=== PATIENT | female | born 1955 | race Two or more races ===

== ENCOUNTER 2019-03-20 17:34 | Inpatient (IN) | payer OTHER ==
[~2019-03-20] VITALS: Ht 157.5 cm; Wt 49.9 kg
[~2019-03-20 17:34] MED LIST: D5W 110ml ONE; D5W 275ml ONE
[2019-03-20 17:45] VITALS: BP 141/71
[2019-03-20] MEDS ORDERED: BACTRIM DS TAB1 EAC1 ORAL (17:53)
[2019-03-20 18:06] LABS: BASOPHILS % (AUTO) 0.5 % (0.0-2.0); EOSINOPHILS % (AUTO) 0.7 % (0.0-3.0); HEMATOCRIT 35.2 % (37.0-47.0); HEMOGLOBIN 11.9 G/DL (12.0-16.0); LYMPHOCYTES % (AUTO) 8.7 % (20.0-45.0); MEAN CORPUSCULAR VOLUME 89 FL (80-99); MONOCYTES % (AUTO) 10.2 % (1.0-10.0); NEUTROPHILS % (AUTO) 79.9 % (45.0-75.0); PLATELET COUNT 342 K/UL (150-450); RED BLOOD COUNT 3.97 M/UL (4.20-5.40); RED CELL DISTRIBUTION WIDTH 10.7 % (11.6-14.8); WHITE BLOOD COUNT 10.6 K/UL (4.8-10.8)
--- NOTE | 2019-03-20 18:08 | Emergency Room Report ---
History of Present Illness General Chief Complaint: Generalized Weakness Source: Patient Present Illness HPI Disclaimer: Please note that this report is being documented using [employer] technology. This can lead to erroneous entry secondary to incorrect interpretation by the dictating instrument. HPI: 63-year-old female with a history of diabetes presents for evaluation of lightheadedness and foot pain. Symptoms have been present for some time though the patient cannot fully quantify. She states the lightheadedness and somewhat vertiginous symptoms started early this morning she is having difficulty ambulating. She has been taking Bactrim for an infection of the left great toe and was hospitalized proximally 1 month ago for diabetic ulcer which she got from a orthotic shoe. She has been compliant with her Bactrim. She denies any abdominal pain, vomiting. She does note worsening redness around the left great toe and worsening pain. She also describes 2 weeks of intermittent bilateral sharp stabbing chest wall pain that resolved after taking NSAIDs. Denies fevers, chills, diarrhea, other skin rash, shortness of breath. She was found to be hypotensive by EMS with pressures in the 80s that were responding to IV fluids. PMH: Diabetes, brain cancer status post surgical resection PSH: Orthopedic surgery on right foot, tumor resection brain Allergies: None Social Hx: Denies alcohol, tobacco or drug use Allergies: Coded Allergies: No Known Allergies (Unverified , 03/20/19) Nursing Documentation-PM Past Medical History: No History, Except For Hx Hypertension: Yes Hx Diabetes: Yes Review of Systems All Other Systems: negative except mentioned in HPI Physical Exam Vital Signs Date Time Temp Pulse Resp B/P (MAP) Pulse Ox O2 Delivery O2 Flow Rate FiO2 03/20/19 17:29 98.4 92 14 87/53 (64) 98 Room Air General: Awake and alert, no acute distress HEENT: NC/AT. EOMI. Neck: Supple, trachea midline Chest Wall: Tenderness to palpation Cardiovascular: RRR. Systolic ejection murmur best heard at the left sternal border Resp: Normal work of breathing. No cough, wheezing or crackles appreciated Abdomen: Abdomen is soft, nondistended. Nontender Skin: The left great toe nail is removed, there is purulent drainage superficially with surrounding erythema that is warm to the touch and tender to palpation. Extends over to the midfoot region. MSK: Normal tone and bulk. Moving all extremities. No obvious deformity. Neuro: Awake and alert. Mentating appropriately. Medical Decision Making ER Course 63-year-old female presents for evaluation of weakness, lightheadedness/vertigo , 2 weeks intermittent chest pain and worsening infection of the left great toe. Laboratory Tests Test 03/20/19 17:25 03/20/19 18:55 White Blood Count 10.6 K/UL (4.8-10.8) Red Blood Count 3.97 M/UL (4.20-5.40) L Hemoglobin 11.9 G/DL (12.0-16.0) L Hematocrit 35.2 % (37.0-47.0) L Mean Corpuscular Volume 89 FL (80-99) Mean Corpuscular Hemoglobin 30.0 PG (27.0-31.0) Mean Corpuscular Hemoglobin Concent 33.9 G/DL (32.0-36.0) Red Cell Distribution Width 10.7 % (11.6-14.8) L Platelet Count 342 K/UL (150-450) Mean Platelet Volume 5.2 FL (6.5-10.1) L Neutrophils (%) (Auto) 79.9 % (45.0-75.0) H Lymphocytes (%) (Auto) 8.7 % (20.0-45.0) L Monocytes (%) (Auto) 10.2 % (1.0-10.0) H Eosinophils (%) (Auto) 0.7 % (0.0-3.0) Basophils (%) (Auto) 0.5 % (0.0-2.0) Sodium Level 128 MMOL/L (136-145) L Potassium Level 4.2 MMOL/L (3.5-5.1) Chloride Level 96 MMOL/L (98-107) L Carbon Dioxide Level 24 MMOL/L (21-32) Anion Gap 8 mmol/L (5-15) Blood Urea Nitrogen 16 mg/dL (7-18) Creatinine 0.7 MG/DL (0.55-1.30) Estimate Glomerular Filtration Rate > 60 mL/min (>60) Glucose Level 371 MG/DL (74-106) H Lactic Acid Level 1.20 mmol/L (0.4-2.0) Calcium Level 8.7 MG/DL (8.5-10.1) Phosphorus Level 2.5 MG/DL (2.5-4.9) Magnesium Level 1.8 MG/DL (1.8-2.4) Total Bilirubin 0.4 MG/DL (0.2-1.0) Aspartate Amino Transferase (AST) 10 U/L (15-37) L Alanine Aminotransferase (ALT) 12 U/L (12-78) Alkaline Phosphatase 103 U/L (46-116) Total Creatine Kinase 26 U/L (26-308) Creatine Kinase MB < 0.5 NG/ML (0.0-3.6) Creatine Kinase MB Relative Index 1.9 Troponin I 0.000 ng/mL (0.000-0.056) Total Protein 7.5 G/DL (6.4-8.2) Albumin 2.6 G/DL (3.4-5.0) L Globulin 4.9 g/dL Albumin/Globulin Ratio 0.5 (1.0-2.7) L Thyroid Stimulating Hormone (TSH) 3.098 uiU/mL (0.358-3.740) Urine Color Pending Urine Appearance Pending Urine pH Pending Urine Specific [place] Pending Urine Protein Pending Urine Glucose (UA) Pending Urine Ketones Pending Urine Blood Pending Urine Nitrite Pending Urine Bilirubin Pending Urine Urobilinogen Pending Urine Leukocyte Esterase Pending EKG Diagnostic Results EKG Time: 17:45 Rate: normal Rhythm: NSR ST Segments: no acute changes Other Impression Borderline sinus tachycardia. Nonischemic. Normal axis, normal intervals. Rhythm Strip Diag. Results Rhythm Strip Time: 17:45 EP Interpretation: yes Rate: 90s Rhythm: NSR Other X-Ray Diagnostic Results Other X-Ray Diagnostic Results : X-Ray ordered: Left foot # of Views/Limited Vs Complete: 3 View Indication: Pain Impression: Other - No subcutaneous gas or evidence of osteomyelitis Electronically Signed by: Electronically signed by Dr. Evans Churchill Last Vital Signs Date Time Temp Pulse Resp B/P (MAP) Pulse Ox O2 Delivery O2 Flow Rate FiO2 03/20/19 17:49 98 18 Room Air 03/20/19 17:45 98.6 141/71 99 Status: unchanged Reevaluation Impression Labs show mild hyponatremia. IV fluids are running. Patient will be admitted for IV antibiotics of left foot cellulitis. She is in stable condition and appropriate for the medical/surgical floor Disposition: ADMITTED INPATIENT Condition: Serious Referrals: H SHORTY VILLEGAS,REFERRING (PCP) Evans Churchill MD Mar 20, 2019 18:08
[2019-03-20 18:13] LABS: ANION GAP 8 mmol/L (5-15); BLOOD UREA NITROGEN 16 mg/dL (7-18); CALCIUM 8.7 MG/DL (8.5-10.1); CARBON DIOXIDE 24 MMOL/L (21-32); CHLORIDE 96 MMOL/L (98-107); CREATININE 0.7 MG/DL (0.55-1.30); POTASSIUM 4.2 MMOL/L (3.5-5.1); SODIUM 128 MMOL/L (136-145)
[2019-03-20] MEDS ORDERED: Vancomycin 1 GM in NS 275 ML IV ONE (18:15)
[2019-03-20 18:27] LABS: ALANINE AMINOTRANSFERASE 12 U/L (12-78); ALBUMIN 2.6 G/DL (3.4-5.0); ALBUMIN/GLOBULIN RATIO 0.5 (1.0-2.7); ALKALINE PHOSPHATASE 103 U/L (46-116); ASPARTATE AMINO TRANSFERASE 10 U/L (15-37); BILIRUBIN,TOTAL 0.4 MG/DL (0.2-1.0); CKMB < 0.5 NG/ML (0.0-3.6); CREATINE KINASE 26 U/L (26-308); PHOSPHORUS 2.5 MG/DL (2.5-4.9)
[2019-03-20] MEDS ORDERED: CEPHALEXIN500 MG ORAL (18:52)
--- NOTE | 2019-03-20 18:55 | Diagnostic Imaging Report ---
EXAM: XR Chest, 1 View CLINICAL HISTORY: WEAK TECHNIQUE: Frontal view of the chest. COMPARISON: No relevant prior studies available. FINDINGS: Lungs: Unremarkable. No consolidation. Pleural space: Unremarkable. No pneumothorax. Heart: Unremarkable. No cardiomegaly. Mediastinum: Aortic calcification. Bones/joints: Degenerative changes. IMPRESSION: No evidence of acute pulmonary disease
--- NOTE | 2019-03-20 18:57 | Diagnostic Imaging Report ---
EXAM: XR Left Foot Complete, 3 or More Views CLINICAL HISTORY: OSTEOTOMY TECHNIQUE: Frontal, lateral and oblique views of the left foot. COMPARISON: No relevant prior studies available. FINDINGS: Bones/joints: Mild degenerative spurring at the left first MTP joint as well as the anterior talus/talonavicular joint. Small posterior and plantar calcaneal spurs. No acute fracture. No dislocation. Soft tissues: Extensive arterial calcification. No radiopaque foreign body. IMPRESSION: No acute osseous abnormality
[2019-03-20 19:57] LABS: APPEARANCE,URINE CLEAR; BILIRUBIN, URINE NEGATIVE (NEGATIVE); COLOR,URINE PALE YELLOW; GLUCOSE, URINE (UA) 4+ (NEGATIVE); KETONES,URINE 3+ (NEGATIVE); LEUKOCYTE ESTERASE ,URINE NEGATIVE (NEGATIVE); NITRITE,URINE NEGATIVE (NEGATIVE); PH,URINE 7 (4.5-8.0); PROTEIN,URINE 1+ (NEGATIVE); UROBILINOGEN,URINE 1 MG/DL (0.0-1.0)
[2019-03-20 21:00] VITALS: BP 114/67
[2019-03-21] VITALS: BP 101/64
[2019-03-21] MEDS: NovoLOG Insulin Flexpen SUBQ SCH ×5 (01:06→20:57)
[2019-03-21] MEDS: Cefepime HCl 1 GM in D5W 55 ML IVPB SCH ×2 (02:42→15:02)
[2019-03-21 04:00] VITALS: BP 104/54
[2019-03-21] MEDS: Vancomycin 500mg/D5W 110ml IVPB SCH ×4 (06:39→17:41)
[2019-03-21 08:00] VITALS: BP 100/76
[2019-03-21 12:00] VITALS: BP 132/50
--- NOTE | 2019-03-21 12:36 | Consultation ---
History of Present Illness General Reason for Hospitalization: Generalized Weakness Present Illness HPI 63-year-old female with a history of diabetes presents for evaluation of lightheadedness and foot pain. Symptoms have been present for some time. She states the lightheadedness and somewhat vertiginous symptoms started early this morning she is having difficulty ambulating. She has been taking Bactrim for an infection of the left great toe and was hospitalized proximally 1 month ago for diabetic ulcer which she got from a orthotic shoe. She has been compliant with her Bactrim. She denies any abdominal pain, vomiting. She does note worsening redness around the left great toe and worsening pain. Surgery called to evaluate given appearance of wound on left great toe. patient seen, chart reviewed, patient examined. family at bedside to help with history PMH: Diabetes, brain cancer status post surgical resection PSH: Orthopedic surgery on right foot, tumor resection brain Allergies: None Social Hx: Denies alcohol, tobacco or drug use Allergies: Coded Allergies: No Known Allergies (Unverified , 03/20/19) Medication History Scheduled Cephalexin* (Keflex*), 500 MG ORAL EVERY 6 HOURS, (Reported) Trimethoprim/Sulfamethoxazole 160/800* (Bactrim Ds Tablet*), 1 TAB ORAL TWICE A DAY, (Reported) Patient History History Provided By: Patient, Family Member, Medical Record, PMD Healthcare decision maker N Resuscitation status Full Code Advanced Directive on File Past Medical/Surgical History Past Medical/Surgical History: (1) Cellulitis Review of Systems Review of Symptoms General ROS: no weight loss or fever Psychological ROS: no depression or mood changes, no memory loss Ophthalmic ROS: no visual changes or eye irritation ENT ROS: no nasal congestion, hearing loss, dizziness Allergy and Immunology ROS: no allergic symptoms or urticaria Hematological and Lymphatic ROS: no swollen glands, unusual bleeding or bruising Endocrine ROS: no polyuria, polydipsia, weight changes, temperature intolerance Respiratory ROS: no cough, shortness of breath, or wheezing Cardiovascular ROS: no chest pain or dyspnea on exertion Gastrointestinal ROS: denies abdominal pain, no bright red blood in stool. Musculoskeletal ROS: no myalgias or arthralgias Neurological ROS: no TIA or stroke symptoms Dermatological ROS: no new or changing skin lesions, rashes or pruritis Physical Exam Physical Exam General appearance: alert, cooperative, no distress, appears stated age Head: Normocephalic, without obvious abnormality, atraumatic Eyes: conjunctivae/corneas clear. PERRL, EOM's intact. Fundi benign Throat: Lips, mucosa, and tongue normal. Teeth and gums normal Neck: supple, symmetrical, trachea midline, no adenopathy, thyroid: not enlarged, symmetric, no tenderness/mass/nodules, no carotid bruit and no JVD Lungs: clear to auscultation bilaterally Heart: regular rate and rhythm, S1, S2 normal, no murmur, click, rub or gallop Abdomen: soft, non-tender. Bowel sounds normal. No masses, no organomegaly Extremities: extremities normal, atraumatic, no cyanosis or edema Pulses: 2+ and symmetric Skin: Skin color, texture, turgor normal. No rashes or lesions Neurologic: Grossly normal Last 24 Hour Vital Signs Date Time Temp Pulse Resp B/P (MAP) Pulse Ox O2 Delivery O2 Flow Rate FiO2 03/21/19 12:00 99.3 83 18 132/50 (77) 94 03/21/19 09:00 Room Air 03/21/19 08:00 98.7 83 16 100/76 (84) 96 03/21/19 04:00 98.3 77 20 104/54 (71) 97 03/21/19 00:00 98.1 77 18 101/64 (76) 96 03/20/19 23:41 Room Air 03/20/19 21:00 98.4 85 24 114/67 (83) 97 03/20/19 20:41 98.6 85 20 121/65 98 Room Air 85 03/20/19 17:49 98 18 Room Air 03/20/19 17:45 98.6 98 19 141/71 99 Room Air 03/20/19 17:29 98.4 92 14 87/53 (64) 98 Room Air Intake and Output 03/20/19 03/21/19 19:00 07:00 Intake Total 0 ml 200 ml Balance 0 ml 200 ml Intake Oral 0 ml 90 ml IV Total 110 ml Laboratory Tests Test 03/20/19 17:25 03/20/19 18:55 White Blood Count 10.6 K/UL (4.8-10.8) Red Blood Count 3.97 M/UL (4.20-5.40) L Hemoglobin 11.9 G/DL (12.0-16.0) L Hematocrit 35.2 % (37.0-47.0) L Mean Corpuscular Volume 89 FL (80-99) Mean Corpuscular Hemoglobin 30.0 PG (27.0-31.0) Mean Corpuscular Hemoglobin Concent 33.9 G/DL (32.0-36.0) Red Cell Distribution Width 10.7 % (11.6-14.8) L Platelet Count 342 K/UL (150-450) Mean Platelet Volume 5.2 FL (6.5-10.1) L Neutrophils (%) (Auto) 79.9 % (45.0-75.0) H Lymphocytes (%) (Auto) 8.7 % (20.0-45.0) L Monocytes (%) (Auto) 10.2 % (1.0-10.0) H Eosinophils (%) (Auto) 0.7 % (0.0-3.0) Basophils (%) (Auto) 0.5 % (0.0-2.0) Sodium Level 128 MMOL/L (136-145) L Potassium Level 4.2 MMOL/L (3.5-5.1) Chloride Level 96 MMOL/L (98-107) L Carbon Dioxide Level 24 MMOL/L (21-32) Anion Gap 8 mmol/L (5-15) Blood Urea Nitrogen 16 mg/dL (7-18) Creatinine 0.7 MG/DL (0.55-1.30) Estimat Glomerular Filtration Rate > 60 mL/min (>60) Glucose Level 371 MG/DL (74-106) H Lactic Acid Level 1.20 mmol/L (0.4-2.0) Calcium Level 8.7 MG/DL (8.5-10.1) Phosphorus Level 2.5 MG/DL (2.5-4.9) Magnesium Level 1.8 MG/DL (1.8-2.4) Total Bilirubin 0.4 MG/DL (0.2-1.0) Aspartate Amino Transf (AST/SGOT) 10 U/L (15-37) L Alanine Aminotransferase (ALT/SGPT) 12 U/L (12-78) Alkaline Phosphatase 103 U/L (46-116) Total Creatine Kinase 26 U/L (26-308) Creatine Kinase MB < 0.5 NG/ML (0.0-3.6) Creatine Kinase MB Relative Index 1.9 Troponin I 0.000 ng/mL (0.000-0.056) Total Protein 7.5 G/DL (6.4-8.2) Albumin 2.6 G/DL (3.4-5.0) L Globulin 4.9 g/dL Albumin/Globulin Ratio 0.5 (1.0-2.7) L Thyroid Stimulating Hormone (TSH) 3.098 uiU/mL (0.358-3.740) Urine Color Pale yellow Urine Appearance Clear Urine pH 7 (4.5-8.0) Urine Specific [place] 1.005 (1.005-1.035) Urine Protein 1+ (NEGATIVE) H Urine Glucose (UA) 4+ (NEGATIVE) H Urine Ketones 3+ (NEGATIVE) H Urine Blood Negative (NEGATIVE) Urine Nitrite Negative (NEGATIVE) Urine Bilirubin Negative (NEGATIVE) Urine Urobilinogen 1 MG/DL (0.0-1.0) H Urine Leukocyte Esterase Negative (NEGATIVE) Urine RBC 0-2 /HPF (0 - 2) Urine WBC 0-2 /HPF (0 - 2) Urine Squamous Epithelial Cells Occasional /LPF Urine Bacteria Occasional /HPF (NONE) Height (Feet): 5 Height (Inches): 2.00 Weight (Pounds): 145 Medications Current Medications Medications (Trade) Dose Ordered Sig/Arnoldo Route PRN Reason Start Time Stop Time Status Last Admin Dose Admin Cefepime HCl 1 gm/ Dextrose 55 ml @ 110 mls/hr Q12HR@0200,1400 IVPB 03/21/19 02:00 03/28/19 01:59 03/21/19 02:42 Dextrose (Dextrose 50%) 25 ml Q30M PRN IV Hypoglycemia 03/20/19 23:15 04/19/19 23:14 Dextrose (Dextrose 50%) 50 ml Q30M PRN IV Hypoglycemia 03/20/19 23:15 04/19/19 23:14 Insulin Aspart (NovoLOG) BEFORE MEALS AND HS SUBQ 03/21/19 00:30 04/20/19 00:29 03/21/19 12:08 Vancomycin HCl (Vanco rx to dose) 1 ea DAILY PRN MISC Per rx protocol 03/21/19 00:45 04/20/19 00:44 Vancomycin HCl 500 mg/Dextrose 110 ml @ 110 mls/hr Q12HR@0600,1800 IVPB 03/21/19 06:00 03/26/19 05:59 03/21/19 06:39 Assessment/Plan Problem List: (1) Cellulitis Assessment & Plan: Left great toe with cellulitis, skin breakdown, ischemia, foul odor, and likely acute on chronic infection. patient does not have any sensation in toes and unaware of open wound recently worse as per family and was at [facility] where she was given abx and improved recommend MRI of left foot as concerns for osteo may need amputation of left great toe IV abx as per ID was wound daily and apply Xeroform and gauze dressing. will follow with recs thank you ICD Codes: L03.90 - Cellulitis, unspecified SNOMED: [id number] Qualifiers: Qualified Codes: L03.032 - Cellulitis of left toe Jules Jeff Mar 21, 2019 12:36
[2019-03-21] MEDS ORDERED: Gadavist 7.5mMol/7.5ml vial IV PRN (12:45)
[2019-03-21] MEDS: metFORMIN 500mg tab ORAL SCH (15:34)
[2019-03-21 15:48] VITALS: BP 144/77
[2019-03-21 20:00] VITALS: BP 124/71
--- NOTE | 2019-03-21 20:00 | Progress Note ---
DATE: 03/21/2019 INTERNAL MEDICINE PROGRESS NOTE SUBJECTIVE: The patient was seen with daughter at bedside. Severity of left foot infection discussed and the possibility of future amputation was reviewed as well. The patient's pain is still present on her foot. She is on antimicrobials. Her blood pressure parameters have stabilized. OBJECTIVE: VITAL SIGNS: Blood pressure 121/65, pulse 85, respiratory rate 20. LUNGS: Clear. CARDIAC: Regular. ABDOMEN: Soft. EXTREMITIES: No edema. Left first toe is swollen, red, warm, draining, and dusky. IMPRESSION: 1. Cellulitis and abscess of left great toe, possible osteomyelitis, microvascular insufficiency with possible early gangrenous changes. 2. Hyponatremia. 3. Hypovolemia. 4. Hypertension. 5. Type 2 diabetes mellitus, uncontrolled. PLAN: 1. Saline hydration. 2. Antimicrobials. 3. Wound care. 4. Osteomyelitis to be excluded or confirmed by MRI study. 5. Surgical evaluation ongoing. 6. DVT prophylaxis. 7. Noninvasive vascular studies of the lower extremity. 8. Insulin coverage by sliding scale. 9. Initiate metformin therapy. 10. Check A1c and lipid panel. Long Tam JOB#: [id number] CC:
--- NOTE | 2019-03-21 20:45 | History and Physical Report ---
DATE OF ADMISSION: 03/20/2019 REASON FOR ADMISSION: Left first toe infection and possible ischemia. HISTORY OF PRESENT ILLNESS: This is a 63-year-old female with a history of type 2 diabetes mellitus, who has not been on any therapy at home. Her left first toe has been infected, red and painful for several weeks. She apparently was seen at an outside hospital when the symptoms began and was given an orthotic shoe and oral antimicrobials. She initially improved, but apparently has had worsening pain and redness over the past week and came to the emergency room. She also complains of periodic stabbing chest pain that respond to nonsteroidal drugs. The patient has not had any fevers or chills. She does not recall what started the foot discomfort in the beginning. In the emergency room, her initial blood pressure was 87/53 and improved with IV fluids. PAST MEDICAL HISTORY: Diabetes mellitus with possible history of prior surgery as well. MEDICATIONS: Reviewed and reconciled. ALLERGIES: None known. FAMILY HISTORY: Noncontributory. SOCIAL HISTORY: Negative for smoking, alcohol, or substance abuse. REVIEW OF SYSTEMS: A 10-point review of systems performed. All systems negative other than noted above. PHYSICAL EXAMINATION: GENERAL: The patient appears older than stated age, in no acute distress. VITAL SIGNS: Initially blood pressure 87/53, presently 121/65; heart rate 85; respiratory rate 20. Afebrile. HEENT: Conjunctivae pink. Oropharynx clear. NECK: Supple. LUNGS: Clear. CARDIAC: Regular. Normal S1 and S2 with no murmur. ABDOMEN: Soft and nontender. EXTREMITIES: With palpable but diminished distal pulses. No edema. Left first toe is swollen, red and dusky in coloration with some drainage over the nail bed site. LABORATORY AND DIAGNOSTIC DATA: White count 10.6, hemoglobin 11.9. Sodium 128, potassium 4.2, chloride 96, bicarb 24, BUN 16, creatinine 0.7. Glucose 371. Lactic acid 1.2. Troponin negative. Albumin 2.6. TSH is normal. IMPRESSION: 1. Cellulitis and probable abscess of left first toe, possible early gangrenous changes. 2. Microvascular ischemia. 3. Type 2 diabetes mellitus, untreated. 4. Moderate protein-calorie malnutrition. 5. Possible osteomyelitis of left first toe. 6. Hyponatremia. PLAN: 1. Panculture. 2. Empiric antibiotic. 3. Saline hydration. 4. Noninvasive vascular studies. 5. Surgical evaluation. 6. Protein supplement. 7. Insulin coverage by sliding scale. 8. Consideration for further diabetic therapy to follow. 9. PRN antihypertensive drugs. Arcadio Can M.D. DR: Ludmila JOB#: [id number] CC:
[2019-03-21] MEDS: Heparin 5000 units/ml inj SUBQ SCH (20:56)
[2019-03-22] VITALS: BP 99/56
[2019-03-22] MEDS: Cefepime HCl 1 GM in D5W 55 ML IVPB SCH ×2 (02:11→14:02)
[2019-03-22 04:00] VITALS: BP 124/73
[2019-03-22 05:37] LABS: BASOPHILS % (AUTO) 0.9 % (0.0-2.0); EOSINOPHILS % (AUTO) 0.5 % (0.0-3.0); HEMATOCRIT 31.8 % (37.0-47.0); HEMOGLOBIN 10.8 G/DL (12.0-16.0); MEAN CORPUSCULAR VOLUME 88 FL (80-99); MONOCYTES % (AUTO) 11.3 % (1.0-10.0); NEUTROPHILS % (AUTO) 68.3 % (45.0-75.0); PLATELET COUNT 352 K/UL (150-450); RED CELL DISTRIBUTION WIDTH 10.5 % (11.6-14.8); WHITE BLOOD COUNT 9.3 K/UL (4.8-10.8)
[2019-03-22 06:01] LABS: CHOLESTEROL 127 MG/DL (< 200); HDL CHOLESTEROL 27 MG/DL (40-60); TRIGLYCERIDES 76 MG/DL (30-150)
[2019-03-22 06:02] LABS: ALANINE AMINOTRANSFERASE 9 U/L (12-78); ALBUMIN 2.1 G/DL (3.4-5.0); ALBUMIN/GLOBULIN RATIO 0.5 (1.0-2.7); ALKALINE PHOSPHATASE 77 U/L (46-116); ANION GAP 8 mmol/L (5-15); ASPARTATE AMINO TRANSFERASE 9 U/L (15-37); BILIRUBIN,TOTAL 0.3 MG/DL (0.2-1.0); BLOOD UREA NITROGEN 4 mg/dL (7-18); CALCIUM 8.3 MG/DL (8.5-10.1); CARBON DIOXIDE 25 MMOL/L (21-32); CHLORIDE 101 MMOL/L (98-107); CREATININE 0.5 MG/DL (0.55-1.30); POTASSIUM 3.7 MMOL/L (3.5-5.1); SODIUM 134 MMOL/L (136-145)
[2019-03-22 06:12] LABS: INR 0.9 (0.9-1.1)
[2019-03-22] MEDS: Vancomycin 500mg/D5W 110ml IVPB SCH ×2 (06:25)
[2019-03-22] MEDS: metFORMIN 500mg tab ORAL SCH ×3 (06:42→17:05)
[2019-03-22] MEDS: NovoLOG Insulin Flexpen SUBQ SCH ×4 (06:45→20:43)
[2019-03-22 08:00] VITALS: BP 93/56
[2019-03-22] MEDS ORDERED: Vancomycin 500mg/D5W 110ml IVPB SCH ×2 (08:30)
[2019-03-22] MEDS: Heparin 5000 units/ml inj SUBQ SCH ×2 (08:51→20:41)
[2019-03-22 12:00] VITALS: BP 135/75
--- NOTE | 2019-03-22 12:52 | Cardiology Report ---
APPROVED REPORT EKG Measurement Heart [id number] Normal sinus rhythm Normal ECG
--- NOTE | 2019-03-22 14:09 | Surgery Progress Note ---
Surgery Progress Note Subjective Additional Comments no acute events pain in toe today esr elevated labs noted pending MRI Objective Last 24 Hour Vital Signs Date Time Temp Pulse Resp B/P (MAP) Pulse Ox O2 Delivery O2 Flow Rate FiO2 03/22/19 12:00 98.8 89 18 135/75 (95) 98 03/22/19 09:00 Room Air 03/22/19 08:00 98.3 90 18 93/56 (68) 97 03/22/19 04:00 99.0 89 18 124/73 (90) 95 03/22/19 00:00 99.1 86 18 99/56 (70) 98 03/21/19 21:00 Room Air 03/21/19 20:00 99.4 94 18 124/71 (88) 98 03/21/19 15:48 99.0 90 16 144/77 (99) 98 I&O Intake and Output 03/21/19 03/22/19 19:00 07:00 Intake Total 845 ml 1110 ml Balance 845 ml 1110 ml Intake Oral 480 ml IV Total 365 ml 1110 ml # Voids 3 Dressing: saturated Wound: other Drains: other Cardiovascular: RSR Respiratory: clear Abdomen: soft, flat, non-tender, present bowel sounds, non-distended Extremities: edema, tenderness, other Laboratory Tests Test 03/22/19 05:00 White Blood Count 9.3 K/UL (4.8-10.8) Red Blood Count 3.60 M/UL (4.20-5.40) L Hemoglobin 10.8 G/DL (12.0-16.0) L Hematocrit 31.8 % (37.0-47.0) L Mean Corpuscular Volume 88 FL (80-99) Mean Corpuscular Hemoglobin 30.1 PG (27.0-31.0) Mean Corpuscular Hemoglobin Concent 34.0 G/DL (32.0-36.0) Red Cell Distribution Width 10.5 % (11.6-14.8) L Platelet Count 352 K/UL (150-450) Mean Platelet Volume 5.4 FL (6.5-10.1) L Neutrophils (%) (Auto) 68.3 % (45.0-75.0) Lymphocytes (%) (Auto) 19.0 % (20.0-45.0) L Monocytes (%) (Auto) 11.3 % (1.0-10.0) H Eosinophils (%) (Auto) 0.5 % (0.0-3.0) Basophils (%) (Auto) 0.9 % (0.0-2.0) Erythrocyte Sedimentation Rate 112 MM/HR (0-30) H Prothrombin Time 9.9 SEC (9.30-11.50) Prothromb Time International Ratio 0.9 (0.9-1.1) Activated Partial Thromboplast Time 35 SEC (23-33) H Sodium Level 134 MMOL/L (136-145) L Potassium Level 3.7 MMOL/L (3.5-5.1) Chloride Level 101 MMOL/L (98-107) Carbon Dioxide Level 25 MMOL/L (21-32) Anion Gap 8 mmol/L (5-15) Blood Urea Nitrogen 4 mg/dL (7-18) L Creatinine 0.5 MG/DL (0.55-1.30) L Estimat Glomerular Filtration Rate > 60 mL/min (>60) Glucose Level 271 MG/DL (74-106) #H Hemoglobin A1c 14.6 % (4.3-6.0) H Calcium Level 8.3 MG/DL (8.5-10.1) L Total Bilirubin 0.3 MG/DL (0.2-1.0) Aspartate Amino Transf (AST/SGOT) 9 U/L (15-37) L Alanine Aminotransferase (ALT/SGPT) 9 U/L (12-78) L Alkaline Phosphatase 77 U/L (46-116) C-Reactive Protein, Quantitative 14.4 mg/dL (0.00-0.90) H Total Protein 6.5 G/DL (6.4-8.2) Albumin 2.1 G/DL (3.4-5.0) L Globulin 4.4 g/dL Albumin/Globulin Ratio 0.5 (1.0-2.7) L Triglycerides Level 76 MG/DL (30-150) Cholesterol Level 127 MG/DL (< 200) LDL Cholesterol 80 mg/dL (<100) HDL Cholesterol 27 MG/DL (40-60) L Cholesterol/HDL Ratio 4.7 (3.3-4.4) H Vancomycin Level Trough 3.0 ug/mL (5.0-12.0) L Plan Problems: (1) Cellulitis Assessment & Plan: Left great toe with cellulitis, skin breakdown, ischemia, foul odor, and likely acute on chronic infection. patient does not have any sensation in toes and unaware of open wound recently worse as per family and was at [facility] where she was given abx and improved recommend MRI of left foot as concerns for osteo - pending may need amputation of left great toe IV abx as per ID was wound daily and apply Xeroform and gauze dressing. will follow with recs thank you Jules Jeff Mar 22, 2019 14:09
[2019-03-22] MEDS ORDERED: Milk of Magnesia 30ml Ud ORAL PRN (14:30)
[2019-03-22 16:00] VITALS: BP 123/73
[2019-03-22] MEDS: Docusate 100mg tablet ORAL SCH (17:05)
[2019-03-22] MEDS: Vancomycin 1gm/D5W 275ml IVPB SCH ×2 (17:05)
[2019-03-22 20:00] VITALS: BP_SYST 104; BP_SYST 151; BP_DIAS 53; BP_DIAS 67
[2019-03-22] MEDS: Levemir Flexpen SUBQ SCH (20:42)
[2019-03-23] VITALS: BP 100/60
[2019-03-23] MEDS: Cefepime HCl 1 GM in D5W 55 ML IVPB SCH ×2 (01:58→14:19)
[2019-03-23 04:00] VITALS: BP 107/63
[2019-03-23] MEDS: Vancomycin 1gm/D5W 275ml IVPB SCH ×4 (05:39→17:23)
[2019-03-23] MEDS: metFORMIN 500mg tab ORAL SCH ×3 (06:06→17:24)
[2019-03-23] MEDS: NovoLOG Insulin Flexpen SUBQ SCH ×4 (06:06→21:11)
[2019-03-23 08:00] VITALS: BP 95/51
[2019-03-23] MEDS: Heparin 5000 units/ml inj SUBQ SCH ×2 (09:00→21:10)
[2019-03-23] MEDS: Docusate 100mg tablet ORAL SCH ×2 (09:00→17:24)
[2019-03-23 12:00] VITALS: BP 139/77
--- NOTE | 2019-03-23 15:27 | Surgery Progress Note ---
Surgery Progress Note Subjective Additional Comments no acute events comfortable stable. family at bedside MRI done pending results Objective Last 24 Hour Vital Signs Date Time Temp Pulse Resp B/P (MAP) Pulse Ox O2 Delivery O2 Flow Rate FiO2 03/23/19 12:00 102.7 109 19 139/77 (97) 93 03/23/19 11:40 102.7 03/23/19 11:00 100.9 03/23/19 09:00 Room Air 03/23/19 08:00 98.5 84 18 95/51 (66) 03/23/19 04:00 100.5 90 20 107/63 (78) 03/23/19 00:00 99.1 81 18 100/60 (73) 03/22/19 21:26 Room Air 03/22/19 20:00 98.1 72 18 104/67 (79) 03/22/19 17:23 99.1 03/22/19 16:00 100.0 99 20 123/73 (90) 100 I&O Intake and Output 03/22/19 03/23/19 19:00 07:00 Intake Total 1618.708 ml 683.708 ml Balance 1618.708 ml 683.708 ml Intake Oral 360 ml IV Total 1258.708 ml 683.708 ml # Voids 2 Dressing: saturated Wound: other Drains: other Cardiovascular: RSR Respiratory: clear Abdomen: soft, non-tender, present bowel sounds Extremities: edema, tenderness, cyanosis, other Plan Problems: (1) Cellulitis Assessment & Plan: Left great toe with cellulitis, skin breakdown, ischemia, foul odor, and likely acute on chronic infection. patient does not have any sensation in toes and unaware of open wound recently worse as per family and was at [facility] where she was given abx and improved recommend MRI of left foot as concerns for osteo - pending may need amputation of left great toe IV abx as per ID was wound daily and apply Xeroform and gauze dressing. will follow with recs thank you Jules Jeff Mar 23, 2019 15:27
[2019-03-23 15:54] VITALS: BP 110/62
[2019-03-23 20:00] VITALS: BP 157/68
[2019-03-23] MEDS: Levemir Flexpen SUBQ SCH (21:12)
[2019-03-24] VITALS: BP 106/65
[2019-03-24] MEDS ORDERED: Levemir Flexpen SUBQ ONE (02:00)
[2019-03-24] MEDS: Cefepime HCl 1 GM in D5W 55 ML IVPB SCH ×2 (02:18→13:42)
[2019-03-24 04:00] VITALS: BP 99/55
[2019-03-24] MEDS: metFORMIN 500mg tab ORAL SCH ×3 (06:19→16:47)
[2019-03-24] MEDS: Vancomycin 1gm/D5W 275ml IVPB SCH ×4 (06:20→17:33)
[2019-03-24] MEDS: NovoLOG Insulin Flexpen SUBQ SCH ×4 (06:36→21:14)
[2019-03-24 07:16] LABS: HEMATOCRIT 30.5 % (37.0-47.0); HEMOGLOBIN 10.6 G/DL (12.0-16.0); MEAN CORPUSCULAR VOLUME 87 FL (80-99); PLATELET COUNT 356 K/UL (150-450); RED BLOOD COUNT 3.49 M/UL (4.20-5.40); RED CELL DISTRIBUTION WIDTH 10.8 % (11.6-14.8); WHITE BLOOD COUNT 19.1 K/UL (4.8-10.8)
[2019-03-24 07:31] LABS: ALANINE AMINOTRANSFERASE 11 U/L (12-78); ALBUMIN 1.9 G/DL (3.4-5.0); ALBUMIN/GLOBULIN RATIO 0.4 (1.0-2.7); ALKALINE PHOSPHATASE 74 U/L (46-116); ANION GAP 9 mmol/L (5-15); ASPARTATE AMINO TRANSFERASE 13 U/L (15-37); BILIRUBIN,TOTAL 0.3 MG/DL (0.2-1.0); BLOOD UREA NITROGEN 6 mg/dL (7-18); CALCIUM 8.3 MG/DL (8.5-10.1); CARBON DIOXIDE 26 MMOL/L (21-32); CHLORIDE 101 MMOL/L (98-107); CREATININE 0.6 MG/DL (0.55-1.30); POTASSIUM 3.1 MMOL/L (3.5-5.1); SODIUM 136 MMOL/L (136-145)
[2019-03-24 08:00] VITALS: BP 107/58
[2019-03-24] MEDS: Docusate 100mg tablet ORAL SCH ×2 (08:24→17:34)
[2019-03-24] MEDS: Heparin 5000 units/ml inj SUBQ SCH ×2 (08:24→21:16)
--- NOTE | 2019-03-24 10:44 | Diagnostic Imaging Report ---
Indication: Great toe pain and swelling Technique: Left foot imaging utilizing multiplanar T1 fast spin-echo, proton and T2 fast spin-echo with fat saturation, and STIR. Comparison: None Findings: Abnormal bone marrow edema demonstrated within the proximal and distal phalanges of the first toe. This signal abnormality is characterized by low T1 and high T2 signal. There is heterogeneity and loss of the cortical bony signal suggestive of cortical destruction which may be obvious by plain x-ray. There is soft tissue swelling present and suggestion of ulceration as well along the medial part of the toe. The head of the first metatarsal is essentially normal in signal with the exception of some mild periarticular edema which may be reactive. The sesamoids are normal in signal. The other osseous structures on this examination which is essentially from the midfoot through the forefoot appear normal. IMPRESSION: Acute osteomyelitis involving the hallux as described above
[2019-03-24 12:00] VITALS: BP 127/64
--- NOTE | 2019-03-24 13:30 | Surgery Progress Note ---
Surgery Progress Note Subjective Additional Comments no acute events comfortable MRI results noted and discussed with patient arterial studies noted Objective Last 24 Hour Vital Signs Date Time Temp Pulse Resp B/P (MAP) Pulse Ox O2 Delivery O2 Flow Rate FiO2 03/24/19 12:09 100.6 03/24/19 12:00 100.6 100 18 127/64 (85) 96 03/24/19 09:00 Room Air 03/24/19 08:00 98.1 84 18 107/58 (74) 97 03/24/19 04:00 99.7 94 18 99/55 (70) 98 03/24/19 00:00 99.2 65 18 106/65 (79) 95 03/23/19 21:00 Room Air 03/23/19 20:00 101.3 102 18 157/68 (97) 97 03/23/19 15:54 99.8 94 18 110/62 (78) 99 I&O Intake and Output 03/23/19 03/24/19 19:00 07:00 Intake Total 560 ml 510 ml Balance 560 ml 510 ml IV Total 510 ml Other 560 ml # Voids 3 Dressing: saturated Wound: other Drains: other Cardiovascular: RSR Respiratory: clear Abdomen: soft, flat, non-tender, present bowel sounds, non-distended Extremities: edema, tenderness, no cyanosis, pulses Laboratory Tests Test 03/23/19 17:15 03/24/19 06:30 Vancomycin Level Trough 10.7 ug/mL (5.0-12.0) White Blood Count 19.1 K/UL (4.8-10.8) H Red Blood Count 3.49 M/UL (4.20-5.40) L Hemoglobin 10.6 G/DL (12.0-16.0) L Hematocrit 30.5 % (37.0-47.0) L Mean Corpuscular Volume 87 FL (80-99) Mean Corpuscular Hemoglobin 30.4 PG (27.0-31.0) Mean Corpuscular Hemoglobin Concent 34.7 G/DL (32.0-36.0) Red Cell Distribution Width 10.8 % (11.6-14.8) L Platelet Count 356 K/UL (150-450) Mean Platelet Volume 5.0 FL (6.5-10.1) L Neutrophils (%) (Auto) % (45.0-75.0) Lymphocytes (%) (Auto) % (20.0-45.0) Monocytes (%) (Auto) % (1.0-10.0) Eosinophils (%) (Auto) % (0.0-3.0) Basophils (%) (Auto) % (0.0-2.0) Differential Total Cells Counted 100 Neutrophils % (Manual) 85 % (45-75) H Lymphocytes % (Manual) 8 % (20-45) L Monocytes % (Manual) 7 % (1-10) Eosinophils % (Manual) 0 % (0-3) Basophils % (Manual) 0 % (0-2) Band Neutrophils 0 % (0-8) Platelet Estimate Adequate Platelet Morphology Normal Erythrocyte Sedimentation Rate 113 MM/HR (0-30) H Sodium Level 136 MMOL/L (136-145) Potassium Level 3.1 MMOL/L (3.5-5.1) L Chloride Level 101 MMOL/L (98-107) Carbon Dioxide Level 26 MMOL/L (21-32) Anion Gap 9 mmol/L (5-15) Blood Urea Nitrogen 6 mg/dL (7-18) L Creatinine 0.6 MG/DL (0.55-1.30) Estimat Glomerular Filtration Rate > 60 mL/min (>60) Glucose Level 141 MG/DL (74-106) H Calcium Level 8.3 MG/DL (8.5-10.1) L Total Bilirubin 0.3 MG/DL (0.2-1.0) Aspartate Amino Transf (AST/SGOT) 13 U/L (15-37) L Alanine Aminotransferase (ALT/SGPT) 11 U/L (12-78) L Alkaline Phosphatase 74 U/L (46-116) C-Reactive Protein, Quantitative 27.6 mg/dL (0.00-0.90) H Total Protein 6.4 G/DL (6.4-8.2) Albumin 1.9 G/DL (3.4-5.0) L Globulin 4.5 g/dL Albumin/Globulin Ratio 0.4 (1.0-2.7) L Plan Problems: (1) Cellulitis Assessment & Plan: Left great toe with cellulitis, skin breakdown, ischemia, foul odor, and likely acute on chronic infection. patient does not have any sensation in toes and unaware of open wound recently worse as per family and was at [facility] where she was given abx and improved MRI with acute osteo arterial studies with okay flow will need amputation of left great toe -podiatry eval for amputation IV abx as per ID was wound daily and apply Xeroform and gauze dressing. will follow with recs thank you Jules Jeff Mar 24, 2019 13:30
[2019-03-24 16:00] VITALS: BP 115/60
--- NOTE | 2019-03-24 16:56 | Progress Note ---
DATE: 03/23/2019 INTERNAL MEDICINE PROGRESS NOTE SUBJECTIVE: MRI is pending. The patient has episodic fevers and pain of the left toe. Surgical followup appreciated. OBJECTIVE: VITAL SIGNS: Blood pressure 95/51 to 139/77, heart rate 84 to 109, respiratory rate 18 to 20, and temperature 102.7. LUNGS: Clear. CARDIAC: Regular. Normal S1 and S2. ABDOMEN: Soft. EXTREMITIES: No edema. Left first toe still with ischemia and foul odor as well as erythema and warmth. IMPRESSION: 1. Possible osteomyelitis. 2. Diabetes mellitus, poorly controlled. PLAN: 1. Antimicrobials. Await MRI. Await vascular studies. Continue wound care. 2. May need amputation. Family made aware. 3. Titrate diabetic regimen. Arcadio Can M.D. DR: ALICIA JOB#: [id number] CC:
[2019-03-24 20:00] VITALS: BP 120/61
[2019-03-24] MEDS: Levemir Flexpen SUBQ SCH (21:12)
[2019-03-24] MEDS: metroNIDAZOLE 500mg tab ORAL SCH (21:17)
[2019-03-25 00:30] VITALS: BP 97/48
[2019-03-25] MEDS: Cefepime HCl 1 GM in D5W 55 ML IVPB SCH ×2 (01:39→14:01)
--- NOTE | 2019-03-25 03:15 | Progress Note ---
DATE: 03/24/2019 INTERNAL MEDICINE PROGRESS NOTE SUBJECTIVE: The patient continues to have fevers and pain of her left first toe. MRI is positive for osteomyelitis. Vascular study revealed adequate proximal flow. OBJECTIVE: VITAL SIGNS: Temperature 101.5 max, blood pressure 120/61, pulse 99, and respiratory rate 18. LUNGS: Clear. CARDIAC: Regular. ABDOMEN: Soft. EXTREMITIES: No edema. The patient has had 2 loose stools today. IMPRESSION: 1. Osteomyelitis. 2. Loose bowel movements, on antimicrobials, rule out Clostridium difficile. 3. Type 2 diabetes mellitus with poor control prior to admission. 4. Leukocytosis. 5. Hypokalemia. 6. Severe protein-calorie malnutrition. PLAN: 1. Continue antimicrobials. 2. Check stool for Clostridium difficile. Add Flagyl. 3. Continue intravenous vancomycin and cefepime. 4. Infectious Disease consultation. 5. Potassium replacement. 6. Recheck magnesium. 7. Titrate insulin regimen. Arcadio Can M.D. DR: ALICIA JOB#: [id number] CC:
[2019-03-25 04:00] VITALS: BP 114/56
[2019-03-25] MEDS: metroNIDAZOLE 500mg tab ORAL SCH ×3 (06:13→21:26)
[2019-03-25] MEDS: metFORMIN 500mg tab ORAL SCH ×3 (06:13→16:40)
[2019-03-25] MEDS: Vancomycin 1gm/D5W 275ml IVPB SCH ×4 (06:14→18:18)
[2019-03-25] MEDS: NovoLOG Insulin Flexpen SUBQ SCH ×4 (06:18→21:28)
[2019-03-25 07:02] LABS: HEMATOCRIT 30.7 % (37.0-47.0); HEMOGLOBIN 10.3 G/DL (12.0-16.0); MEAN CORPUSCULAR VOLUME 89 FL (80-99); PLATELET COUNT 382 K/UL (150-450); RED BLOOD COUNT 3.43 M/UL (4.20-5.40); RED CELL DISTRIBUTION WIDTH 11.1 % (11.6-14.8); WHITE BLOOD COUNT 18.9 K/UL (4.8-10.8)
[2019-03-25 07:40] LABS: ANION GAP 11 mmol/L (5-15); BLOOD UREA NITROGEN 9 mg/dL (7-18); CALCIUM 8.2 MG/DL (8.5-10.1); CARBON DIOXIDE 22 MMOL/L (21-32); CHLORIDE 103 MMOL/L (98-107); CREATININE 0.9 MG/DL (0.55-1.30); POTASSIUM 3.6 MMOL/L (3.5-5.1); SODIUM 136 MMOL/L (136-145)
[2019-03-25 08:00] VITALS: BP 118/60
[2019-03-25] MEDS: Heparin 5000 units/ml inj SUBQ SCH ×2 (08:19→21:27)
[2019-03-25] MEDS: Docusate 100mg tablet ORAL SCH ×2 (09:00→18:00)
[2019-03-25 12:00] VITALS: BP 118/77
--- NOTE | 2019-03-25 15:18 | Surgery Progress Note ---
Surgery Progress Note Subjective Additional Comments no acute events states pain in toe at times leukocytosis slightly improved on abx Objective Last 24 Hour Vital Signs Date Time Temp Pulse Resp B/P (MAP) Pulse Ox O2 Delivery O2 Flow Rate FiO2 03/25/19 12:00 98.9 90 18 118/77 (91) 97 03/25/19 09:00 Room Air 03/25/19 08:00 98.8 94 18 118/60 (79) 98 03/25/19 04:00 99.9 98 18 114/56 (75) 97 03/25/19 00:30 97.3 83 18 97/48 (64) 96 03/24/19 21:47 97.3 03/24/19 21:00 Room Air 03/24/19 20:00 101.5 99 18 120/61 (80) 96 03/24/19 16:00 100.3 93 18 115/60 (78) 96 I&O Intake and Output 03/24/19 03/25/19 19:00 07:00 Intake Total 1632.416 ml 355 ml Balance 1632.416 ml 355 ml Intake Oral 360 ml IV Total 1272.416 ml 355 ml # Voids 5 2 # Bowel Movements 2 2 Dressing: saturated Wound: other Drains: other Cardiovascular: RSR Respiratory: clear Abdomen: soft, present bowel sounds, non-distended Extremities: edema, tenderness, no cyanosis, other Laboratory Tests Test 03/25/19 06:14 White Blood Count 18.9 K/UL (4.8-10.8) H Red Blood Count 3.43 M/UL (4.20-5.40) L Hemoglobin 10.3 G/DL (12.0-16.0) L Hematocrit 30.7 % (37.0-47.0) L Mean Corpuscular Volume 89 FL (80-99) Mean Corpuscular Hemoglobin 30.1 PG (27.0-31.0) Mean Corpuscular Hemoglobin Concent 33.7 G/DL (32.0-36.0) Red Cell Distribution Width 11.1 % (11.6-14.8) L Platelet Count 382 K/UL (150-450) Mean Platelet Volume 4.6 FL (6.5-10.1) L Neutrophils (%) (Auto) % (45.0-75.0) Lymphocytes (%) (Auto) % (20.0-45.0) Monocytes (%) (Auto) % (1.0-10.0) Eosinophils (%) (Auto) % (0.0-3.0) Basophils (%) (Auto) % (0.0-2.0) Differential Total Cells Counted 100 Neutrophils % (Manual) 88 % (45-75) H Lymphocytes % (Manual) 5 % (20-45) L Monocytes % (Manual) 7 % (1-10) Eosinophils % (Manual) 0 % (0-3) Basophils % (Manual) 0 % (0-2) Band Neutrophils 0 % (0-8) Platelet Estimate Adequate Platelet Morphology Normal Prothrombin Time 10.6 SEC (9.30-11.50) Prothromb Time International Ratio 1.0 (0.9-1.1) Activated Partial Thromboplast Time 40 SEC (23-33) H Sodium Level 136 MMOL/L (136-145) Potassium Level 3.6 MMOL/L (3.5-5.1) Chloride Level 103 MMOL/L (98-107) Carbon Dioxide Level 22 MMOL/L (21-32) Anion Gap 11 mmol/L (5-15) Blood Urea Nitrogen 9 mg/dL (7-18) Creatinine 0.9 MG/DL (0.55-1.30) Estimat Glomerular Filtration Rate > 60 mL/min (>60) Glucose Level 225 MG/DL (74-106) H Calcium Level 8.2 MG/DL (8.5-10.1) L Magnesium Level 1.5 MG/DL (1.8-2.4) L Pro-B-Type Natriuretic Peptide 1081 pg/mL (0-125) H Plan Problems: (1) Cellulitis Assessment & Plan: Left great toe with cellulitis, skin breakdown, ischemia, foul odor, and likely acute on chronic infection. patient does not have any sensation in toes and unaware of open wound recently worse as per family and was at [facility] where she was given abx and improved MRI with acute osteo arterial studies with okay flow may need amputation of left great toe -podiatry eval for amputation IV abx as per ID was wound daily and apply Xeroform and gauze dressing. will follow with recs thank you Jules Jeff Mar 25, 2019 15:18
[2019-03-25 16:00] VITALS: BP 122/67
--- NOTE | 2019-03-25 17:30 | Consultation ---
DATE OF CONSULTATION: 03/25/2019 INFECTIOUS DISEASES CONSULTATION CONSULTING PHYSICIAN: Benita Vaughan M.D. REFERRING PHYSICIAN: Arcadio Can M.D. REASON FOR CONSULTATION: Left foot osteomyelitis. HISTORY OF PRESENTING ILLNESS: This is a 63-year-old lady with history of diabetes, who came in because her left first toe became red, painful, and swollen. There is a concern for osteomyelitis and an Infectious Diseases consultation has been obtained for antibiotics. PAST MEDICAL HISTORY: History of diabetes. MEDICATIONS: As an inpatient, the patient is on Zofran, Flagyl, insulin, vancomycin, docusate, metformin, milk of magnesia, Tylenol, subcutaneous heparin, gadobutrol, and cefepime. ALLERGIES: No known drug allergies. SOCIAL HISTORY: No history of smoking, alcohol, or drug use. FAMILY HISTORY: Noncontributory. REVIEW OF SYSTEMS: RESPIRATORY: The patient had fever and chills. No cough. No shortness of breath or chest pain. CARDIAC: No chest pain. No palpitations. No dizziness. No syncope. GASTROINTESTINAL: She had nausea. No abdominal pain. No vomiting. The patient had diarrhea. MUSCULOSKELETAL: The patient complains of left distal pain. PHYSICAL EXAMINATION: VITAL SIGNS: Temperature of 98.8, T-max of 102.7, pulse of 94, respiratory rate of 18, blood pressure 118/60, and O2 saturation of 98%. HEENT: Pupils equally reactive to light and accommodation. Mouth appears clean without thrush. NECK: Supple. No adenopathy. No JVD. CARDIOVASCULAR: Regular rate and rhythm. No murmurs. LUNGS: Clear to auscultation bilaterally. No crackles. No wheezes. ABDOMEN: Soft and nontender. No organomegaly. EXTREMITIES: No cyanosis, no clubbing, no edema. Left big toe swelling and ulcer noted on the plantar aspect with erythema. LABORATORY AND DIAGNOSTIC DATA: White count 18.9, hemoglobin 10.3, hematocrit 30.7, MCV 89, and platelet count of 382,000 with neutrophils of 88%. Sodium 136, potassium 3.6, chloride 103, bicarb 22, BUN 9, creatinine 0.9, glucose 225, and calcium 8.2. Total bilirubin 0.3. AST 13, ALT 11, and alkaline phosphatase 74. Total protein 6.4. Albumin 1.9. UA is showing 0 to 2 white cells. Stool for C. difficile colitis is negative. Wound cultures from the left foot is growing Enterococcus, which is susceptible to ampicillin and vancomycin, Lactobacillus, and Maria Teresa albicans. On 03/20/2019, blood cultures are negative. Foot MRI is showing acute osteomyelitis involving the hallux. Foot x-ray is showing no acute osseous abnormality. Chest x-ray on 03/20/2019 is showing no acute process. ASSESSMENT: This is a 63-year-old lady with history of diabetes, who comes in with the left big toe swelling, redness, and pain and is found to have left big toe osteomyelitis with Maria Teresa albicans and Enterococcus. The patient has been seen by Surgery and a Podiatry evaluation has been recommended. PLAN: 1. Continue IV vancomycin. 2. Continue cefepime and Flagyl for now. 3. We will start the patient on fluconazole. 4. Plan as per Podiatry. I would like to thank, Dr. Can, for this consultation. Benita Vaughan M.D. DR: NATA JOB#: [id number] CC:
[2019-03-25 20:00] VITALS: BP 106/53
[2019-03-25] MEDS: Levemir Flexpen SUBQ SCH (21:29)
[2019-03-26] VITALS (10 sets, daily range): BP systolic 100–141; BP diastolic 59–80
--- NOTE | 2019-03-26 | Progress Note ---
DATE: 03/25/2019 INTERNAL MEDICINE PROGRESS NOTE SUBJECTIVE: The patient continues to have pain on her toe. Infectious Disease consultation was noted. Surgical plan is in place for amputation and drainage. OBJECTIVE: VITAL SIGNS: Blood pressure 122/67, pulse 88, respiratory rate 18, and afebrile. LUNGS: Clear. CARDIAC: Regular. No murmur. ABDOMEN: Soft. EXTREMITIES: No edema. Left first toe with dressing in place. IMPRESSION: 1. Osteomyelitis, left first toe. 2. Diabetes mellitus, poorly controlled due to noncompliance. 3. Microangiopathy. 4. Hypomagnesemia. PLAN: 1. NPO for surgery. 2. Preoperative echocardiogram. 3. Antimicrobials per Infectious Disease pre sales technical consultant. 4. IV magnesium and oral potassium. 5. Pain control. Arcadio Can M.D. DR: MELANY JOB#: [id number] CC:
[2019-03-26] MEDS: Cefepime HCl 1 GM in D5W 55 ML IVPB SCH (02:30)
[2019-03-26] MEDS: metroNIDAZOLE 500mg tab ORAL SCH (06:00)
[2019-03-26] MEDS: metFORMIN 500mg tab ORAL SCH ×3 (06:11→16:30)
[2019-03-26] MEDS: NovoLOG Insulin Flexpen SUBQ SCH ×4 (06:11→21:18)
[2019-03-26] MEDS: Vancomycin 1gm/D5W 275ml IVPB SCH ×2 (06:25)
[2019-03-26] MEDS: Fluconazole 100mg tab ORAL SCH (08:43)
[2019-03-26] MEDS: Heparin 5000 units/ml inj SUBQ SCH ×2 (08:45→21:17)
[2019-03-26] MEDS: Docusate 100mg tablet ORAL SCH ×2 (08:45→17:03)
[2019-03-26 09:04] LABS: HEMATOCRIT 28.7 % (37.0-47.0); HEMOGLOBIN 9.8 G/DL (12.0-16.0); MEAN CORPUSCULAR VOLUME 88 FL (80-99); PLATELET COUNT 421 K/UL (150-450); RED BLOOD COUNT 3.28 M/UL (4.20-5.40); RED CELL DISTRIBUTION WIDTH 12.1 % (11.6-14.8); WHITE BLOOD COUNT 19.6 K/UL (4.8-10.8)
[2019-03-26 09:11] LABS: INR 0.9 (0.9-1.1)
[2019-03-26 09:19] LABS: ANION GAP 8 mmol/L (5-15); BLOOD UREA NITROGEN 7 mg/dL (7-18); CALCIUM 8.3 MG/DL (8.5-10.1); CARBON DIOXIDE 23 MMOL/L (21-32); CHLORIDE 102 MMOL/L (98-107); CREATININE 0.8 MG/DL (0.55-1.30); POTASSIUM 3.5 MMOL/L (3.5-5.1); SODIUM 133 MMOL/L (136-145)
--- NOTE | 2019-03-26 12:25 | Infectious Diseases Prog Note ---
Assessment/Plan Assessment/Plan A; Left big toe osteomyelitis DM PLAN: 1. Continue IV vancomycin.cefepime and Flagyl ,fluconazole. 2. Plan as per Podiatry. Subjective ROS Limited/Unobtainable: Yes Constitutional: Reports: fever, other - [id number]=[id number] Respiratory: Reports: no symptoms Gastrointestinal/Abdominal: Reports: no symptoms Genitourinary: Reports: no symptoms Skin: Reports: ulcer, other - left big toe Musculoskeletal: Reports: no symptoms Allergies: Coded Allergies: No Known Allergies (Unverified , 03/20/19) Objective Vital Signs Last 24 Hour Vital Signs Date Time Temp Pulse Resp B/P (MAP) Pulse Ox O2 Delivery O2 Flow Rate FiO2 03/26/19 12:00 99.0 78 18 107/59 (75) 99 03/26/19 09:13 98.8 03/26/19 08:30 Room Air 03/26/19 08:00 100.2 86 18 115/63 (80) 96 03/26/19 04:00 99.1 87 18 100/62 (75) 98 03/26/19 00:00 98.2 81 18 110/61 (77) 97 03/25/19 21:00 Room Air 03/25/19 20:00 98.8 86 18 106/53 (70) 97 03/25/19 16:00 98.7 88 18 122/67 (85) 97 Height (Feet): 5 Height (Inches): 2.00 Weight (Pounds): 108 General Appearance: no acute distress HEENT: mucous membranes moist Respiratory/Chest: lungs clear Cardiovascular: normal rate Abdomen: soft, non tender Extremities: no edema Skin: ulcers, other - left big toe Neurologic/Psychiatric: alert, oriented x 3, responsive Microbiology Date/Time Source Procedure Growth Status 03/24/19 22:58 Stool Clostridium difficile Toxin Assay - Final Complete Laboratory Tests Test 03/25/19 17:05 03/26/19 08:30 Vancomycin Level Trough 11.9 ug/mL (5.0-12.0) White Blood Count 19.6 K/UL (4.8-10.8) H Red Blood Count 3.28 M/UL (4.20-5.40) L Hemoglobin 9.8 G/DL (12.0-16.0) L Hematocrit 28.7 % (37.0-47.0) L Mean Corpuscular Volume 88 FL (80-99) Mean Corpuscular Hemoglobin 30.0 PG (27.0-31.0) Mean Corpuscular Hemoglobin Concent 34.2 G/DL (32.0-36.0) Red Cell Distribution Width 12.1 % (11.6-14.8) Platelet Count 421 K/UL (150-450) Mean Platelet Volume 4.5 FL (6.5-10.1) L Neutrophils (%) (Auto) % (45.0-75.0) Lymphocytes (%) (Auto) % (20.0-45.0) Monocytes (%) (Auto) % (1.0-10.0) Eosinophils (%) (Auto) % (0.0-3.0) Basophils (%) (Auto) % (0.0-2.0) Differential Total Cells Counted 100 Neutrophils % (Manual) 89 % (45-75) H Lymphocytes % (Manual) 5 % (20-45) L Monocytes % (Manual) 4 % (1-10) Eosinophils % (Manual) 0 % (0-3) Basophils % (Manual) 0 % (0-2) Band Neutrophils 2 % (0-8) Platelet Estimate Adequate Platelet Morphology Normal Red Blood Cell Morphology Normal Prothrombin Time 10.1 SEC (9.30-11.50) Prothromb Time International Ratio 0.9 (0.9-1.1) Activated Partial Thromboplast Time 40 SEC (23-33) H Sodium Level 133 MMOL/L (136-145) L Potassium Level 3.5 MMOL/L (3.5-5.1) Chloride Level 102 MMOL/L (98-107) Carbon Dioxide Level 23 MMOL/L (21-32) Anion Gap 8 mmol/L (5-15) Blood Urea Nitrogen 7 mg/dL (7-18) Creatinine 0.8 MG/DL (0.55-1.30) Estimat Glomerular Filtration Rate > 60 mL/min (>60) Glucose Level 125 MG/DL (74-106) #H Calcium Level 8.3 MG/DL (8.5-10.1) L Current Medications Medications (Trade) Dose Ordered Sig/Arnodlo Route PRN Reason Start Time Stop Time Status Last Admin Dose Admin Acetaminophen (Tylenol) 650 mg Q4H PRN ORAL Mild Pain/Temp > 100.5 8/25/19 13:15 04/21/19 13:14 03/26/19 08:43 Cefepime HCl 1 gm/ Dextrose 55 ml @ 110 mls/hr Q12HR@0200,1400 IVPB 03/21/19 02:00 03/28/19 01:59 03/26/19 02:30 Dextrose (Dextrose 50%) 25 ml Q30M PRN IV Hypoglycemia 03/20/19 23:15 04/19/19 23:14 Dextrose (Dextrose 50%) 50 ml Q30M PRN IV Hypoglycemia 03/20/19 23:15 04/19/19 23:14 Docusate Sodium (Colace) 100 mg BID ORAL 03/22/19 18:00 04/21/19 17:59 03/23/19 17:24 Fluconazole (Diflucan) 200 mg DAILY ORAL 03/26/19 09:00 04/02/19 08:59 03/26/19 08:43 Heparin Sodium (Porcine) (Heparin 5000 units/ml) 5,000 units EVERY 12 HOURS SUBQ 03/21/19 21:00 04/20/19 20:59 03/25/19 21:27 Insulin Aspart (NovoLOG) BEFORE MEALS AND HS SUBQ 03/21/19 00:30 04/20/19 00:29 03/25/19 21:28 Insulin Detemir (Levemir) 12 units BEDTIME SUBQ 03/24/19 21:00 04/23/19 20:59 03/25/19 21:29 Magnesium Hydroxide (Mom) 30 ml DAILYPRN PRN ORAL Constipation 03/22/19 14:30 04/21/19 14:29 Metformin HCl (Glucophage) 500 mg TIAC ORAL 03/22/19 16:30 04/21/19 16:29 03/25/19 16:40 Metronidazole (Flagyl) 500 mg Q8HR ORAL 03/24/19 22:00 03/31/19 21:59 03/25/19 21:26 Ondansetron HCl (Zofran) 4 mg Q6H PRN IVP Nausea & Vomiting 03/25/19 07:47 04/24/19 07:46 Sodium Chloride 1,000 ml @ 100 mls/hr Q10H IV 03/21/19 15:30 9/23/19 15:29 03/26/19 06:25 Vancomycin HCl (Vanco rx to dose) 1 ea DAILY PRN MISC Per rx protocol 03/21/19 00:45 04/20/19 00:44 Vancomycin HCl 1 gm/Dextrose 275 ml @ 183.708 mls/hr Q12HR@0600,1800 IVPB 03/22/19 18:00 03/27/19 17:59 03/26/19 06:25 Manas Moreau MD Mar 26, 2019 12:25
--- NOTE | 2019-03-26 12:33 | Surgery Progress Note ---
Surgery Progress Note Subjective Additional Comments no acute events plan for OR at 3pm today Objective Last 24 Hour Vital Signs Date Time Temp Pulse Resp B/P (MAP) Pulse Ox O2 Delivery O2 Flow Rate FiO2 03/26/19 12:00 99.0 78 18 107/59 (75) 99 03/26/19 09:13 98.8 03/26/19 08:30 Room Air 03/26/19 08:00 100.2 86 18 115/63 (80) 96 03/26/19 04:00 99.1 87 18 100/62 (75) 98 03/26/19 00:00 98.2 81 18 110/61 (77) 97 03/25/19 21:00 Room Air 03/25/19 20:00 98.8 86 18 106/53 (70) 97 03/25/19 16:00 98.7 88 18 122/67 (85) 97 I&O Intake and Output 03/25/19 03/26/19 19:00 07:00 Intake Total 2120.000 ml 1255 ml Balance 2120.000 ml 1255 ml Intake Oral 840 ml IV Total 1280.000 ml 1255 ml # Voids 3 1 Dressing: saturated Wound: other Drains: other Cardiovascular: RSR Respiratory: clear Abdomen: soft, flat, non-tender, present bowel sounds Extremities: edema, tenderness, cyanosis, other Laboratory Tests Test 03/25/19 17:05 03/26/19 08:30 Vancomycin Level Trough 11.9 ug/mL (5.0-12.0) White Blood Count 19.6 K/UL (4.8-10.8) H Red Blood Count 3.28 M/UL (4.20-5.40) L Hemoglobin 9.8 G/DL (12.0-16.0) L Hematocrit 28.7 % (37.0-47.0) L Mean Corpuscular Volume 88 FL (80-99) Mean Corpuscular Hemoglobin 30.0 PG (27.0-31.0) Mean Corpuscular Hemoglobin Concent 34.2 G/DL (32.0-36.0) Red Cell Distribution Width 12.1 % (11.6-14.8) Platelet Count 421 K/UL (150-450) Mean Platelet Volume 4.5 FL (6.5-10.1) L Neutrophils (%) (Auto) % (45.0-75.0) Lymphocytes (%) (Auto) % (20.0-45.0) Monocytes (%) (Auto) % (1.0-10.0) Eosinophils (%) (Auto) % (0.0-3.0) Basophils (%) (Auto) % (0.0-2.0) Differential Total Cells Counted 100 Neutrophils % (Manual) 89 % (45-75) H Lymphocytes % (Manual) 5 % (20-45) L Monocytes % (Manual) 4 % (1-10) Eosinophils % (Manual) 0 % (0-3) Basophils % (Manual) 0 % (0-2) Band Neutrophils 2 % (0-8) Platelet Estimate Adequate Platelet Morphology Normal Red Blood Cell Morphology Normal Prothrombin Time 10.1 SEC (9.30-11.50) Prothromb Time International Ratio 0.9 (0.9-1.1) Activated Partial Thromboplast Time 40 SEC (23-33) H Sodium Level 133 MMOL/L (136-145) L Potassium Level 3.5 MMOL/L (3.5-5.1) Chloride Level 102 MMOL/L (98-107) Carbon Dioxide Level 23 MMOL/L (21-32) Anion Gap 8 mmol/L (5-15) Blood Urea Nitrogen 7 mg/dL (7-18) Creatinine 0.8 MG/DL (0.55-1.30) Estimat Glomerular Filtration Rate > 60 mL/min (>60) Glucose Level 125 MG/DL (74-106) #H Calcium Level 8.3 MG/DL (8.5-10.1) L Plan Problems: (1) Cellulitis Assessment & Plan: Left great toe with cellulitis, skin breakdown, ischemia, foul odor, and likely acute on chronic infection. patient does not have any sensation in toes and unaware of open wound recently worse as per family and was at [facility] where she was given abx and improved MRI with acute osteo arterial studies with okay flow Plan for OR today IV abx as per ID was wound daily and apply Xeroform and gauze dressing. will follow with recs thank you Jules Jeff Mar 26, 2019 12:33
--- NOTE | 2019-03-26 13:35 | Pre-Procedure Note/Attestation ---
Pre-Procedure Note/Attestation Complete Prior to Procedure Planned Procedure: left Procedure Narrative: debridement of left foot / toe, possible amputation Indications for Procedure Pre-Operative Diagnosis: acute osteo, necrosis, infection of left foot / toe Attestation I attest that I discussed the nature of the procedure; its benefits; risks and complications; and alternatives (and the risks and benefits of such alternatives ), prior to the procedure, with the patient (or the patient's legal workforce services representative). I attest that, if there was a reasonable possibility of needing a blood transfusion, the patient (or the patient's legal workforce services representative) was given the [facility] standardized written summary, pursuant to the [place] Blood Safety Act ([place] Health and Safety Code # 1645, as amended). I attest that I re-evaluated the patient just prior to the surgery and that there has been no change in the patient's H&P, except as documented below: Jules Jeff Mar 26, 2019 13:35
[2019-03-26] MEDS: Piperacillin/Tazobactam 3.375 GM in NS 110 ML IVPB SCH ×2 (14:00→21:18)
[2019-03-26] MEDS ORDERED: Bupivacaine 0.25% Inj 30ml INJ ONE (14:04)
[2019-03-26] MEDS ORDERED: Bacitracin 50000 Units Vial ONE (14:30)
[2019-03-26] MEDS ORDERED: NeoSporin Gu Irrig 1ml Amp IRRIG ONE (14:30)
[2019-03-26] MEDS ORDERED: Sterile Water Irrig 1000ml IRRIG ONE (14:30)
[2019-03-26] MEDS ORDERED: NS Irrig 1000ml ONE (14:30)
[2019-03-26] MEDS ORDERED: Propofol 200mg/20ml IV ONE (14:30)
[2019-03-26] MEDS ORDERED: LR 1000ml ONE (14:30)
[2019-03-26] MEDS ORDERED: LR 1000ml 1,000 ML IVLG SCH (14:49)
[2019-03-26] MEDS ORDERED: Midazolam 2mg/2ml Inj ONE (14:53)
[2019-03-26] MEDS ORDERED: Lidocaine 1% MPF 10mg/ml 5ml ONE (14:53)
[2019-03-26] MEDS ORDERED: fentaNYL 100 mcg/2 mL IV ONE (14:53)
--- NOTE | 2019-03-26 14:53 | Anethesia Preoperative Eval ---
Anesthesia Pre-op PMH/ROS General Date of Evaluation: Mar 26, 2019 Time of Evaluation: 14:27 Anesthesiologist: Anuj ASA Score: ASA 3 Mallampati Score Class I : Soft palate, uvula, fauces, pillars visible Class II: Soft palate, uvula, fauces visible Class III: Soft palate, base of uvula visible Class IV: Only hard plate visible Mallampati Classification: Class II Surgeon: Tomer Diagnosis: L Foot Pain Surgical Procedure: L Foot/Toe Amputation Anesthesia History: none Family History: no anesthesia problems Allergies: Coded Allergies: No Known Allergies (Unverified , 03/20/19) Medications: see eMAR Patient NPO?: Yes NPO Date: Mar 26, 2019 NPO Time: 0000 Past Medical History Cardiovascular: Reports: HTN, other - PVD Endocrine: Reports: DM Hematology/Immune: Reports: anemia Anesthesia Pre-op Phys. Exam Physician Exam Last Vital Signs Date Time Temp Pulse Resp B/P (MAP) Pulse Ox O2 Delivery O2 Flow Rate FiO2 03/26/19 12:00 99.0 78 18 107/59 (75) 99 03/26/19 08:30 Room Air Constitutional: NAD Neurologic: CN 2-12 intact Cardiovascular: RRR Respiratory: CTA Gastrointestinal: S/NT/ND Airway Exam Mallampati Score: Class II MO: limited ROM: limited Teeth: missing, intact Anesthesia Pre-op A/P Labs Hematology Test 03/26/19 08:30 White Blood Count 19.6 K/UL (4.8-10.8) H Red Blood Count 3.28 M/UL (4.20-5.40) L Hemoglobin 9.8 G/DL (12.0-16.0) L Hematocrit 28.7 % (37.0-47.0) L Mean Corpuscular Volume 88 FL (80-99) Mean Corpuscular Hemoglobin 30.0 PG (27.0-31.0) Mean Corpuscular Hemoglobin Concent 34.2 G/DL (32.0-36.0) Red Cell Distribution Width 12.1 % (11.6-14.8) Platelet Count 421 K/UL (150-450) Mean Platelet Volume 4.5 FL (6.5-10.1) L Neutrophils (%) (Auto) % (45.0-75.0) Lymphocytes (%) (Auto) % (20.0-45.0) Monocytes (%) (Auto) % (1.0-10.0) Eosinophils (%) (Auto) % (0.0-3.0) Basophils (%) (Auto) % (0.0-2.0) Differential Total Cells Counted 100 Neutrophils % (Manual) 89 % (45-75) H Lymphocytes % (Manual) 5 % (20-45) L Monocytes % (Manual) 4 % (1-10) Eosinophils % (Manual) 0 % (0-3) Basophils % (Manual) 0 % (0-2) Band Neutrophils 2 % (0-8) Platelet Estimate Adequate Platelet Morphology Normal Red Blood Cell Morphology Normal Coagulation Test 03/26/19 08:30 Prothrombin Time 10.1 SEC (9.30-11.50) Prothromb Time International Ratio 0.9 (0.9-1.1) Activated Partial Thromboplast Time 40 SEC (23-33) H Chemistry Test 03/26/19 08:30 Sodium Level 133 MMOL/L (136-145) L Potassium Level 3.5 MMOL/L (3.5-5.1) Chloride Level 102 MMOL/L (98-107) Carbon Dioxide Level 23 MMOL/L (21-32) Anion Gap 8 mmol/L (5-15) Blood Urea Nitrogen 7 mg/dL (7-18) Creatinine 0.8 MG/DL (0.55-1.30) Estimat Glomerular Filtration Rate > 60 mL/min (>60) Glucose Level 125 MG/DL (74-106) #H Calcium Level 8.3 MG/DL (8.5-10.1) L Risk Assessment & Plan Assessment: ASA 3 Plan: GA, SED Status Change Before Surgery: No Pre-Antibiotics Dru Gram Ancef IV Given Within 1 Hr of Incision: Yes Time Given: 15:06 Theron Leslie MD Mar 26, 2019 14:53
--- NOTE | 2019-03-26 14:55 | Immediate Post-Op Evaluation ---
Immediate Post-Op Evalulation Immediate Post-Op Evalulation Procedure: L Foot/Toe Amputaion Date of Evaluation: Mar 26, 2019 Time of Evaluation: 16:27 IV Fluids: 500 LR Blood Products: 0 Estimated Blood Loss: 10 Urinary Output: 0 Blood Pressure Systolic: 109 Blood Pressure Diastolic: 65 Pulse Rate: 79 Respiratory Rate: 16 O2 Sat by Pulse Oximetry: 100 Temperature (Fahrenheit): 97.3 Pain Score (1-10): 2 Nausea: No Vomiting: No Complications 0 Patient Status: awake, reacts, patent, extubated, none Hydration Status: adequate Dru Gram Ancef IV Given Within 1 Hr of Incision: Yes Time Given: 15:06 Theron Leslie MD Mar 26, 2019 14:55
[2019-03-26] MEDS ORDERED: Atropine Sulfate 0.4mg/ml inj IVP PRN (15:00)
[2019-03-26] MEDS ORDERED: LORazepam Inj 2mg/ml 1ml IV PRN (15:00)
[2019-03-26] MEDS ORDERED: DiphenhydrAMINE 50mg/ml Inj IVP PRN (15:00)
[2019-03-26] MEDS ORDERED: Midazolam 2mg/2ml Inj IVP PRN (15:00)
[2019-03-26] MEDS ORDERED: Hydromorphone 0.5mg/0.5ml inj IVP PRN (15:00)
[2019-03-26] MEDS ORDERED: Meperidine 50mg/ml Inj(FOR RIGORS ONLY) IVP PRN (15:00)
[2019-03-26] MEDS ORDERED: Metoclopramide 10mg/2ml Inj IVP PRN (15:00)
[2019-03-26] MEDS ORDERED: Labetalol 5mg/ml 20ml vial IV PRN (15:00)
--- NOTE | 2019-03-26 16:21 | Brief Operative Note ---
Immediate Post Operative Note Operative Note Pre-op Diagnosis: acute osteo, necrosis, infection of left foot / toe Procedure: left first ray amputation and partial metatarsal amputation with preparation of wound bed for complex flap closure with adjacent skin flap and tissue mobilization Post-op Diagnosis: same as pre-op Surgeon: shanae Anesthesiologist: cricket Anesthesia: local, MAC Specimen: yes Complications: none Condition: stable Fluids: see records Estimated Blood Loss: volume - 25 Drains: other Implant(s) used?: No Jules Jeff Mar 26, 2019 16:21
[2019-03-26] MEDS: Vancomycin 1.25gm/NS Premix IVPB SCH (18:02)
[2019-03-26] MEDS: HYDROcodone/Acetamin 5/325 tab ORAL PRN (21:16)
[2019-03-26] MEDS: Levemir Flexpen SUBQ SCH (21:17)
--- NOTE | 2019-03-26 22:45 | Operative Note - Dictated ---
DATE OF OPERATION: 03/26/2019 PREOPERATIVE DIAGNOSIS: Acute osteomyelitis with necrosis and infection of the left foot and great toe. POSTOPERATIVE DIAGNOSIS: Acute osteomyelitis with necrosis and infection of the left foot and great toe. OPERATION PERFORMED: 1. Left first ray amputation with partial metatarsal amputation. 2. Preparation of wound bed for complex flap closure. 3. Mobilization of adjacent subcutaneous tissue and transposition skin flap transfer for complex closure. ATTENDING SURGEON: Jules Jeff M.D. SEMICONDUCTOR TECHNICIAN: None. ANESTHESIOLOGIST: Theron Leslie M.D. ANESTHESIA: MAC plus local. ESTIMATED BLOOD LOSS: 25 mL. IV FLUIDS: Please see anesthesia records. COMPLICATIONS: None. DRAINS: None. COUNTS: Sponge and needle count correct x2. SPECIMEN: Yes. IMPLANTS: None. WOUND CLASSIFICATION: Class III. INDICATIONS FOR PROCEDURE: This is a 63-year-old female, who presented to [facility] Emergency Department complaining of worsening infection in her left foot/great toe. The patient was admitted for care and management and placed on IV antibiotics. The patient subsequently developed a worsening leukocytosis, elevated ESR and CRP. Initiation of conservative management with antibiotics and localized wound care was performed, but the patient did not respond appropriately and therefore, surgery was indicated and recommended. In evaluating the wound, the first great ray was necrotic with acute infection and MRI with possible acute osteomyelitis. Given the patient's history and the etiology in the fact that it was not responding to medical management, amputation was indicated and recommended. Plan was to go to the operating room for debridement, possible amputation, and closure if necessary. Risks, benefits, and alternatives were discussed with the patient and her son at bedside in detail including use of an wafer production worker. All questions were answered. Explanation of postoperative wound care and potentially the wound opening later and requiring care discussed as well. OPERATIVE NOTE: The patient was taken to the operating room and placed on the operating table in supine position with bilateral arms out. All bony prominences were well padded. SCDs were placed. Preoperative time-out taken in identifying the patient, procedure, operative staff, and surgical staff. The patient was already on scheduled IV antibiotics prior to entering the operating room. The left foot was circumferentially prepped and draped in standard surgical fashion. Initially, we began by debriding all the necrotic and nonviable infected tissue down to healthy viable tissue. This began with incision around the first ray proximal to the PIP in the area of viable tissue circumferentially around. Once this was completed, it was easily identifiable that the proximal phalanges and metacarpals were not intact and infection had entered the joint space. Initially, the toe was amputated at this level and sent off to pathology for review. The remaining tissues were debrided and excised down to healthy viable bleeding tissue that was not infected or significantly inflamed. A medial incision was made down to the mid first metacarpal to allow for partial amputation of the metacarpal given the operative findings. A electric saw was used and the metacarpal was divided approximately 2 to 3 cm away from its distal end. The bone was evaluated and noted to be otherwise healthy without significant acute infection. The bone marrow was healthy as well. Once the surrounding subcutaneous tissue, tendons, and muscles were debrided down to healthy viable tissue, hemostasis was obtained with electrocautery following hemostasis of the artery with a 3-0 Vicryl suture. The wound bed was evaluated and preparation made for closure. Given the size of the wound, decision was made to close the wound rather than leave it open at this time understanding and discussed with the patient prior that if wound opens, it will require VAC at a later time and potential for secondary infection as well. Wound bed was irrigated with copious amounts of saline. The wound bed was prepped with mild non-excisional debridement and following the excisional debridement to allow for healthy viable tissue. The periosteum of the bone was prepped as well. At this time, unfortunately, primary closure was not amenable given the amount of nonviable tissue that was required to be debrided down for identifiable healthy viable tissue. Decision was made to do a flap of the skin and subcutaneous tissue from the anterior aspect towards the inferior medial closure over where the area of large defect was noted close to the second ray. A 2 cm x 4 cm rectangular flap tissue was created and mobilized distal and inferior. Once the transposition flap of rectangular tissue 2 cm x 4 cm was created, it was tacked into approximation with 2-0 Vicryl sutures. The secondary defect was then reapproximated primarily after some mobilization of subcutaneous tissue and brought together with 2-0 Vicryl sutures. Once this was complete, the wound was allowed to be completely closed and covered with a flap tissue and primary closure. The wound bed was again irrigated, cleansed, and reapproximated with 4-0 running nylon sutures for skin reapproximation. At the end of the procedure, the flap was viable with capillary refill identified. The wound was cleansed. Xeroform gauze and dressings were applied. The patient tolerated the procedure well and was taken to postanesthetic care unit in stable condition. Jules Jeff M.D. DR: NIC JOB#: [id number] CC: ANGIE
[2019-03-27] VITALS: BP 100/57
--- NOTE | 2019-03-27 02:45 | Progress Note ---
DATE: 03/26/2019 INTERNAL MEDICINE PROGRESS NOTE SUBJECTIVE: The patient is status post amputation of left first toe to the metatarsal region. No intraoperative hemodynamic complications were noted. The patient is seen postoperatively and in mild pain. OBJECTIVE: VITAL SIGNS: Blood pressure 141/80, pulse 92, respirations 18, and temperature 99.6. GENERAL: Alert. NECK: Supple. LUNGS: Clear. CARDIAC: Regular. NORMAL: S1, S2 with no murmur. ABDOMEN: Soft. EXTREMITIES: No edema. Left first toe surgical site has dressing in place. LABORATORY DATA: White count 19.6 and hemoglobin 9.8. Chemistry panel, sodium 133, potassium 3.5, BUN 7, and creatinine 0.8. IMPRESSION: 1. Osteomyelitis of left first toe. 2. Peripheral artery disease. 3. Type 2 diabetes mellitus, poorly controlled prior to admission. 4. Hypokalemia. 5. Hypomagnesemia. 6. Hyponatremia. PLAN: 1. Pain control. 2. Wound care. 3. Antimicrobials. 4. Electrolyte repletion including magnesium. 5. Insulin titration per sliding scale. Arcadio Can M.D. DR: AKIL JOB#: [id number] CC:
[2019-03-27 04:00] VITALS: BP 140/80
[2019-03-27] MEDS: Vancomycin 1.25gm/NS Premix IVPB SCH ×2 (04:43→18:28)
[2019-03-27] MEDS: NovoLOG Insulin Flexpen SUBQ SCH ×4 (06:11→23:21)
[2019-03-27] MEDS: Piperacillin/Tazobactam 3.375 GM in NS 110 ML IVPB SCH ×3 (06:35→23:20)
[2019-03-27] MEDS: metFORMIN 500mg tab ORAL SCH ×3 (06:35→17:37)
[2019-03-27 06:40] LABS: HEMATOCRIT 28.5 % (37.0-47.0); HEMOGLOBIN 9.6 G/DL (12.0-16.0); MEAN CORPUSCULAR VOLUME 89 FL (80-99); PLATELET COUNT 428 K/UL (150-450); RED CELL DISTRIBUTION WIDTH 11.2 % (11.6-14.8); WHITE BLOOD COUNT 20.3 K/UL (4.8-10.8)
[2019-03-27 06:56] LABS: ALANINE AMINOTRANSFERASE 11 U/L (12-78); ALBUMIN 1.6 G/DL (3.4-5.0); ALBUMIN/GLOBULIN RATIO 0.4 (1.0-2.7); ALKALINE PHOSPHATASE 88 U/L (46-116); ANION GAP 8 mmol/L (5-15); ASPARTATE AMINO TRANSFERASE 18 U/L (15-37); BILIRUBIN,TOTAL 0.3 MG/DL (0.2-1.0); BLOOD UREA NITROGEN 6 mg/dL (7-18); CALCIUM 7.9 MG/DL (8.5-10.1); CARBON DIOXIDE 23 MMOL/L (21-32); CHLORIDE 100 MMOL/L (98-107); CREATININE 0.8 MG/DL (0.55-1.30); POTASSIUM 3.4 MMOL/L (3.5-5.1); SODIUM 131 MMOL/L (136-145)
[2019-03-27 08:00] VITALS: BP 135/77
[2019-03-27] MEDS: Docusate 100mg tablet ORAL SCH ×2 (09:00→17:43)
--- NOTE | 2019-03-27 09:12 | 48 Hour Post Anesthesia Eval ---
Post Anesthesia Evaluation Procedure: L Foot/Toe Amputaion Date of Evaluation: Mar 27, 2019 Time of Evaluation: 09:11 Blood Pressure Systolic: 142 0: 58 Pulse Rate: 78 Respiratory Rate: 22 Temperature (Fahrenheit): 97.6 O2 Sat by Pulse Oximetry: 98 Airway: patent Nausea: No Vomiting: No Pain Intensity: 2 Hydration Status: adequate Cardiopulmonary Status: stable Mental Status/LOC: patient returned to baseline Follow-up Care/Observations: n/a Post-Anesthesia Complications: none Follow-up care needed: N/A Michael Boggs MD Mar 27, 2019 09:12
[2019-03-27] MEDS: Fluconazole 100mg tab ORAL SCH (09:53)
[2019-03-27] MEDS: Heparin 5000 units/ml inj SUBQ SCH ×2 (09:53→23:21)
--- NOTE | 2019-03-27 09:59 | Surgery Progress Note ---
Surgery Progress Note Subjective Procedure Performed left first ray amputation and partial metatarsal amputation with preparation of wound bed for complex flap closure with adjacent skin flap and tissue mobilization Additional Comments doing well states feels okay comfortable labs noted dressings okay Objective Last 24 Hour Vital Signs Date Time Temp Pulse Resp B/P (MAP) Pulse Ox O2 Delivery O2 Flow Rate FiO2 03/27/19 09:12 78 22 98 03/27/19 08:00 99.7 88 18 135/77 (96) 98 03/27/19 04:00 99.5 90 18 140/80 (100) 99 03/27/19 00:00 97.8 86 18 100/57 (71) 95 03/26/19 21:00 Room Air 03/26/19 20:00 99.6 92 18 141/80 (100) 97 03/26/19 17:00 98.1 78 15 131/66 100 Room Air 78 03/26/19 16:50 77 17 128/68 100 Room Air 77 03/26/19 16:40 80 15 123/71 100 Room Air 80 03/26/19 16:30 79 18 126/69 100 Simple Mask 6 79 03/26/19 16:16 97.3 74 16 108/65 100 Simple Mask 6 74 03/26/19 16:14 79 16 100 03/26/19 12:00 99.0 78 18 107/59 (75) 99 I&O Intake and Output 03/26/19 03/27/19 18:59 06:59 Intake Total 283.708 ml 1060.000 ml Output Total 20 ml Balance 263.708 ml 1060.000 ml IV Total 183.708 ml 1060.000 ml Hemodialysis 100 ml Output Estimated Blood Loss 20 ml # Voids 3 1 Dressing: dry Wound: clean Cardiovascular: RSR Respiratory: clear Abdomen: soft, flat, present bowel sounds, non-distended Extremities: no edema, no tenderness, no cyanosis Laboratory Tests Test 03/27/19 05:57 White Blood Count 20.3 K/UL (4.8-10.8) H Red Blood Count 3.20 M/UL (4.20-5.40) L Hemoglobin 9.6 G/DL (12.0-16.0) L Hematocrit 28.5 % (37.0-47.0) L Mean Corpuscular Volume 89 FL (80-99) Mean Corpuscular Hemoglobin 30.1 PG (27.0-31.0) Mean Corpuscular Hemoglobin Concent 33.9 G/DL (32.0-36.0) Red Cell Distribution Width 11.2 % (11.6-14.8) L Platelet Count 428 K/UL (150-450) Mean Platelet Volume 4.3 FL (6.5-10.1) L Neutrophils (%) (Auto) % (45.0-75.0) Lymphocytes (%) (Auto) % (20.0-45.0) Monocytes (%) (Auto) % (1.0-10.0) Eosinophils (%) (Auto) % (0.0-3.0) Basophils (%) (Auto) % (0.0-2.0) Differential Total Cells Counted 100 Neutrophils % (Manual) 83 % (45-75) H Lymphocytes % (Manual) 14 % (20-45) L Monocytes % (Manual) 3 % (1-10) Eosinophils % (Manual) 0 % (0-3) Basophils % (Manual) 0 % (0-2) Band Neutrophils 0 % (0-8) Platelet Estimate Adequate Platelet Morphology Normal Hypochromasia 1+ Sodium Level 131 MMOL/L (136-145) L Potassium Level 3.4 MMOL/L (3.5-5.1) L Chloride Level 100 MMOL/L (98-107) Carbon Dioxide Level 23 MMOL/L (21-32) Anion Gap 8 mmol/L (5-15) Blood Urea Nitrogen 6 mg/dL (7-18) L Creatinine 0.8 MG/DL (0.55-1.30) Estimat Glomerular Filtration Rate > 60 mL/min (>60) Glucose Level 66 MG/DL (74-106) L Calcium Level 7.9 MG/DL (8.5-10.1) L Magnesium Level 1.7 MG/DL (1.8-2.4) L Total Bilirubin 0.3 MG/DL (0.2-1.0) Aspartate Amino Transf (AST/SGOT) 18 U/L (15-37) Alanine Aminotransferase (ALT/SGPT) 11 U/L (12-78) L Alkaline Phosphatase 88 U/L (46-116) Total Protein 5.8 G/DL (6.4-8.2) L Albumin 1.6 G/DL (3.4-5.0) L Globulin 4.2 g/dL Albumin/Globulin Ratio 0.4 (1.0-2.7) L Plan Problems: (1) Cellulitis Assessment & Plan: Left great toe with cellulitis, skin breakdown, ischemia, foul odor, and likely acute on chronic infection. patient does not have any sensation in toes and unaware of open wound recently worse as per family and was at [facility] where she was given abx and improved MRI with acute osteo arterial studies with okay flow POD #1 s/p amputation doing well comfortable labs noted cont IV ABx as per ID leave dressings. I will change in a few days will follow with recs thank you Jules Jeff Mar 27, 2019 09:59
--- NOTE | 2019-03-27 11:16 | Diagnostic Imaging Report ---
APPROVED REPORT CPT Code: 36388 Symptoms Non-healing Ulcer : Left BILATERAL: Common femoral artery waveform analysis is within normal limits at rest. Color flow duplex sonography reveals minimal calcification throughout the superficial femoral, and popliteal arteries. There is no evidence of stenosis or occlusion within these segments. The tibioperoneal trunks were not well visualized. The posterior tibial, anterior tibial and dorsalis pedis arteries are also minimally calcified. Doppler tibial artery waveform analysis is within normal limits, bilaterally. There is no evidence of significant arterial occlusive disease, bilaterally.
--- NOTE | 2019-03-27 11:16 | Infectious Diseases Prog Note ---
Assessment/Plan Assessment/Plan A; Left big toe osteomyelitis s/p ray amputation DM Anemia PLAN: 1. Continue IV vancomycin, Zosyn & fluconazole. Subjective ROS Limited/Unobtainable: Yes Respiratory: Reports: no symptoms Gastrointestinal/Abdominal: Reports: no symptoms Genitourinary: Reports: no symptoms Musculoskeletal: Reports: no symptoms, other - had toe amputation yesterday Allergies: Coded Allergies: No Known Allergies (Unverified , 03/20/19) Objective Vital Signs Last 24 Hour Vital Signs Date Time Temp Pulse Resp B/P (MAP) Pulse Ox O2 Delivery O2 Flow Rate FiO2 03/27/19 09:12 78 22 98 03/27/19 08:00 99.7 88 18 135/77 (96) 98 03/27/19 04:00 99.5 90 18 140/80 (100) 99 03/27/19 00:00 97.8 86 18 100/57 (71) 95 03/26/19 21:00 Room Air 03/26/19 20:00 99.6 92 18 141/80 (100) 97 03/26/19 17:00 98.1 78 15 131/66 100 Room Air 78 03/26/19 16:50 77 17 128/68 100 Room Air 77 03/26/19 16:40 80 15 123/71 100 Room Air 80 03/26/19 16:30 79 18 126/69 100 Simple Mask 6 79 03/26/19 16:16 97.3 74 16 108/65 100 Simple Mask 6 74 03/26/19 16:14 79 16 100 03/26/19 12:00 99.0 78 18 107/59 (75) 99 Height (Feet): 5 Height (Inches): 2.00 Weight (Pounds): 108 General Appearance: no acute distress HEENT: mucous membranes moist Respiratory/Chest: lungs clear Cardiovascular: normal rate Abdomen: soft, non tender Extremities: no edema Skin: other - Left foot dressing Microbiology Date/Time Source Procedure Growth Status 03/24/19 22:58 Stool Clostridium difficile Toxin Assay - Final Complete 03/26/19 16:30 Toe Left Big Gram Stain - Final Resulted 03/26/19 16:30 Toe Left Big Aerobic Culture - Preliminary NO GROWTH Resulted Laboratory Tests Test 03/27/19 05:57 White Blood Count 20.3 K/UL (4.8-10.8) H Red Blood Count 3.20 M/UL (4.20-5.40) L Hemoglobin 9.6 G/DL (12.0-16.0) L Hematocrit 28.5 % (37.0-47.0) L Mean Corpuscular Volume 89 FL (80-99) Mean Corpuscular Hemoglobin 30.1 PG (27.0-31.0) Mean Corpuscular Hemoglobin Concent 33.9 G/DL (32.0-36.0) Red Cell Distribution Width 11.2 % (11.6-14.8) L Platelet Count 428 K/UL (150-450) Mean Platelet Volume 4.3 FL (6.5-10.1) L Neutrophils (%) (Auto) % (45.0-75.0) Lymphocytes (%) (Auto) % (20.0-45.0) Monocytes (%) (Auto) % (1.0-10.0) Eosinophils (%) (Auto) % (0.0-3.0) Basophils (%) (Auto) % (0.0-2.0) Differential Total Cells Counted 100 Neutrophils % (Manual) 83 % (45-75) H Lymphocytes % (Manual) 14 % (20-45) L Monocytes % (Manual) 3 % (1-10) Eosinophils % (Manual) 0 % (0-3) Basophils % (Manual) 0 % (0-2) Band Neutrophils 0 % (0-8) Platelet Estimate Adequate Platelet Morphology Normal Hypochromasia 1+ Sodium Level 131 MMOL/L (136-145) L Potassium Level 3.4 MMOL/L (3.5-5.1) L Chloride Level 100 MMOL/L (98-107) Carbon Dioxide Level 23 MMOL/L (21-32) Anion Gap 8 mmol/L (5-15) Blood Urea Nitrogen 6 mg/dL (7-18) L Creatinine 0.8 MG/DL (0.55-1.30) Estimat Glomerular Filtration Rate > 60 mL/min (>60) Glucose Level 66 MG/DL (74-106) L Calcium Level 7.9 MG/DL (8.5-10.1) L Magnesium Level 1.7 MG/DL (1.8-2.4) L Total Bilirubin 0.3 MG/DL (0.2-1.0) Aspartate Amino Transf (AST/SGOT) 18 U/L (15-37) Alanine Aminotransferase (ALT/SGPT) 11 U/L (12-78) L Alkaline Phosphatase 88 U/L (46-116) Total Protein 5.8 G/DL (6.4-8.2) L Albumin 1.6 G/DL (3.4-5.0) L Globulin 4.2 g/dL Albumin/Globulin Ratio 0.4 (1.0-2.7) L Current Medications Medications (Trade) Dose Ordered Sig/Arnoldo Route PRN Reason Start Time Stop Time Status Last Admin Dose Admin Acetaminophen (Tylenol) 650 mg Q4H PRN ORAL Mild Pain/Temp > 100.5 03/22/19 13:15 04/21/19 13:14 03/26/19 08:43 Acetaminophen/ Hydrocodone Bitart ([place] 5/325) 1 tab Q4H PRN ORAL Moderate Pain (Pain Scale 4-6) 03/26/19 16:30 04/02/19 16:29 03/26/19 21:16 Dextrose (Dextrose 50%) 25 ml Q30M PRN IV Hypoglycemia 03/20/19 23:15 04/19/19 23:14 Dextrose (Dextrose 50%) 50 ml Q30M PRN IV Hypoglycemia 03/20/19 23:15 04/19/19 23:14 Docusate Sodium (Colace) 100 mg BID ORAL 03/22/19 18:00 04/21/19 17:59 03/23/19 17:24 Fluconazole (Diflucan) 200 mg DAILY ORAL 03/26/19 09:00 04/02/19 08:59 03/27/19 09:53 Heparin Sodium (Porcine) (Heparin 5000 units/ml) 5,000 units EVERY 12 HOURS SUBQ 03/21/19 21:00 04/20/19 20:59 03/27/19 09:53 Insulin Aspart (NovoLOG) BEFORE MEALS AND HS SUBQ 03/21/19 00:30 04/20/19 00:29 03/26/19 21:18 Insulin Detemir (Levemir) 12 units BEDTIME SUBQ 03/24/19 21:00 04/23/19 20:59 03/26/19 21:17 Magnesium Hydroxide (Mom) 30 ml DAILYPRN PRN ORAL Constipation 03/22/19 14:30 04/21/19 14:29 Metformin HCl (Glucophage) 500 mg TIAC ORAL 03/22/19 16:30 04/21/19 16:29 03/27/19 06:35 Ondansetron HCl (Zofran) 4 mg Q6H PRN IVP Nausea & Vomiting 03/25/19 07:47 04/24/19 07:46 Piperacillin Sod/ Tazobactam Sod 3.375 gm/Sodium Chloride 110 ml @ 27.5 mls/hr EVERY 8 HOURS IVPB 03/26/19 14:00 03/31/19 13:59 03/27/19 06:35 Sodium Chloride 1,000 ml @ 100 mls/hr Q10H IV 03/21/19 15:30 04/20/19 15:29 03/27/19 02:30 Vancomycin HCl (Vanco rx to dose) 1 ea DAILY PRN MISC Per rx protocol 03/21/19 00:45 04/20/19 00:44 Vancomycin/Sodium Chloride 275 ml @ 183.333 mls/hr Q12HR@0400,1600 IVPB 03/26/19 16:00 03/31/19 15:59 03/27/19 04:43 Manas Moreau MD Mar 27, 2019 11:16
[2019-03-27 12:00] VITALS: BP 136/76
[2019-03-27 16:00] VITALS: BP 122/77
[2019-03-27] MEDS: HYDROcodone/Acetamin 5/325 tab ORAL PRN (17:28)
[2019-03-27 20:00] VITALS: BP 100/62
[2019-03-27] MEDS: Levemir Flexpen SUBQ SCH (21:00)
--- NOTE | 2019-03-27 23:30 | Progress Note ---
DATE: 03/27/2019 INTERNAL MEDICINE PROGRESS NOTE SUBJECTIVE: The patient is status post left first ray amputation and partial metatarsal amputation yesterday. No perioperative hemodynamic complications were noted. The patient continues to have low-grade fevers. OBJECTIVE: VITAL SIGNS: Stable. GENERAL: Wound site has dressing in place. HEENT: Oropharynx is clear. NECK: Supple. LUNGS: Clear. CARDIAC: Regular. ABDOMEN: Soft. EXTREMITIES: No edema. LABS: Glucose parameters in the range of 180. Labs notable for white count 20, hemoglobin 9.6. Magnesium 1.7. Potassium 3.4. Sodium 131. BUN 6 and creatinine 0.8. Albumin 1.6. IMPRESSION: 1. Osteomyelitis, left first toe. 2. Severe protein-calorie malnutrition. 3. Hypomagnesemia. 4. Hypokalemia. 5. Hyponatremia. 6. Type 2 diabetes mellitus, uncontrolled. PLAN: 1. Protein supplement. 2. Antimicrobial. 3. Potassium and magnesium replacement. 4. Saline hydration. 5. Titrate insulin regimen. 6. Followup laboratories. 7. Followup white blood count. Arcadio Can M.D. DR: ASTER JOB#: [id number] CC:
[2019-03-28] VITALS: BP 110/63
[2019-03-28] MEDS ORDERED: NS w/KCl 20mEq 1000ml 1,000 ML IV ONE (00:52)
[2019-03-28 03:19] LABS: HEMATOCRIT 28.7 % (37.0-47.0); HEMOGLOBIN 9.7 G/DL (12.0-16.0); MEAN CORPUSCULAR VOLUME 89 FL (80-99); PLATELET COUNT 454 K/UL (150-450); RED BLOOD COUNT 3.23 M/UL (4.20-5.40); RED CELL DISTRIBUTION WIDTH 11.4 % (11.6-14.8); WHITE BLOOD COUNT 18.4 K/UL (4.8-10.8)
[2019-03-28 03:20] LABS: BASOPHILS % (AUTO) 0.5 % (0.0-2.0); EOSINOPHILS % (AUTO) 0.2 % (0.0-3.0); LYMPHOCYTES % (AUTO) 8.9 % (20.0-45.0); NEUTROPHILS % (AUTO) 83.3 % (45.0-75.0)
[2019-03-28 03:35] LABS: ALANINE AMINOTRANSFERASE 16 U/L (12-78); ALBUMIN 1.6 G/DL (3.4-5.0); ALBUMIN/GLOBULIN RATIO 0.4 (1.0-2.7); ALKALINE PHOSPHATASE 110 U/L (46-116); ANION GAP 8 mmol/L (5-15); ASPARTATE AMINO TRANSFERASE 30 U/L (15-37); BILIRUBIN,TOTAL 0.3 MG/DL (0.2-1.0); BLOOD UREA NITROGEN 16 mg/dL (7-18); CALCIUM 7.9 MG/DL (8.5-10.1); CARBON DIOXIDE 25 MMOL/L (21-32); CHLORIDE 100 MMOL/L (98-107); CREATININE 0.9 MG/DL (0.55-1.30); POTASSIUM 3.3 MMOL/L (3.5-5.1); SODIUM 133 MMOL/L (136-145)
[2019-03-28 03:37] LABS: ALANINE AMINOTRANSFERASE 16 U/L (12-78); ALBUMIN 1.6 G/DL (3.4-5.0); ALKALINE PHOSPHATASE 113 U/L (46-116); ASPARTATE AMINO TRANSFERASE 30 U/L (15-37); BILIRUBIN,DIRECT < 0.1 MG/DL (0.0-0.3); BILIRUBIN,TOTAL 0.3 MG/DL (0.2-1.0)
[2019-03-28 04:00] VITALS: BP 107/65
[2019-03-28] MEDS: NovoLOG Insulin Flexpen SUBQ SCH ×4 (06:16→21:00)
[2019-03-28] MEDS: Piperacillin/Tazobactam 3.375 GM in NS 110 ML IVPB SCH ×3 (06:23→22:19)
[2019-03-28] MEDS: metFORMIN 500mg tab ORAL SCH ×3 (06:23→16:55)
[2019-03-28 08:00] VITALS: BP 133/96
[2019-03-28] MEDS: Fluconazole 100mg tab ORAL SCH (08:17)
[2019-03-28] MEDS: Docusate 100mg tablet ORAL SCH ×2 (08:17→17:35)
[2019-03-28] MEDS: Lactobacillus-GG tablet ORAL SCH ×3 (08:18→17:35)
[2019-03-28] MEDS: Heparin 5000 units/ml inj SUBQ SCH ×2 (08:19→22:07)
[2019-03-28 12:00] VITALS: BP 130/76
[2019-03-28 16:00] VITALS: BP 144/81
[2019-03-28] MEDS: Vancomycin 1gm/D5W 275ml IVPB SCH ×2 (16:12)
--- NOTE | 2019-03-28 18:25 | Surgery Progress Note ---
Surgery Progress Note Subjective Procedure Performed left first ray amputation and partial metatarsal amputation with preparation of wound bed for complex flap closure with adjacent skin flap and tissue mobilization Symptoms: improved, tolerating diet, voiding well, passing flatus, pain decreased Additional Comments leukocytosis improved dressings d/c/i Objective Last 24 Hour Vital Signs Date Time Temp Pulse Resp B/P (MAP) Pulse Ox O2 Delivery O2 Flow Rate FiO2 03/28/19 16:00 100.3 89 18 144/81 (102) 98 03/28/19 12:00 99.8 90 18 130/76 (94) 95 03/28/19 09:00 Room Air 03/28/19 08:00 99.4 88 18 133/96 (108) 96 03/28/19 04:00 99.8 88 18 107/65 (79) 96 03/28/19 00:00 99.6 90 18 110/63 (79) 96 03/27/19 21:00 Room Air 03/27/19 20:00 99.5 88 18 100/62 (75) 97 I&O Intake and Output 03/27/19 03/28/19 19:00 07:00 Intake Total 1207.5 ml 1285.000 ml Balance 1207.5 ml 1285.000 ml Intake Oral 880 ml IV Total 327.5 ml 1285.000 ml # Voids 5 Dressing: dry Wound: clean, dry Drains: none Cardiovascular: RSR Respiratory: clear Abdomen: soft, flat, non-tender, present bowel sounds Extremities: no edema, no tenderness, no cyanosis Laboratory Tests Test 03/28/19 03:05 White Blood Count 18.4 K/UL (4.8-10.8) H Red Blood Count 3.23 M/UL (4.20-5.40) L Hemoglobin 9.7 G/DL (12.0-16.0) L Hematocrit 28.7 % (37.0-47.0) L Mean Corpuscular Volume 89 FL (80-99) Mean Corpuscular Hemoglobin 29.9 PG (27.0-31.0) Mean Corpuscular Hemoglobin Concent 33.6 G/DL (32.0-36.0) Red Cell Distribution Width 11.4 % (11.6-14.8) L Platelet Count 454 K/UL (150-450) H Mean Platelet Volume 4.3 FL (6.5-10.1) L Neutrophils (%) (Auto) 83.3 % (45.0-75.0) H Lymphocytes (%) (Auto) 8.9 % (20.0-45.0) L Monocytes (%) (Auto) 7.0 % (1.0-10.0) Eosinophils (%) (Auto) 0.2 % (0.0-3.0) Basophils (%) (Auto) 0.5 % (0.0-2.0) Sodium Level 133 MMOL/L (136-145) L Potassium Level 3.3 MMOL/L (3.5-5.1) L Chloride Level 100 MMOL/L (98-107) Carbon Dioxide Level 25 MMOL/L (21-32) Anion Gap 8 mmol/L (5-15) Blood Urea Nitrogen 16 mg/dL (7-18) Creatinine 0.9 MG/DL (0.55-1.30) Estimat Glomerular Filtration Rate > 60 mL/min (>60) Glucose Level 162 MG/DL (74-106) H Calcium Level 7.9 MG/DL (8.5-10.1) L Total Bilirubin 0.3 MG/DL (0.2-1.0) Direct Bilirubin < 0.1 MG/DL (0.0-0.3) Aspartate Amino Transf (AST/SGOT) 30 U/L (15-37) Alanine Aminotransferase (ALT/SGPT) 16 U/L (12-78) Alkaline Phosphatase 113 U/L (46-116) Total Protein 5.7 G/DL (6.4-8.2) L Albumin 1.6 G/DL (3.4-5.0) L Globulin 4.1 g/dL Albumin/Globulin Ratio 0.4 (1.0-2.7) L Vancomycin Level Trough 25.1 ug/mL (5.0-12.0) H Plan Problems: (1) Cellulitis Assessment & Plan: Left great toe with cellulitis, skin breakdown, ischemia, foul odor, and likely acute on chronic infection. patient does not have any sensation in toes and unaware of open wound recently worse as per family and was at [facility] where she was given abx and improved MRI with acute osteo arterial studies with okay flow POD #2 s/p amputation doing well comfortable labs noted cont IV ABx as per ID leave dressings. I will change in a few days will follow with recs thank you Jules Jeff Mar 28, 2019 18:25
[2019-03-28 20:00] VITALS: BP 124/67
[2019-03-28] MEDS: Levemir Flexpen SUBQ SCH (21:00)
[2019-03-28] MEDS: HYDROcodone/Acetamin 5/325 tab ORAL PRN (22:30)
[2019-03-29] VITALS: BP 132/74
[2019-03-29 04:00] VITALS: BP 121/76
[2019-03-29] MEDS: Vancomycin 1gm/D5W 275ml IVPB SCH ×2 (04:05)
[2019-03-29] MEDS: Piperacillin/Tazobactam 3.375 GM in NS 110 ML IVPB SCH ×3 (05:50→21:25)
[2019-03-29] MEDS: metFORMIN 500mg tab ORAL SCH ×3 (06:23→16:34)
[2019-03-29] MEDS: NovoLOG Insulin Flexpen SUBQ SCH ×4 (06:27→21:24)
[2019-03-29] MEDS: HYDROcodone/Acetamin 5/325 tab ORAL PRN (06:37)
[2019-03-29 08:00] VITALS: BP 123/76
[2019-03-29] MEDS: Docusate 100mg tablet ORAL SCH ×2 (08:30→17:02)
[2019-03-29] MEDS: Lactobacillus-GG tablet ORAL SCH ×3 (08:30→17:02)
[2019-03-29] MEDS: Fluconazole 100mg tab ORAL SCH (08:30)
[2019-03-29] MEDS: Heparin 5000 units/ml inj SUBQ SCH ×2 (08:31→21:23)
--- NOTE | 2019-03-29 11:31 | Surgery Progress Note ---
Surgery Progress Note Subjective Procedure Performed left first ray amputation and partial metatarsal amputation with preparation of wound bed for complex flap closure with adjacent skin flap and tissue mobilization Symptoms: improved, tolerating diet, voiding well, passing flatus, pain decreased Objective Last 24 Hour Vital Signs Date Time Temp Pulse Resp B/P (MAP) Pulse Ox O2 Delivery O2 Flow Rate FiO2 03/29/19 09:00 Room Air 03/29/19 08:00 98.0 81 20 123/76 (92) 99 03/29/19 04:00 97.8 81 18 121/76 (91) 96 03/29/19 00:00 99.5 87 17 132/74 (93) 93 03/28/19 21:00 Room Air 03/28/19 20:00 100.0 86 17 124/67 (86) 96 03/28/19 16:00 100.3 89 18 144/81 (102) 98 03/28/19 12:00 99.8 90 18 130/76 (94) 95 I&O Intake and Output 03/28/19 03/29/19 19:00 07:00 Intake Total 737.5 ml 502.500 ml Balance 737.5 ml 502.500 ml Intake Oral 600 ml 150 ml IV Total 137.5 ml 352.500 ml # Voids 4 3 Dressing: dry Wound: clean Cardiovascular: RSR Respiratory: clear Abdomen: soft, non-tender, present bowel sounds Extremities: edema, no tenderness, no cyanosis, other Plan Problems: (1) Cellulitis Assessment & Plan: Left great toe with cellulitis, skin breakdown, ischemia, foul odor, and likely acute on chronic infection. patient does not have any sensation in toes and unaware of open wound recently worse as per family and was at [facility] where she was given abx and improved MRI with acute osteo arterial studies with okay flow POD #3 s/p amputation doing well comfortable labs noted cont IV ABx as per ID leave dressings. I will change in a few days will follow with recs thank you Jules Jeff Mar 29, 2019 11:31
[2019-03-29 12:00] VITALS: BP 116/75
[2019-03-29 13:24] LABS: BASOPHILS % (AUTO) 0.5 % (0.0-2.0); EOSINOPHILS % (AUTO) 1.5 % (0.0-3.0); HEMATOCRIT 29.7 % (37.0-47.0); HEMOGLOBIN 9.8 G/DL (12.0-16.0); LYMPHOCYTES % (AUTO) 11.3 % (20.0-45.0); MEAN CORPUSCULAR VOLUME 90 FL (80-99); MONOCYTES % (AUTO) 6.9 % (1.0-10.0); NEUTROPHILS % (AUTO) 79.7 % (45.0-75.0); PLATELET COUNT 576 K/UL (150-450); RED CELL DISTRIBUTION WIDTH 11.5 % (11.6-14.8); WHITE BLOOD COUNT 13.3 K/UL (4.8-10.8)
--- NOTE | 2019-03-29 13:40 | Infectious Diseases Prog Note ---
Assessment/Plan Assessment/Plan A; Left big toe osteomyelitis s/p ray amputation DM Anemia PLAN: 1. Discontinue IV vancomycin, 2. Continue Zosyn & fluconazole. Subjective ROS Limited/Unobtainable: Yes Constitutional: Reports: fever, other - low grade Respiratory: Reports: no symptoms Gastrointestinal/Abdominal: Reports: no symptoms Genitourinary: Reports: no symptoms Musculoskeletal: Reports: no symptoms Allergies: Coded Allergies: No Known Allergies (Unverified , 03/20/19) Objective Vital Signs Last 24 Hour Vital Signs Date Time Temp Pulse Resp B/P (MAP) Pulse Ox O2 Delivery O2 Flow Rate FiO2 03/29/19 12:00 97.0 79 20 116/75 (89) 98 03/29/19 09:00 Room Air 03/29/19 08:00 98.0 81 20 123/76 (92) 99 03/29/19 04:00 97.8 81 18 121/76 (91) 96 03/29/19 00:00 99.5 87 17 132/74 (93) 93 03/28/19 21:00 Room Air 03/28/19 20:00 100.0 86 17 124/67 (86) 96 03/28/19 16:00 100.3 89 18 144/81 (102) 98 Height (Feet): 5 Height (Inches): 2.00 Weight (Pounds): 108 General Appearance: no acute distress HEENT: mucous membranes moist Respiratory/Chest: lungs clear Cardiovascular: normal rate Abdomen: soft, non tender Extremities: other - trace edema, left foot dressing Neurologic/Psychiatric: alert, oriented x 3, responsive Microbiology Date/Time Source Procedure Growth Status 03/26/19 16:30 Toe Left Big Anaerobic Culture - Preliminary Resulted 03/26/19 16:30 Toe Left Big Gram Stain - Final Complete 03/26/19 16:30 Aerobic Culture - Final Enterococcus Faecalis Maria Teresa Albicans Usual Skin Lois Complete Laboratory Tests Test 03/29/19 13:15 White Blood Count 13.3 K/UL (4.8-10.8) H Red Blood Count 3.30 M/UL (4.20-5.40) L Hemoglobin 9.8 G/DL (12.0-16.0) L Hematocrit 29.7 % (37.0-47.0) L Mean Corpuscular Volume 90 FL (80-99) Mean Corpuscular Hemoglobin 29.6 PG (27.0-31.0) Mean Corpuscular Hemoglobin Concent 32.9 G/DL (32.0-36.0) Red Cell Distribution Width 11.5 % (11.6-14.8) L Platelet Count 576 K/UL (150-450) H Mean Platelet Volume 4.1 FL (6.5-10.1) L Neutrophils (%) (Auto) 79.7 % (45.0-75.0) H Lymphocytes (%) (Auto) 11.3 % (20.0-45.0) L Monocytes (%) (Auto) 6.9 % (1.0-10.0) Eosinophils (%) (Auto) 1.5 % (0.0-3.0) Basophils (%) (Auto) 0.5 % (0.0-2.0) Sodium Level Pending Potassium Level Pending Chloride Level Pending Carbon Dioxide Level Pending Blood Urea Nitrogen Pending Creatinine Pending Estimat Glomerular Filtration Rate Pending Glucose Level Pending Calcium Level Pending Total Bilirubin Pending Aspartate Amino Transf (AST/SGOT) Pending Alanine Aminotransferase (ALT/SGPT) Pending Alkaline Phosphatase Pending Total Protein Pending Albumin Pending Globulin Pending Current Medications Medications (Trade) Dose Ordered Sig/Arnoldo Route PRN Reason Start Time Stop Time Status Last Admin Dose Admin Acetaminophen (Tylenol) 650 mg Q4H PRN ORAL Mild Pain/Temp > 100.5 03/22/19 13:15 04/21/19 13:14 03/26/19 08:43 Acetaminophen/ Hydrocodone Bitart ([place] 5/325) 1 tab Q4H PRN ORAL Moderate Pain (Pain Scale 4-6) 03/26/19 16:30 04/02/19 16:29 03/29/19 06:37 Dextrose (Dextrose 50%) 25 ml Q30M PRN IV Hypoglycemia 03/20/19 23:15 04/19/19 23:14 Dextrose (Dextrose 50%) 50 ml Q30M PRN IV Hypoglycemia 03/20/19 23:15 04/19/19 23:14 Docusate Sodium (Colace) 100 mg BID ORAL 03/22/19 18:00 04/21/19 17:59 03/29/19 08:30 Fluconazole (Diflucan) 200 mg DAILY ORAL 03/26/19 09:00 04/02/19 08:59 03/29/19 08:30 Heparin Sodium (Porcine) (Heparin 5000 units/ml) 5,000 units EVERY 12 HOURS SUBQ 03/21/19 21:00 04/20/19 20:59 03/29/19 08:31 Insulin Aspart (NovoLOG) BEFORE MEALS AND HS SUBQ 03/21/19 00:30 04/20/19 00:29 03/29/19 11:38 Insulin Detemir (Levemir) 15 units BEDTIME SUBQ 03/28/19 21:00 04/27/19 20:59 03/28/19 21:00 Lactobacillus Acidophilus (Culturelle) 1 tab THREE TIMES A DAY ORAL 03/28/19 09:00 04/27/19 08:59 03/29/19 12:12 Magnesium Hydroxide (Mom) 30 ml DAILYPRN PRN ORAL Constipation 03/22/19 14:30 04/21/19 14:29 Metformin HCl (Glucophage) 500 mg TIAC ORAL 03/22/19 16:30 04/21/19 16:29 03/29/19 11:36 Ondansetron HCl (Zofran) 4 mg Q6H PRN IVP Nausea & Vomiting 03/25/19 07:47 04/24/19 07:46 Piperacillin Sod/ Tazobactam Sod 3.375 gm/Sodium Chloride 110 ml @ 27.5 mls/hr EVERY 8 HOURS IVPB 03/26/19 14:00 03/31/19 13:59 03/29/19 05:50 Potassium Chloride 20 meq/ Sodium Chloride 1,010 ml @ 50 mls/hr [id number] IV 03/28/19 23:00 04/27/19 22:59 03/28/19 22:34 Vancomycin HCl (Vanco rx to dose) 1 ea DAILY PRN MISC Per rx protocol 03/21/19 00:45 04/20/19 00:44 Vancomycin HCl 1 gm/Dextrose 275 ml @ 183.708 mls/hr Q12H IVPB 03/28/19 16:00 04/02/19 15:59 03/29/19 04:05 Manas Moreau MD Mar 29, 2019 13:39
[2019-03-29 13:55] LABS: ALANINE AMINOTRANSFERASE 17 U/L (12-78); ALBUMIN 1.8 G/DL (3.4-5.0); ALBUMIN/GLOBULIN RATIO 0.4 (1.0-2.7); ALKALINE PHOSPHATASE 112 U/L (46-116); ANION GAP 6 mmol/L (5-15); ASPARTATE AMINO TRANSFERASE 18 U/L (15-37); BILIRUBIN,TOTAL 0.2 MG/DL (0.2-1.0); BLOOD UREA NITROGEN 11 mg/dL (7-18); CALCIUM 8.2 MG/DL (8.5-10.1); CARBON DIOXIDE 28 MMOL/L (21-32); CHLORIDE 99 MMOL/L (98-107); POTASSIUM 4.1 MMOL/L (3.5-5.1); SODIUM 133 MMOL/L (136-145)
[2019-03-29 16:00] VITALS: BP 137/75
[2019-03-29 20:00] VITALS: BP 139/74
[2019-03-29] MEDS: Levemir Flexpen SUBQ SCH (21:25)
--- NOTE | 2019-03-29 21:52 | Cardiology Report ---
APPROVED REPORT EKG Measurement Heart [id number] Normal sinus rhythm Normal ECG
[2019-03-30 04:00] VITALS: BP 122/61
[2019-03-30] MEDS: Piperacillin/Tazobactam 3.375 GM in NS 110 ML IVPB SCH (04:31)
[2019-03-30] MEDS: metFORMIN 500mg tab ORAL SCH ×3 (05:44→16:45)
[2019-03-30] MEDS: NovoLOG Insulin Flexpen SUBQ SCH ×4 (05:45→20:39)
[2019-03-30 07:48] LABS: BASOPHILS % (AUTO) 1.2 % (0.0-2.0); EOSINOPHILS % (AUTO) 1.7 % (0.0-3.0); HEMATOCRIT 25.9 % (37.0-47.0); HEMOGLOBIN 9.2 G/DL (12.0-16.0); LYMPHOCYTES % (AUTO) 14.7 % (20.0-45.0); MEAN CORPUSCULAR VOLUME 85 FL (80-99); MONOCYTES % (AUTO) 7.7 % (1.0-10.0); NEUTROPHILS % (AUTO) 74.7 % (45.0-75.0); PLATELET COUNT 583 K/UL (150-450); RED BLOOD COUNT 3.04 M/UL (4.20-5.40); RED CELL DISTRIBUTION WIDTH 11.1 % (11.6-14.8); WHITE BLOOD COUNT 9.8 K/UL (4.8-10.8)
[2019-03-30 08:00] VITALS: BP 124/72
[2019-03-30 08:19] LABS: ALANINE AMINOTRANSFERASE 14 U/L (12-78); ALBUMIN 1.6 G/DL (3.4-5.0); ALBUMIN/GLOBULIN RATIO 0.4 (1.0-2.7); ALKALINE PHOSPHATASE 93 U/L (46-116); ANION GAP 8 mmol/L (5-15); ASPARTATE AMINO TRANSFERASE 16 U/L (15-37); BILIRUBIN,TOTAL 0.2 MG/DL (0.2-1.0); BLOOD UREA NITROGEN 7 mg/dL (7-18); CALCIUM 8.4 MG/DL (8.5-10.1); CARBON DIOXIDE 27 MMOL/L (21-32); CHLORIDE 102 MMOL/L (98-107); POTASSIUM 4.2 MMOL/L (3.5-5.1); SODIUM 137 MMOL/L (136-145)
[2019-03-30] MEDS: Docusate 100mg tablet ORAL SCH ×2 (08:22→17:10)
[2019-03-30] MEDS: Fluconazole 100mg tab ORAL SCH (08:22)
[2019-03-30] MEDS: Lactobacillus-GG tablet ORAL SCH ×3 (08:22→17:10)
[2019-03-30] MEDS: Heparin 5000 units/ml inj SUBQ SCH ×2 (08:24→20:40)
--- NOTE | 2019-03-30 11:01 | Infectious Diseases Prog Note ---
"Assessment/Plan Assessment/Plan antibiotics : zosyn, fluconazole A 1. left 1st toe osteomyelitis with enterococcus | quan albicans s/p Left first ray amputation with partial metatarsal amputation. 2. diabetes mellitus 3. leucocytosis resolved P 1. d/c zosyn, fluconazole 2. observe off antibiotics Subjective Constitutional: Denies: fever, chills Respiratory: Denies: shortness of breath, dry cough Gastrointestinal/Abdominal: Denies: nausea, vomiting, diarrhea Musculoskeletal: Denies: pain Allergies: Coded Allergies: No Known Allergies (Unverified , 03/20/19) Objective Vital Signs Last 24 Hour Vital Signs Date Time Temp Pulse Resp B/P (MAP) Pulse Ox O2 Delivery O2 Flow Rate FiO2 03/30/19 09:00 Room Air 03/30/19 08:00 97.8 87 18 124/72 (89) 97 03/30/19 04:00 96.9 82 18 122/61 (81) 98 03/29/19 20:06 Room Air 03/29/19 20:00 98.7 87 18 139/74 (95) 98 03/29/19 16:00 98.8 92 18 137/75 (95) 99 03/29/19 12:00 97.0 79 20 116/75 (89) 98 Height (Feet): 5 Height (Inches): 2.00 Weight (Pounds): 108 Respiratory/Chest: lungs clear Cardiovascular: normal rate, regular rhythm, no gallop/murmur Abdomen: soft, non tender Extremities: no edema, other - left foot in bandages Laboratory Tests Test 03/29/19 13:15 03/30/19 06:50 White Blood Count 13.3 K/UL (4.8-10.8) H 9.8 K/UL (4.8-10.8) Red Blood Count 3.30 M/UL (4.20-5.40) L 3.04 M/UL (4.20-5.40) L Hemoglobin 9.8 G/DL (12.0-16.0) L 9.2 G/DL (12.0-16.0) L Hematocrit 29.7 % (37.0-47.0) L 25.9 % (37.0-47.0) L Mean Corpuscular Volume 90 FL (80-99) 85 FL (80-99) Mean Corpuscular Hemoglobin 29.6 PG (27.0-31.0) 30.4 PG (27.0-31.0) Mean Corpuscular Hemoglobin Concent 32.9 G/DL (32.0-36.0) 35.7 G/DL (32.0-36.0) Red Cell Distribution Width 11.5 % (11.6-14.8) L 11.1 % (11.6-14.8) L Platelet Count 576 K/UL (150-450) H 583 K/UL (150-450) H Mean Platelet Volume 4.1 FL (6.5-10.1) L 3.8 FL (6.5-10.1) L Neutrophils (%) (Auto) 79.7 % (45.0-75.0) H 74.7 % (45.0-75.0) Lymphocytes (%) (Auto) 11.3 % (20.0-45.0) L 14.7 % (20.0-45.0) L Monocytes (%) (Auto) 6.9 % (1.0-10.0) 7.7 % (1.0-10.0) Eosinophils (%) (Auto) 1.5 % (0.0-3.0) 1.7 % (0.0-3.0) Basophils (%) (Auto) 0.5 % (0.0-2.0) 1.2 % (0.0-2.0) Sodium Level 133 MMOL/L (136-145) L 137 MMOL/L (136-145) Potassium Level 4.1 MMOL/L (3.5-5.1) 4.2 MMOL/L (3.5-5.1) Chloride Level 99 MMOL/L (98-107) 102 MMOL/L (98-107) Carbon Dioxide Level 28 MMOL/L (21-32) 27 MMOL/L (21-32) Anion Gap 6 mmol/L (5-15) 8 mmol/L (5-15) Blood Urea Nitrogen 11 mg/dL (7-18) 7 mg/dL (7-18) Creatinine 1.0 MG/DL (0.55-1.30) 1.0 MG/DL (0.55-1.30) Estimat Glomerular Filtration Rate 56.4 mL/min (>60) 56.4 mL/min (>60) Glucose Level 161 MG/DL (74-106) H 180 MG/DL (74-106) H Calcium Level 8.2 MG/DL (8.5-10.1) L 8.4 MG/DL (8.5-10.1) L Total Bilirubin 0.2 MG/DL (0.2-1.0) 0.2 MG/DL (0.2-1.0) Aspartate Amino Transf (AST/SGOT) 18 U/L (15-37) 16 U/L (15-37) Alanine Aminotransferase (ALT/SGPT) 17 U/L (12-78) 14 U/L (12-78) Alkaline Phosphatase 112 U/L (46-116) 93 U/L (46-116) Total Protein 6.6 G/DL (6.4-8.2) 6.0 G/DL (6.4-8.2) L Albumin 1.8 G/DL (3.4-5.0) L 1.6 G/DL (3.4-5.0) L Globulin 4.8 g/dL 4.4 g/dL Albumin/Globulin Ratio 0.4 (1.0-2.7) L 0.4 (1.0-2.7) L Magnesium Level 1.7 MG/DL (1.8-2.4) L Current Medications Medications (Trade) Dose Ordered Sig/Arnoldo Route PRN Reason Start Time Stop Time Status Last Admin Dose Admin Acetaminophen (Tylenol) 650 mg Q4H PRN ORAL Mild Pain/Temp > 100.5 03/22/19 13:15 04/21/19 13:14 03/30/19 08:22 Acetaminophen/ Hydrocodone Bitart ([place] 5/325) 1 tab Q4H PRN ORAL Moderate Pain (Pain Scale 4-6) 03/26/19 16:30 04/02/19 16:29 03/29/19 06:37 Dextrose (Dextrose 50%) 25 ml Q30M PRN IV Hypoglycemia 03/20/19 23:15 04/19/19 23:14 Dextrose (Dextrose 50%) 50 ml Q30M PRN IV Hypoglycemia 03/20/19 23:15 04/19/19 23:14 Docusate Sodium (Colace) 100 mg BID ORAL 03/22/19 18:00 04/21/19 17:59 03/30/19 08:22 Fluconazole (Diflucan) 200 mg DAILY ORAL 03/26/19 09:00 04/02/19 08:59 03/30/19 08:22 Heparin Sodium (Porcine) (Heparin 5000 units/ml) 5,000 units EVERY 12 HOURS SUBQ 03/21/19 21:00 04/20/19 20:59 03/30/19 08:24 Insulin Aspart (NovoLOG) BEFORE MEALS AND HS SUBQ 03/21/19 00:30 04/20/19 00:29 03/30/19 05:45 Insulin Detemir (Levemir) 15 units BEDTIME SUBQ 03/28/19 21:00 04/27/19 20:59 03/29/19 21:25 Lactobacillus Acidophilus (Culturelle) 1 tab THREE TIMES A DAY ORAL 03/28/19 09:00 04/27/19 08:59 03/30/19 08:22 Magnesium Hydroxide (Mom) 30 ml DAILYPRN PRN ORAL Constipation 03/22/19 14:30 04/21/19 14:29 03/30/19 08:22 Metformin HCl (Glucophage) 500 mg TIAC ORAL 03/22/19 16:30 04/21/19 16:29 03/30/19 05:44 Ondansetron HCl (Zofran) 4 mg Q6H PRN IVP Nausea & Vomiting 03/25/19 07:47 04/24/19 07:46 Piperacillin Sod/ Tazobactam Sod 3.375 gm/Sodium Chloride 110 ml @ 27.5 mls/hr EVERY 8 HOURS IVPB 03/26/19 14:00 03/31/19 23:59 03/30/19 04:31 Potassium Chloride 20 meq/ Sodium Chloride 1,010 ml @ 50 mls/hr [id number] IV 03/28/19 23:00 04/27/19 22:59 03/28/19 22:34 Benita Vaughan MD Mar 30, 2019 11:01"
[2019-03-30 12:00] VITALS: BP 130/73
--- NOTE | 2019-03-30 13:45 | Surgery Progress Note ---
Surgery Progress Note Subjective Procedure Performed left first ray amputation and partial metatarsal amputation with preparation of wound bed for complex flap closure with adjacent skin flap and tissue mobilization Symptoms: improved, tolerating diet, voiding well, passing flatus, BM, pain decreased Additional Comments leukocytosis resolved dressings changed Objective Last 24 Hour Vital Signs Date Time Temp Pulse Resp B/P (MAP) Pulse Ox O2 Delivery O2 Flow Rate FiO2 03/30/19 12:00 97.9 85 17 130/73 (92) 95 03/30/19 09:00 Room Air 03/30/19 08:00 97.8 87 18 124/72 (89) 97 03/30/19 04:00 96.9 82 18 122/61 (81) 98 03/29/19 20:06 Room Air 03/29/19 20:00 98.7 87 18 139/74 (95) 98 03/29/19 16:00 98.8 92 18 137/75 (95) 99 I&O Intake and Output 03/29/19 03/30/19 19:00 07:00 Intake Total 837.5 ml 755.0 ml Balance 837.5 ml 755.0 ml Intake Oral 240 ml 340 ml IV Total 597.5 ml 415.0 ml # Voids 3 3 Dressing: dry Wound: clean Cardiovascular: RSR Respiratory: clear Abdomen: soft, non-tender, present bowel sounds Extremities: other Laboratory Tests Test 03/30/19 06:50 White Blood Count 9.8 K/UL (4.8-10.8) Red Blood Count 3.04 M/UL (4.20-5.40) L Hemoglobin 9.2 G/DL (12.0-16.0) L Hematocrit 25.9 % (37.0-47.0) L Mean Corpuscular Volume 85 FL (80-99) Mean Corpuscular Hemoglobin 30.4 PG (27.0-31.0) Mean Corpuscular Hemoglobin Concent 35.7 G/DL (32.0-36.0) Red Cell Distribution Width 11.1 % (11.6-14.8) L Platelet Count 583 K/UL (150-450) H Mean Platelet Volume 3.8 FL (6.5-10.1) L Neutrophils (%) (Auto) 74.7 % (45.0-75.0) Lymphocytes (%) (Auto) 14.7 % (20.0-45.0) L Monocytes (%) (Auto) 7.7 % (1.0-10.0) Eosinophils (%) (Auto) 1.7 % (0.0-3.0) Basophils (%) (Auto) 1.2 % (0.0-2.0) Sodium Level 137 MMOL/L (136-145) Potassium Level 4.2 MMOL/L (3.5-5.1) Chloride Level 102 MMOL/L (98-107) Carbon Dioxide Level 27 MMOL/L (21-32) Anion Gap 8 mmol/L (5-15) Blood Urea Nitrogen 7 mg/dL (7-18) Creatinine 1.0 MG/DL (0.55-1.30) Estimat Glomerular Filtration Rate 56.4 mL/min (>60) Glucose Level 180 MG/DL (74-106) H Calcium Level 8.4 MG/DL (8.5-10.1) L Magnesium Level 1.7 MG/DL (1.8-2.4) L Total Bilirubin 0.2 MG/DL (0.2-1.0) Aspartate Amino Transf (AST/SGOT) 16 U/L (15-37) Alanine Aminotransferase (ALT/SGPT) 14 U/L (12-78) Alkaline Phosphatase 93 U/L (46-116) Total Protein 6.0 G/DL (6.4-8.2) L Albumin 1.6 G/DL (3.4-5.0) L Globulin 4.4 g/dL Albumin/Globulin Ratio 0.4 (1.0-2.7) L Plan Problems: (1) Cellulitis Assessment & Plan: Left great toe with cellulitis, skin breakdown, ischemia, foul odor, and likely acute on chronic infection. patient does not have any sensation in toes and unaware of open wound recently worse as per family and was at [facility] where she was given abx and improved MRI with acute osteo arterial studies with okay flow s/p amputation doing well comfortable labs noted cont IV ABx as per ID Dressings changed flap looks okay but edges with some concern for non viability will monitor explained to patient potential of loss of flap any may need open wound with wound care until healed will follow with recs thank you Jules Jeff Mar 30, 2019 13:45
[2019-03-30 16:00] VITALS: BP 140/72
[2019-03-30 20:00] VITALS: BP 149/76
[2019-03-30] MEDS: Levemir Flexpen SUBQ SCH (20:40)
[2019-03-30 23:47] VITALS: BP 135/75
--- NOTE | 2019-03-31 01:00 | Progress Note ---
DATE: 03/29/2019 INTERNAL MEDICINE PROGRESS NOTE LATE ENTRY SUBJECTIVE: No new complaints. Pain is decreasing. She is defervescing. OBJECTIVE: VITAL SIGNS: Stable. GENERAL: Exam unchanged. LABORATORY DATA: Laboratories notable with decreasing white count at 13.3 today. Chemistry panel notable for sodium 133, potassium 4.1, bicarb 28, BUN 11, creatinine 1, and albumin 1.8. IMPRESSION: Progressing. PLAN: Continue current therapy. Arcadio Can M.D. DR: ALICIA JOB#: [id number] CC:
--- NOTE | 2019-03-31 01:00 | Progress Note ---
DATE: 03/28/2019 INTERNAL MEDICINE PROGRESS NOTE Late entry. SUBJECTIVE: The patient is status post amputation of her left first toe. Pain has continued, but is slightly better. Vitals are stable. T-max 100.3. She continues to have high white count of over 18,000, but has improved slightly. PHYSICAL EXAMINATION: Exam is unchanged. IMPRESSION: Progressing slowly. PLAN: We will need to continue close monitoring with titration of insulin continuation of wound care, and multiple antibiotics, intravenous. Arcadio Can M.D. DR: BHUPENDRA JOB#: [id number] CC:
--- NOTE | 2019-03-31 01:30 | Progress Note ---
DATE: 03/30/2019 SUBJECTIVE: The patient remains afebrile. Pain is controlled. Glucose down to 180. Vitals are stable. Antibiotics have been discontinued. Wound is healing well. Her white blood count is decreased to 9.8. She will continue to require wound care and in the superintendent terminal of flap closure. For now, we will continue daily wound care and gave additional IV magnesium for level of 1.7. Her IV fluids can be discontinued and we will begin discharge planning. Arcadio Can M.D. DR: NAT JOB#: [id number] CC:
[2019-03-31 04:00] VITALS: BP 129/76
[2019-03-31] MEDS: NovoLOG Insulin Flexpen SUBQ SCH ×4 (06:30→20:48)
[2019-03-31] MEDS: metFORMIN 500mg tab ORAL SCH ×2 (06:35→11:35)
[2019-03-31 08:00] VITALS: BP 111/70
[2019-03-31] MEDS: Docusate 100mg tablet ORAL SCH ×2 (08:21→17:16)
[2019-03-31] MEDS: Lactobacillus-GG tablet ORAL SCH ×3 (08:21→17:16)
[2019-03-31] MEDS: Heparin 5000 units/ml inj SUBQ SCH ×2 (08:23→20:47)
--- NOTE | 2019-03-31 10:53 | Infectious Diseases Prog Note ---
"Assessment/Plan Assessment/Plan antibiotics : none A 1. left 1st toe osteomyelitis with enterococcus | quan albicans s/p Left first ray amputation with partial metatarsal amputation. 2. diabetes mellitus 3. leucocytosis resolved P 1. observe off antibiotics Subjective ROS Limited/Unobtainable: Yes Allergies: Coded Allergies: No Known Allergies (Unverified , 03/20/19) Objective Vital Signs Last 24 Hour Vital Signs Date Time Temp Pulse Resp B/P (MAP) Pulse Ox O2 Delivery O2 Flow Rate FiO2 03/31/19 09:00 Room Air 03/31/19 08:00 96.1 77 18 111/70 (84) 100 03/31/19 04:00 98.2 68 18 129/76 (93) 99 03/30/19 23:47 98.1 80 18 135/75 (95) 96 03/30/19 21:00 Room Air 03/30/19 20:00 98.5 95 18 149/76 (100) 95 03/30/19 16:00 98.1 85 20 140/72 (94) 99 03/30/19 12:00 97.9 85 17 130/73 (92) 95 Height (Feet): 5 Height (Inches): 2.00 Weight (Pounds): 108 Respiratory/Chest: lungs clear Cardiovascular: normal rate, regular rhythm, no gallop/murmur Abdomen: soft, non tender Extremities: no edema, other - left foot in bandages Current Medications Medications (Trade) Dose Ordered Sig/Arnoldo Route PRN Reason Start Time Stop Time Status Last Admin Dose Admin Acetaminophen (Tylenol) 650 mg Q4H PRN ORAL Mild Pain/Temp > 100.5 03/22/19 13:15 04/21/19 13:14 03/31/19 07:00 Acetaminophen/ Hydrocodone Bitart ([place] 5/325) 1 tab Q4H PRN ORAL Moderate Pain (Pain Scale 4-6) 03/26/19 16:30 04/02/19 16:29 03/29/19 06:37 Dextrose (Dextrose 50%) 25 ml Q30M PRN IV Hypoglycemia 03/20/19 23:15 04/19/19 23:14 Dextrose (Dextrose 50%) 50 ml Q30M PRN IV Hypoglycemia 03/20/19 23:15 04/19/19 23:14 Docusate Sodium (Colace) 100 mg BID ORAL 03/22/19 18:00 04/21/19 17:59 03/31/19 08:21 Heparin Sodium (Porcine) (Heparin 5000 units/ml) 5,000 units EVERY 12 HOURS SUBQ 03/21/19 21:00 04/20/19 20:59 03/31/19 08:23 Insulin Aspart (NovoLOG) BEFORE MEALS AND HS SUBQ 03/21/19 00:30 04/20/19 00:29 03/30/19 20:39 Insulin Detemir (Levemir) 15 units BEDTIME SUBQ 03/28/19 21:00 04/27/19 20:59 03/30/19 20:40 Lactobacillus Acidophilus (Culturelle) 1 tab THREE TIMES A DAY ORAL 03/28/19 09:00 04/01/19 09:00 03/31/19 08:21 Magnesium Hydroxide (Mom) 30 ml DAILYPRN PRN ORAL Constipation 03/22/19 14:30 04/21/19 14:29 03/30/19 08:22 Metformin HCl (Glucophage) 1,000 mg BIDBL ORAL 03/31/19 06:30 04/30/19 06:29 03/31/19 06:35 Ondansetron HCl (Zofran) 4 mg Q6H PRN IVP Nausea & Vomiting 03/25/19 07:47 04/24/19 07:46 Benita Vaughan MD Mar 31, 2019 10:53"
[2019-03-31 12:00] VITALS: BP 115/65
[2019-03-31 16:00] VITALS: BP 100/73
--- NOTE | 2019-03-31 18:41 | Surgery Progress Note ---
Surgery Progress Note Subjective Procedure Performed left first ray amputation and partial metatarsal amputation with preparation of wound bed for complex flap closure with adjacent skin flap and tissue mobilization Objective Last 24 Hour Vital Signs Date Time Temp Pulse Resp B/P (MAP) Pulse Ox O2 Delivery O2 Flow Rate FiO2 03/31/19 16:00 97.7 71 20 100/73 (82) 97 03/31/19 12:00 97.1 82 19 115/65 (82) 99 03/31/19 09:00 Room Air 03/31/19 08:00 96.1 77 18 111/70 (84) 100 03/31/19 04:00 98.2 68 18 129/76 (93) 99 03/30/19 23:47 98.1 80 18 135/75 (95) 96 03/30/19 21:00 Room Air 03/30/19 20:00 98.5 95 18 149/76 (100) 95 I&O Intake and Output 03/30/19 03/31/19 19:00 07:00 Intake Total 405.0 ml 800 ml Balance 405.0 ml 800 ml Intake Oral 300 ml IV Total 405.0 ml 500 ml # Voids 2 # Bowel Movements 1 Dressing: dry, other Wound: clean, other Drains: other Cardiovascular: RSR Respiratory: clear Abdomen: soft, flat, non-tender, present bowel sounds Extremities: edema, no tenderness, no cyanosis, other Plan Problems: (1) Cellulitis Assessment & Plan: Left great toe with cellulitis, skin breakdown, ischemia, foul odor, and likely acute on chronic infection. patient does not have any sensation in toes and unaware of open wound recently worse as per family and was at [facility] where she was given abx and improved MRI with acute osteo arterial studies with okay flow s/p amputation doing well comfortable labs noted cont IV ABx as per ID Dressings changed flap looks okay but edges with some concern for non viability will monitor explained to patient potential of loss of flap any may need open wound with wound care until healed will follow with recs thank you Jules Jeff Mar 31, 2019 18:41
[2019-03-31 20:00] VITALS: BP 135/77
[2019-03-31] MEDS: Levemir Flexpen SUBQ SCH (20:47)
[2019-03-31] MEDS: HYDROcodone/Acetamin 5/325 tab ORAL PRN (23:52)
[2019-04-01] VITALS: BP 134/80
[2019-04-01 04:00] VITALS: BP 122/74
--- NOTE | 2019-04-01 05:00 | Progress Note ---
DATE: 03/31/2019 INTERNAL MEDICINE PROGRESS SUBJECTIVE: Postop wound care continues for left first toe amputation site. Discharge planning is ongoing. The patient is unwilling or unable to give insulin shots to herself. Vitals are stable. Exam is otherwise unchanged. Barriers to discharge include adequate outpatient followup. We are attempting to reach a parameter to get a definitive appointment with the primary care physician. In addition, wound care is required as the patient has an open wound and loss of flap may result in long-term open wound with risk of infection further, insulin management, and glucose monitoring at home. She will require daily home health at this time until someone is available to administer therapy. Arcadio Can M.D. DR: MELANY JOB#: [id number] CC:
[2019-04-01] MEDS: NovoLOG Insulin Flexpen SUBQ SCH ×4 (06:16→21:16)
[2019-04-01] MEDS: metFORMIN 500mg tab ORAL SCH ×2 (06:16→11:50)
[2019-04-01 06:21] LABS: BASOPHILS % (AUTO) 0.5 % (0.0-2.0); EOSINOPHILS % (AUTO) 1.8 % (0.0-3.0); HEMATOCRIT 29.3 % (37.0-47.0); HEMOGLOBIN 9.6 G/DL (12.0-16.0); LYMPHOCYTES % (AUTO) 19.1 % (20.0-45.0); MEAN CORPUSCULAR VOLUME 89 FL (80-99); MONOCYTES % (AUTO) 7.7 % (1.0-10.0); NEUTROPHILS % (AUTO) 70.9 % (45.0-75.0); PLATELET COUNT 712 K/UL (150-450); RED BLOOD COUNT 3.28 M/UL (4.20-5.40); RED CELL DISTRIBUTION WIDTH 11.8 % (11.6-14.8); WHITE BLOOD COUNT 9.2 K/UL (4.8-10.8)
[2019-04-01 06:46] LABS: ALANINE AMINOTRANSFERASE 16 U/L (12-78); ALBUMIN 1.9 G/DL (3.4-5.0); ALBUMIN/GLOBULIN RATIO 0.4 (1.0-2.7); ALKALINE PHOSPHATASE 90 U/L (46-116); ANION GAP 7 mmol/L (5-15); ASPARTATE AMINO TRANSFERASE 21 U/L (15-37); BILIRUBIN,TOTAL 0.2 MG/DL (0.2-1.0); BLOOD UREA NITROGEN 20 mg/dL (7-18); CARBON DIOXIDE 29 MMOL/L (21-32); CHLORIDE 103 MMOL/L (98-107); CREATININE 0.8 MG/DL (0.55-1.30); POTASSIUM 4.1 MMOL/L (3.5-5.1); SODIUM 139 MMOL/L (136-145)
[2019-04-01 08:00] VITALS: BP 98/56
[2019-04-01] MEDS: Lactobacillus-GG tablet ORAL SCH (08:37)
[2019-04-01] MEDS: Docusate 100mg tablet ORAL SCH ×2 (08:37→17:04)
[2019-04-01] MEDS: Heparin 5000 units/ml inj SUBQ SCH ×2 (08:39→21:17)
[2019-04-01 12:00] VITALS: BP 106/54
--- NOTE | 2019-04-01 14:10 | Infectious Diseases Prog Note ---
Assessment/Plan Assessment/Plan A; Left big toe osteomyelitis s/p ray amputation DM Anemia PLAN: observe off antibiotic Subjective ROS Limited/Unobtainable: Yes Gastrointestinal/Abdominal: Reports: no symptoms Musculoskeletal: Reports: no symptoms Allergies: Coded Allergies: No Known Allergies (Unverified , 03/20/19) Objective Vital Signs Last 24 Hour Vital Signs Date Time Temp Pulse Resp B/P (MAP) Pulse Ox O2 Delivery O2 Flow Rate FiO2 04/01/19 12:00 97.5 86 18 106/54 (71) 98 04/01/19 09:00 Room Air 04/01/19 08:00 97.6 87 18 98/56 (70) 98 04/01/19 04:00 98.2 85 17 122/74 (90) 96 04/01/19 00:00 98.6 87 17 134/80 (98) 96 03/31/19 21:00 Room Air 03/31/19 20:00 98.2 80 17 135/77 (96) 96 03/31/19 16:00 97.7 71 20 100/73 (82) 97 Height (Feet): 5 Height (Inches): 2.00 Weight (Pounds): 110 HEENT: mucous membranes moist Respiratory/Chest: lungs clear Cardiovascular: normal rate Abdomen: soft, non tender Extremities: no edema, other - left foot dressing Neurologic/Psychiatric: alert, oriented x 3, responsive Laboratory Tests Test 04/01/19 05:37 White Blood Count 9.2 K/UL (4.8-10.8) Red Blood Count 3.28 M/UL (4.20-5.40) L Hemoglobin 9.6 G/DL (12.0-16.0) L Hematocrit 29.3 % (37.0-47.0) L Mean Corpuscular Volume 89 FL (80-99) Mean Corpuscular Hemoglobin 29.3 PG (27.0-31.0) Mean Corpuscular Hemoglobin Concent 32.8 G/DL (32.0-36.0) Red Cell Distribution Width 11.8 % (11.6-14.8) Platelet Count 712 K/UL (150-450) H Mean Platelet Volume 3.8 FL (6.5-10.1) L Neutrophils (%) (Auto) 70.9 % (45.0-75.0) Lymphocytes (%) (Auto) 19.1 % (20.0-45.0) L Monocytes (%) (Auto) 7.7 % (1.0-10.0) Eosinophils (%) (Auto) 1.8 % (0.0-3.0) Basophils (%) (Auto) 0.5 % (0.0-2.0) Sodium Level 139 MMOL/L (136-145) Potassium Level 4.1 MMOL/L (3.5-5.1) Chloride Level 103 MMOL/L (98-107) Carbon Dioxide Level 29 MMOL/L (21-32) Anion Gap 7 mmol/L (5-15) Blood Urea Nitrogen 20 mg/dL (7-18) H Creatinine 0.8 MG/DL (0.55-1.30) Estimat Glomerular Filtration Rate > 60 mL/min (>60) Glucose Level 76 MG/DL (74-106) Calcium Level 9.0 MG/DL (8.5-10.1) Magnesium Level 2.0 MG/DL (1.8-2.4) Total Bilirubin 0.2 MG/DL (0.2-1.0) Aspartate Amino Transf (AST/SGOT) 21 U/L (15-37) Alanine Aminotransferase (ALT/SGPT) 16 U/L (12-78) Alkaline Phosphatase 90 U/L (46-116) Total Protein 6.4 G/DL (6.4-8.2) Albumin 1.9 G/DL (3.4-5.0) L Globulin 4.5 g/dL Albumin/Globulin Ratio 0.4 (1.0-2.7) L Current Medications Medications (Trade) Dose Ordered Sig/Arnoldo Route PRN Reason Start Time Stop Time Status Last Admin Dose Admin Acetaminophen (Tylenol) 650 mg Q4H PRN ORAL Mild Pain/Temp > 100.5 03/22/19 13:15 04/21/19 13:14 04/01/19 11:57 Acetaminophen/ Hydrocodone Bitart ([place] 5/325) 1 tab Q4H PRN ORAL Moderate Pain (Pain Scale 4-6) 03/26/19 16:30 04/02/19 16:29 03/31/19 23:52 Dextrose (Dextrose 50%) 25 ml Q30M PRN IV Hypoglycemia 03/20/19 23:15 04/19/19 23:14 Dextrose (Dextrose 50%) 50 ml Q30M PRN IV Hypoglycemia 03/20/19 23:15 04/19/19 23:14 Docusate Sodium (Colace) 100 mg BID ORAL 03/22/19 18:00 04/21/19 17:59 04/01/19 08:37 Heparin Sodium (Porcine) (Heparin 5000 units/ml) 5,000 units EVERY 12 HOURS SUBQ 03/21/19 21:00 04/20/19 20:59 04/01/19 08:39 Insulin Aspart (NovoLOG) BEFORE MEALS AND HS SUBQ 03/21/19 00:30 04/20/19 00:29 04/01/19 11:52 Insulin Detemir (Levemir) 15 units BEDTIME SUBQ 03/28/19 21:00 04/27/19 20:59 03/31/19 20:47 Magnesium Hydroxide (Mom) 30 ml DAILYPRN PRN ORAL Constipation 03/22/19 14:30 04/21/19 14:29 03/30/19 08:22 Metformin HCl (Glucophage) 1,000 mg BIDBL ORAL 03/31/19 06:30 04/30/19 06:29 04/01/19 11:50 Ondansetron HCl (Zofran) 4 mg Q6H PRN IVP Nausea & Vomiting 03/25/19 07:47 04/24/19 07:46 Manas Moreau MD Apr 01, 2019 14:10
--- NOTE | 2019-04-01 14:23 | Surgery Progress Note ---
Surgery Progress Note Subjective Procedure Performed left first ray amputation and partial metatarsal amputation with preparation of wound bed for complex flap closure with adjacent skin flap and tissue mobilization Additional Comments Patient seen and examined at bedside. No acute events. Patient is doing well. Afebrile, hemodynamic stable, labs improved. Overall patient is significantly improved but does have multiple medical comorbidities which are concerning. Patient is a diabetic is uncontrolled and needs better control with insulin shots. Patient not able to do the shots by herself. Does not have the support system at this time. The wound was checked in the lower extremity after amputation and no signs of acute active infection but there is some inflammation and edema postoperatively which is anticipated. Majority of the flap tissue looks healthy and viable but there are some concerns at the distal end of the flap for viability. Currently holding without signs of infection but may need to be opened or may open on its own. At this time continue with local wound care and antibiotics. Patient instructed not to bear weight on the flap given its location and only heel touch weightbearing for this time Objective Last 24 Hour Vital Signs Date Time Temp Pulse Resp B/P (MAP) Pulse Ox O2 Delivery O2 Flow Rate FiO2 04/01/19 12:00 97.5 86 18 106/54 (71) 98 04/01/19 09:00 Room Air 04/01/19 08:00 97.6 87 18 98/56 (70) 98 04/01/19 04:00 98.2 85 17 122/74 (90) 96 04/01/19 00:00 98.6 87 17 134/80 (98) 96 03/31/19 21:00 Room Air 03/31/19 20:00 98.2 80 17 135/77 (96) 96 03/31/19 16:00 97.7 71 20 100/73 (82) 97 I&O Intake and Output 03/31/19 04/01/19 19:00 07:00 # Voids 2 Dressing: dry Wound: clean Cardiovascular: RSR Respiratory: clear Abdomen: soft, flat, non-tender, present bowel sounds, non-distended Extremities: edema, no tenderness, no cyanosis, pulses, other Laboratory Tests Test 04/01/19 05:37 White Blood Count 9.2 K/UL (4.8-10.8) Red Blood Count 3.28 M/UL (4.20-5.40) L Hemoglobin 9.6 G/DL (12.0-16.0) L Hematocrit 29.3 % (37.0-47.0) L Mean Corpuscular Volume 89 FL (80-99) Mean Corpuscular Hemoglobin 29.3 PG (27.0-31.0) Mean Corpuscular Hemoglobin Concent 32.8 G/DL (32.0-36.0) Red Cell Distribution Width 11.8 % (11.6-14.8) Platelet Count 712 K/UL (150-450) H Mean Platelet Volume 3.8 FL (6.5-10.1) L Neutrophils (%) (Auto) 70.9 % (45.0-75.0) Lymphocytes (%) (Auto) 19.1 % (20.0-45.0) L Monocytes (%) (Auto) 7.7 % (1.0-10.0) Eosinophils (%) (Auto) 1.8 % (0.0-3.0) Basophils (%) (Auto) 0.5 % (0.0-2.0) Sodium Level 139 MMOL/L (136-145) Potassium Level 4.1 MMOL/L (3.5-5.1) Chloride Level 103 MMOL/L (98-107) Carbon Dioxide Level 29 MMOL/L (21-32) Anion Gap 7 mmol/L (5-15) Blood Urea Nitrogen 20 mg/dL (7-18) H Creatinine 0.8 MG/DL (0.55-1.30) Estimat Glomerular Filtration Rate > 60 mL/min (>60) Glucose Level 76 MG/DL (74-106) Calcium Level 9.0 MG/DL (8.5-10.1) Magnesium Level 2.0 MG/DL (1.8-2.4) Total Bilirubin 0.2 MG/DL (0.2-1.0) Aspartate Amino Transf (AST/SGOT) 21 U/L (15-37) Alanine Aminotransferase (ALT/SGPT) 16 U/L (12-78) Alkaline Phosphatase 90 U/L (46-116) Total Protein 6.4 G/DL (6.4-8.2) Albumin 1.9 G/DL (3.4-5.0) L Globulin 4.5 g/dL Albumin/Globulin Ratio 0.4 (1.0-2.7) L Plan Problems: (1) Cellulitis Assessment & Plan: Left great toe with cellulitis, skin breakdown, ischemia, foul odor, and likely acute on chronic infection. patient does not have any sensation in toes and unaware of open wound recently worse as per family and was at [facility] where she was given abx and improved MRI with acute osteo arterial studies with okay flow s/p amputation doing well comfortable labs noted cont IV ABx as per ID Dressings changed flap looks okay but edges with some concern for non viability will monitor explained to patient potential of loss of flap any may need open wound with wound care until healed Discharge planning. Patient with definitely need home health care if being discharged home. If being discharged to a facility local wound care to be applied. Dressing changes daily with gauze. Okay for skin ointment as needed. Will need to remove sutures in approximately 1 to 2 weeks. Will need to monitor flap as an outpatient. will follow with recs thank you Jules Jeff Apr 01, 2019 14:23
[2019-04-01 16:00] VITALS: BP 146/82
[2019-04-01] MEDS: Lisinopril 10mg tab ORAL SCH (18:03)
[2019-04-01 20:00] VITALS: BP 136/73
[2019-04-01] MEDS ORDERED: Levemir Flexpen SUBQ SCH (21:00)
--- NOTE | 2019-04-01 23:45 | Progress Note ---
DATE: 04/01/2019 SUBJECTIVE: The patient is without distress. She is unable to self-administer insulin or perform wound care. Efforts are ongoing to teach daughter. OBJECTIVE: VITAL SIGNS: Stable. Afebrile. LUNGS: Clear. CARDIAC: Regular. ABDOMEN: Soft. EXTREMITIES: No edema. Toe site with flap area and open wound with sutures, but no signs of infection. Scant to clear drainage is noted. LABORATORY DATA: Glucose range 170s. IMPRESSION: Progressing. PLAN: 1. Advance insulin. 2. Continue wound care. 3. Off antimicrobials. 4. Diabetic teaching. 5. Outpatient wound care with home health to be confirmed prior to discharge. Arcadio Can M.D. DR: MELANY JOB#: [id number] CC:
[2019-04-02] VITALS: BP 113/58
[2019-04-02 04:00] VITALS: BP 110/58
[2019-04-02] MEDS: metFORMIN 500mg tab ORAL SCH (06:05)
[2019-04-02] MEDS: NovoLOG Insulin Flexpen SUBQ SCH (06:05)
[2019-04-02 08:00] VITALS: BP 115/68
[2019-04-02 08:19] VITALS: BP 115/68
[2019-04-02] MEDS: Lisinopril 10mg tab ORAL SCH (08:19)
[2019-04-02] MEDS: Docusate 100mg tablet ORAL SCH (08:19)
--- NOTE | 2019-04-03 12:11 | Discharge Summary ---
Discharge Summary Discharge Summary _ DATE OF ADMISSION: 03/20/2019 DATE OF DISCHARGE: DISCHARGED BY: REASON FOR ADMISSION: 63 years old female with past medical history of hypertension and diabetes mellitus type 2 who had not been on any treatment at home presented to emergency department with left first toe infection and pain. Patient apparently was seen at the outside hospital /[facility] , when the symptoms started , and was given and oral antibiotics. She initially improved , but then had worsening pain and redness over the last week. Subsequently patient came to emergency room for further evaluation. Patient also complained of periodic stabbing chest pain, responding to nonsteroidal anti-inflammatory medication. Patient denied fever and chills. In emergency department initial blood pressure was 87/53 , which improved with IV fluids. Laboratory work-up initially revealed no leukocytosis , hemoglobin 11.9 , hematocrit 35.2. Sodium 128. Glucose 371. Lactic acid 1.2. Stable other electrolytes and renal parameters. Troponin was negative. EKG revealed sinus rhythm , no acute ischemic changes. TSH within normal limits. Albumin 2.6. Chest x-ray demonstrated no acute cardiopulmonary pathology. X-ray of the left food revealed no acute osseous abnormality. Physical examination revealed absent left great toenail with purulent drainage superficially with surrounding erythema , warmth and tenderness to palpation , extending over to the midfoot region. Patient subsequently admitted for further management. CONSULTANTS: ID specialist Dr. Vaughan surgery Dr. Jeff [facility]: Patient admitted , pancultured and started on empiric antibiotic and saline hydration. Arterial duplex revealed no evidence of significant arterial occlusive disease bilaterally. MRI of the left foot revealed acute osteomyelitis, involving the hallux . Surgeon seen and evaluated patient. Patient subsequently undergone left first ray amputation with partial metatarsal amputation on 03/26. Wound care further provided as per surgeon recommendation. Infectious disease specialist closely followed. Patient developed leukocytosis with highest being 20.3 , which subsequently resolved with IV antibiotic. Intermittent fevers resolved as well. Blood cultures were negative. Wound culture revealed Enterococcus , lactobacillus and Maria Teresa. Repeated culture during the surgery revealed Enterococcus and Maria Teresa. Stool for C. difficile was negative. ID specialist recommended to observe patient off antibiotics. Blood pressure was managed with GUIDO inhibitor. Blood pressure remained stable. Hemoglobin A1c 14.6 , clearly not at goal. Anti-glycemic regimen initiated and further advanced . Patient was on long-acting Levemir , oral metformin and sliding scale of insulin as needed. Diabetic teaching provided. Diabetic diet provided. Patient will need further optimization of anti-glycemic regimen and close monitoring of blood sugar as outpatient. Patient was strongly encouraged compliance with medication and diet. Protein supplements provided as per labor and delivery registered nurse recommendation. Renal parameters and electrolytes were closely monitored. Electrolytes (magnesium, potassium and sodium ) were corrected . Nephrotoxics were avoided. Surgeon recommended continue local wound care and antibiotic. Patient was instructed not to bear weight on the flap , given its location and only heel touch weightbearing was allowed at this time. Dressing was changed prior to discharge. According to surgeon, flap looked stable, but edges showed some concern for non-viability. Patient was explained potential of loss of flap . Patient required home health services upon discharge. Patient will need to remove sutures in approximately 1 to 2 weeks. Monitor flap as outpatient. Home health services with [facility] were arranged for wound care. Patient was stable for discharge home with home health services. FINAL DIAGNOSES: Left first toe osteomyelitis with Enterococcus/Maria Teresa Status post left first ray amputation with partial metatarsal amputation Diabetes mellitus type 2, uncontrolled (with hemoglobin A1c 14.6), likely due to noncompliance Leukocytosis -resolved Microangiopathy Severe protein calorie malnutrition Electrolyte imbalance: hypomagnesia, hypokalemia, hyponatremia. DISCHARGE MEDICATIONS: List of medication provided to patient DISCHARGE INSTRUCTIONS: Patient was discharged home with home health services. Follow up with primary care provider in one week. I have been assigned to dictate discharge summary for this account. I was not involved in the patient's management. Amrita Sierra NP Apr 03, 2019 12:11
== END 2019-04-02 10:50 | disposition home health service (06) | DRG 305 ==
LOC: EDBD 17:34 → EMR 17:45 → 4E 19:00 → EDBEDREQ 20:10 → 4E 21:06
PROC: 0Y6N0Z4 Detachment at Left Foot, Complete 1st Ray, Open Approach (ICD-10-PCS; principal; 2019-03-26 15:00)
PROC: 0JXR0ZB Transfer Left Foot Subcutaneous Tissue and Fascia with Skin and Subcutaneous Tissue, Open Approach (ICD-10-PCS; principal; 2019-03-26 15:00)
PROC: 0QBP0ZZ Excision of Left Metatarsal, Open Approach (ICD-10-PCS; principal; 2019-03-26 15:00)
DX: E11.69 Type 2 diabetes mellitus with other specified complication (principal); M86.172 Other acute osteomyelitis, left ankle and foot; E11.52 Type 2 diabetes mellitus with diabetic peripheral angiopathy with gangrene; E87.1 Hypo-osmolality and hyponatremia; E43 Unspecified severe protein-calorie malnutrition; B95.2 Enterococcus as the cause of diseases classified elsewhere; B37.89 Other sites of candidiasis; L03.032 Cellulitis of left toe; L02.612 Cutaneous abscess of left foot; Z68.20 Body mass index [BMI] 20.0-20.9, adult; D64.9 Anemia, unspecified; E83.42 Hypomagnesemia; E11.65 Type 2 diabetes mellitus with hyperglycemia; D72.829 Elevated white blood cell count, unspecified; E87.6 Hypokalemia
CPT/HCPCS: 36415; 71045; 80048; 80053; 80061; 80076; 80202; 81003; 82550; 82553; 82962; 83036; 83605; 83735; 83880; 84100; 84443; 84484; 85007; 85025; 85610; 85651; 85730; 86140; 87040; 87070; 87075; 87181; 87205; 87324; 93005; 93306; 93925; 94003; 94150; 96361; 96365; 99285; A9585; J1815; J2250; J2405; J8499; S5561

== ENCOUNTER 2019-04-06 21:33 | Inpatient (IN) | payer OTHER ==
[~2019-04-06] VITALS: Ht 152.4 cm; Wt 53.3 kg
[~2019-04-06 21:33] MED LIST changes: +BACTRIM DS TAB1 EAC1 ORAL; +CEPHALEXIN500 MG ORAL; -D5W 110ml ONE; -D5W 275ml ONE
--- NOTE | 2019-04-06 22:00 | NUR ---
ED Nurse Note: Patient walked into ED c/o complications on her newly amputated left toe, amputation was done on 03/25/19 and has began experiencing discharge and diarrhea yesterday
[2019-04-06] MEDS ORDERED: Piperacillin/Tazobactam 3.375 GM in NS 110 ML IVPB ONE (22:30)
[2019-04-06] MEDS ORDERED: Vancomycin 1 GM in NS 275 ML IVPB ONE (22:30)
--- NOTE | 2019-04-06 22:32 | Emergency Room Report ---
History of Present Illness General Chief Complaint: General Complaint Source: Patient Present Illness HPI This is a 63-year-old female with a history of diabetes. She presents with complaint of left toe infection. She had a recent left foot great toe transmetatarsal imitation. Since she is been home the second toe is beginning to become very erythematous. Now spreading to the third toe. Patient denies any fever chills. Tender to palpation. No drainage. No fever chills. Is 7 out of 10. No trauma. Allergies: Coded Allergies: No Known Allergies (Unverified , 03/20/19) Patient History Past Medical History: see triage record, old chart reviewed Past Surgical History: other Pertinent Family History: none Social History: Denies: smoking Last Menstrual Period: n/a Now: No Immunizations: other Reviewed Nursing Documentation: PMH: Agreed; PSxH: Agreed Nursing Documentation-PMH Past Medical History: No History, Except For Hx Hypertension: Yes Hx Diabetes: Yes Hx Cancer: No Hx Gastrointestinal Problems: No Hx Neurological Problems: No Review of Systems Eye: Denies: eye pain, blurred vision ENT: Denies: ear pain, nose congestion, throat swelling Respiratory: Denies: cough, shortness of breath Cardiovascular: Denies: chest pain, palpitations Gastrointestinal: Denies: abdominal pain, diarrhea, nausea, vomiting Musculoskeletal: Reports: joint pain, joint swelling; Denies: back pain Skin: Denies: rash Neurological: Denies: headache, numbness Endocrine: Denies: increased thirst, increased urine Hematologic/Lymphatic: Denies: easy bruising All Other Systems: negative except mentioned in HPI Physical Exam Vital Signs Date Time Temp Pulse Resp B/P (MAP) Pulse Ox O2 Delivery O2 Flow Rate FiO2 04/06/19 21:51 97.3 79 18 111/63 (79) 99 Vitals normal Sp02 EP Interpretation: reviewed, normal General Appearance: well appearing, no apparent distress, alert Head: normocephalic, atraumatic Eyes: bilateral eye PERRL, bilateral eye EOMI ENT: hearing grossly normal, normal pharynx Neck: full range of motion, supple, no meningismus Respiratory: chest non-tender, lungs clear, normal breath sounds Cardiovascular #1: regular rate, rhythm, no murmur Gastrointestinal: normal bowel sounds, non tender, no mass, no organomegaly, no bruit, non-distended Musculoskeletal: back normal, other - Left foot: Surgical site over the first metatarsal looks clean. Second toe is erythematous. Third toe show tenderness over the ball of the foot. There is a faint pulse. Psychiatric: mood/affect normal Medical Decision Making Diagnostic Impression: Primary Impression: Cellulitis Qualified Codes: L03.116 - Cellulitis of left lower limb Additional Impression: Osteomyelitis of foot, left, acute ER Course Patient presents with cellulitis and osteomyelits of her left foot. She had partial amputation. She may need more amputation. This is due to her diabetes and poor circulation. Zosyn and vancomycin given based on culture from last admission. I discussed the case with Dr. Krishnan who will admit. Last Vital Signs Date Time Temp Pulse Resp B/P (MAP) Pulse Ox O2 Delivery O2 Flow Rate FiO2 04/06/19 21:51 97.3 79 18 111/63 (79) 99 Status: improved Disposition: ADMITTED INPATIENT Condition: Serious Ministerio Prakash MD Apr 06, 2019 22:32
--- NOTE | 2019-04-06 22:45 | NUR ---
ED Nurse Note: IV ACCESS ESTABLISHED. BLOOD COLLECTED; SENT DOWN TO LAB.
[2019-04-06 23:05] LABS: EOSINOPHILS % (AUTO) 2.2 % (0.0-3.0); HEMATOCRIT 32.7 % (37.0-47.0); HEMOGLOBIN 11.1 G/DL (12.0-16.0); LYMPHOCYTES % (AUTO) 20.1 % (20.0-45.0); MEAN CORPUSCULAR VOLUME 89 FL (80-99); MONOCYTES % (AUTO) 7.1 % (1.0-10.0); NEUTROPHILS % (AUTO) 69.6 % (45.0-75.0); PLATELET COUNT 698 K/UL (150-450); RED BLOOD COUNT 3.69 M/UL (4.20-5.40); RED CELL DISTRIBUTION WIDTH 12.4 % (11.6-14.8); WHITE BLOOD COUNT 8.8 K/UL (4.8-10.8)
[2019-04-06 23:28] LABS: ANION GAP 7 mmol/L (5-15); BLOOD UREA NITROGEN 27 mg/dL (7-18); CALCIUM 9.6 MG/DL (8.5-10.1); CARBON DIOXIDE 29 MMOL/L (21-32); CHLORIDE 97 MMOL/L (98-107); CREATININE 1.1 MG/DL (0.55-1.30); SODIUM 132 MMOL/L (136-145)
[2019-04-06 23:29] LABS: POTASSIUM 5.5 MMOL/L (3.5-5.1)
[2019-04-06 23:50] VITALS: BP 111/63
--- NOTE | 2019-04-06 23:50 | NUR ---
ED Nurse Note: WOUND PHOTO TAKEN; UPLOADED.
[2019-04-07] VITALS (8 sets, daily range): BP systolic 85–132; BP diastolic 43–81
--- NOTE | 2019-04-07 00:07 | NUR ---
ED Nurse Note: URINE MRSA VRE CRE SWAB COLLECTED; SENT DOWN TO LAB.
[2019-04-07 00:24] LABS: APPEARANCE,URINE CLEAR; BILIRUBIN, URINE NEGATIVE (NEGATIVE); COLOR,URINE PALE YELLOW; GLUCOSE, URINE (UA) 3+ (NEGATIVE); KETONES,URINE NEGATIVE (NEGATIVE); LEUKOCYTE ESTERASE ,URINE NEGATIVE (NEGATIVE); NITRITE,URINE NEGATIVE (NEGATIVE); PH,URINE 7 (4.5-8.0); PROTEIN,URINE NEGATIVE (NEGATIVE); UROBILINOGEN,URINE NORMAL MG/DL (0.0-1.0)
--- NOTE | 2019-04-07 00:30 | NUR ---
NURSE NOTES: Received a report from Abdirashid Whyte RN. Awaiting for pt's arrival.
--- NOTE | 2019-04-07 00:33 | NUR ---
TRANSFER TO FLOOR: Patient transferred to [place] [id number] as ordered, per DIANNA SNOW. REPORT GIVEN TO ASIF GRAHAM. PATIENT STABLE FOR TRANSFER. BELONGINGS LIST COMPLETED WITH RECEIVING RN.
--- NOTE | 2019-04-07 01:15 | NUR ---
NURSE NOTES: Pt arrived in the unit. AAOX4. Able to make needs known. On room air. C/o of left foot pain, rated pain 5/10. Would give pain med once Dr. Krishnan gave an order for pain med. She stated that it's painful but she could sleep with the pain. L foot wound noted. Picture taken and will upload later. Overall, skin is intact. IV site is patent and intact. Belongings checked. Bed in lowest position. Bed alarm is on. Call light within reach. Will continue to monitor.
--- NOTE | 2019-04-07 01:45 | NUR ---
NURSE NOTES: Called Dr. Krishnan for admission order. Awaiting for call back.
[2019-04-07] MEDS ORDERED: HYDROcodone/Acetamin 5/325 tab ORAL PRN (02:45)
[2019-04-07] MEDS ORDERED: Morphine Sulfate 2mg/ml Inj(IV/IM USE ONLY) IVP PRN ×2 (02:45→11:00)
[2019-04-07] MEDS ORDERED: Piperacillin/Tazobactam 3.375 GM in NS 110 ML IVPB SCH (06:00)
[2019-04-07] MEDS ORDERED: NovoLOG Insulin Flexpen SUBQ SCH ×2 (06:30→06:45)
[2019-04-07 06:51] LABS: BASOPHILS % (AUTO) 0.9 % (0.0-2.0); EOSINOPHILS % (AUTO) 2.1 % (0.0-3.0); HEMOGLOBIN 10.2 G/DL (12.0-16.0); MEAN CORPUSCULAR VOLUME 89 FL (80-99); MONOCYTES % (AUTO) 7.7 % (1.0-10.0); NEUTROPHILS % (AUTO) 71.3 % (45.0-75.0); PLATELET COUNT 656 K/UL (150-450); RED BLOOD COUNT 3.48 M/UL (4.20-5.40); RED CELL DISTRIBUTION WIDTH 12.1 % (11.6-14.8); WHITE BLOOD COUNT 9.6 K/UL (4.8-10.8)
--- NOTE | 2019-04-07 07:00 | NUR ---
HAND-OFF: Report given to SANTOS Whyte. Follow up regarding wound consult.
[2019-04-07 07:20] LABS: ANION GAP 9 mmol/L (5-15); BLOOD UREA NITROGEN 21 mg/dL (7-18); CALCIUM 9.5 MG/DL (8.5-10.1); CARBON DIOXIDE 26 MMOL/L (21-32); CHLORIDE 101 MMOL/L (98-107); CHOLESTEROL 174 MG/DL (< 200); HDL CHOLESTEROL 40 MG/DL (40-60); POTASSIUM 4.2 MMOL/L (3.5-5.1); SODIUM 136 MMOL/L (136-145); TRIGLYCERIDES 102 MG/DL (30-150)
--- NOTE | 2019-04-07 07:42 | NUR ---
NURSE NOTES: Received patient from Maddie Bowling. Patient is awake lying comfortably in bed. Left foot dressing clean dry and intact. Safety precautions in place. BEd locked to lowest position.call luis within patients reach. Will follow.
--- NOTE | 2019-04-07 08:15 | Consultation ---
DATE OF CONSULTATION: 04/07/2019 ENDOCRINOLOGY CONSULTATION CONSULTING PHYSICIAN: Lorenzo Gay M.D. REFERRING PHYSICIAN: Gaby Krishnan M.D. REASON FOR CONSULTATION: Diabetes management. HISTORY OF PRESENT ILLNESS: The patient is a 63-year-old female with a history of diabetes. The patient has had a recent left foot great toe transmetatarsal amputation. The patient was noted that the site of the surgery has been getting very red and erythematous, presented to the hospital with cellulitis. She is admitted to the floor for observation and treatment. I was called to manage diabetes. PAST MEDICAL HISTORY: Diabetes. PAST SURGICAL HISTORY: As above. MEDICATIONS: Reviewed and reconciled. FAMILY HISTORY: Noncontributory. SOCIAL HISTORY: No smoking, alcohol, or drug use. REVIEW OF SYSTEMS: As per HPI. LABORATORY VALUES: Sodium 132, potassium 5.5, chloride 97, bicarbonate 29, BUN 27, creatinine 1.1, and glucose 337. Lactic acid is negative. WBC 8, hemoglobin 11.1, hematocrit 32.7, and platelets of 698,000. PHYSICAL EXAMINATION: GENERAL: She is awake and alert. VITAL SIGNS: Blood pressure 108/61, pulse 84, temperature 98, and respiratory rate of 20. HEENT: Pupils reactive to light. Sclerae anicteric. No JVD. No thyromegaly. LUNGS: Clear. ABDOMEN: Positive bowel sounds. Soft. EXTREMITIES: Left foot amputation noted with surrounding erythema and cellulitis. DIAGNOSES: 1. Left foot cellulitis, rule out osteo. 2. Diabetes, out of control. PLAN: 1. Start Levemir 15 units daily. 2. Start NovoLog 5 units before each meal. 3. Start NovoLog sliding scale before meals and at bedtime. 4. Further adjustment according to blood glucose values. I will follow the patient closely during the hospital stay. Thank you, Dr. Krishnan, for the courtesy of this consultation. Lorenzo Gay M.D. DR: GARRETT JOB#: [id number] CC: ANGIE
[2019-04-07] MEDS ORDERED: Enoxaparin 40mg Inj SUBQ SCH (09:00)
[2019-04-07] MEDS ORDERED: Levemir Flexpen SUBQ SCH (09:00)
--- NOTE | 2019-04-07 09:07 | NUR ---
NURSE NOTES: notified house sup Pily re transfer order, notified 2e (spoke w Ms Hernandez) per house sup she will also call 2e for bed and call me back
--- NOTE | 2019-04-07 09:24 | NUR ---
*-* INSURANCE *-* ALL AVAILABLE CLINICALS HAVE BEEN FAXED TO: YOLIS/MELISSA NO [employer] ASSIGNED AT THIS TIME. PLEASE FAX THE REVIEW/CLINICAL P- [phone] F- [phone]....REVIEW/CLINICAL
--- NOTE | 2019-04-07 09:51 | NUR ---
NURSE NOTES: Patient SBP in the 80's recheck multiple times X 3 Extremities. Patient asymptomati, denies dizziness or discomfort. Call out to Dr. Krishnan. Kwame ordered bolus fluids and to transfer patient to Tele floor. Also Dr. Lion in to see patient aware of above. ordered 1000 ML Normal saline bolus. Will follow. will roseline
--- NOTE | 2019-04-07 10:20 | NUR ---
NURSE NOTES: Patient Blood pressure increased to 117/63 after 1 L bolus.
--- NOTE | 2019-04-07 10:51 | NUR ---
TRANSFER TO FLOOR: Patient transferred to Telemetry room 221 bed 2,as per Dr. Krishnan Order. Report given to Moerno. Daughter in law at bedside on time of transfer.
--- NOTE | 2019-04-07 11:00 | NUR ---
NURSE NOTES: RECEIVED PT VIA BED ESCORTED BY SHARRON GRAHAMDRESS [facility].PT RECEIVED NS BOLUS 1 LITER D/T LOW SBP 80.Neida BUSTAMANTE ORDER TO TRANSFER THE PT TO TELE FLOOR.PT B/P 117/63 AFTER NS BOLUS COMPLETED. RE-ASSESSED PT B/P 129//74 AT THIS .PT DENIES DIZZINESS AT THIS TIME.PT FAMILY AT BED SIDE .Neida BUSTAMANTE CAME TO SEE THE PATIENT. WILL CONT TO MONITOR.
--- NOTE | 2019-04-07 11:33 | Consultation ---
History of Present Illness General Date patient seen: Apr 07, 2019 Reason for Hospitalization: General Complaint Present Illness HPI 63-year-old female well-known to me from recent admission. Patient with uncontrolled diabetes who presented with a active infection of the left great toe with necrosis, gangrene, drainage requiring amputation. Patient status post left great toe transmetatarsal amputation with flap closure. Patient discharged in stable condition doing well but presented with concerns of worsening wound. Patient's and family at bedside. Patient states that the nail of the left great toe fell off and she became very concerned and thought that the toe may not be viable and came immediately not to delay care. Patient was admitted for care and management. Surgery called to evaluate and assist with care. Patient seen, patient evaluated, chart reviewed. Wound dressings changed at bedside and wound evaluated. Of note patient afebrile, hemodynamic stable, no leukocytosis, hemoglobin A1c of 13, uncontrolled glucose levels. Patient states she is living home with family and they were helping with wound care. Denies any pain. No purulent drainage. Allergies: Coded Allergies: No Known Allergies (Unverified , 03/20/19) Medication History Scheduled Cephalexin* (Keflex*), 500 MG ORAL EVERY 6 HOURS, (Reported) Trimethoprim/Sulfamethoxazole 160/800* (Bactrim Ds Tablet*), 1 TAB ORAL TWICE A DAY, (Reported) Patient History History Provided By: Patient, Medical Record, PMD Healthcare decision maker Resuscitation status Full Code Advanced Directive on File No Past Medical/Surgical History Past Medical/Surgical History: (1) Cellulitis Review of Systems Review of Symptoms General ROS: no weight loss or fever Psychological ROS: no depression or mood changes, no memory loss Ophthalmic ROS: no visual changes or eye irritation ENT ROS: no nasal congestion, hearing loss, dizziness Allergy and Immunology ROS: no allergic symptoms or urticaria Hematological and Lymphatic ROS: no swollen glands, unusual bleeding or bruising Endocrine ROS: no polyuria, polydipsia, weight changes, temperature intolerance Respiratory ROS: no cough, shortness of breath, or wheezing Cardiovascular ROS: no chest pain or dyspnea on exertion Gastrointestinal ROS: denies abdominal pain, no bright red blood in stool. Musculoskeletal ROS: no myalgias or arthralgias Neurological ROS: no TIA or stroke symptoms Dermatological ROS: no new or changing skin lesions, rashes or pruritis Physical Exam Physical Exam General appearance: alert, cooperative, no distress, appears stated age Head: Normocephalic, without obvious abnormality, atraumatic Eyes: conjunctivae/corneas clear. PERRL, EOM's intact. Fundi benign Throat: Lips, mucosa, and tongue normal. Teeth and gums normal Neck: supple, symmetrical, trachea midline, no adenopathy, thyroid: not enlarged, symmetric, no tenderness/mass/nodules, no carotid bruit and no JVD Lungs: clear to auscultation bilaterally Heart: regular rate and rhythm, S1, S2 normal, no murmur, click, rub or gallop Abdomen: soft, non-tender. Bowel sounds normal. No masses, no organomegaly Extremities: extremities left foot with mild edema but improved since last admission. Left second ray nailbed viable but nails falling off due to edema. The toe is viable with good capillary refill. There is some slough in the wound bed but the flap significant majority of it has taken well. Pulses: 2+ and symmetric Skin: Skin color, texture, turgor normal. No rashes or lesions Neurologic: Grossly normal Last 24 Hour Vital Signs Date Time Temp Pulse Resp B/P (MAP) Pulse Ox O2 Delivery O2 Flow Rate FiO2 04/07/19 10:00 117/63 (81) 04/07/19 09:00 83 97/65 (76) 04/07/19 09:00 Room Air 04/07/19 08:00 98.1 84 16 85/43 (57) 100 04/07/19 04:00 98.0 84 20 108/61 (77) 97 04/07/19 02:10 Room Air 04/07/19 01:36 98.0 85 18 111/59 (76) 98 04/07/19 00:32 97.3 79 18 111/63 99 Room Air 04/06/19 23:50 79 18 Room Air 04/06/19 23:50 97.3 79 18 111/63 99 04/06/19 21:51 97.3 79 18 111/63 (79) 99 Laboratory Tests Test 04/06/19 22:30 04/06/19 22:45 04/07/19 00:00 04/07/19 05:21 White Blood Count 8.8 K/UL (4.8-10.8) 9.6 K/UL (4.8-10.8) Red Blood Count 3.69 M/UL (4.20-5.40) L 3.48 M/UL (4.20-5.40) L Hemoglobin 11.1 G/DL (12.0-16.0) L 10.2 G/DL (12.0-16.0) L Hematocrit 32.7 % (37.0-47.0) L 31.0 % (37.0-47.0) L Mean Corpuscular Volume 89 FL (80-99) 89 FL (80-99) Mean Corpuscular Hemoglobin 30.0 PG (27.0-31.0) 29.4 PG (27.0-31.0) Mean Corpuscular Hemoglobin Concent 33.8 G/DL (32.0-36.0) 33.0 G/DL (32.0-36.0) Red Cell Distribution Width 12.4 % (11.6-14.8) 12.1 % (11.6-14.8) Platelet Count 698 K/UL (150-450) H 656 K/UL (150-450) H Mean Platelet Volume 4.0 FL (6.5-10.1) L 4.0 FL (6.5-10.1) L Neutrophils (%) (Auto) 69.6 % (45.0-75.0) 71.3 % (45.0-75.0) Lymphocytes (%) (Auto) 20.1 % (20.0-45.0) 18.0 % (20.0-45.0) L Monocytes (%) (Auto) 7.1 % (1.0-10.0) 7.7 % (1.0-10.0) Eosinophils (%) (Auto) 2.2 % (0.0-3.0) 2.1 % (0.0-3.0) Basophils (%) (Auto) 1.0 % (0.0-2.0) 0.9 % (0.0-2.0) Sodium Level 132 MMOL/L (136-145) L 136 MMOL/L (136-145) Potassium Level 5.5 MMOL/L (3.5-5.1) H 4.2 MMOL/L (3.5-5.1) Chloride Level 97 MMOL/L (98-107) L 101 MMOL/L (98-107) Carbon Dioxide Level 29 MMOL/L (21-32) 26 MMOL/L (21-32) Anion Gap 7 mmol/L (5-15) 9 mmol/L (5-15) Blood Urea Nitrogen 27 mg/dL (7-18) H 21 mg/dL (7-18) H Creatinine 1.1 MG/DL (0.55-1.30) 1.0 MG/DL (0.55-1.30) Estimat Glomerular Filtration Rate 50.5 mL/min (>60) 56.4 mL/min (>60) Glucose Level 337 MG/DL (74-106) H 160 MG/DL (74-106) #H Calcium Level 9.6 MG/DL (8.5-10.1) 9.5 MG/DL (8.5-10.1) Lactic Acid Level 1.30 mmol/L (0.4-2.0) Urine Color Pale yellow Urine Appearance Clear Urine pH 7 (4.5-8.0) Urine Specific [place] 1.005 (1.005-1.035) Urine Protein Negative (NEGATIVE) Urine Glucose (UA) 3+ (NEGATIVE) H Urine Ketones Negative (NEGATIVE) Urine Blood Negative (NEGATIVE) Urine Nitrite Negative (NEGATIVE) Urine Bilirubin Negative (NEGATIVE) Urine Urobilinogen Normal MG/DL (0.0-1.0) Urine Leukocyte Esterase Negative (NEGATIVE) Urine RBC 0-2 /HPF (0 - 2) Urine WBC 0 /HPF (0 - 2) Urine Squamous Epithelial Cells Few /LPF (NONE/OCC) Urine Bacteria None /HPF (NONE) Hemoglobin A1c 13.2 % (4.3-6.0) H Triglycerides Level 102 MG/DL (30-150) Cholesterol Level 174 MG/DL (< 200) LDL Cholesterol 112 mg/dL (<100) H HDL Cholesterol 40 MG/DL (40-60) Cholesterol/HDL Ratio 4.4 (3.3-4.4) Height (Feet): 5 Height (Inches): 0.00 Weight (Pounds): 110 Medications Current Medications Medications (Trade) Dose Ordered Sig/Arnoldo Route PRN Reason Start Time Stop Time Status Last Admin Dose Admin Acetaminophen (Tylenol) 650 mg Q4H PRN ORAL Mild Pain/Temp > 100.5 04/07/19 11:00 05/07/19 10:59 Acetaminophen/ Hydrocodone Bitart ([place] 5/325) 1 tab Q4H PRN ORAL Moderate Pain (Pain Scale 4-6) 04/07/19 11:00 04/14/19 10:59 Dextrose (Dextrose 50%) 25 ml Q30M PRN IV Hypoglycemia 04/07/19 11:15 05/07/19 06:44 Dextrose (Dextrose 50%) 50 ml Q30M PRN IV Hypoglycemia 04/07/19 11:15 05/07/19 06:44 Enoxaparin Sodium (Lovenox) 40 mg DAILY SUBQ 04/08/19 09:00 05/07/19 08:59 Insulin Aspart (NovoLOG) BEFORE MEALS AND HS SUBQ 04/07/19 11:30 05/07/19 06:29 Insulin Aspart (NovoLOG) 5 units NOVOTIAC SUBQ 04/07/19 11:50 05/07/19 06:44 Insulin Detemir (Levemir) 15 units DAILY SUBQ 04/08/19 09:00 05/07/19 08:59 Morphine Sulfate (Morphine Sulfate) 2 mg Q6H PRN IVP For severe Pain(8-10) 04/07/19 11:00 04/14/19 10:59 Pantoprazole (Protonix) 40 mg DAILY ORAL 04/08/19 09:00 05/07/19 08:59 Piperacillin Sod/ Tazobactam Sod 3.375 gm/Sodium Chloride 110 ml @ 27.5 mls/hr EVERY 8 HOURS IVPB 04/07/19 14:00 04/12/19 05:59 Vancomycin HCl (Vanco rx to dose) 1 ea DAILY PRN MISC Per rx protocol 04/08/19 09:00 05/07/19 07:59 Vancomycin HCl 750 mg/Dextrose 275 ml @ 183.333 mls/hr Q24H IVPB 04/08/19 04:00 04/13/19 03:59 Assessment/Plan Problem List: (1) Cellulitis ICD Codes: L03.90 - Cellulitis, unspecified SNOMED: 360505717 Qualifiers: Qualified Codes: L03.116 - Cellulitis of left lower limb Assessment/Plan: 63-year-old female with uncontrolled diabetes and recent left great toe necrotic gangrenous infection status post amputation with flap. Patient was discharged in stable condition and has been home since with family and localized wound care. Toenail of the second ray has fallen off and concerning therefore came in for evaluation. Notes some edema in the toe and is concerned that the infection may be spreading. When patient seen at the bedside the wound bed was evaluated. Wound is overall healing pretty well from the amputation and the flap is taken fairly well except some distal portions of the flap that may be nonviable but currently still holding without any active infection. There was edema of the whole foot and toe prior to discharge which seems to be improved. As the edema is improving and cellulitis improving of the left foot there is some slough of nonviable epidermis that is noted. Furthermore the edema the second ray has lots of the nailbed to fall off and some slough tissue but the toe itself is viable with good capillary refill. Patient has motor and all remaining rays and decreased neuro and sensory as prior given her diabetes. Had a long discussion with the patient and the family at bedside. Recommend continue with localized wound care. Patient is afebrile without leukocytosis. IV antibiotics as per infectious disease. Will allow wound to continue to heal and I told the patient and family that this will take few more weeks until the wound and the flap declare themselves but currently stable and doing well. [facility] Hospital declaration INPATIENT level of care is warranted for this patient because patient is a 89 year old with who presents with suspicion of . I have a high level of concern because . Patient is at high risk for . Plan of care/treatment include . Patient care is expected to be greater than 2 midnights. OBSERVATION level of care is warranted for this patient. Patient is a 89 year old with who presents with . Patient will be admitted for 1 midnight, but if additional night(s) is/are necessary, patient will be converted to inpatient status for the entire hospitalization Disposition: Once the patient is stable to leave the hospital, I anticipate the patient will likely be discharged to the following environment: Estimated discharge date: I spent 70 minutes on this patient's case, and minutes was dedicated to counseling and/or care coordination. MIPS ([employer]it-based Incentive Payment System) Applicable CPT: 92347, 83432 CHECK ALL THAT ARE MET: Measure #5 (CHF): All ages. Prescribe GUIDO/ARB upon discharge for patients with left ventricular systolic dysfunction. If not, the reason is clearly documented in the medical chart. Measure #8 (CHF): All ages. Prescribe a beta malini upon discharge for patients with left ventricular systolic dysfunction. If not, the reason is clearly documented in the medical chart. Measure #47 Advance care plan or surrogate decision maker documented in the medical record. Measure #130 The provider has documented, updated, or reviewed the patients current medication list and has documented it in the patients note. Measure #374 (All): Send report to referring provider. Measure #407(Sepsis due to MSSA bacteremia): Age 18+ Patient treated with a beta-lactam antibiotic (Nafcillin, Oxacillin or Cefazolin) as definitive therapy. MEDICAL COMPLEXITY High complexity medical decision making (need 2/3 categories) Problem - need 4 points Acute/new problem with new plan for workup (4 points, 1 max) Acute/new problem without additional workup (3 points, 1 max) Unstable chronic problem actively being managed (2 point each, 2 max) Stable chronic problem actively being managed (1 point each, 2 max) Self-limited/transient process (constipation, muscle ache, etc) (1 point each , 2 max) Data - need 4 points Reviewed labs/imaging studies (1 points, 2 max) Independent review of imaging (EKG, xrays, etc) (2 points, 2 max) Discussed case with consult/other MD/RN (2 points, 2 max) High Risk - qualify if have one of the following: Severe exacerbation of acute problem, acute mental status change, IV narcotics , monitoring drug levels (vancomycin, INR, tacrolimus etc) Jules Jeff Apr 07, 2019 11:33
[2019-04-07] MEDS: NovoLOG Insulin Flexpen SUBQ SCH ×5 (12:42→21:11)
[2019-04-07] MEDS: Piperacillin/Tazobactam 3.375 GM in NS 110 ML IVPB SCH ×2 (13:04→21:10)
--- NOTE | 2019-04-07 13:22 | Consultation ---
History of Present Illness General Date patient seen: Apr 07, 2019 Time patient seen: 13:18 Chief Complaint: General Complaint Referring physician: DR. Krishnan Reason for Consultation: HYPOTN Present Illness HPI 63 F h/o DM and recent L great toe TMA p/w cellultiis of the L great toe. This am she was hypotensive to the 80s, impr with IVF. No RIOS, no cough, no SOB, no CP, no FC Allergies: Coded Allergies: No Known Allergies (Unverified , 03/20/19) Medication History Scheduled Cephalexin* (Keflex*), 500 MG ORAL EVERY 6 HOURS, (Reported) Trimethoprim/Sulfamethoxazole 160/800* (Bactrim Ds Tablet*), 1 TAB ORAL TWICE A DAY, (Reported) Patient History Healthcare decision maker Resuscitation status Full Code Advanced Directive on File No Past Medical/Surgical History Past Medical/Surgical History: (1) Toe amputation status (2) Diabetes mellitus Review of Systems All Other Systems: negative except mentioned in HPI Physical Exam General Appearance: WD/WN, no apparent distress, alert oriented x3 Lines, tubes and drains: peripheral HEENT: normocephalic, atraumatic, anicteric, mucous membranes moist, PERRL Neck: non-tender, normal alignment, supple, normal inspection Respiratory/Chest: chest wall non-tender, lungs clear, normal breath sounds, no respiratory distress, no accessory muscle use Cardiovascular/Chest: normal peripheral pulses, normal rate, regular rhythm Abdomen: normal bowel sounds, non tender, soft, no organomegaly, no mass Extremities: other - wound dressed no CCE Last 24 Hour Vital Signs Date Time Temp Pulse Resp B/P (MAP) Pulse Ox O2 Delivery O2 Flow Rate FiO2 04/07/19 12:00 97.0 81 20 129/74 (92) 99 04/07/19 10:00 117/63 (81) 04/07/19 09:00 83 97/65 (76) 04/07/19 09:00 Room Air 04/07/19 08:00 98.1 84 16 85/43 (57) 100 04/07/19 04:00 98.0 84 20 108/61 (77) 97 04/07/19 02:10 Room Air 04/07/19 01:36 98.0 85 18 111/59 (76) 98 04/07/19 00:32 97.3 79 18 111/63 99 Room Air 04/06/19 23:50 79 18 Room Air 04/06/19 23:50 97.3 79 18 111/63 99 04/06/19 21:51 97.3 79 18 111/63 (79) 99 Laboratory Tests Test 04/06/19 22:30 04/06/19 22:45 04/07/19 00:00 04/07/19 05:21 White Blood Count 8.8 K/UL (4.8-10.8) 9.6 K/UL (4.8-10.8) Red Blood Count 3.69 M/UL (4.20-5.40) L 3.48 M/UL (4.20-5.40) L Hemoglobin 11.1 G/DL (12.0-16.0) L 10.2 G/DL (12.0-16.0) L Hematocrit 32.7 % (37.0-47.0) L 31.0 % (37.0-47.0) L Mean Corpuscular Volume 89 FL (80-99) 89 FL (80-99) Mean Corpuscular Hemoglobin 30.0 PG (27.0-31.0) 29.4 PG (27.0-31.0) Mean Corpuscular Hemoglobin Concent 33.8 G/DL (32.0-36.0) 33.0 G/DL (32.0-36.0) Red Cell Distribution Width 12.4 % (11.6-14.8) 12.1 % (11.6-14.8) Platelet Count 698 K/UL (150-450) H 656 K/UL (150-450) H Mean Platelet Volume 4.0 FL (6.5-10.1) L 4.0 FL (6.5-10.1) L Neutrophils (%) (Auto) 69.6 % (45.0-75.0) 71.3 % (45.0-75.0) Lymphocytes (%) (Auto) 20.1 % (20.0-45.0) 18.0 % (20.0-45.0) L Monocytes (%) (Auto) 7.1 % (1.0-10.0) 7.7 % (1.0-10.0) Eosinophils (%) (Auto) 2.2 % (0.0-3.0) 2.1 % (0.0-3.0) Basophils (%) (Auto) 1.0 % (0.0-2.0) 0.9 % (0.0-2.0) Sodium Level 132 MMOL/L (136-145) L 136 MMOL/L (136-145) Potassium Level 5.5 MMOL/L (3.5-5.1) H 4.2 MMOL/L (3.5-5.1) Chloride Level 97 MMOL/L (98-107) L 101 MMOL/L (98-107) Carbon Dioxide Level 29 MMOL/L (21-32) 26 MMOL/L (21-32) Anion Gap 7 mmol/L (5-15) 9 mmol/L (5-15) Blood Urea Nitrogen 27 mg/dL (7-18) H 21 mg/dL (7-18) H Creatinine 1.1 MG/DL (0.55-1.30) 1.0 MG/DL (0.55-1.30) Estimat Glomerular Filtration Rate 50.5 mL/min (>60) 56.4 mL/min (>60) Glucose Level 337 MG/DL (74-106) H 160 MG/DL (74-106) #H Calcium Level 9.6 MG/DL (8.5-10.1) 9.5 MG/DL (8.5-10.1) Lactic Acid Level 1.30 mmol/L (0.4-2.0) Urine Color Pale yellow Urine Appearance Clear Urine pH 7 (4.5-8.0) Urine Specific [place] 1.005 (1.005-1.035) Urine Protein Negative (NEGATIVE) Urine Glucose (UA) 3+ (NEGATIVE) H Urine Ketones Negative (NEGATIVE) Urine Blood Negative (NEGATIVE) Urine Nitrite Negative (NEGATIVE) Urine Bilirubin Negative (NEGATIVE) Urine Urobilinogen Normal MG/DL (0.0-1.0) Urine Leukocyte Esterase Negative (NEGATIVE) Urine RBC 0-2 /HPF (0 - 2) Urine WBC 0 /HPF (0 - 2) Urine Squamous Epithelial Cells Few /LPF (NONE/OCC) Urine Bacteria None /HPF (NONE) Hemoglobin A1c 13.2 % (4.3-6.0) H Triglycerides Level 102 MG/DL (30-150) Cholesterol Level 174 MG/DL (< 200) LDL Cholesterol 112 mg/dL (<100) H HDL Cholesterol 40 MG/DL (40-60) Cholesterol/HDL Ratio 4.4 (3.3-4.4) Height (Feet): 5 Height (Inches): 0.00 Weight (Pounds): 110 Medications Current Medications Medications (Trade) Dose Ordered Sig/Arnoldo Route PRN Reason Start Time Stop Time Status Last Admin Dose Admin Acetaminophen (Tylenol) 650 mg Q4H PRN ORAL Mild Pain/Temp > 100.5 04/07/19 11:00 05/07/19 10:59 Acetaminophen/ Hydrocodone Bitart ([place] 5/325) 1 tab Q4H PRN ORAL Moderate Pain (Pain Scale 4-6) 04/07/19 11:00 04/14/19 10:59 Dextrose (Dextrose 50%) 25 ml Q30M PRN IV Hypoglycemia 04/07/19 11:15 05/07/19 06:44 Dextrose (Dextrose 50%) 50 ml Q30M PRN IV Hypoglycemia 04/07/19 11:15 05/07/19 06:44 Enoxaparin Sodium (Lovenox) 40 mg DAILY SUBQ 04/08/19 09:00 05/07/19 08:59 Insulin Aspart (NovoLOG) BEFORE MEALS AND HS SUBQ 04/07/19 11:30 05/07/19 06:29 04/07/19 12:42 Insulin Aspart (NovoLOG) 5 units NOVOTIAC SUBQ 04/07/19 11:50 05/07/19 06:44 04/07/19 12:44 Insulin Detemir (Levemir) 15 units DAILY SUBQ 04/08/19 09:00 05/07/19 08:59 Morphine Sulfate (Morphine Sulfate) 2 mg Q6H PRN IVP For severe Pain(8-10) 04/07/19 11:00 04/14/19 10:59 Pantoprazole (Protonix) 40 mg DAILY ORAL 04/08/19 09:00 05/07/19 08:59 Piperacillin Sod/ Tazobactam Sod 3.375 gm/Sodium Chloride 110 ml @ 27.5 mls/hr EVERY 8 HOURS IVPB 04/07/19 14:00 04/12/19 05:59 04/07/19 13:04 Vancomycin HCl (Vanco rx to dose) 1 ea DAILY PRN MISC Per rx protocol 04/08/19 09:00 05/07/19 07:59 Vancomycin HCl 750 mg/Dextrose 275 ml @ 183.333 mls/hr Q24H IVPB 04/08/19 04:00 04/13/19 03:59 Assessment/Plan Problem List: (1) Hypotension due to hypovolemia ICD Codes: I95.89 - Other hypotension; E86.1 - Hypovolemia SNOMED: 09266799, 91332740 (2) Cellulitis ICD Codes: L03.90 - Cellulitis, unspecified SNOMED: 703768554 Qualifiers: Qualified Codes: L03.116 - Cellulitis of left lower limb (3) Toe amputation status ICD Codes: S98.139A - Complete traumatic amputation of one unspecified lesser toe, initial encounter SNOMED: 569504859 (4) Diabetes mellitus ICD Codes: E11.9 - Type 2 diabetes mellitus without complications SNOMED: 16774746 Assessment/Plan: BP better after IVF Transferred to [facility] Continue to monitor Abx wound care Respiratory stable DVT Px: LMWH Jake Lion MD Apr 07, 2019 13:22
--- NOTE | 2019-04-07 13:31 | History & Physical ---
History and Physical History & Physicial seen and examined. Dictation completed Gaby Krishnan MD Apr 07, 2019 13:30
--- NOTE | 2019-04-07 14:00 | Consultation ---
History of Present Illness General Chief Complaint: General Complaint Referring physician: DR. Krishnan Reason for Consultation: HYPOTN Present Illness Allergies: Coded Allergies: No Known Allergies (Unverified , 03/20/19) Medication History Scheduled Cephalexin* (Keflex*), 500 MG ORAL EVERY 6 HOURS, (Reported) Trimethoprim/Sulfamethoxazole 160/800* (Bactrim Ds Tablet*), 1 TAB ORAL TWICE A DAY, (Reported) Patient History Healthcare decision maker Resuscitation status Full Code Advanced Directive on File No Physical Exam Last 24 Hour Vital Signs Date Time Temp Pulse Resp B/P (MAP) Pulse Ox O2 Delivery O2 Flow Rate FiO2 04/07/19 12:00 97.0 81 20 129/74 (92) 99 04/07/19 10:00 117/63 (81) 04/07/19 09:00 83 97/65 (76) 04/07/19 09:00 Room Air 04/07/19 08:00 98.1 84 16 85/43 (57) 100 04/07/19 04:00 98.0 84 20 108/61 (77) 97 04/07/19 02:10 Room Air 04/07/19 01:36 98.0 85 18 111/59 (76) 98 04/07/19 00:32 97.3 79 18 111/63 99 Room Air 04/06/19 23:50 79 18 Room Air 04/06/19 23:50 97.3 79 18 111/63 99 04/06/19 21:51 97.3 79 18 111/63 (79) 99 Laboratory Tests Test 04/06/19 22:30 04/06/19 22:45 04/07/19 00:00 04/07/19 05:21 White Blood Count 8.8 K/UL (4.8-10.8) 9.6 K/UL (4.8-10.8) Red Blood Count 3.69 M/UL (4.20-5.40) L 3.48 M/UL (4.20-5.40) L Hemoglobin 11.1 G/DL (12.0-16.0) L 10.2 G/DL (12.0-16.0) L Hematocrit 32.7 % (37.0-47.0) L 31.0 % (37.0-47.0) L Mean Corpuscular Volume 89 FL (80-99) 89 FL (80-99) Mean Corpuscular Hemoglobin 30.0 PG (27.0-31.0) 29.4 PG (27.0-31.0) Mean Corpuscular Hemoglobin Concent 33.8 G/DL (32.0-36.0) 33.0 G/DL (32.0-36.0) Red Cell Distribution Width 12.4 % (11.6-14.8) 12.1 % (11.6-14.8) Platelet Count 698 K/UL (150-450) H 656 K/UL (150-450) H Mean Platelet Volume 4.0 FL (6.5-10.1) L 4.0 FL (6.5-10.1) L Neutrophils (%) (Auto) 69.6 % (45.0-75.0) 71.3 % (45.0-75.0) Lymphocytes (%) (Auto) 20.1 % (20.0-45.0) 18.0 % (20.0-45.0) L Monocytes (%) (Auto) 7.1 % (1.0-10.0) 7.7 % (1.0-10.0) Eosinophils (%) (Auto) 2.2 % (0.0-3.0) 2.1 % (0.0-3.0) Basophils (%) (Auto) 1.0 % (0.0-2.0) 0.9 % (0.0-2.0) Sodium Level 132 MMOL/L (136-145) L 136 MMOL/L (136-145) Potassium Level 5.5 MMOL/L (3.5-5.1) H 4.2 MMOL/L (3.5-5.1) Chloride Level 97 MMOL/L (98-107) L 101 MMOL/L (98-107) Carbon Dioxide Level 29 MMOL/L (21-32) 26 MMOL/L (21-32) Anion Gap 7 mmol/L (5-15) 9 mmol/L (5-15) Blood Urea Nitrogen 27 mg/dL (7-18) H 21 mg/dL (7-18) H Creatinine 1.1 MG/DL (0.55-1.30) 1.0 MG/DL (0.55-1.30) Estimat Glomerular Filtration Rate 50.5 mL/min (>60) 56.4 mL/min (>60) Glucose Level 337 MG/DL (74-106) H 160 MG/DL (74-106) #H Calcium Level 9.6 MG/DL (8.5-10.1) 9.5 MG/DL (8.5-10.1) Lactic Acid Level 1.30 mmol/L (0.4-2.0) Urine Color Pale yellow Urine Appearance Clear Urine pH 7 (4.5-8.0) Urine Specific [place] 1.005 (1.005-1.035) Urine Protein Negative (NEGATIVE) Urine Glucose (UA) 3+ (NEGATIVE) H Urine Ketones Negative (NEGATIVE) Urine Blood Negative (NEGATIVE) Urine Nitrite Negative (NEGATIVE) Urine Bilirubin Negative (NEGATIVE) Urine Urobilinogen Normal MG/DL (0.0-1.0) Urine Leukocyte Esterase Negative (NEGATIVE) Urine RBC 0-2 /HPF (0 - 2) Urine WBC 0 /HPF (0 - 2) Urine Squamous Epithelial Cells Few /LPF (NONE/OCC) Urine Bacteria None /HPF (NONE) Hemoglobin A1c 13.2 % (4.3-6.0) H Triglycerides Level 102 MG/DL (30-150) Cholesterol Level 174 MG/DL (< 200) LDL Cholesterol 112 mg/dL (<100) H HDL Cholesterol 40 MG/DL (40-60) Cholesterol/HDL Ratio 4.4 (3.3-4.4) Height (Feet): 5 Height (Inches): 0.00 Weight (Pounds): 110 Medications Current Medications Medications (Trade) Dose Ordered Sig/Arnoldo Route PRN Reason Start Time Stop Time Status Last Admin Dose Admin Acetaminophen (Tylenol) 650 mg Q4H PRN ORAL Mild Pain/Temp > 100.5 04/07/19 11:00 05/07/19 10:59 Acetaminophen/ Hydrocodone Bitart ([place] 5/325) 1 tab Q4H PRN ORAL Moderate Pain (Pain Scale 4-6) 04/07/19 11:00 04/14/19 10:59 Dextrose (Dextrose 50%) 25 ml Q30M PRN IV Hypoglycemia 04/07/19 11:15 05/07/19 06:44 Dextrose (Dextrose 50%) 50 ml Q30M PRN IV Hypoglycemia 04/07/19 11:15 05/07/19 06:44 Enoxaparin Sodium (Lovenox) 40 mg DAILY SUBQ 04/08/19 09:00 05/07/19 08:59 Insulin Aspart (NovoLOG) BEFORE MEALS AND HS SUBQ 04/07/19 11:30 05/07/19 06:29 04/07/19 12:42 Insulin Aspart (NovoLOG) 5 units NOVOTIAC SUBQ 04/07/19 11:50 05/07/19 06:44 04/07/19 12:44 Insulin Detemir (Levemir) 15 units DAILY SUBQ 04/08/19 09:00 05/07/19 08:59 Morphine Sulfate (Morphine Sulfate) 2 mg Q6H PRN IVP For severe Pain(8-10) 04/07/19 11:00 04/14/19 10:59 Pantoprazole (Protonix) 40 mg DAILY ORAL 04/08/19 09:00 05/07/19 08:59 Piperacillin Sod/ Tazobactam Sod 3.375 gm/Sodium Chloride 110 ml @ 27.5 mls/hr EVERY 8 HOURS IVPB 04/07/19 14:00 04/12/19 05:59 04/07/19 13:04 Vancomycin HCl (Vanco rx to dose) 1 ea DAILY PRN MISC Per rx protocol 04/08/19 09:00 05/07/19 07:59 Vancomycin HCl 750 mg/Dextrose 275 ml @ 183.333 mls/hr Q24H IVPB 04/08/19 04:00 04/13/19 03:59 Assessment/Plan Assessment/Plan: Hematology Consultation EDUARDO SNOW: Henry Krishnan RFC: Anemia and high platelet count DOS: 04/07/19 ID 63-year-old female with a history of diabetes. She presents with complaint of left toe infection. She had a recent left foot great toe transmetatarsal imitation. Since she is been home the second toe is beginning to become very erythematous. Now spreading to the third toe. Patient denies any fever chills. Tender to palpation. No drainage. No fever chills. Is 7 out of 10. No trauma. No f/c, seen by pulm, surg, pending DM management. No hx of prior high plt or significant anemia. Coded Allergies: No Known Allergies (Unverified , 03/20/19) Past Medical History: see triage record, old chart reviewed Past Surgical History: other Pertinent Family History: none Social History: Denies: smoking Last Menstrual Period: n/a Now: No Immunizations: other Reviewed Nursing Documentation: PMH: Agreed; PSxH: Agreed Nursing Documentation-PMH Past Medical History: No History, Except For Hx Hypertension: Yes Hx Diabetes: Yes Hx Cancer: No Hx Gastrointestinal Problems: No Hx Neurological Problems: No ROS General: Denies fatigue, fever, chills, weight loss; + weight gain as above HENT: Denies oral sores, neck masses, nasal d/c, hearing problems Vison: Denies change in vision, eye pain, redness, discharge Cardiac: As above Pulmonary: As above GI: Denies heart burn, swallowing difficulty, abdominal pain, diarrhea, constipation : As per HPI Neuro: Denies seizure, weakness, numbness Endo: Denies heat/cold intolerance, weight changes, polyuria, polydipsia Heme/Onc: Denies unusual bleeding, bruising, clotting MSK: Denies join pain, swelling, muscle aches Mental Health: Denies anxiety, depression,mood changes Physical Exam: Vitals: reviewed General Appearance: NAD HEENT: normocephalic, atraumatic Neck: non-tender, normal alignment Respiratory/Chest: normal breath sounds bilaterally Cardiovascular/Chest: normal peripheral pulses, normal rate Abdomen: normal bowel sounds, soft, nontender Extremities: normal range of motion left foot, with dressing, per pictures, surgical site over first mtp looks clean, 2nd toe with erythemia, weak pulses Assessment and Recs: # Thrombocytosis - likely related to reactive process (and/or underlying infection) from toe as well as poor DM management by patient, noncompliance --> Continue to monitor for improvement --> Trend CBC as needed plt [id number] --> If continues to be elevated, consider to send for KB-2 --> Smear reviewed and no abnormalities noted. --> less likely is a myeloproliferative disorder # Anemia of chronic disease due to underlying chronic medical issues, multifactorial, esr elevated due to infection/chronic inflamm state --> Anemia workup has been ordered, rule out gi bleed --> No evidence of hemolysis is noted, peripheral smear has been reviewed. --> Hgb goal >7. Transfuse prn. --> Epogen or iron at this time is not particularly indicated --> Medications have been reviewed --> low threshold for gi evaluation in case has occult + # Cellulitis of the lower ext --> on abx broad spectrum vanc/zosyn --> per surg --> hx osteomyelits of her left foot. She had partial amputation. # DM2 poorly controlled --> a1c 13.2, goal <8 --> accuchecks qac and qhs, low dose iss # Dvt ppx lmwh The timing of this note does not necessarily reflect the time of the patient was seen. Greatly appreciate consultation. Can Burns MD Apr 07, 2019 14:00
[2019-04-07 14:35] LABS: FERRITIN 166 NG/ML (8-388)
--- NOTE | 2019-04-07 15:06 | Infectious Diseases Prog Note ---
Assessment/Plan Problems: (1) Cellulitis Assessment & Plan: of the left foot , with skin sloughing continue current antibiotics with vancomycin and zosyn (2) Diabetes mellitus (3) Toe amputation status Subjective Allergies: Coded Allergies: No Known Allergies (Unverified , 03/20/19) Objective Vital Signs Last 24 Hour Vital Signs Date Time Temp Pulse Resp B/P (MAP) Pulse Ox O2 Delivery O2 Flow Rate FiO2 04/07/19 12:00 97.0 81 20 129/74 (92) 99 04/07/19 10:00 117/63 (81) 04/07/19 09:00 83 97/65 (76) 04/07/19 09:00 Room Air 04/07/19 08:00 98.1 84 16 85/43 (57) 100 04/07/19 04:00 98.0 84 20 108/61 (77) 97 04/07/19 02:10 Room Air 04/07/19 01:36 98.0 85 18 111/59 (76) 98 04/07/19 00:32 97.3 79 18 111/63 99 Room Air 04/06/19 23:50 79 18 Room Air 04/06/19 23:50 97.3 79 18 111/63 99 04/06/19 21:51 97.3 79 18 111/63 (79) 99 Height (Feet): 5 Height (Inches): 0.00 Weight (Pounds): 110 Laboratory Tests Test 04/06/19 22:30 04/06/19 22:45 04/07/19 00:00 04/07/19 05:21 White Blood Count 8.8 K/UL (4.8-10.8) 9.6 K/UL (4.8-10.8) Red Blood Count 3.69 M/UL (4.20-5.40) L 3.48 M/UL (4.20-5.40) L Hemoglobin 11.1 G/DL (12.0-16.0) L 10.2 G/DL (12.0-16.0) L Hematocrit 32.7 % (37.0-47.0) L 31.0 % (37.0-47.0) L Mean Corpuscular Volume 89 FL (80-99) 89 FL (80-99) Mean Corpuscular Hemoglobin 30.0 PG (27.0-31.0) 29.4 PG (27.0-31.0) Mean Corpuscular Hemoglobin Concent 33.8 G/DL (32.0-36.0) 33.0 G/DL (32.0-36.0) Red Cell Distribution Width 12.4 % (11.6-14.8) 12.1 % (11.6-14.8) Platelet Count 698 K/UL (150-450) H 656 K/UL (150-450) H Mean Platelet Volume 4.0 FL (6.5-10.1) L 4.0 FL (6.5-10.1) L Neutrophils (%) (Auto) 69.6 % (45.0-75.0) 71.3 % (45.0-75.0) Lymphocytes (%) (Auto) 20.1 % (20.0-45.0) 18.0 % (20.0-45.0) L Monocytes (%) (Auto) 7.1 % (1.0-10.0) 7.7 % (1.0-10.0) Eosinophils (%) (Auto) 2.2 % (0.0-3.0) 2.1 % (0.0-3.0) Basophils (%) (Auto) 1.0 % (0.0-2.0) 0.9 % (0.0-2.0) Sodium Level 132 MMOL/L (136-145) L 136 MMOL/L (136-145) Potassium Level 5.5 MMOL/L (3.5-5.1) H 4.2 MMOL/L (3.5-5.1) Chloride Level 97 MMOL/L (98-107) L 101 MMOL/L (98-107) Carbon Dioxide Level 29 MMOL/L (21-32) 26 MMOL/L (21-32) Anion Gap 7 mmol/L (5-15) 9 mmol/L (5-15) Blood Urea Nitrogen 27 mg/dL (7-18) H 21 mg/dL (7-18) H Creatinine 1.1 MG/DL (0.55-1.30) 1.0 MG/DL (0.55-1.30) Estimat Glomerular Filtration Rate 50.5 mL/min (>60) 56.4 mL/min (>60) Glucose Level 337 MG/DL (74-106) H 160 MG/DL (74-106) #H Calcium Level 9.6 MG/DL (8.5-10.1) 9.5 MG/DL (8.5-10.1) Lactic Acid Level 1.30 mmol/L (0.4-2.0) Urine Color Pale yellow Urine Appearance Clear Urine pH 7 (4.5-8.0) Urine Specific [place] 1.005 (1.005-1.035) Urine Protein Negative (NEGATIVE) Urine Glucose (UA) 3+ (NEGATIVE) H Urine Ketones Negative (NEGATIVE) Urine Blood Negative (NEGATIVE) Urine Nitrite Negative (NEGATIVE) Urine Bilirubin Negative (NEGATIVE) Urine Urobilinogen Normal MG/DL (0.0-1.0) Urine Leukocyte Esterase Negative (NEGATIVE) Urine RBC 0-2 /HPF (0 - 2) Urine WBC 0 /HPF (0 - 2) Urine Squamous Epithelial Cells Few /LPF (NONE/OCC) Urine Bacteria None /HPF (NONE) Hemoglobin A1c 13.2 % (4.3-6.0) H Iron Level Pending Unsaturated Iron Binding Pending Ferritin 166 NG/ML (8-388) Triglycerides Level 102 MG/DL (30-150) Cholesterol Level 174 MG/DL (< 200) LDL Cholesterol 112 mg/dL (<100) H HDL Cholesterol 40 MG/DL (40-60) Cholesterol/HDL Ratio 4.4 (3.3-4.4) Vitamin B12 Level Pending Folate Pending Thyroid Stimulating Hormone (TSH) 2.244 uiU/mL (0.358-3.740) Current Medications Medications (Trade) Dose Ordered Sig/Arnoldo Route PRN Reason Start Time Stop Time Status Last Admin Dose Admin Acetaminophen (Tylenol) 650 mg Q4H PRN ORAL Mild Pain/Temp > 100.5 04/07/19 11:00 05/07/19 10:59 Acetaminophen/ Hydrocodone Bitart ([place] 5/325) 1 tab Q4H PRN ORAL Moderate Pain (Pain Scale 4-6) 04/07/19 11:00 04/14/19 10:59 Dextrose (Dextrose 50%) 25 ml Q30M PRN IV Hypoglycemia 04/07/19 11:15 05/07/19 06:44 Dextrose (Dextrose 50%) 50 ml Q30M PRN IV Hypoglycemia 04/07/19 11:15 05/07/19 06:44 Enoxaparin Sodium (Lovenox) 40 mg DAILY SUBQ 04/08/19 09:00 05/07/19 08:59 Insulin Aspart (NovoLOG) BEFORE MEALS AND HS SUBQ 04/07/19 11:30 05/07/19 06:29 04/07/19 12:42 Insulin Aspart (NovoLOG) 5 units NOVOTIAC SUBQ 04/07/19 11:50 05/07/19 06:44 04/07/19 12:44 Insulin Detemir (Levemir) 15 units DAILY SUBQ 04/08/19 09:00 05/07/19 08:59 Morphine Sulfate (Morphine Sulfate) 2 mg Q6H PRN IVP For severe Pain(8-10) 04/07/19 11:00 04/14/19 10:59 Pantoprazole (Protonix) 40 mg DAILY ORAL 04/08/19 09:00 05/07/19 08:59 Piperacillin Sod/ Tazobactam Sod 3.375 gm/Sodium Chloride 110 ml @ 27.5 mls/hr EVERY 8 HOURS IVPB 04/07/19 14:00 04/12/19 05:59 04/07/19 13:04 Vancomycin HCl (Vanco rx to dose) 1 ea DAILY PRN MISC Per rx protocol 04/08/19 09:00 05/07/19 07:59 Vancomycin HCl 750 mg/Dextrose 275 ml @ 183.333 mls/hr Q24H IVPB 04/08/19 04:00 04/13/19 03:59 Jamie Simpson M.D. Apr 07, 2019 15:06
--- NOTE | 2019-04-07 15:18 | NUR ---
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 97.9 HR 62 RR 18 B/P 111/63 PLT 698 NA 132 K 5.5 BUN 27 IS: ZOSYN IV VANCO IV ADMITTED TO MED/SURG @ 0056 MED/SURG STATUS DCP RETURN HOME
--- NOTE | 2019-04-07 15:19 | Infectious Diseases Prog Note ---
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, will add fluconazole too to cover for quan albicans (2) Diabetes mellitus Assessment & Plan: poorly controlled, recommend tight glycemic control to keep blood glucose between 100-140 (3) Toe amputation status Assessment & Plan: with dry and intact surgical wound, continue local care and dressings as per surgery Subjective Allergies: Coded Allergies: No Known Allergies (Unverified , 03/20/19) Objective Vital Signs Last 24 Hour Vital Signs Date Time Temp Pulse Resp B/P (MAP) Pulse Ox O2 Delivery O2 Flow Rate FiO2 04/07/19 12:00 97.0 81 20 129/74 (92) 99 04/07/19 10:00 117/63 (81) 04/07/19 09:00 83 97/65 (76) 04/07/19 09:00 Room Air 04/07/19 08:00 98.1 84 16 85/43 (57) 100 04/07/19 04:00 98.0 84 20 108/61 (77) 97 04/07/19 02:10 Room Air 04/07/19 01:36 98.0 85 18 111/59 (76) 98 04/07/19 00:32 97.3 79 18 111/63 99 Room Air 04/06/19 23:50 79 18 Room Air 04/06/19 23:50 97.3 79 18 111/63 99 04/06/19 21:51 97.3 79 18 111/63 (79) 99 Height (Feet): 5 Height (Inches): 0.00 Weight (Pounds): 110 Laboratory Tests Test 04/06/19 22:30 04/06/19 22:45 04/07/19 00:00 04/07/19 05:21 White Blood Count 8.8 K/UL (4.8-10.8) 9.6 K/UL (4.8-10.8) Red Blood Count 3.69 M/UL (4.20-5.40) L 3.48 M/UL (4.20-5.40) L Hemoglobin 11.1 G/DL (12.0-16.0) L 10.2 G/DL (12.0-16.0) L Hematocrit 32.7 % (37.0-47.0) L 31.0 % (37.0-47.0) L Mean Corpuscular Volume 89 FL (80-99) 89 FL (80-99) Mean Corpuscular Hemoglobin 30.0 PG (27.0-31.0) 29.4 PG (27.0-31.0) Mean Corpuscular Hemoglobin Concent 33.8 G/DL (32.0-36.0) 33.0 G/DL (32.0-36.0) Red Cell Distribution Width 12.4 % (11.6-14.8) 12.1 % (11.6-14.8) Platelet Count 698 K/UL (150-450) H 656 K/UL (150-450) H Mean Platelet Volume 4.0 FL (6.5-10.1) L 4.0 FL (6.5-10.1) L Neutrophils (%) (Auto) 69.6 % (45.0-75.0) 71.3 % (45.0-75.0) Lymphocytes (%) (Auto) 20.1 % (20.0-45.0) 18.0 % (20.0-45.0) L Monocytes (%) (Auto) 7.1 % (1.0-10.0) 7.7 % (1.0-10.0) Eosinophils (%) (Auto) 2.2 % (0.0-3.0) 2.1 % (0.0-3.0) Basophils (%) (Auto) 1.0 % (0.0-2.0) 0.9 % (0.0-2.0) Sodium Level 132 MMOL/L (136-145) L 136 MMOL/L (136-145) Potassium Level 5.5 MMOL/L (3.5-5.1) H 4.2 MMOL/L (3.5-5.1) Chloride Level 97 MMOL/L (98-107) L 101 MMOL/L (98-107) Carbon Dioxide Level 29 MMOL/L (21-32) 26 MMOL/L (21-32) Anion Gap 7 mmol/L (5-15) 9 mmol/L (5-15) Blood Urea Nitrogen 27 mg/dL (7-18) H 21 mg/dL (7-18) H Creatinine 1.1 MG/DL (0.55-1.30) 1.0 MG/DL (0.55-1.30) Estimat Glomerular Filtration Rate 50.5 mL/min (>60) 56.4 mL/min (>60) Glucose Level 337 MG/DL (74-106) H 160 MG/DL (74-106) #H Calcium Level 9.6 MG/DL (8.5-10.1) 9.5 MG/DL (8.5-10.1) Lactic Acid Level 1.30 mmol/L (0.4-2.0) Urine Color Pale yellow Urine Appearance Clear Urine pH 7 (4.5-8.0) Urine Specific [place] 1.005 (1.005-1.035) Urine Protein Negative (NEGATIVE) Urine Glucose (UA) 3+ (NEGATIVE) H Urine Ketones Negative (NEGATIVE) Urine Blood Negative (NEGATIVE) Urine Nitrite Negative (NEGATIVE) Urine Bilirubin Negative (NEGATIVE) Urine Urobilinogen Normal MG/DL (0.0-1.0) Urine Leukocyte Esterase Negative (NEGATIVE) Urine RBC 0-2 /HPF (0 - 2) Urine WBC 0 /HPF (0 - 2) Urine Squamous Epithelial Cells Few /LPF (NONE/OCC) Urine Bacteria None /HPF (NONE) Hemoglobin A1c 13.2 % (4.3-6.0) H Iron Level Pending Unsaturated Iron Binding Pending Ferritin 166 NG/ML (8-388) Triglycerides Level 102 MG/DL (30-150) Cholesterol Level 174 MG/DL (< 200) LDL Cholesterol 112 mg/dL (<100) H HDL Cholesterol 40 MG/DL (40-60) Cholesterol/HDL Ratio 4.4 (3.3-4.4) Vitamin B12 Level Pending Folate Pending Thyroid Stimulating Hormone (TSH) 2.244 uiU/mL (0.358-3.740) Current Medications Medications (Trade) Dose Ordered Sig/Arnoldo Route PRN Reason Start Time Stop Time Status Last Admin Dose Admin Acetaminophen (Tylenol) 650 mg Q4H PRN ORAL Mild Pain/Temp > 100.5 04/07/19 11:00 05/07/19 10:59 Acetaminophen/ Hydrocodone Bitart ([place] 5/325) 1 tab Q4H PRN ORAL Moderate Pain (Pain Scale 4-6) 04/07/19 11:00 04/14/19 10:59 Dextrose (Dextrose 50%) 25 ml Q30M PRN IV Hypoglycemia 04/07/19 11:15 05/07/19 06:44 Dextrose (Dextrose 50%) 50 ml Q30M PRN IV Hypoglycemia 04/07/19 11:15 05/07/19 06:44 Enoxaparin Sodium (Lovenox) 40 mg DAILY SUBQ 04/08/19 09:00 05/07/19 08:59 Insulin Aspart (NovoLOG) BEFORE MEALS AND HS SUBQ 04/07/19 11:30 05/07/19 06:29 04/07/19 12:42 Insulin Aspart (NovoLOG) 5 units NOVOTIAC SUBQ 04/07/19 11:50 05/07/19 06:44 04/07/19 12:44 Insulin Detemir (Levemir) 15 units DAILY SUBQ 04/08/19 09:00 05/07/19 08:59 Morphine Sulfate (Morphine Sulfate) 2 mg Q6H PRN IVP For severe Pain(8-10) 04/07/19 11:00 04/14/19 10:59 Pantoprazole (Protonix) 40 mg DAILY ORAL 04/08/19 09:00 05/07/19 08:59 Piperacillin Sod/ Tazobactam Sod 3.375 gm/Sodium Chloride 110 ml @ 27.5 mls/hr EVERY 8 HOURS IVPB 04/07/19 14:00 04/12/19 05:59 04/07/19 13:04 Vancomycin HCl (Vanco rx to dose) 1 ea DAILY PRN MISC Per rx protocol 04/08/19 09:00 05/07/19 07:59 Vancomycin HCl 750 mg/Dextrose 275 ml @ 183.333 mls/hr Q24H IVPB 04/08/19 04:00 04/13/19 03:59 Jamie Simpson M.D. Apr 07, 2019 15:19
[2019-04-07 15:20] LABS: IRON 29 ug/dL (50-175); TOTAL IRON BINDING CAPACITY 212 ug/dL (250-450)
[2019-04-07 15:21] LABS: % IRON SATURATION 14 % (15-50)
--- NOTE | 2019-04-07 16:30 | History and Physical Report ---
DATE OF ADMISSION: 04/07/2019 SOURCE OF INFORMATION: Patient and EMR. HISTORY OF PRESENT ILLNESS: The patient is a pleasant 63-year-old female. The patient is status post amputation of the left toe and presented with worsening of the weakness for the last couple of days. At the time of evaluation, the patient's [id number] and the brother are present. The patient denies any severe chest pain or shortness of breath. No fever, no chills. PAST MEDICAL HISTORY: Diabetes and peripheral arterial disease. MEDICATIONS: Current hospital medications including, but not limited to vancomycin, Zosyn, and sliding scale insulin. ALLERGIES: NKDA. SOCIAL HISTORY: The patient lives with her brother and [id number]. The patient denies any history of smoking or illicit drug abuse. PHYSICAL EXAMINATION: VITAL SIGNS: Blood pressure 100/60, temperature 98.2, pulse oximetry 98% on room air, and respiratory rate 18. HEAD AND NECK: Atraumatic and normocephalic. CHEST: Clear to auscultation. HEART: S1, S2. Regular rate and rhythm. ABDOMEN: Soft. No organomegaly. MUSCULOSKELETAL: Positive for the postsurgical changes on the left foot. Status post left-sided great toe TMA. LABORATORY DATA: Labs dated April 06, 2019, WBC 8.8 and hemoglobin 11.1. Sodium 132, potassium 5.5, BUN 27, and A1c 13.2. ASSESSMENT: 1. Acute osteomyelitis of the left great greater toe, status post TMA. 2. Diabetes type 2, uncontrolled. 3. Hyperkalemia. 4. Hyponatremia. 5. GI and DVT prophylaxis. PLAN OF CARE: Podiatry and Infectious Disease are consulted. We will continue with the current empiric antibiotic treatment. Gaby Krishnan M.D. DR: CURTIS JOB#: [id number] CC:
--- NOTE | 2019-04-07 17:15 | Consultation ---
DATE OF CONSULTATION: 04/07/2019 INFECTIOUS DISEASE CONSULTATION CONSULTING PHYSICIAN: Jamie Simpson M.D. REQUESTING PHYSICIAN: Gaby Krishnan M.D. REASON FOR CONSULTATION: Left foot cellulitis, status post recent left big toe transmetatarsal amputation, recommendation for antibiotics treatment. HISTORY OF PRESENT ILLNESS: The patient is a 63-year-old female with past medical history of poorly controlled diabetes with complication including left foot big toe gangrene with osteomyelitis, status post transmetatarsal amputation with infection due to Enterococcus faecalis, Maria Teresa albicans, and Lactobacillus species, who underwent transmetatarsal left big toe amputation in the February with no complication and good recovery, was discharged home with home health care to continue local wound care as recommended. The patient's second toe in the left foot nail fell off and the toe became red and swollen. Her redness has spread to the other toe too and she developed some skin necrosis in the web of the second and third toe area. Local dry dressing has been applied by daughter and home health care as recommended, but her foot continued to have more skin peeling off, redness, and draining of yellowish fluid, so she was brought into the hospital by her daughter for further evaluation and management. Infectious Disease consultation was requested for antibiotics treatment and further care. As of note, the patient is Cameroonian speaker. History was mainly obtained from the daughter at the bedside and from medical record. REVIEW OF SYSTEM: A 14-point of system reviewed were all negative apart from the one I mentioned above in my H and P. PAST MEDICAL HISTORY: Significant for diabetes mellitus, poorly controlled with complication; left big toe osteomyelitis with gangrene, status post transmetatarsal amputation; hypertension. PAST SURGICAL HISTORY: Left big toe amputation due to gangrene and osteomyelitis. FAMILY HISTORY: Not contributory. SOCIAL HISTORY: The patient lives at home with family. No recent drugs, tobacco, or alcohol. ALLERGIES: No known drug allergies. MEDICATIONS: The patient was started on vancomycin and Zosyn, dosed by Pharmacy. For the rest of her medications, please refer to MAR. PHYSICAL EXAMINATION: VITAL SIGNS: Temperature 97, pulse 81, respirations 20, blood pressure 129/74, saturation 99% on room air. GENERAL: Elderly female, lying in bed, awake, alert, oriented, Cameroonian speaker, mainly not in acute distress. Daughter at the bedside. HEENT: Normocephalic, atraumatic. Pupils, reactive to light equally. Moist oral mucosa. No exudate or thrush. NECK: Supple. No lymphadenopathy. CARDIOVASCULAR: Regular rate and rhythm. No murmur or gallop. LUNGS: Clear bilaterally. No wheezing or rhonchi. ABDOMEN: Soft, nontender, nondistended. Normal bowel sounds. No hepatosplenomegaly or ascites. EXTREMITIES: No edema or cyanosis. Left foot surgical flap healing well except some small portion with minimal necrosis. No active infection in the flap per se or the surgical wound site. Cellulitis involving the left foot stump area and second and third toe with redness involving the second toe. Minimal oozing of serosanguineous fluid on the left foot with skin peeled off on the second toe on part of the stump. LABORATORY AND DIAGNOSTIC DATA: Labs showed white count of 9.6, hemoglobin of 10.2, and platelet count of 656,000. BUN of 21 and creatinine of 1. Urinalysis is negative for infection. Microbiology, previously her wound culture in February and her big toe culture grew Enterococcus faecalis, Lactobacillus species, and Maria Teresa albicans. IMAGING: None currently. ASSESSMENT AND RECOMMENDATION: 1. Left foot cellulitis. The patient previously grew Enterococcus faecalis and Lactobacillus species in addition to Maria Teresa albicans. We are going to continue vancomycin and Zosyn for now, empiric coverage to cover for those bacteria and add Diflucan to cover for yeast. The patient is poorly controlled diabetic and high-risk for yeast infection and athlete's foot. Her skin necrosis could be attributed partially to Maria Teresa albicans invasion due to poorly controlled diabetes. We will order arterial Doppler of the left foot to rule out any vascular compromise and continue local wound care as per surgery, await Podiatry input. 2. Diabetes mellitus, poorly controlled. Recommend tight glycemic control to keep blood glucose between 100 to 140. 3. Left big toe amputation, status with dry and intact surgical wound. Continue local care and dressing as per surgery. 4. Onychomycosis, status post second toe nail falling off. The patient will be on Diflucan for now, empirically to cover for cellulitis also. Since she grew Maria Teresa albicans in the past, she may need long-term treatment with antifungal for her onychomycosis. Thank you for the consult. ID will continue to follow. Please feel free to call with any question. Jamie Simpson M.D. DR: ZAID JOB#: [id number] CC:
--- NOTE | 2019-04-07 19:45 | NUR ---
HAND-OFF: Report given to .MISSY GRAHAM.
--- NOTE | 2019-04-07 19:55 | NUR ---
NURSE NOTES: Pt received from SANTOS Mayer alert and oriented x4 with no acute s/s of distress noted. Calm and cooperative, resting in bed with family at bedside. Dressing dry and intact. IV site asymptomatic and patent on L ac 20 g, saline lock. BEd in lowest position, call light and belongings within reach.
[2019-04-07] MEDS: HYDROcodone/Acetamin 5/325 tab ORAL PRN (21:12)
[2019-04-08] VITALS: BP 117/65
--- NOTE | 2019-04-08 02:20 | NUR ---
NURSE NOTES: Pt calm and cooperative, assisted with ADLs and BSC use. Resting in bed, with no acute s/s of distress noted. IV site asymptomatic and patent, on saline lock. Bed in lowest position, call light and belongings within reach.
[2019-04-08 04:00] VITALS: BP 125/64
[2019-04-08] MEDS ORDERED: Vancomycin 750mg/D5W 275ml IVPB SCH ×2 (04:00)
[2019-04-08] MEDS: Vancomycin 750 MG in D5W 275 ML IVPB SCH (04:54)
[2019-04-08] MEDS: Piperacillin/Tazobactam 3.375 GM in NS 110 ML IVPB SCH ×3 (06:12→21:21)
[2019-04-08] MEDS: NovoLOG Insulin Flexpen SUBQ SCH ×7 (06:13→20:47)
--- NOTE | 2019-04-08 06:43 | General Progress Note ---
Assessment/Plan Problem List: (1) Diabetes mellitus ICD Codes: E11.9 - Type 2 diabetes mellitus without complications SNOMED: 65920433 (2) Cellulitis ICD Codes: L03.90 - Cellulitis, unspecified SNOMED: 826438085 Qualifiers: Qualified Codes: L03.116 - Cellulitis of left lower limb (3) Toe amputation status ICD Codes: S98.139A - Complete traumatic amputation of one unspecified lesser toe, initial encounter SNOMED: 940634696 Assessment/Plan: increase Levemir to 18 units qam continue Novolog 5 units ac tid continue NISS ac / hs Subjective Allergies: Coded Allergies: No Known Allergies (Unverified , 03/20/19) All Systems: reviewed and negative except above Subjective events noted glucose values improved fasting glucose still on higher side Item Value Date Time Bedside Blood Glucose 225 mg/dl H 04/08/19 0614 Bedside Blood Glucose 135 mg/dl H 04/07/19 2111 Bedside Blood Glucose 121 mg/dl H 04/07/19 1714 Bedside Blood Glucose 149 mg/dl H 04/07/19 1244 Bedside Blood Glucose 168 mg/dl H 04/07/19 0936 Bedside Blood Glucose 168 mg/dl H 04/07/19 0559 Objective Last 24 Hour Vital Signs Date Time Temp Pulse Resp B/P (MAP) Pulse Ox O2 Delivery O2 Flow Rate FiO2 04/08/19 04:00 75 04/08/19 04:00 97.2 82 17 125/64 (84) 98 04/08/19 00:00 98.0 84 17 117/65 (82) 97 04/08/19 00:00 78 04/07/19 21:00 Room Air 04/07/19 20:00 98.1 82 18 122/75 (91) 99 04/07/19 20:00 80 04/07/19 16:00 97.2 84 21 108/62 (77) 96 04/07/19 16:00 97.9 74 20 132/81 (98) 98 04/07/19 16:00 79 04/07/19 12:00 97.0 81 20 129/74 (92) 99 04/07/19 12:00 97.0 81 20 129/74 (92) 99 04/07/19 12:00 81 04/07/19 10:00 117/63 (81) 04/07/19 09:00 83 97/65 (76) 04/07/19 09:00 Room Air 04/07/19 08:00 98.1 84 16 85/43 (57) 100 Intake and Output 04/07/19 04/08/19 19:00 07:00 Intake Total 510.0 ml 110.0 ml Balance 510.0 ml 110.0 ml Intake Oral 300 ml IV Total 210.0 ml 110.0 ml # Voids 1 Laboratory Tests 04/07/19 15:18: Troponin I 0.000 Height (Feet): 5 Height (Inches): 0.00 Weight (Pounds): 110 General Appearance: no apparent distress Neck: normal alignment Cardiovascular: normal rate Respiratory/Chest: lungs clear Abdomen: normal bowel sounds Objective Current Medications Medications (Trade) Dose Ordered Sig/Arnoldo Route PRN Reason Start Time Stop Time Status Last Admin Dose Admin Acetaminophen (Tylenol) 650 mg Q4H PRN ORAL Mild Pain/Temp > 100.5 04/07/19 11:00 05/07/19 10:59 Acetaminophen/ Hydrocodone Bitart ([place] 5/325) 1 tab Q4H PRN ORAL Moderate Pain (Pain Scale 4-6) 04/07/19 11:00 04/14/19 10:59 04/07/19 21:12 Dextrose (Dextrose 50%) 25 ml Q30M PRN IV Hypoglycemia 04/07/19 11:15 05/07/19 06:44 Dextrose (Dextrose 50%) 50 ml Q30M PRN IV Hypoglycemia 04/07/19 11:15 05/07/19 06:44 Enoxaparin Sodium (Lovenox) 40 mg DAILY SUBQ 04/08/19 09:00 05/07/19 08:59 Fluconazole/ Sodium Chloride 100 ml @ 100 mls/hr Q24H IV 04/07/19 16:00 04/14/19 15:59 04/07/19 17:07 Insulin Aspart (NovoLOG) BEFORE MEALS AND HS SUBQ 04/07/19 11:30 05/07/19 06:29 04/08/19 06:14 Insulin Aspart (NovoLOG) 5 units NOVOTIAC SUBQ 04/07/19 11:50 05/07/19 06:44 04/08/19 06:13 Insulin Detemir (Levemir) 15 units DAILY SUBQ 04/08/19 09:00 05/07/19 08:59 Morphine Sulfate (Morphine Sulfate) 2 mg Q6H PRN IVP For severe Pain(8-10) 04/07/19 11:00 04/14/19 10:59 Pantoprazole (Protonix) 40 mg DAILY ORAL 04/08/19 09:00 05/07/19 08:59 Piperacillin Sod/ Tazobactam Sod 3.375 gm/Sodium Chloride 110 ml @ 27.5 mls/hr EVERY 8 HOURS IVPB 04/07/19 14:00 04/12/19 05:59 04/08/19 06:12 Vancomycin HCl (Vanco rx to dose) 1 ea DAILY PRN MISC Per rx protocol 04/08/19 09:00 05/07/19 07:59 Vancomycin HCl 750 mg/Dextrose 275 ml @ 183.333 mls/hr Q24H IVPB 04/08/19 04:00 04/13/19 03:59 04/08/19 04:54 Lorenzo Gay MD Apr 08, 2019 06:43
--- NOTE | 2019-04-08 07:20 | NUR ---
NURSE NOTES: Received report from SANTOS Robert. Patient is resting in bed, in stable condition. No s/sx of SOB, breathing is even and unlabored. Bed is in lowest position, brakes engaged. Denies any presence of pain or discomfort at this time. Will continue to monitor patient.
--- NOTE | 2019-04-08 07:34 | NUR ---
HAND-OFF: Report given to SANTOS Brasher. Plan of care endorsed.
[2019-04-08 08:00] VITALS: BP 101/64
[2019-04-08] MEDS: Enoxaparin 40mg Inj SUBQ SCH (08:59)
[2019-04-08] MEDS ORDERED: Levemir Flexpen SUBQ SCH ×2 (09:00)
--- NOTE | 2019-04-08 10:34 | Surgery Progress Note ---
Surgery Progress Note Subjective Additional Comments no acute events stable comfortable labs okay Objective Last 24 Hour Vital Signs Date Time Temp Pulse Resp B/P (MAP) Pulse Ox O2 Delivery O2 Flow Rate FiO2 04/08/19 04:00 75 04/08/19 04:00 97.2 82 17 125/64 (84) 98 04/08/19 00:00 98.0 84 17 117/65 (82) 97 04/08/19 00:00 78 04/07/19 21:00 Room Air 04/07/19 20:00 98.1 82 18 122/75 (91) 99 04/07/19 20:00 80 04/07/19 16:00 97.2 84 21 108/62 (77) 96 04/07/19 16:00 97.9 74 20 132/81 (98) 98 04/07/19 16:00 79 04/07/19 12:00 97.0 81 20 129/74 (92) 99 04/07/19 12:00 97.0 81 20 129/74 (92) 99 04/07/19 12:00 81 I&O Intake and Output 04/07/19 04/08/19 19:00 07:00 Intake Total 510.0 ml 360.0 ml Output Total 600 ml Balance 510.0 ml -240.0 ml Intake Oral 300 ml 250 ml IV Total 210.0 ml 110.0 ml Output Urine Total 600 ml # Voids 1 2 Dressing: dry Wound: clean, other Cardiovascular: RSR Respiratory: clear Abdomen: soft, present bowel sounds Extremities: edema, no tenderness, no cyanosis, other Laboratory Tests Test 04/07/19 15:18 Troponin I 0.000 ng/mL (0.000-0.056) Plan Problems: (1) Cellulitis Assessment & Plan: 63-year-old female with uncontrolled diabetes and recent left great toe necrotic gangrenous infection status post amputation with flap. Patient was discharged in stable condition and has been home since with family and localized wound care. Toenail of the second ray has fallen off and concerning therefore came in for evaluation. Notes some edema in the toe and is concerned that the infection may be spreading. When patient seen at the bedside the wound bed was evaluated. Wound is overall healing pretty well from the amputation and the flap is taken fairly well except some distal portions of the flap that may be nonviable but currently still holding without any active infection. There was edema of the whole foot and toe prior to discharge which seems to be improved. As the edema is improving and cellulitis improving of the left foot there is some slough of nonviable epidermis that is noted. Furthermore the edema the second ray has lots of the nailbed to fall off and some slough tissue but the toe itself is viable with good capillary refill. Patient has motor and all remaining rays and decreased neuro and sensory as prior given her diabetes. Had a long discussion with the patient and the family at bedside. Patient is afebrile without leukocytosis. Recommend continue with localized wound care. IV antibiotics as per infectious disease. Will allow wound to continue to heal and I told the patient and family that this will take few more weeks until the wound and the flap declare themselves but currently stable and doing well. Jules Jeff Apr 08, 2019 10:34
--- NOTE | 2019-04-08 11:18 | Pulmonology Progress Note ---
Assessment/Plan Problems: (1) Hypotension due to hypovolemia Assessment & Plan: RESOLVED (2) Cellulitis (3) Toe amputation status (4) Diabetes mellitus Assessment/Plan BP stable D/C tele Abx per ID Wound care DVT Px: LMWH Hemodynamics and respiratory status stable, will sign off. Please consult if any change in status. Subjective Allergies: Coded Allergies: No Known Allergies (Unverified , 03/20/19) Subjective AFVSS on RA BP stable No cough no SOB no CP no FC Objective Last 24 Hour Vital Signs Date Time Temp Pulse Resp B/P (MAP) Pulse Ox O2 Delivery O2 Flow Rate FiO2 04/08/19 09:00 Room Air 04/08/19 08:00 99.4 83 17 101/64 (76) 99 04/08/19 04:00 75 04/08/19 04:00 97.2 82 17 125/64 (84) 98 04/08/19 00:00 98.0 84 17 117/65 (82) 97 04/08/19 00:00 78 04/07/19 21:00 Room Air 04/07/19 20:00 98.1 82 18 122/75 (91) 99 04/07/19 20:00 80 04/07/19 16:00 97.2 84 21 108/62 (77) 96 04/07/19 16:00 97.9 74 20 132/81 (98) 98 04/07/19 16:00 79 04/07/19 12:00 97.0 81 20 129/74 (92) 99 04/07/19 12:00 97.0 81 20 129/74 (92) 99 04/07/19 12:00 81 Intake and Output 04/07/19 04/08/19 19:00 07:00 Intake Total 510.0 ml 360.0 ml Output Total 600 ml Balance 510.0 ml -240.0 ml Intake Oral 300 ml 250 ml IV Total 210.0 ml 110.0 ml Output Urine Total 600 ml # Voids 1 2 General Appearance: WD/WN, no acute distress HEENT: normocephalic, atraumatic, anicteric, mucous membranes moist Respiratory/Chest: chest wall non-tender, lungs clear, normal breath sounds, no respiratory distress, no accessory muscle use Cardiovascular: normal peripheral pulses, normal rate, regular rhythm Abdomen: normal bowel sounds, soft, non tender, no organomegaly, non distended , no mass Extremities: no cyanosis, no clubbing, no edema, other - foot dressed Microbiology Date/Time Source Procedure Growth Status 04/06/19 22:45 Blood Blood Culture - Preliminary NO GROWTH AFTER 24 HOURS Resulted 04/06/19 22:30 Blood Blood Culture - Preliminary NO GROWTH AFTER 24 HOURS Resulted Laboratory Tests 04/07/19 15:18: Troponin I 0.000 Current Medications Medications (Trade) Dose Ordered Sig/Arnoldo Route PRN Reason Start Time Stop Time Status Last Admin Dose Admin Acetaminophen (Tylenol) 650 mg Q4H PRN ORAL Mild Pain/Temp > 100.5 04/07/19 11:00 05/07/19 10:59 Acetaminophen/ Hydrocodone Bitart ([place] 5/325) 1 tab Q4H PRN ORAL Moderate Pain (Pain Scale 4-6) 04/07/19 11:00 04/14/19 10:59 04/07/19 21:12 Dextrose (Dextrose 50%) 25 ml Q30M PRN IV Hypoglycemia 04/07/19 11:15 05/07/19 06:44 Dextrose (Dextrose 50%) 50 ml Q30M PRN IV Hypoglycemia 04/07/19 11:15 05/07/19 06:44 Enoxaparin Sodium (Lovenox) 40 mg DAILY SUBQ 04/08/19 09:00 05/07/19 08:59 04/08/19 08:59 Fluconazole/ Sodium Chloride 100 ml @ 100 mls/hr Q24H IV 04/07/19 16:00 04/14/19 15:59 04/07/19 17:07 Insulin Aspart (NovoLOG) BEFORE MEALS AND HS SUBQ 04/07/19 11:30 05/07/19 06:29 04/08/19 06:14 Insulin Aspart (NovoLOG) 5 units NOVOTIAC SUBQ 04/07/19 11:50 05/07/19 06:44 04/08/19 06:13 Insulin Detemir (Levemir) 18 units DAILY SUBQ 04/08/19 09:00 05/07/19 08:59 04/08/19 09:00 Morphine Sulfate (Morphine Sulfate) 2 mg Q6H PRN IVP For severe Pain(8-10) 04/07/19 11:00 04/14/19 10:59 Pantoprazole (Protonix) 40 mg DAILY ORAL 04/08/19 09:00 05/07/19 08:59 04/08/19 08:59 Piperacillin Sod/ Tazobactam Sod 3.375 gm/Sodium Chloride 110 ml @ 27.5 mls/hr EVERY 8 HOURS IVPB 04/07/19 14:00 04/12/19 05:59 04/08/19 06:12 Vancomycin HCl (Vanco rx to dose) 1 ea DAILY PRN MISC Per rx protocol 04/08/19 09:00 05/07/19 07:59 Vancomycin HCl 750 mg/Dextrose 275 ml @ 183.333 mls/hr Q24H IVPB 04/08/19 04:00 04/13/19 03:59 04/08/19 04:54 Jake Lion MD Apr 08, 2019 11:18
[2019-04-08 12:00] VITALS: BP 123/76
--- NOTE | 2019-04-08 13:18 | NUR ---
*-* INSURANCE *-* ALL AVAILABLE CLINICALS HAVE BEEN FAXED TO: YOLIS/MELISSA NO TERRAZZO SUPERVISOR ASSIGNED AT THIS TIME. PLEASE FAX THE REVIEW/CLINICAL P- [phone] F- [phone]....REVIEW/CLINICAL
--- NOTE | 2019-04-08 15:09 | Hematology/Onc Progress Note ---
Assessment/Plan Assessment/Plan Assessment and Recs: # Thrombocytosis - likely related to reactive process (and/or underlying infection) from toe as well as poor DM management by patient, noncompliance --> Continue to monitor for improvement --> Trend CBC as needed plt 692-->656k --> If continues to be elevated, consider to send for KB-2 --> Smear reviewed and no abnormalities noted. --> less likely is a myeloproliferative disorder # Anemia of chronic disease due to underlying chronic medical issues, multifactorial, esr elevated due to infection/chronic inflamm state --> Anemia workup has been ordered, rule out gi bleed --> No evidence of hemolysis is noted, peripheral smear has been reviewed. --> Hgb goal >7. Transfuse prn. 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 # DM2 poorly controlled --> a1c 13.2, goal <8 --> accuchecks qac and qhs, low dose iss # Dvt ppx lmwh The timing of this note does not necessarily reflect the time of the patient was seen. Greatly appreciate consultation. Subjective Constitutional: Reports: no symptoms, chills, fever, malaise, weakness, other HEENT: Denies: no symptoms, eye pain, blurred vision, tearing, double vision, ear pain, ear discharge, nose pain, nose congestion, throat pain, throat swelling, mouth pain, mouth swelling, other Respiratory: Denies: no symptoms, cough, shortness of breath, SOB with excertion, SOB at rest, sputum, wheezing, other Gastrointestinal/Abdominal: Denies: no symptoms, abdomen distended, abdominal pain, black stools, tarry stools, blood in stool, constipated, diarrhea, difficulty swallowing, nausea, poor appetite, poor fluid intake, rectal bleeding , vomiting, other Genitourinary: Denies: no symptoms, burning, discharge, frequency, flank pain, hematuria, incontinence, pain, urgency, other Hematologic/Lymphatic: Denies: no symptoms, anemia, easy bleeding, easy bruising, adenopathy, other Allergies: Coded Allergies: No Known Allergies (Unverified , 03/20/19) Subjective 04/08: no events, cbc pendng, on abx, no f/c, pain meds Objective Objective Current Medications Medications (Trade) Dose Ordered Sig/Arnoldo Route PRN Reason Start Time Stop Time Status Last Admin Dose Admin Acetaminophen (Tylenol) 650 mg Q4H PRN ORAL Mild Pain/Temp > 100.5 04/07/19 11:00 05/07/19 10:59 Acetaminophen/ Hydrocodone Bitart ([place] 5/325) 1 tab Q4H PRN ORAL Moderate Pain (Pain Scale 4-6) 04/07/19 11:00 04/14/19 10:59 04/07/19 21:12 Dextrose (Dextrose 50%) 25 ml Q30M PRN IV Hypoglycemia 04/07/19 11:15 05/07/19 06:44 Dextrose (Dextrose 50%) 50 ml Q30M PRN IV Hypoglycemia 04/07/19 11:15 05/07/19 06:44 Enoxaparin Sodium (Lovenox) 40 mg DAILY SUBQ 04/08/19 09:00 05/07/19 08:59 04/08/19 08:59 Fluconazole/ Sodium Chloride 100 ml @ 100 mls/hr Q24H IV 04/07/19 16:00 04/14/19 15:59 04/07/19 17:07 Insulin Aspart (NovoLOG) BEFORE MEALS AND HS SUBQ 04/07/19 11:30 05/07/19 06:29 04/08/19 12:15 Insulin Aspart (NovoLOG) 5 units NOVOTIAC SUBQ 04/07/19 11:50 05/07/19 06:44 04/08/19 12:15 Insulin Detemir (Levemir) 18 units DAILY SUBQ 04/08/19 09:00 05/07/19 08:59 04/08/19 09:00 Morphine Sulfate (Morphine Sulfate) 2 mg Q6H PRN IVP For severe Pain(8-10) 04/07/19 11:00 04/14/19 10:59 Pantoprazole (Protonix) 40 mg DAILY ORAL 04/08/19 09:00 05/07/19 08:59 04/08/19 08:59 Piperacillin Sod/ Tazobactam Sod 3.375 gm/Sodium Chloride 110 ml @ 27.5 mls/hr EVERY 8 HOURS IVPB 04/07/19 14:00 04/12/19 05:59 04/08/19 13:41 Vancomycin HCl (Vanco rx to dose) 1 ea DAILY PRN MISC Per rx protocol 04/08/19 09:00 05/07/19 07:59 Vancomycin HCl 750 mg/Dextrose 275 ml @ 183.333 mls/hr Q24H IVPB 04/08/19 04:00 04/13/19 03:59 04/08/19 04:54 Last 24 Hour Vital Signs Date Time Temp Pulse Resp B/P (MAP) Pulse Ox O2 Delivery O2 Flow Rate FiO2 04/08/19 12:00 97.7 79 17 123/76 (92) 99 04/08/19 09:00 Room Air 04/08/19 08:00 99.4 83 17 101/64 (76) 99 04/08/19 04:00 75 04/08/19 04:00 97.2 82 17 125/64 (84) 98 04/08/19 00:00 98.0 84 17 117/65 (82) 97 04/08/19 00:00 78 04/07/19 21:00 Room Air 04/07/19 20:00 98.1 82 18 122/75 (91) 99 04/07/19 20:00 80 04/07/19 16:00 97.2 84 21 108/62 (77) 96 04/07/19 16:00 97.9 74 20 132/81 (98) 98 04/07/19 16:00 79 04/07/19 12:00 97.0 81 20 129/74 (92) 99 04/07/19 12:00 97.0 81 20 129/74 (92) 99 04/07/19 12:00 81 04/07/19 10:00 117/63 (81) 04/07/19 09:00 83 97/65 (76) 04/07/19 09:00 Room Air 04/07/19 08:00 98.1 84 16 85/43 (57) 100 04/07/19 04:00 98.0 84 20 108/61 (77) 97 04/07/19 02:10 Room Air 04/07/19 01:36 98.0 85 18 111/59 (76) 98 04/07/19 00:32 97.3 79 18 111/63 99 Room Air 04/06/19 23:50 79 18 Room Air 04/06/19 23:50 97.3 79 18 111/63 99 04/06/19 21:51 97.3 79 18 111/63 (79) 99 Intake and Output 04/07/19 04/08/19 19:00 07:00 Intake Total 510.0 ml 360.0 ml Output Total 600 ml Balance 510.0 ml -240.0 ml Intake Oral 300 ml 250 ml IV Total 210.0 ml 110.0 ml Output Urine Total 600 ml # Voids 1 2 Labs Test 04/06/19 22:30 04/06/19 22:45 04/07/19 00:00 04/07/19 05:21 White Blood Count 8.8 K/UL (4.8-10.8) 9.6 K/UL (4.8-10.8) Red Blood Count 3.69 M/UL (4.20-5.40) 3.48 M/UL (4.20-5.40) Hemoglobin 11.1 G/DL (12.0-16.0) 10.2 G/DL (12.0-16.0) Hematocrit 32.7 % (37.0-47.0) 31.0 % (37.0-47.0) Mean Corpuscular Volume 89 FL (80-99) 89 FL (80-99) Mean Corpuscular Hemoglobin 30.0 PG (27.0-31.0) 29.4 PG (27.0-31.0) Mean Corpuscular Hemoglobin Concent 33.8 G/DL (32.0-36.0) 33.0 G/DL (32.0-36.0) Red Cell Distribution Width 12.4 % (11.6-14.8) 12.1 % (11.6-14.8) Platelet Count 698 K/UL (150-450) 656 K/UL (150-450) Mean Platelet Volume 4.0 FL (6.5-10.1) 4.0 FL (6.5-10.1) Neutrophils (%) (Auto) 69.6 % (45.0-75.0) 71.3 % (45.0-75.0) Lymphocytes (%) (Auto) 20.1 % (20.0-45.0) 18.0 % (20.0-45.0) Monocytes (%) (Auto) 7.1 % (1.0-10.0) 7.7 % (1.0-10.0) Eosinophils (%) (Auto) 2.2 % (0.0-3.0) 2.1 % (0.0-3.0) Basophils (%) (Auto) 1.0 % (0.0-2.0) 0.9 % (0.0-2.0) Sodium Level 132 MMOL/L (136-145) 136 MMOL/L (136-145) Potassium Level 5.5 MMOL/L (3.5-5.1) 4.2 MMOL/L (3.5-5.1) Chloride Level 97 MMOL/L (98-107) 101 MMOL/L (98-107) Carbon Dioxide Level 29 MMOL/L (21-32) 26 MMOL/L (21-32) Anion Gap 7 mmol/L (5-15) 9 mmol/L (5-15) Blood Urea Nitrogen 27 mg/dL (7-18) 21 mg/dL (7-18) Creatinine 1.1 MG/DL (0.55-1.30) 1.0 MG/DL (0.55-1.30) Estimat Glomerular Filtration Rate 50.5 mL/min (>60) 56.4 mL/min (>60) Glucose Level 337 MG/DL (74-106) 160 MG/DL (74-106) Calcium Level 9.6 MG/DL (8.5-10.1) 9.5 MG/DL (8.5-10.1) Lactic Acid Level 1.30 mmol/L (0.4-2.0) Urine Color Pale yellow Urine Appearance Clear Urine pH 7 (4.5-8.0) Urine Specific [place] 1.005 (1.005-1.035) Urine Protein Negative (NEGATIVE) Urine Glucose (UA) 3+ (NEGATIVE) Urine Ketones Negative (NEGATIVE) Urine Blood Negative (NEGATIVE) Urine Nitrite Negative (NEGATIVE) Urine Bilirubin Negative (NEGATIVE) Urine Urobilinogen Normal MG/DL (0.0-1.0) Urine Leukocyte Esterase Negative (NEGATIVE) Urine RBC 0-2 /HPF (0 - 2) Urine WBC 0 /HPF (0 - 2) Urine Squamous Epithelial Cells Few /LPF (NONE/OCC) Urine Bacteria None /HPF (NONE) Hemoglobin A1c 13.2 % (4.3-6.0) Iron Level 29 ug/dL (50-175) Total Iron Binding Capacity 212 ug/dL (250-450) Percent Iron Saturation 14 % (15-50) Unsaturated Iron Binding 183 ug/dL (112-346) Ferritin 166 NG/ML (8-388) Triglycerides Level 102 MG/DL (30-150) Cholesterol Level 174 MG/DL (< 200) LDL Cholesterol 112 mg/dL (<100) HDL Cholesterol 40 MG/DL (40-60) Cholesterol/HDL Ratio 4.4 (3.3-4.4) Vitamin B12 Level > 2000 PG/ML (193-986) Folate 10.1 NG/ML (8.6-58.9) Thyroid Stimulating Hormone (TSH) 2.244 uiU/mL (0.358-3.740) Test 04/07/19 15:18 Troponin I 0.000 ng/mL (0.000-0.056) Height (Feet): 5 Height (Inches): 0.00 Weight (Pounds): 117 Objective Physical Exam: Vitals: reviewed General Appearance: NAD HEENT: normocephalic, atraumatic Neck: non-tender, normal alignment Respiratory/Chest: normal breath sounds bilaterally Cardiovascular/Chest: normal peripheral pulses, normal rate Abdomen: normal bowel sounds, soft, nontender Extremities: normal range of motion left foot, with dressing, per pictures, surgical site over first mtp looks clean, 2nd toe with erythemia, weak pulses Can Burns MD Apr 08, 2019 15:09
--- NOTE | 2019-04-08 15:15 | Diagnostic Imaging Report ---
APPROVED REPORT CPT Code: 74611 Comments LEFT LEG PAIN. LEFT LEG: Common femoral artery waveform analysis is within normal limits at rest. Color flow duplex sonography reveals calcification throughout the superficial femoral and popliteal arteries. There is no evidence of significant stenosis or occlusion within these segments. The tibioperoneal trunk is patent. The tibial arteries were also mildly calcified. Doppler tibial artery waveform analysis is within normal limits at rest.
[2019-04-08 16:00] VITALS: BP 111/66
--- NOTE | 2019-04-08 16:30 | Infectious Diseases Prog Note ---
Assessment/Plan Problems: (1) Cellulitis Assessment & Plan: of the left foot , with skin sloughing and minimal necrosis , previous culture grew Enterococcus Faecalis, and quan albicans , will continue current antibiotics with vancomycin and zosyn for now pending cultures , and air grinder grecia, will add fluconazole too to cover for quan albicans (2) Diabetes mellitus Assessment & Plan: poorly controlled, recommend tight glycemic control to keep blood glucose between 100-140 (3) Toe amputation status Assessment & Plan: with dry and intact surgical wound, continue local care and dressings as per surgery Subjective Constitutional: Reports: no symptoms HEENT: Reports: no symptoms Respiratory: Reports: no symptoms Breasts: Reports: no symptoms Cardiovascular: Reports: no symptoms Gastrointestinal/Abdominal: Reports: no symptoms Genitourinary: Reports: no symptoms Neurologic: Reports: no symptoms Psychiatric: Reports: no symptoms Skin: Reports: no symptoms Endocrine: Reports: no symptoms Hematologic: Reports: no symptoms Musculoskeletal: Reports: no symptoms Allergies: Coded Allergies: No Known Allergies (Unverified , 03/20/19) Objective Vital Signs Last 24 Hour Vital Signs Date Time Temp Pulse Resp B/P (MAP) Pulse Ox O2 Delivery O2 Flow Rate FiO2 04/08/19 16:00 97.8 87 17 111/66 (81) 99 04/08/19 12:00 97.7 79 17 123/76 (92) 99 04/08/19 09:00 Room Air 04/08/19 08:00 99.4 83 17 101/64 (76) 99 04/08/19 04:00 75 04/08/19 04:00 97.2 82 17 125/64 (84) 98 04/08/19 00:00 98.0 84 17 117/65 (82) 97 04/08/19 00:00 78 04/07/19 21:00 Room Air 04/07/19 20:00 98.1 82 18 122/75 (91) 99 04/07/19 20:00 80 Height (Feet): 5 Height (Inches): 0.00 Weight (Pounds): 117 General Appearance: WD/WN, no acute distress HEENT: normocephalic, atraumatic, anicteric, mucous membranes moist, PERRL Respiratory/Chest: chest wall non-tender, lungs clear, normal breath sounds, no respiratory distress, no accessory muscle use, decreased breath sounds Cardiovascular: normal peripheral pulses, normal rate, regular rhythm, no gallop/murmur, no JVD Abdomen: normal bowel sounds, soft, non tender, no organomegaly, non distended , no mass, no scars Extremities: no cyanosis, no clubbing Skin: no rash, no lesions, other - left foot redness with skin peeled off , mild oozing Neurologic/Psychiatric: alert, oriented x 3, responsive Lymphatic: no neck adenopathy, no groin adenopathy Musculoskeletal: normal muscle bulk, no effusion Microbiology Date/Time Source Procedure Growth Status 04/06/19 22:45 Blood Blood Culture - Preliminary NO GROWTH AFTER 24 HOURS Resulted 04/06/19 22:30 Blood Blood Culture - Preliminary NO GROWTH AFTER 24 HOURS Resulted Current Medications Medications (Trade) Dose Ordered Sig/Arnoldo Route PRN Reason Start Time Stop Time Status Last Admin Dose Admin Acetaminophen (Tylenol) 650 mg Q4H PRN ORAL Mild Pain/Temp > 100.5 04/07/19 11:00 05/07/19 10:59 Acetaminophen/ Hydrocodone Bitart ([place] 5/325) 1 tab Q4H PRN ORAL Moderate Pain (Pain Scale 4-6) 04/07/19 11:00 04/14/19 10:59 04/07/19 21:12 Dextrose (Dextrose 50%) 25 ml Q30M PRN IV Hypoglycemia 04/07/19 11:15 05/07/19 06:44 Dextrose (Dextrose 50%) 50 ml Q30M PRN IV Hypoglycemia 04/07/19 11:15 05/07/19 06:44 Enoxaparin Sodium (Lovenox) 40 mg DAILY SUBQ 04/08/19 09:00 05/07/19 08:59 04/08/19 08:59 Fluconazole/ Sodium Chloride 100 ml @ 100 mls/hr Q24H IV 04/07/19 16:00 04/14/19 15:59 04/08/19 15:55 Insulin Aspart (NovoLOG) BEFORE MEALS AND HS SUBQ 04/07/19 11:30 05/07/19 06:29 04/08/19 12:15 Insulin Aspart (NovoLOG) 5 units NOVOTIAC SUBQ 04/07/19 11:50 05/07/19 06:44 04/08/19 12:15 Insulin Detemir (Levemir) 18 units DAILY SUBQ 04/08/19 09:00 05/07/19 08:59 04/08/19 09:00 Morphine Sulfate (Morphine Sulfate) 2 mg Q6H PRN IVP For severe Pain(8-10) 04/07/19 11:00 04/14/19 10:59 Pantoprazole (Protonix) 40 mg DAILY ORAL 04/08/19 09:00 05/07/19 08:59 04/08/19 08:59 Piperacillin Sod/ Tazobactam Sod 3.375 gm/Sodium Chloride 110 ml @ 27.5 mls/hr EVERY 8 HOURS IVPB 04/07/19 14:00 04/12/19 05:59 04/08/19 13:41 Vancomycin HCl (Vanco rx to dose) 1 ea DAILY PRN MISC Per rx protocol 04/08/19 09:00 05/07/19 07:59 Vancomycin HCl 750 mg/Dextrose 275 ml @ 183.333 mls/hr Q24H IVPB 04/08/19 04:00 04/13/19 03:59 04/08/19 04:54 Jamie Simpson M.D. Apr 08, 2019 16:30
--- NOTE | 2019-04-08 17:00 | NUR ---
NURSE NOTES: Patient's son and [id number] at bedside. Per patient's son, Bib, has questions regarding patient's care in hospital. Provided patient with Dr. Krishnan and Dr. Jeff's office number. Also contacted and left message for Dr. Krishnan that patient's son, Nemesio, would like to discuss with him of patient's care, left message and patient's son's cell phone number, . Noted. Will continue to monitor patient.
--- NOTE | 2019-04-08 18:12 | NUR ---
NURSE NOTES: Dr. Pate seen and examined patient's left foot at bedside. Son, Bib, at bedside during assessment. Noted.
--- NOTE | 2019-04-08 18:28 | Consultation ---
History of Present Illness General Date patient seen: Apr 08, 2019 Time patient seen: 06:00 Chief Complaint: General Complaint Referring physician: DR. Krishnan Reason for Consultation: HYPOTN Present Illness HPI S: Pt seen bedside s/p L hallux amputation X [address] Graves. Pt son and girlfriend at bedside, provide HPI. States since hospital D/C , son states her Left second toe has started to be come red and distal aspect of surgical site is starting to ulcerate. Per son, pt denies any recent constitutional symptoms. Allergies: Coded Allergies: No Known Allergies (Unverified , 03/20/19) Medication History Scheduled Cephalexin* (Keflex*), 500 MG ORAL EVERY 6 HOURS, (Reported) Trimethoprim/Sulfamethoxazole 160/800* (Bactrim Ds Tablet*), 1 TAB ORAL TWICE A DAY, (Reported) Patient History Healthcare decision maker Resuscitation status Full Code Advanced Directive on File No Physical Exam Physical Exam Narrative Focused LLE: Derm: Surgical incision is noted to be intact proximally, distal plantar incision slight dehiscence is noted, (-) active purulent drainage, minimal edema. 2nd digit noted to be erythematous with edema, no necrotic tissue is noted. MSK: s/p hallux amputation, MS, ROM decreased. Neuro: SILT and protective sensation decreased. Vasc: +2/4 DP/PT pulses. Last 24 Hour Vital Signs Date Time Temp Pulse Resp B/P (MAP) Pulse Ox O2 Delivery O2 Flow Rate FiO2 04/08/19 18:00 85 04/08/19 16:00 97.8 87 17 111/66 (81) 99 04/08/19 12:00 97.7 79 17 123/76 (92) 99 04/08/19 12:00 78 04/08/19 09:00 Room Air 04/08/19 08:00 99.4 83 17 101/64 (76) 99 04/08/19 08:00 76 04/08/19 04:00 75 04/08/19 04:00 97.2 82 17 125/64 (84) 98 04/08/19 00:00 98.0 84 17 117/65 (82) 97 04/08/19 00:00 78 04/07/19 21:00 Room Air 04/07/19 20:00 98.1 82 18 122/75 (91) 99 04/07/19 20:00 80 Intake and Output 04/07/19 04/08/19 19:00 07:00 Intake Total 510.0 ml 360.0 ml Output Total 600 ml Balance 510.0 ml -240.0 ml Intake Oral 300 ml 250 ml IV Total 210.0 ml 110.0 ml Output Urine Total 600 ml # Voids 1 2 Height (Feet): 5 Height (Inches): 0.00 Weight (Pounds): 117 Medications Current Medications Medications (Trade) Dose Ordered Sig/Arnoldo Route PRN Reason Start Time Stop Time Status Last Admin Dose Admin Acetaminophen (Tylenol) 650 mg Q4H PRN ORAL Mild Pain/Temp > 100.5 04/07/19 11:00 05/07/19 10:59 Acetaminophen/ Hydrocodone Bitart ([place] 5/325) 1 tab Q4H PRN ORAL Moderate Pain (Pain Scale 4-6) 04/07/19 11:00 04/14/19 10:59 04/07/19 21:12 Dextrose (Dextrose 50%) 25 ml Q30M PRN IV Hypoglycemia 04/07/19 11:15 05/07/19 06:44 Dextrose (Dextrose 50%) 50 ml Q30M PRN IV Hypoglycemia 04/07/19 11:15 05/07/19 06:44 Enoxaparin Sodium (Lovenox) 40 mg DAILY SUBQ 04/08/19 09:00 05/07/19 08:59 04/08/19 08:59 Fluconazole/ Sodium Chloride 100 ml @ 100 mls/hr Q24H IV 04/07/19 16:00 04/14/19 15:59 04/08/19 15:55 Insulin Aspart (NovoLOG) BEFORE MEALS AND HS SUBQ 04/07/19 11:30 05/07/19 06:29 04/08/19 16:46 Insulin Aspart (NovoLOG) 5 units NOVOTIAC SUBQ 04/07/19 11:50 05/07/19 06:44 04/08/19 16:45 Insulin Detemir (Levemir) 18 units DAILY SUBQ 04/08/19 09:00 05/07/19 08:59 04/08/19 09:00 Morphine Sulfate (Morphine Sulfate) 2 mg Q6H PRN IVP For severe Pain(8-10) 04/07/19 11:00 9/17/19 10:59 Pantoprazole (Protonix) 40 mg DAILY ORAL 04/08/19 09:00 05/07/19 08:59 04/08/19 08:59 Piperacillin Sod/ Tazobactam Sod 3.375 gm/Sodium Chloride 110 ml @ 27.5 mls/hr EVERY 8 HOURS IVPB 04/07/19 14:00 04/12/19 05:59 04/08/19 13:41 Vancomycin HCl (Vanco rx to dose) 1 ea DAILY PRN MISC Per rx protocol 04/08/19 09:00 05/07/19 07:59 Vancomycin HCl 750 mg/Dextrose 275 ml @ 183.333 mls/hr Q24H IVPB 04/08/19 04:00 04/13/19 03:59 04/08/19 04:54 Assessment/Plan Assessment/Plan: A: s/p L hallux amputation DM-2 Hyperkalemia Hyponatremia P: - Pt seen and evaluated. - Labs and chart reviewed. - Temp, 97.1 - WBC, 9.6 - Order L foot XR. - Arterial U/S completed. - Cont IV ABx. - Cont Tx per specialists. - Will D/W Dr. Graves as this is his post-op patient regarding further tx. - Podiatry will cont to monitor. Godfrey Pate DPM Apr 08, 2019 18:28
--- NOTE | 2019-04-08 19:08 | General Progress Note ---
Assessment/Plan Assessment/Plan: S: I am ok O: seems comfortable, PHYSICAL EXAMINATION: HEAD AND NECK: Atraumatic and normocephalic. CHEST: Clear to auscultation.HEART: S1, S2. Regular rate and rhythm. ABDOMEN: Soft. No organomegaly.MUSCULOSKELETAL: Positive for the postsurgical changes on the left foot. Status post left-sided great toe TMA. LABORATORY DATA: Labs dated April 08, 2019, ASSESSMENT: 1. Acute osteomyelitis of the left great greater toe, status post TMA. 2. Diabetes type 2, uncontrolled. 3. Hyperkalemia. 4. Hyponatremia. 5. GI and DVT prophylaxis. PLAN OF CARE: Notes from Podiatry and Infectious Disease are reviewed Subjective Allergies: Coded Allergies: No Known Allergies (Unverified , 03/20/19) Objective Last 24 Hour Vital Signs Date Time Temp Pulse Resp B/P (MAP) Pulse Ox O2 Delivery O2 Flow Rate FiO2 04/08/19 18:00 85 04/08/19 16:00 97.8 87 17 111/66 (81) 99 04/08/19 12:00 97.7 79 17 123/76 (92) 99 04/08/19 12:00 78 04/08/19 09:00 Room Air 04/08/19 08:00 99.4 83 17 101/64 (76) 99 04/08/19 08:00 76 04/08/19 04:00 75 04/08/19 04:00 97.2 82 17 125/64 (84) 98 04/08/19 00:00 98.0 84 17 117/65 (82) 97 04/08/19 00:00 78 04/07/19 21:00 Room Air 04/07/19 20:00 98.1 82 18 122/75 (91) 99 04/07/19 20:00 80 Intake and Output 04/07/19 04/08/19 19:00 07:00 Intake Total 510.0 ml 360.0 ml Output Total 600 ml Balance 510.0 ml -240.0 ml Intake Oral 300 ml 250 ml IV Total 210.0 ml 110.0 ml Output Urine Total 600 ml # Voids 1 2 Height (Feet): 5 Height (Inches): 0.00 Weight (Pounds): 117 Gaby Krishnan MD Apr 08, 2019 19:08
--- NOTE | 2019-04-08 19:18 | NUR ---
HAND-OFF: Report given to SANTOS Carrasco.
--- NOTE | 2019-04-08 19:30 | NUR ---
NURSE NOTES: Received patient from day shift nurse. Patient awake in bed, alert and oriented. Bed in low position, locked, bed alarm on, call light within reach. Instructed patient to call for help if she needs to get out of bed. Instructed patient that we need a stool sample if she has a bowel movement. Right forearm 22 gauge iv intact, patent, no signs of infiltration.
[2019-04-08 20:00] VITALS: BP 145/78
[2019-04-08] MEDS: HYDROcodone/Acetamin 5/325 tab ORAL PRN (20:42)
--- NOTE | 2019-04-08 20:42 | NUR ---
NURSE NOTES: Right foot dressing intact. No c/o pain on right foot. Patient c/o pain 5/10 on left great toe callous. Administered [place] 1 tab po for pain.
--- NOTE | 2019-04-08 22:25 | NUR ---
NURSE NOTES: Patient in bed, asleep, comfortable, no signs of pain.
[2019-04-09] VITALS: BP 125/71
[2019-04-09] MEDS: Vancomycin 750 MG in D5W 275 ML IVPB SCH (03:36)
[2019-04-09 04:00] VITALS: BP 144/82
[2019-04-09] MEDS: Piperacillin/Tazobactam 3.375 GM in NS 110 ML IVPB SCH ×3 (06:28→21:41)
[2019-04-09] MEDS: NovoLOG Insulin Flexpen SUBQ SCH ×7 (06:36→21:00)
--- NOTE | 2019-04-09 07:19 | General Progress Note ---
Assessment/Plan Problem List: (1) Diabetes mellitus ICD Codes: E11.9 - Type 2 diabetes mellitus without complications SNOMED: 94976091 (2) Cellulitis ICD Codes: L03.90 - Cellulitis, unspecified SNOMED: 174092534 Qualifiers: Qualified Codes: L03.116 - Cellulitis of left lower limb (3) Toe amputation status ICD Codes: S98.139A - Complete traumatic amputation of one unspecified lesser toe, initial encounter SNOMED: 354883125 Assessment/Plan: increase Levemir to 24 units qam increase Novolog to 8 units ac tid continue NISS ac / hs Subjective Allergies: Coded Allergies: No Known Allergies (Unverified , 03/20/19) All Systems: reviewed and negative except above Subjective events noted glucose values elevated Item Value Date Time Bedside Blood Glucose 231 mg/dl H 04/09/19 0637 Bedside Blood Glucose 213 mg/dl H 04/08/19 2047 Bedside Blood Glucose 299 mg/dl H 04/08/19 1646 Bedside Blood Glucose 232 mg/dl H 04/08/19 1215 Bedside Blood Glucose 214 mg/dl H 04/08/19 0900 Objective Last 24 Hour Vital Signs Date Time Temp Pulse Resp B/P (MAP) Pulse Ox O2 Delivery O2 Flow Rate FiO2 04/09/19 04:00 98.1 74 18 144/82 (102) 99 04/09/19 04:00 73 04/09/19 00:00 98.0 78 18 125/71 (89) 98 04/09/19 00:00 83 04/08/19 21:00 Room Air 04/08/19 20:00 98.6 87 18 145/78 (100) 99 04/08/19 20:00 86 04/08/19 18:00 85 04/08/19 16:00 97.8 87 17 111/66 (81) 99 04/08/19 12:00 97.7 79 17 123/76 (92) 99 04/08/19 12:00 78 04/08/19 09:00 Room Air 04/08/19 08:00 99.4 83 17 101/64 (76) 99 04/08/19 08:00 76 Intake and Output 04/08/19 04/09/19 18:59 06:59 Intake Total 740 ml Output Total 850 ml 1500 ml Balance -110 ml -1500 ml Intake Oral 740 ml Output Urine Total 850 ml 1500 ml Laboratory Tests 04/09/19 06:40: White Blood Count [Pending], Red Blood Count [Pending], Hemoglobin [Pending], Hematocrit [Pending], Mean Corpuscular Volume [Pending], Mean Corpuscular Hemoglobin [Pending], Mean Corpuscular Hemoglobin Concent [Pending], Red Cell Distribution Width [Pending], Platelet Count [Pending], Mean Platelet Volume [ Pending], Neutrophils (%) (Auto) [Pending], Lymphocytes (%) (Auto) [Pending], Monocytes (%) (Auto) [Pending], Eosinophils (%) (Auto) [Pending], Basophils (%) (Auto) [Pending], Sodium Level [Pending], Potassium Level [Pending], Chloride Level [Pending], Carbon Dioxide Level [Pending], Blood Urea Nitrogen [Pending], Creatinine [Pending], Estimat Glomerular Filtration Rate [Pending], Glucose Level [Pending], Calcium Level [Pending] Height (Feet): 5 Height (Inches): 0.00 Weight (Pounds): 117 General Appearance: no apparent distress Neck: normal alignment Cardiovascular: normal rate Respiratory/Chest: lungs clear Abdomen: normal bowel sounds Objective Current Medications Medications (Trade) Dose Ordered Sig/Arnoldo Route PRN Reason Start Time Stop Time Status Last Admin Dose Admin Acetaminophen (Tylenol) 650 mg Q4H PRN ORAL Mild Pain/Temp > 100.5 04/07/19 11:00 05/07/19 10:59 Acetaminophen/ Hydrocodone Bitart (Tiff 5/325) 1 tab Q4H PRN ORAL Moderate Pain (Pain Scale 4-6) 04/07/19 11:00 04/14/19 10:59 04/08/19 20:42 Dextrose (Dextrose 50%) 25 ml Q30M PRN IV Hypoglycemia 04/07/19 11:15 05/07/19 06:44 Dextrose (Dextrose 50%) 50 ml Q30M PRN IV Hypoglycemia 04/07/19 11:15 05/07/19 06:44 Enoxaparin Sodium (Lovenox) 40 mg DAILY SUBQ 04/08/19 09:00 05/07/19 08:59 04/08/19 08:59 Ferrous Sulfate (Feosol) 325 mg THREE TIMES A DAY ORAL 04/09/19 09:00 05/09/19 08:59 Fluconazole/ Sodium Chloride 100 ml @ 100 mls/hr Q24H IV 04/07/19 16:00 04/14/19 15:59 04/08/19 15:55 Insulin Aspart (NovoLOG) BEFORE MEALS AND HS SUBQ 04/07/19 11:30 05/07/19 06:29 04/09/19 06:37 Insulin Aspart (NovoLOG) 5 units NOVOTIAC SUBQ 04/07/19 11:50 05/07/19 06:44 04/09/19 06:36 Insulin Detemir (Levemir) 18 units DAILY SUBQ 04/08/19 09:00 05/07/19 08:59 04/08/19 09:00 Morphine Sulfate (Morphine Sulfate) 2 mg Q6H PRN IVP For severe Pain(8-10) 04/07/19 11:00 04/14/19 10:59 Pantoprazole (Protonix) 40 mg DAILY ORAL 04/08/19 09:00 05/07/19 08:59 04/08/19 08:59 Piperacillin Sod/ Tazobactam Sod 3.375 gm/Sodium Chloride 110 ml @ 27.5 mls/hr EVERY 8 HOURS IVPB 04/07/19 14:00 04/12/19 05:59 04/09/19 06:28 Vancomycin HCl (Vanco rx to dose) 1 ea DAILY PRN MISC Per rx protocol 04/08/19 09:00 05/07/19 07:59 Vancomycin HCl 750 mg/Dextrose 275 ml @ 183.333 mls/hr Q24H IVPB 04/08/19 04:00 04/13/19 03:59 04/09/19 03:36 Lorenzo Gay MD Apr 09, 2019 07:19
[2019-04-09 07:28] LABS: BASOPHILS % (AUTO) 1.2 % (0.0-2.0); EOSINOPHILS % (AUTO) 2.6 % (0.0-3.0); HEMATOCRIT 31.3 % (37.0-47.0); HEMOGLOBIN 10.5 G/DL (12.0-16.0); LYMPHOCYTES % (AUTO) 26.9 % (20.0-45.0); MEAN CORPUSCULAR VOLUME 89 FL (80-99); MONOCYTES % (AUTO) 8.1 % (1.0-10.0); NEUTROPHILS % (AUTO) 61.3 % (45.0-75.0); PLATELET COUNT 580 K/UL (150-450); RED BLOOD COUNT 3.52 M/UL (4.20-5.40); RED CELL DISTRIBUTION WIDTH 12.3 % (11.6-14.8); WHITE BLOOD COUNT 6.8 K/UL (4.8-10.8)
--- NOTE | 2019-04-09 07:45 | NUR ---
NURSE NOTES: Received report from Danilo/RN, Patient is awake, getting ready to eat breakfast. No signs of acute distress/SOB noted at this time. able to make needs known. Checked IV site, patent, no bleeding, or infiltration noted. Dressing on toe intact, no sign of bleeding. Bed at lowest position, and locked. brakes on, side rails up x3, Call light and personal belonging within reach. Will continue plan of care.
[2019-04-09 07:53] LABS: ANION GAP 10 mmol/L (5-15); BLOOD UREA NITROGEN 21 mg/dL (7-18); CALCIUM 9.2 MG/DL (8.5-10.1); CARBON DIOXIDE 25 MMOL/L (21-32); CHLORIDE 103 MMOL/L (98-107); CREATININE 0.9 MG/DL (0.55-1.30); POTASSIUM 4.4 MMOL/L (3.5-5.1); SODIUM 138 MMOL/L (136-145)
[2019-04-09 08:00] VITALS: BP 100/61
--- NOTE | 2019-04-09 08:55 | NUR ---
RADIOLOGY DEPT., LEFT FOOT X-RAYS COMPLETED.-PMonicaDYE
[2019-04-09] MEDS: Levemir Flexpen SUBQ SCH (09:28)
[2019-04-09] MEDS: Enoxaparin 40mg Inj SUBQ SCH (09:29)
[2019-04-09] MEDS ORDERED: Tubing IV Secondary IV ONE (10:30)
[2019-04-09] MEDS ORDERED: NS 275ml ONE (10:30)
--- NOTE | 2019-04-09 10:49 | General Progress Note ---
Assessment/Plan Assessment/Plan: S: I am ok O: seems comfortable, PHYSICAL EXAMINATION: HEAD AND NECK: Atraumatic and normocephalic. CHEST: Clear to auscultation.HEART: S1, S2. Regular rate and rhythm. ABDOMEN: Soft. No organomegaly.MUSCULOSKELETAL: Positive for the postsurgical changes on the left foot. Status post left-sided great toe TMA. LABORATORY DATA: Labs dated April 08, 2019, ASSESSMENT: 1. Acute osteomyelitis of the left great greater toe, status post TMA. 2. Diabetes type 2, uncontrolled. 3. Hyperkalemia. 4. Hyponatremia. 5. GI and DVT prophylaxis. PLAN OF CARE: Notes from Podiatry and Infectious Disease are reviewed. likely c /w o/p abx Subjective Allergies: Coded Allergies: No Known Allergies (Unverified , 03/20/19) Objective Last 24 Hour Vital Signs Date Time Temp Pulse Resp B/P (MAP) Pulse Ox O2 Delivery O2 Flow Rate FiO2 04/09/19 04:00 98.1 74 18 144/82 (102) 99 04/09/19 04:00 73 04/09/19 00:00 98.0 78 18 125/71 (89) 98 04/09/19 00:00 83 04/08/19 21:00 Room Air 04/08/19 20:00 98.6 87 18 145/78 (100) 99 04/08/19 20:00 86 04/08/19 18:00 85 04/08/19 16:00 97.8 87 17 111/66 (81) 99 04/08/19 12:00 97.7 79 17 123/76 (92) 99 04/08/19 12:00 78 Intake and Output 04/08/19 04/09/19 19:00 07:00 Intake Total 740 ml 120 ml Output Total 850 ml 1500 ml Balance -110 ml -1380 ml Intake Oral 740 ml 120 ml Output Urine Total 850 ml 1500 ml Laboratory Tests 04/09/19 06:40: White Blood Count 6.8, Red Blood Count 3.52L, Hemoglobin 10.5L, Hematocrit 31.3L , Mean Corpuscular Volume 89, Mean Corpuscular Hemoglobin 29.8, Mean Corpuscular Hemoglobin Concent 33.4, Red Cell Distribution Width 12.3, Platelet Count 580H, Mean Platelet Volume 4.1L, Neutrophils (%) (Auto) 61.3, Lymphocytes (%) (Auto) 26.9, Monocytes (%) (Auto) 8.1, Eosinophils (%) (Auto) 2.6, Basophils (%) (Auto) 1.2, Sodium Level 138, Potassium Level 4.4, Chloride Level 103, Carbon Dioxide Level 25, Anion Gap 10, Blood Urea Nitrogen 21H, Creatinine 0.9, Estimat Glomerular Filtration Rate > 60, Glucose Level 236H, Calcium Level 9.2 Height (Feet): 5 Height (Inches): 0.00 Weight (Pounds): 117 Gaby Krishnan MD Apr 09, 2019 10:49
--- NOTE | 2019-04-09 11:37 | Hematology/Onc Progress Note ---
Assessment/Plan Assessment/Plan Assessment and Recs: # Thrombocytosis - likely related to reactive process (and/or underlying infection) from toe as well as poor DM management by patient, noncompliance --> Continue to monitor for improvement --> Trend CBC as needed plt 692-->656k-->580k --> If continues to be elevated, consider to send for KB-2 --> Smear reviewed and no abnormalities noted. --> less likely is a myeloproliferative disorder # Anemia of chronic disease due to underlying chronic medical issues, multifactorial, esr elevated due to infection/chronic inflamm state --> Anemia workup has been ordered, rule out gi bleed --> No evidence of hemolysis is noted, peripheral smear has been reviewed. --> Hgb goal >7. Transfuse prn. --> Epogen or iron at this time is not particularly indicated --> Medications have been reviewed --> low threshold for gi evaluation in case has occult + --> hgb trend 10.2-->10.5 # Cellulitis of the lower ext --> on abx broad spectrum vanc/zosyn --> per surg --> hx osteomyelits of her left foot. She had partial amputation. # DM2 poorly controlled --> a1c 13.2, goal <8 --> accuchecks qac and qhs, low dose iss # Dvt ppx lmwh The timing of this note does not necessarily reflect the time of the patient was seen. Greatly appreciate consultation. Subjective Allergies: Coded Allergies: No Known Allergies (Unverified , 03/20/19) Subjective 04/08: no events, cbc pendng, on abx, no f/c, pain meds 04/09: no bleeding,no events, no f/c, on abx Objective Objective Current Medications Medications (Trade) Dose Ordered Sig/Arnoldo Route PRN Reason Start Time Stop Time Status Last Admin Dose Admin Acetaminophen (Tylenol) 650 mg Q4H PRN ORAL Mild Pain/Temp > 100.5 04/07/19 11:00 05/07/19 10:59 Acetaminophen/ Hydrocodone Bitart (Magnolia 5/325) 1 tab Q4H PRN ORAL Moderate Pain (Pain Scale 4-6) 04/07/19 11:00 04/14/19 10:59 04/08/19 20:42 Dextrose (Dextrose 50%) 25 ml Q30M PRN IV Hypoglycemia 04/07/19 11:15 05/07/19 06:44 Dextrose (Dextrose 50%) 50 ml Q30M PRN IV Hypoglycemia 04/07/19 11:15 05/07/19 06:44 Enoxaparin Sodium (Lovenox) 40 mg DAILY SUBQ 04/08/19 09:00 05/07/19 08:59 04/09/19 09:29 Ferrous Sulfate (Feosol) 325 mg THREE TIMES A DAY ORAL 04/09/19 09:00 05/09/19 08:59 04/09/19 09:22 Fluconazole/ Sodium Chloride 100 ml @ 100 mls/hr Q24H IV 04/07/19 16:00 04/14/19 15:59 04/08/19 15:55 Insulin Aspart (NovoLOG) BEFORE MEALS AND HS SUBQ 04/07/19 11:30 05/07/19 06:29 04/09/19 06:37 Insulin Aspart (NovoLOG) 8 units NOVOTIAC SUBQ 04/09/19 11:50 05/07/19 06:44 Insulin Detemir (Levemir) 24 units DAILY SUBQ 04/09/19 09:00 05/07/19 08:59 04/09/19 09:28 Morphine Sulfate (Morphine Sulfate) 2 mg Q6H PRN IVP For severe Pain(8-10) 04/07/19 11:00 04/14/19 10:59 Pantoprazole (Protonix) 40 mg DAILY ORAL 04/08/19 09:00 05/07/19 08:59 04/09/19 09:22 Piperacillin Sod/ Tazobactam Sod 3.375 gm/Sodium Chloride 110 ml @ 27.5 mls/hr EVERY 8 HOURS IVPB 04/07/19 14:00 04/12/19 05:59 04/09/19 06:28 Vancomycin HCl (Vanco rx to dose) 1 ea DAILY PRN MISC Per rx protocol 04/08/19 09:00 05/07/19 07:59 Vancomycin HCl 750 mg/Dextrose 275 ml @ 183.333 mls/hr Q24H IVPB 04/08/19 04:00 04/13/19 03:59 04/09/19 03:36 Last 24 Hour Vital Signs Date Time Temp Pulse Resp B/P (MAP) Pulse Ox O2 Delivery O2 Flow Rate FiO2 04/09/19 09:00 Room Air 04/09/19 08:00 80 04/09/19 08:00 96.6 80 20 100/61 (74) 99 04/09/19 04:00 98.1 74 18 144/82 (102) 99 04/09/19 04:00 73 04/09/19 00:00 98.0 78 18 125/71 (89) 98 04/09/19 00:00 83 04/08/19 21:00 Room Air 04/08/19 20:00 98.6 87 18 145/78 (100) 99 04/08/19 20:00 86 04/08/19 18:00 85 04/08/19 16:00 97.8 87 17 111/66 (81) 99 04/08/19 12:00 97.7 79 17 123/76 (92) 99 04/08/19 12:00 78 04/08/19 09:00 Room Air 04/08/19 08:00 99.4 83 17 101/64 (76) 99 04/08/19 08:00 76 04/08/19 04:00 75 04/08/19 04:00 97.2 82 17 125/64 (84) 98 04/08/19 00:00 98.0 84 17 117/65 (82) 97 04/08/19 00:00 78 04/07/19 21:00 Room Air 04/07/19 20:00 98.1 82 18 122/75 (91) 99 04/07/19 20:00 80 04/07/19 16:00 97.2 84 21 108/62 (77) 96 04/07/19 16:00 97.9 74 20 132/81 (98) 98 04/07/19 16:00 79 04/07/19 12:00 97.0 81 20 129/74 (92) 99 04/07/19 12:00 97.0 81 20 129/74 (92) 99 04/07/19 12:00 81 Intake and Output 04/08/19 04/09/19 19:00 07:00 Intake Total 740 ml 120 ml Output Total 850 ml 1500 ml Balance -110 ml -1380 ml Intake Oral 740 ml 120 ml Output Urine Total 850 ml 1500 ml Labs Test 04/06/19 22:30 04/06/19 22:45 04/07/19 00:00 04/07/19 05:21 White Blood Count 8.8 K/UL (4.8-10.8) 9.6 K/UL (4.8-10.8) Red Blood Count 3.69 M/UL (4.20-5.40) 3.48 M/UL (4.20-5.40) Hemoglobin 11.1 G/DL (12.0-16.0) 10.2 G/DL (12.0-16.0) Hematocrit 32.7 % (37.0-47.0) 31.0 % (37.0-47.0) Mean Corpuscular Volume 89 FL (80-99) 89 FL (80-99) Mean Corpuscular Hemoglobin 30.0 PG (27.0-31.0) 29.4 PG (27.0-31.0) Mean Corpuscular Hemoglobin Concent 33.8 G/DL (32.0-36.0) 33.0 G/DL (32.0-36.0) Red Cell Distribution Width 12.4 % (11.6-14.8) 12.1 % (11.6-14.8) Platelet Count 698 K/UL (150-450) 656 K/UL (150-450) Mean Platelet Volume 4.0 FL (6.5-10.1) 4.0 FL (6.5-10.1) Neutrophils (%) (Auto) 69.6 % (45.0-75.0) 71.3 % (45.0-75.0) Lymphocytes (%) (Auto) 20.1 % (20.0-45.0) 18.0 % (20.0-45.0) Monocytes (%) (Auto) 7.1 % (1.0-10.0) 7.7 % (1.0-10.0) Eosinophils (%) (Auto) 2.2 % (0.0-3.0) 2.1 % (0.0-3.0) Basophils (%) (Auto) 1.0 % (0.0-2.0) 0.9 % (0.0-2.0) Sodium Level 132 MMOL/L (136-145) 136 MMOL/L (136-145) Potassium Level 5.5 MMOL/L (3.5-5.1) 4.2 MMOL/L (3.5-5.1) Chloride Level 97 MMOL/L (98-107) 101 MMOL/L (98-107) Carbon Dioxide Level 29 MMOL/L (21-32) 26 MMOL/L (21-32) Anion Gap 7 mmol/L (5-15) 9 mmol/L (5-15) Blood Urea Nitrogen 27 mg/dL (7-18) 21 mg/dL (7-18) Creatinine 1.1 MG/DL (0.55-1.30) 1.0 MG/DL (0.55-1.30) Estimat Glomerular Filtration Rate 50.5 mL/min (>60) 56.4 mL/min (>60) Glucose Level 337 MG/DL (74-106) 160 MG/DL (74-106) Calcium Level 9.6 MG/DL (8.5-10.1) 9.5 MG/DL (8.5-10.1) Lactic Acid Level 1.30 mmol/L (0.4-2.0) Urine Color Pale yellow Urine Appearance Clear Urine pH 7 (4.5-8.0) Urine Specific Round O 1.005 (1.005-1.035) Urine Protein Negative (NEGATIVE) Urine Glucose (UA) 3+ (NEGATIVE) Urine Ketones Negative (NEGATIVE) Urine Blood Negative (NEGATIVE) Urine Nitrite Negative (NEGATIVE) Urine Bilirubin Negative (NEGATIVE) Urine Urobilinogen Normal MG/DL (0.0-1.0) Urine Leukocyte Esterase Negative (NEGATIVE) Urine RBC 0-2 /HPF (0 - 2) Urine WBC 0 /HPF (0 - 2) Urine Squamous Epithelial Cells Few /LPF (NONE/OCC) Urine Bacteria None /HPF (NONE) Hemoglobin A1c 13.2 % (4.3-6.0) Iron Level 29 ug/dL (50-175) Total Iron Binding Capacity 212 ug/dL (250-450) Percent Iron Saturation 14 % (15-50) Unsaturated Iron Binding 183 ug/dL (112-346) Ferritin 166 NG/ML (8-388) Triglycerides Level 102 MG/DL (30-150) Cholesterol Level 174 MG/DL (< 200) LDL Cholesterol 112 mg/dL (<100) HDL Cholesterol 40 MG/DL (40-60) Cholesterol/HDL Ratio 4.4 (3.3-4.4) Vitamin B12 Level > 2000 PG/ML (193-986) Folate 10.1 NG/ML (8.6-58.9) Thyroid Stimulating Hormone (TSH) 2.244 uiU/mL (0.358-3.740) Test 04/07/19 15:18 04/09/19 06:40 Troponin I 0.000 ng/mL (0.000-0.056) White Blood Count 6.8 K/UL (4.8-10.8) Red Blood Count 3.52 M/UL (4.20-5.40) Hemoglobin 10.5 G/DL (12.0-16.0) Hematocrit 31.3 % (37.0-47.0) Mean Corpuscular Volume 89 FL (80-99) Mean Corpuscular Hemoglobin 29.8 PG (27.0-31.0) Mean Corpuscular Hemoglobin Concent 33.4 G/DL (32.0-36.0) Red Cell Distribution Width 12.3 % (11.6-14.8) Platelet Count 580 K/UL (150-450) Mean Platelet Volume 4.1 FL (6.5-10.1) Neutrophils (%) (Auto) 61.3 % (45.0-75.0) Lymphocytes (%) (Auto) 26.9 % (20.0-45.0) Monocytes (%) (Auto) 8.1 % (1.0-10.0) Eosinophils (%) (Auto) 2.6 % (0.0-3.0) Basophils (%) (Auto) 1.2 % (0.0-2.0) Sodium Level 138 MMOL/L (136-145) Potassium Level 4.4 MMOL/L (3.5-5.1) Chloride Level 103 MMOL/L (98-107) Carbon Dioxide Level 25 MMOL/L (21-32) Anion Gap 10 mmol/L (5-15) Blood Urea Nitrogen 21 mg/dL (7-18) Creatinine 0.9 MG/DL (0.55-1.30) Estimat Glomerular Filtration Rate > 60 mL/min (>60) Glucose Level 236 MG/DL (74-106) Calcium Level 9.2 MG/DL (8.5-10.1) Height (Feet): 5 Height (Inches): 0.00 Weight (Pounds): 117 Objective Physical Exam: Vitals: reviewed General Appearance: NAD HEENT: normocephalic, atraumatic Neck: non-tender, normal alignment Respiratory/Chest: normal breath sounds bilaterally Cardiovascular/Chest: normal peripheral pulses, normal rate Abdomen: normal bowel sounds, soft, nontender Extremities: normal range of motion left foot, with dressing, per pictures, surgical site over first mtp looks clean, 2nd toe with erythemia, weak pulses Can Burns MD Apr 09, 2019 11:37
[2019-04-09 12:00] VITALS: BP 139/76
--- NOTE | 2019-04-09 12:33 | Diagnostic Imaging Report ---
Indication: Foot pain Comparison: None Findings: 3 views of the left foot were obtained. First toe has been resected at the base of the metatarsal. Small vessel arterial calcification noted within the foot. IMPRESSION: Postoperative confirmation films
--- NOTE | 2019-04-09 12:50 | NUR ---
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 96.6 HR 80 RR 20 B/P 148/82 BUN 21 IS: VANCO IV DIFLUCAN IV ZOSYN IV LOVENOX SUBC TELE STATUS
--- NOTE | 2019-04-09 13:50 | NUR ---
*-* INSURANCE *-* ALL AVAILABLE CLINICALS AND REVIEW HAVE BEEN FAXED TO: YOLIS/MELISSA NO ENGRAVED ROLLER INSPECTOR ASSIGNED AT THIS TIME. PLEASE FAX THE REVIEW/CLINICAL P- [phone] F- [phone]....REVIEW/CLINICAL
--- NOTE | 2019-04-09 14:23 | Surgery Progress Note ---
Surgery Progress Note Subjective Additional Comments no acute events doing well no pain tolerating diet ambulatory (but noted to walk on forefoot despite clear instructions in Uzbek not to Objective Last 24 Hour Vital Signs Date Time Temp Pulse Resp B/P (MAP) Pulse Ox O2 Delivery O2 Flow Rate FiO2 04/09/19 09:00 Room Air 04/09/19 08:00 80 04/09/19 08:00 96.6 80 20 100/61 (74) 99 04/09/19 04:00 98.1 74 18 144/82 (102) 99 04/09/19 04:00 73 04/09/19 00:00 98.0 78 18 125/71 (89) 98 04/09/19 00:00 83 04/08/19 21:00 Room Air 04/08/19 20:00 98.6 87 18 145/78 (100) 99 04/08/19 20:00 86 04/08/19 18:00 85 04/08/19 16:00 97.8 87 17 111/66 (81) 99 I&O Intake and Output 04/08/19 04/09/19 19:00 07:00 Intake Total 740 ml 120 ml Output Total 850 ml 1500 ml Balance -110 ml -1380 ml Intake Oral 740 ml 120 ml Output Urine Total 850 ml 1500 ml Dressing: saturated Wound: other Drains: other Cardiovascular: RSR Respiratory: clear Abdomen: soft, non-tender, present bowel sounds, non-distended Extremities: edema, no tenderness, no cyanosis, pulses, other Laboratory Tests Test 04/09/19 06:40 White Blood Count 6.8 K/UL (4.8-10.8) Red Blood Count 3.52 M/UL (4.20-5.40) L Hemoglobin 10.5 G/DL (12.0-16.0) L Hematocrit 31.3 % (37.0-47.0) L Mean Corpuscular Volume 89 FL (80-99) Mean Corpuscular Hemoglobin 29.8 PG (27.0-31.0) Mean Corpuscular Hemoglobin Concent 33.4 G/DL (32.0-36.0) Red Cell Distribution Width 12.3 % (11.6-14.8) Platelet Count 580 K/UL (150-450) H Mean Platelet Volume 4.1 FL (6.5-10.1) L Neutrophils (%) (Auto) 61.3 % (45.0-75.0) Lymphocytes (%) (Auto) 26.9 % (20.0-45.0) Monocytes (%) (Auto) 8.1 % (1.0-10.0) Eosinophils (%) (Auto) 2.6 % (0.0-3.0) Basophils (%) (Auto) 1.2 % (0.0-2.0) Sodium Level 138 MMOL/L (136-145) Potassium Level 4.4 MMOL/L (3.5-5.1) Chloride Level 103 MMOL/L (98-107) Carbon Dioxide Level 25 MMOL/L (21-32) Anion Gap 10 mmol/L (5-15) Blood Urea Nitrogen 21 mg/dL (7-18) H Creatinine 0.9 MG/DL (0.55-1.30) Estimat Glomerular Filtration Rate > 60 mL/min (>60) Glucose Level 236 MG/DL (74-106) H Calcium Level 9.2 MG/DL (8.5-10.1) Plan Problems: (1) Cellulitis Assessment & Plan: 63-year-old female with uncontrolled diabetes and recent left great toe necrotic gangrenous infection status post amputation with flap. Patient was discharged in stable condition and has been home since with family and localized wound care. Toenail of the second ray has fallen off and concerning therefore came in for evaluation. Notes some edema in the toe and is concerned that the infection may be spreading. When patient seen at the bedside the wound bed was evaluated. Wound is overall healing pretty well from the amputation and the flap is taken fairly well except some distal portions of the flap that may be nonviable but currently still holding without any active infection. There was edema of the whole foot and toe prior to discharge which seems to be improved. As the edema is improving and cellulitis improving of the left foot there is some slough of nonviable epidermis that is noted. Furthermore the edema the second ray has lots of the nailbed to fall off and some slough tissue but the toe itself is viable with good capillary refill. Patient has motor and all remaining rays and decreased neuro and sensory as prior given her diabetes. Had a long discussion with the patient and the family at bedside. Patient noted to be walking around on her forefoot despite being told in Uzbek and clear instructions to heal ambulate only. Patient's wound evaluated and appreciate podiatry evaluation as well. There is no signs of acute active infection no pus no drainage of pus and a majority of the closure and flap if taken. On the distal aspect of the flap there is some areas of necrosis and dehiscence but the remainder the flap is taken fairly well. Sutures were removed at the bedside and the remainder the wound was evaluated and as above slowly healing. The second toe and third toe are viable without signs of significant infection or ischemia. There is good capillary refill. Patient has motor and some sensory. She does have some wound development in between the webspaces which are slowly improving. At this time no further surgical intervention is recommended. Will have to continue with local wound care and allow as much as possible to heal and then continue with debridement as necessary in the areas of dehiscence or slow healing until wound is completely closed. Patient would not benefit from reoperation this early on and needs more time specially is a diabetic to heal as much as possible and then continue with the wound care until completely healed. There is no active infection or concerns viability the second or third toe so would not continue to pursue any further intervention or surgery at this time for them. I discussed with the patient and family in detail the above findings on more than one occasion furthermore I have discussed the wound care plan and limitations such as heel bearing only for the left foot. Unfortunately I feel patient may be somewhat noncompliant as noted to be walking on the forefoot furthermore also on readmission identified to have a limited amount of care provided to the wound despite clear detailed instructions been given upon discharge last time Patient is afebrile without leukocytosis. Recommend continue with localized wound care. IV antibiotics as per infectious disease. Will allow wound to continue to heal and I told the patient and family that this will take few more weeks until the wound and the flap declare themselves but currently stable and doing well. Okay for discharge from surgical standpoint Continue with wound care. Wash left extremity foot daily with soap and water. Okay to apply bacitracin with each dressing change. Gauze dressing in between toes and on wound 3 times a day followed by Kerlix wrap change as needed saturation. Keep leg elevated when possible. Tight glucose control. Dietary restrictions and glucose control as per primary Jules Jeff Apr 09, 2019 14:23
[2019-04-09 16:00] VITALS: BP 135/73
--- NOTE | 2019-04-09 16:09 | Infectious Diseases Prog Note ---
Assessment/Plan Problems: (1) Cellulitis Assessment & Plan: of the left foot , with skin sloughing and minimal necrosis , previous culture grew Enterococcus Faecalis, lactobacillus spp and quan albicans , will continue current antibiotics with zosyn pending cultures , and continue fluconazole too to cover for quan albicans infection of the skin . (2) Diabetes mellitus Assessment & Plan: poorly controlled, recommend tight glycemic control to keep blood glucose between 100-140 (3) Toe amputation status Assessment & Plan: with dry and intact surgical wound, continue local care and dressings as per surgery Subjective Constitutional: Reports: no symptoms HEENT: Reports: no symptoms Respiratory: Reports: no symptoms Breasts: Reports: no symptoms Cardiovascular: Reports: no symptoms Gastrointestinal/Abdominal: Reports: no symptoms Genitourinary: Reports: no symptoms Neurologic: Reports: no symptoms Psychiatric: Reports: no symptoms Skin: Reports: other Endocrine: Reports: no symptoms Hematologic: Reports: no symptoms Musculoskeletal: Reports: no symptoms Allergies: Coded Allergies: No Known Allergies (Unverified , 03/20/19) Subjective red, erythematous on the second toe , with no toe nail . Objective Vital Signs Last 24 Hour Vital Signs Date Time Temp Pulse Resp B/P (MAP) Pulse Ox O2 Delivery O2 Flow Rate FiO2 04/09/19 12:00 81 04/09/19 12:00 97.5 78 18 139/76 (97) 99 04/09/19 09:00 Room Air 04/09/19 08:00 80 04/09/19 08:00 96.6 80 20 100/61 (74) 99 04/09/19 04:00 98.1 74 18 144/82 (102) 99 04/09/19 04:00 73 04/09/19 00:00 98.0 78 18 125/71 (89) 98 04/09/19 00:00 83 04/08/19 21:00 Room Air 04/08/19 20:00 98.6 87 18 145/78 (100) 99 04/08/19 20:00 86 04/08/19 18:00 85 Height (Feet): 5 Height (Inches): 0.00 Weight (Pounds): 117 General Appearance: WD/WN, no acute distress HEENT: normocephalic, atraumatic, anicteric, mucous membranes moist, PERRL Respiratory/Chest: chest wall non-tender, lungs clear, normal breath sounds, no respiratory distress, no accessory muscle use, respiratory distress Cardiovascular: normal peripheral pulses, normal rate, regular rhythm, no gallop/murmur, no JVD Abdomen: normal bowel sounds, soft, non tender, no organomegaly, non distended , no mass, no scars Extremities: no cyanosis, no clubbing Skin: no rash, no lesions, other - left hallux surgical amputation wound with no discharge , skin is peeled off on the second toe Neurologic/Psychiatric: alert, responsive Lymphatic: no neck adenopathy, no groin adenopathy Musculoskeletal: normal muscle bulk, no effusion Microbiology Date/Time Source Procedure Growth Status 04/06/19 22:45 Blood Blood Culture - Preliminary NO GROWTH AFTER 24 HOURS Resulted 04/06/19 22:30 Blood Blood Culture - Preliminary NO GROWTH AFTER 24 HOURS Resulted 04/06/19 22:45 Nasal Nares MRSA Culture - Final NO METHICILLIN RESISTANT STAPH AUREUS... Complete 04/07/19 00:00 Rectum - Final NO CARBAPENEM-RESISTANT ENTEROBACTERI... Complete 04/07/19 00:00 Rectum VRE Culture - Final NO VANCOMYCIN RESISTANT ENTEROCOCCUS ... Complete Laboratory Tests Test 04/09/19 06:40 White Blood Count 6.8 K/UL (4.8-10.8) Red Blood Count 3.52 M/UL (4.20-5.40) L Hemoglobin 10.5 G/DL (12.0-16.0) L Hematocrit 31.3 % (37.0-47.0) L Mean Corpuscular Volume 89 FL (80-99) Mean Corpuscular Hemoglobin 29.8 PG (27.0-31.0) Mean Corpuscular Hemoglobin Concent 33.4 G/DL (32.0-36.0) Red Cell Distribution Width 12.3 % (11.6-14.8) Platelet Count 580 K/UL (150-450) H Mean Platelet Volume 4.1 FL (6.5-10.1) L Neutrophils (%) (Auto) 61.3 % (45.0-75.0) Lymphocytes (%) (Auto) 26.9 % (20.0-45.0) Monocytes (%) (Auto) 8.1 % (1.0-10.0) Eosinophils (%) (Auto) 2.6 % (0.0-3.0) Basophils (%) (Auto) 1.2 % (0.0-2.0) Sodium Level 138 MMOL/L (136-145) Potassium Level 4.4 MMOL/L (3.5-5.1) Chloride Level 103 MMOL/L (98-107) Carbon Dioxide Level 25 MMOL/L (21-32) Anion Gap 10 mmol/L (5-15) Blood Urea Nitrogen 21 mg/dL (7-18) H Creatinine 0.9 MG/DL (0.55-1.30) Estimat Glomerular Filtration Rate > 60 mL/min (>60) Glucose Level 236 MG/DL (74-106) H Calcium Level 9.2 MG/DL (8.5-10.1) Current Medications Medications (Trade) Dose Ordered Sig/Arnoldo Route PRN Reason Start Time Stop Time Status Last Admin Dose Admin Acetaminophen (Tylenol) 650 mg Q4H PRN ORAL Mild Pain/Temp > 100.5 04/07/19 11:00 05/07/19 10:59 Acetaminophen/ Hydrocodone Bitart ([place] 5/325) 1 tab Q4H PRN ORAL Moderate Pain (Pain Scale 4-6) 04/07/19 11:00 04/14/19 10:59 04/08/19 20:42 Dextrose (Dextrose 50%) 25 ml Q30M PRN IV Hypoglycemia 04/07/19 11:15 05/07/19 06:44 Dextrose (Dextrose 50%) 50 ml Q30M PRN IV Hypoglycemia 04/07/19 11:15 05/07/19 06:44 Enoxaparin Sodium (Lovenox) 40 mg DAILY SUBQ 04/08/19 09:00 05/07/19 08:59 04/09/19 09:29 Ferrous Sulfate (Feosol) 325 mg THREE TIMES A DAY ORAL 04/09/19 09:00 05/09/19 08:59 04/09/19 12:27 Fluconazole/ Sodium Chloride 100 ml @ 100 mls/hr Q24H IV 04/07/19 16:00 04/14/19 15:59 04/08/19 15:55 Insulin Aspart (NovoLOG) BEFORE MEALS AND HS SUBQ 04/07/19 11:30 05/07/19 06:29 04/09/19 12:32 Insulin Aspart (NovoLOG) 8 units NOVOTIAC SUBQ 04/09/19 11:50 05/07/19 06:44 04/09/19 12:33 Insulin Detemir (Levemir) 24 units DAILY SUBQ 04/09/19 09:00 05/07/19 08:59 04/09/19 09:28 Morphine Sulfate (Morphine Sulfate) 2 mg Q6H PRN IVP For severe Pain(8-10) 04/07/19 11:00 04/14/19 10:59 Pantoprazole (Protonix) 40 mg DAILY ORAL 04/08/19 09:00 05/07/19 08:59 04/09/19 09:22 Piperacillin Sod/ Tazobactam Sod 3.375 gm/Sodium Chloride 110 ml @ 27.5 mls/hr EVERY 8 HOURS IVPB 04/07/19 14:00 04/12/19 05:59 04/09/19 14:11 Vancomycin HCl (Vanco rx to dose) 1 ea DAILY PRN MISC Per rx protocol 04/08/19 09:00 05/07/19 07:59 Vancomycin HCl 750 mg/Dextrose 275 ml @ 183.333 mls/hr Q24H IVPB 04/08/19 04:00 04/13/19 03:59 04/09/19 03:36 Jamie Simpson M.D. Apr 09, 2019 16:09
--- NOTE | 2019-04-09 19:40 | NUR ---
NURSE NOTES: Received patient from SANTOS Yancey. patient is observed resting in bed, AO X4, denies pain at this time. patient is on room air, tolerating well. no s/sx of respiratory distress noted at this time. dressing on L foot dry and intact. IV sites are patent and intact, asymptomatic. bed in lowest position and locked, siderails up X3, call light within reach. will continue to monitor.
--- NOTE | 2019-04-09 19:47 | NUR ---
HAND-OFF: Report given to Patti/RN, Patient is awake, no acute distress. Family at bedside. Endorsed plan of care.
[2019-04-09 20:00] VITALS: BP 153/89
[2019-04-10] VITALS (7 sets, daily range): BP systolic 98–139; BP diastolic 59–80
[2019-04-10] MEDS: Piperacillin/Tazobactam 3.375 GM in NS 110 ML IVPB SCH ×3 (06:18→21:05)
[2019-04-10] MEDS: NovoLOG Insulin Flexpen SUBQ SCH ×7 (06:19→20:09)
--- NOTE | 2019-04-10 06:47 | General Progress Note ---
Assessment/Plan Problem List: (1) Diabetes mellitus ICD Codes: E11.9 - Type 2 diabetes mellitus without complications SNOMED: 48588492 (2) Cellulitis ICD Codes: L03.90 - Cellulitis, unspecified SNOMED: 520902422 Qualifiers: Qualified Codes: L03.116 - Cellulitis of left lower limb (3) Toe amputation status ICD Codes: S98.139A - Complete traumatic amputation of one unspecified lesser toe, initial encounter SNOMED: 428700186 Assessment/Plan: continue Levemir 24 units qam continue Novolog 8 units ac tid continue NISS ac / hs Subjective Allergies: Coded Allergies: No Known Allergies (Unverified , 03/20/19) All Systems: reviewed and negative except above Subjective events noted glucose values improved Item Value Date Time Bedside Blood Glucose 153 mg/dl H 04/10/19 0630 Bedside Blood Glucose 86 mg/dl 04/09/19 2244 Bedside Blood Glucose 182 mg/dl H 04/09/19 1702 Bedside Blood Glucose 155 mg/dl H 04/09/19 1233 Bedside Blood Glucose 115 mg/dl 04/09/19 0928 Bedside Blood Glucose 231 mg/dl H 04/09/19 0637 Objective Last 24 Hour Vital Signs Date Time Temp Pulse Resp B/P (MAP) Pulse Ox O2 Delivery O2 Flow Rate FiO2 04/10/19 04:00 98.1 82 20 118/70 (86) 100 04/10/19 04:00 77 04/10/19 00:00 80 04/10/19 00:00 97.5 83 22 129/74 (92) 95 04/09/19 21:00 Room Air 04/09/19 20:00 98.1 82 20 153/89 (110) 98 04/09/19 20:00 83 04/09/19 16:00 98.6 80 20 135/73 (93) 99 04/09/19 16:00 78 04/09/19 12:00 81 04/09/19 12:00 97.5 78 18 139/76 (97) 99 04/09/19 09:00 Room Air 04/09/19 08:00 80 04/09/19 08:00 96.6 80 20 100/61 (74) 99 Intake and Output 04/09/19 04/10/19 18:59 06:59 Intake Total 380 ml 118.708 ml Balance 380 ml 118.708 ml Intake Oral 380 ml IV Total 118.708 ml # Voids 2 Height (Feet): 5 Height (Inches): 0.00 Weight (Pounds): 117 General Appearance: no apparent distress Neck: normal alignment Cardiovascular: normal rate Respiratory/Chest: lungs clear Abdomen: normal bowel sounds Objective Current Medications Medications (Trade) Dose Ordered Sig/Arnoldo Route PRN Reason Start Time Stop Time Status Last Admin Dose Admin Acetaminophen (Tylenol) 650 mg Q4H PRN ORAL Mild Pain/Temp > 100.5 04/07/19 11:00 05/07/19 10:59 04/10/19 01:51 Acetaminophen/ Hydrocodone Bitart ([place] 5/325) 1 tab Q4H PRN ORAL Moderate Pain (Pain Scale 4-6) 04/07/19 11:00 04/14/19 10:59 04/08/19 20:42 Dextrose (Dextrose 50%) 25 ml Q30M PRN IV Hypoglycemia 04/07/19 11:15 05/07/19 06:44 Dextrose (Dextrose 50%) 50 ml Q30M PRN IV Hypoglycemia 04/07/19 11:15 05/07/19 06:44 Enoxaparin Sodium (Lovenox) 40 mg DAILY SUBQ 04/08/19 09:00 05/07/19 08:59 04/09/19 09:29 Ferrous Sulfate (Feosol) 325 mg THREE TIMES A DAY ORAL 04/09/19 09:00 05/09/19 08:59 04/09/19 17:11 Fluconazole/ Sodium Chloride 100 ml @ 100 mls/hr Q24H IV 04/07/19 16:00 04/14/19 15:59 04/09/19 17:00 Insulin Aspart (NovoLOG) BEFORE MEALS AND HS SUBQ 04/07/19 11:30 05/07/19 06:29 04/10/19 06:19 Insulin Aspart (NovoLOG) 8 units NOVOTIAC SUBQ 04/09/19 11:50 05/07/19 06:44 04/10/19 06:19 Insulin Detemir (Levemir) 24 units DAILY SUBQ 04/09/19 09:00 05/07/19 08:59 04/09/19 09:28 Morphine Sulfate (Morphine Sulfate) 2 mg Q6H PRN IVP For severe Pain(8-10) 04/07/19 11:00 04/14/19 10:59 Pantoprazole (Protonix) 40 mg DAILY ORAL 04/08/19 09:00 05/07/19 08:59 04/09/19 09:22 Piperacillin Sod/ Tazobactam Sod 3.375 gm/Sodium Chloride 110 ml @ 27.5 mls/hr EVERY 8 HOURS IVPB 04/07/19 14:00 04/12/19 05:59 04/10/19 06:18 Lorenzo Gay MD Apr 10, 2019 06:47
--- NOTE | 2019-04-10 07:29 | NUR ---
HAND-OFF: Report given to Shantanu Colindres RN. patient is in stable condition.
--- NOTE | 2019-04-10 07:30 | NUR ---
NURSE NOTES: Received patient from Patti GRAHAM. Patient is AAO X4, showing no signs of respiratory distress. Denies any pain at this time. IV site is patent and asymptomatic. Bed is locked, placed in lowest position, side rails up x2, bed alarm on, call light within reach. Will continue to monitor.
[2019-04-10] MEDS: Enoxaparin 40mg Inj SUBQ SCH (09:09)
[2019-04-10] MEDS: Levemir Flexpen SUBQ SCH (09:12)
--- NOTE | 2019-04-10 09:22 | Hematology/Onc Progress Note ---
Assessment/Plan Assessment/Plan Assessment and Recs: # Thrombocytosis - likely related to reactive process (and/or underlying infection) from toe as well as poor DM management by patient, noncompliance --> Continue to monitor for improvement --> Trend CBC as needed plt 692-->656k-->580k --> If continues to be elevated, consider to send for KB-2 --> Smear reviewed and no abnormalities noted. --> less likely is a myeloproliferative disorder # Anemia of chronic disease due to underlying chronic medical issues, multifactorial, esr elevated due to infection/chronic inflamm state --> Anemia workup has been ordered, ferriin is 100-200 range, cw acd --> No evidence of hemolysis is noted, peripheral smear has been reviewed. --> Hgb goal >7. Transfuse prn. 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 She had partial amputation. # DM2 poorly controlled --> a1c 13.2, goal <8 --> accuchecks qac and qhs, low dose iss # Dvt ppx lmwh The timing of this note does not necessarily reflect the time of the patient was seen. Greatly appreciate consultation. Subjective Constitutional: Denies: no symptoms, chills, fever, malaise, weakness, other HEENT: Denies: no symptoms, eye pain, blurred vision, tearing, double vision, ear pain, ear discharge, nose pain, nose congestion, throat pain, throat swelling, mouth pain, mouth swelling, other Cardiovascular: Denies: no symptoms, chest pain, edema, irregular heart rate, lightheadedness, palpitations, syncope, other Gastrointestinal/Abdominal: Denies: no symptoms, abdomen distended, abdominal pain, black stools, tarry stools, blood in stool, constipated, diarrhea, difficulty swallowing, nausea, poor appetite, poor fluid intake, rectal bleeding , vomiting, other Genitourinary: Denies: no symptoms, burning, discharge, frequency, flank pain, hematuria, incontinence, pain, urgency, other Neurologic/Psychiatric: Denies: no symptoms, anxiety, depressed, emotional problems, headache, numbness, paresthesia, pre-existing deficit, seizure, tingling, tremors, weakness, other Endocrine: Denies: no symptoms, excessive sweating, flushing, intolerance to cold, intolerance to heat, increased hunger, increased thirst, increased urine, unexplained weight gain, unexplained weight loss, other Allergies: Coded Allergies: No Known Allergies (Unverified , 03/20/19) Subjective 04/08: no events, cbc pendng, on abx, no f/c, pain meds 04/09: no bleeding,no events, no f/c, on abx 04/10: no bleeding, no chills, or night sweats reported, bp is better Objective Objective Current Medications Medications (Trade) Dose Ordered Sig/Arnoldo Route PRN Reason Start Time Stop Time Status Last Admin Dose Admin Acetaminophen (Tylenol) 650 mg Q4H PRN ORAL Mild Pain/Temp > 100.5 04/07/19 11:00 05/07/19 10:59 04/10/19 01:51 Acetaminophen/ Hydrocodone Bitart ([place] 5/325) 1 tab Q4H PRN ORAL Moderate Pain (Pain Scale 4-6) 04/07/19 11:00 04/14/19 10:59 04/08/19 20:42 Dextrose (Dextrose 50%) 25 ml Q30M PRN IV Hypoglycemia 04/07/19 11:15 05/07/19 06:44 Dextrose (Dextrose 50%) 50 ml Q30M PRN IV Hypoglycemia 04/07/19 11:15 05/07/19 06:44 Enoxaparin Sodium (Lovenox) 40 mg DAILY SUBQ 04/08/19 09:00 05/07/19 08:59 04/10/19 09:09 Ferrous Sulfate (Feosol) 325 mg THREE TIMES A DAY ORAL 04/09/19 09:00 05/09/19 08:59 04/10/19 09:08 Fluconazole/ Sodium Chloride 100 ml @ 100 mls/hr Q24H IV 04/07/19 16:00 04/14/19 15:59 04/09/19 17:00 Insulin Aspart (NovoLOG) BEFORE MEALS AND HS SUBQ 04/07/19 11:30 05/07/19 06:29 04/10/19 06:19 Insulin Aspart (NovoLOG) 8 units NOVOTIAC SUBQ 04/09/19 11:50 05/07/19 06:44 04/10/19 06:19 Insulin Detemir (Levemir) 24 units DAILY SUBQ 04/09/19 09:00 05/07/19 08:59 04/10/19 09:12 Morphine Sulfate (Morphine Sulfate) 2 mg Q6H PRN IVP For severe Pain(8-10) 04/07/19 11:00 04/14/19 10:59 Pantoprazole (Protonix) 40 mg DAILY ORAL 04/08/19 09:00 05/07/19 08:59 04/10/19 09:08 Piperacillin Sod/ Tazobactam Sod 3.375 gm/Sodium Chloride 110 ml @ 27.5 mls/hr EVERY 8 HOURS IVPB 04/07/19 14:00 04/12/19 05:59 04/10/19 06:18 Last 24 Hour Vital Signs Date Time Temp Pulse Resp B/P (MAP) Pulse Ox O2 Delivery O2 Flow Rate FiO2 04/10/19 04:00 98.1 82 20 118/70 (86) 100 04/10/19 04:00 77 04/10/19 00:00 80 04/10/19 00:00 97.5 83 22 129/74 (92) 95 04/09/19 21:00 Room Air 04/09/19 20:00 98.1 82 20 153/89 (110) 98 04/09/19 20:00 83 04/09/19 16:00 98.6 80 20 135/73 (93) 99 04/09/19 16:00 78 04/09/19 12:00 81 04/09/19 12:00 97.5 78 18 139/76 (97) 99 04/09/19 09:00 Room Air 04/09/19 08:00 80 04/09/19 08:00 96.6 80 20 100/61 (74) 99 04/09/19 04:00 98.1 74 18 144/82 (102) 99 04/09/19 04:00 73 04/09/19 00:00 98.0 78 18 125/71 (89) 98 04/09/19 00:00 83 04/08/19 21:00 Room Air 04/08/19 20:00 98.6 87 18 145/78 (100) 99 04/08/19 20:00 86 04/08/19 18:00 85 04/08/19 16:00 97.8 87 17 111/66 (81) 99 04/08/19 12:00 97.7 79 17 123/76 (92) 99 04/08/19 12:00 78 Intake and Output 04/09/19 04/10/19 18:59 06:59 Intake Total 380 ml 118.708 ml Balance 380 ml 118.708 ml Intake Oral 380 ml IV Total 118.708 ml # Voids 2 Labs Test 04/07/19 15:18 04/09/19 06:40 Troponin I 0.000 ng/mL (0.000-0.056) White Blood Count 6.8 K/UL (4.8-10.8) Red Blood Count 3.52 M/UL (4.20-5.40) Hemoglobin 10.5 G/DL (12.0-16.0) Hematocrit 31.3 % (37.0-47.0) Mean Corpuscular Volume 89 FL (80-99) Mean Corpuscular Hemoglobin 29.8 PG (27.0-31.0) Mean Corpuscular Hemoglobin Concent 33.4 G/DL (32.0-36.0) Red Cell Distribution Width 12.3 % (11.6-14.8) Platelet Count 580 K/UL (150-450) Mean Platelet Volume 4.1 FL (6.5-10.1) Neutrophils (%) (Auto) 61.3 % (45.0-75.0) Lymphocytes (%) (Auto) 26.9 % (20.0-45.0) Monocytes (%) (Auto) 8.1 % (1.0-10.0) Eosinophils (%) (Auto) 2.6 % (0.0-3.0) Basophils (%) (Auto) 1.2 % (0.0-2.0) Sodium Level 138 MMOL/L (136-145) Potassium Level 4.4 MMOL/L (3.5-5.1) Chloride Level 103 MMOL/L (98-107) Carbon Dioxide Level 25 MMOL/L (21-32) Anion Gap 10 mmol/L (5-15) Blood Urea Nitrogen 21 mg/dL (7-18) Creatinine 0.9 MG/DL (0.55-1.30) Estimat Glomerular Filtration Rate > 60 mL/min (>60) Glucose Level 236 MG/DL (74-106) Calcium Level 9.2 MG/DL (8.5-10.1) Height (Feet): 5 Height (Inches): 0.00 Weight (Pounds): 117 Objective Physical Exam: Vitals: reviewed General Appearance: NAD HEENT: normocephalic, atraumatic Neck: non-tender, normal alignment Respiratory/Chest: normal breath sounds bilaterally Cardiovascular/Chest: normal peripheral pulses, normal rate Abdomen: normal bowel sounds, soft, nontender Extremities: normal range of motion left foot, with dressing, per pictures, surgical site over first mtp looks clean, 2nd toe with erythemia, weak pulses Can Burns MD Apr 10, 2019 09:22
--- NOTE | 2019-04-10 10:01 | General Progress Note ---
Assessment/Plan Assessment/Plan: S: I am ok O: seems comfortable, PHYSICAL EXAMINATION: HEAD AND NECK: Atraumatic and normocephalic. CHEST: Clear to auscultation.HEART: S1, S2. Regular rate and rhythm. ABDOMEN: Soft. No organomegaly.MUSCULOSKELETAL: Positive for the postsurgical changes on the left foot. Status post left-sided great toe TMA. LABORATORY DATA: Labs dated April 08, 2019, ASSESSMENT: 1. Acute osteomyelitis of the left great greater toe, status post TMA. 2. Diabetes type 2, uncontrolled. 3. Hyperkalemia. 4. Hyponatremia. 5. GI and DVT prophylaxis. PLAN OF CARE: D/w Podiatry and Infectious Disease. Possiblity of residual OM can not be excluded. Will get benefit by 4- 6 weeks IV antibiotic . Subjective Allergies: Coded Allergies: No Known Allergies (Unverified , 03/20/19) Objective Last 24 Hour Vital Signs Date Time Temp Pulse Resp B/P (MAP) Pulse Ox O2 Delivery O2 Flow Rate FiO2 04/10/19 04:00 98.1 82 20 118/70 (86) 100 04/10/19 04:00 77 04/10/19 00:00 80 04/10/19 00:00 97.5 83 22 129/74 (92) 95 04/09/19 21:00 Room Air 04/09/19 20:00 98.1 82 20 153/89 (110) 98 04/09/19 20:00 83 04/09/19 16:00 98.6 80 20 135/73 (93) 99 04/09/19 16:00 78 04/09/19 12:00 81 04/09/19 12:00 97.5 78 18 139/76 (97) 99 Intake and Output 04/09/19 04/10/19 18:59 06:59 Intake Total 380 ml 118.708 ml Balance 380 ml 118.708 ml Intake Oral 380 ml IV Total 118.708 ml # Voids 2 Height (Feet): 5 Height (Inches): 0.00 Weight (Pounds): 117 Gaby Krishnan MD Apr 10, 2019 10:01
--- NOTE | 2019-04-10 11:01 | NUR ---
RD ASSESSMENT & RECOMMENDATIONS SEE CARE ACTIVITY FOR COMPLETE ASSESSMENT DAILY ESTIMATED NEEDS: Needs based on Wound, DM, surgical healing/ 49.5kg 28-33 kcals/kg 2400-9436 total kcals 1.25-2 g protein/kg 62-99 g total protein 25-30 mL/kg 0386-8164 total fluid mLs NUTRITION DIAGNOSIS: * Increased kcal/prot needs R/T wound healing as evidenced by pt admitted w/ cellulitis of left great toe, s/p recent left first ray amputation and partial metatarsal amputation d/t OM/ * Altered nutrition related lab values R/T diabetes as evidenced by A1C of 13.2, urine glucose of 3+, elev BGs. CURRENT DIET:[facility] MED PO DIET RECOMMENDATIONS: CCHO LOW + double protein portions ADDITIONAL RECOMMENDATIONS: * Calibrated bedscale wt for accurate CBW * Wound healing: add MVI x 1, Vit C 500mg QD add ZnSO4 220mg QD x 10 days Fabián 1pkt BID added to tray * HIGH pro/ 1carb snack in b/w meals * Diet edu when appropriate
[2019-04-10] MEDS ORDERED: Heparin1,000 units/500ml Premix(Conc:2 units/ml) IV PRN (12:45)
--- NOTE | 2019-04-10 14:57 | Surgery Progress Note ---
Surgery Progress Note Subjective Additional Comments no acute events comfortable stable. dressings changed Objective Last 24 Hour Vital Signs Date Time Temp Pulse Resp B/P (MAP) Pulse Ox O2 Delivery O2 Flow Rate FiO2 04/10/19 12:00 77 04/10/19 09:00 Room Air 04/10/19 08:00 79 04/10/19 08:00 96.7 82 18 130/66 (87) 100 04/10/19 04:00 98.1 82 20 118/70 (86) 100 04/10/19 04:00 77 04/10/19 00:00 80 04/10/19 00:00 97.5 83 22 129/74 (92) 95 04/09/19 21:00 Room Air 04/09/19 20:00 98.1 82 20 153/89 (110) 98 04/09/19 20:00 83 04/09/19 16:00 98.6 80 20 135/73 (93) 99 04/09/19 16:00 78 I&O Intake and Output 04/09/19 04/10/19 19:00 07:00 Intake Total 260 ml 137.958 ml Balance 260 ml 137.958 ml Intake Oral 260 ml IV Total 137.958 ml # Voids 2 Dressing: saturated Wound: other Drains: other Cardiovascular: RSR Respiratory: clear Abdomen: soft, non-tender, present bowel sounds, non-distended Extremities: other Plan Problems: (1) Cellulitis Assessment & Plan: 63-year-old female with uncontrolled diabetes and recent left great toe necrotic gangrenous infection status post amputation with flap. Patient was discharged in stable condition and has been home since with family and localized wound care. Toenail of the second ray has fallen off and concerning therefore came in for evaluation. Notes some edema in the toe and is concerned that the infection may be spreading. When patient seen at the bedside the wound bed was evaluated. Wound is overall healing pretty well from the amputation and the flap is taken fairly well except some distal portions of the flap that may be nonviable but currently still holding without any active infection. There was edema of the whole foot and toe prior to discharge which seems to be improved. As the edema is improving and cellulitis improving of the left foot there is some slough of nonviable epidermis that is noted. Furthermore the edema the second ray has lots of the nailbed to fall off and some slough tissue but the toe itself is viable with good capillary refill. Patient has motor and all remaining rays and decreased neuro and sensory as prior given her diabetes. Had a long discussion with the patient and the family at bedside. Patient noted to be walking around on her forefoot despite being told in [place] and clear instructions to heal ambulate only. Patient's wound evaluated and appreciate podiatry evaluation as well. There is no signs of acute active infection no pus no drainage of pus and a majority of the closure and flap if taken. On the distal aspect of the flap there is some areas of necrosis and dehiscence but the remainder the flap is taken fairly well. Sutures were removed at the bedside and the remainder the wound was evaluated and as above slowly healing. The second toe and third toe are viable without signs of significant infection or ischemia. There is good capillary refill. Patient has motor and some sensory. She does have some wound development in between the webspaces which are slowly improving. At this time no further surgical intervention is recommended. Will have to continue with local wound care and allow as much as possible to heal and then continue with debridement as necessary in the areas of dehiscence or slow healing until wound is completely closed. Patient would not benefit from reoperation this early on and needs more time specially is a diabetic to heal as much as possible and then continue with the wound care until completely healed. There is no active infection or concerns viability the second or third toe so would not continue to pursue any further intervention or surgery at this time for them. I discussed with the patient and family in detail the above findings on more than one occasion furthermore I have discussed the wound care plan and limitations such as heel bearing only for the left foot. Unfortunately I feel patient may be somewhat noncompliant as noted to be walking on the forefoot furthermore also on readmission identified to have a limited amount of care provided to the wound despite clear detailed instructions been given upon discharge last time Patient is afebrile without leukocytosis. Recommend continue with localized wound care. IV antibiotics as per infectious disease. Will allow wound to continue to heal and I told the patient and family that this will take few more weeks until the wound and the flap declare themselves but currently stable and doing well. Okay for discharge from surgical standpoint Continue with wound care. Wash left extremity foot daily with soap and water. Okay to apply bacitracin with each dressing change. Gauze dressing in between toes and on wound 3 times a day followed by Kerlix wrap change as needed saturation. Keep leg elevated when possible. Tight glucose control. Dietary restrictions and glucose control as per primary wound evaluated today since sutures removed. proximal part of flap seems to have taken but distal part not. patient must stay off wound of entire flap will dehisce. heel weight bearing only. cont with wound care Jules Jeff Apr 10, 2019 14:57
[2019-04-10] MEDS ORDERED: Lidocaine 1% Plain 30 ml INJ PRN (15:00)
[2019-04-10] MEDS ORDERED: Tubing IV Secondary IV ONE (15:46)
[2019-04-10] MEDS ORDERED: NS 275ml ONE (15:46)
--- NOTE | 2019-04-10 17:16 | NUR ---
POST COMMANDER NOTES PT WITH DC HOME WITH HH PENDING PICC PLACEMENT.UNABLE TO DO PICC TODAY. ALSO PENDING IV ATB ORDERS AND DURATION. WILL FOLLOW UP.
--- NOTE | 2019-04-10 19:24 | NUR ---
HAND-OFF: Report given to SANTOS Salvador. Endorsed plan of care.
--- NOTE | 2019-04-10 19:29 | NUR ---
NURSE NOTES: Received report from Yaneli RN, pt. in bed awake, A/O x's4- Swedish speaker-able to make needs known, no signs or symptoms of acute cardiac or respiratory distress noted, bed in lowest position and call light within easy reach, bed alarm on, side rails up x's3 and safety brakes engaged, pt. appears to be sating well on room air- no distress noted, pt. appears to be resting comfortable and appears clean and dry, RFA 18G IV intact and patent, Lt. AC 20G IV intact and patent, safety measures continued, will continue with plan of care.
--- NOTE | 2019-04-10 19:54 | Infectious Diseases Prog Note ---
Assessment/Plan Problems: (1) Cellulitis Assessment & Plan: of the left foot , with skin sloughing and minimal necrosis , previous culture grew Enterococcus Faecalis, lactobacillus spp and quan albicans , will continue current antibiotics with zosyn and diflucan to cover all these organisms which grew out of her previous cultures for 4 weeks course of treatment since patient is poorly complaint with surgical instruction and at high risk of developing underlying osteomyelitis of the toes . recommend placement in supervised environment for local wound care and iv antibiotics treatment . please monitor weekly labs while on antibiotics with CBC, and CMP . will need PICC line for terminal operator antibiotics treatment. D/W RN (2) Diabetes mellitus Assessment & Plan: poorly controlled, recommend tight glycemic control to keep blood glucose between 100-140 (3) Toe amputation status Assessment & Plan: with dry and intact surgical wound, continue local care and dressings as per surgery Subjective Constitutional: Reports: no symptoms HEENT: Reports: no symptoms Respiratory: Reports: no symptoms Breasts: Reports: no symptoms Cardiovascular: Reports: no symptoms Gastrointestinal/Abdominal: Reports: no symptoms Genitourinary: Reports: no symptoms Neurologic: Reports: no symptoms Psychiatric: Reports: no symptoms Skin: Reports: no symptoms Endocrine: Reports: no symptoms Hematologic: Reports: no symptoms Musculoskeletal: Reports: no symptoms Allergies: Coded Allergies: No Known Allergies (Unverified , 03/20/19) Subjective red, erythematous on the second toe , with no toe nail . Objective Vital Signs Last 24 Hour Vital Signs Date Time Temp Pulse Resp B/P (MAP) Pulse Ox O2 Delivery O2 Flow Rate FiO2 04/10/19 16:00 96.7 86 18 136/80 (98) 100 04/10/19 16:00 86 04/10/19 12:00 98.7 86 18 139/80 (99) 100 04/10/19 12:00 77 04/10/19 09:00 Room Air 04/10/19 08:00 79 04/10/19 08:00 96.7 82 18 130/66 (87) 100 04/10/19 04:00 98.1 82 20 118/70 (86) 100 04/10/19 04:00 77 04/10/19 00:00 80 04/10/19 00:00 97.5 83 22 129/74 (92) 95 04/09/19 21:00 Room Air 04/09/19 20:00 98.1 82 20 153/89 (110) 98 04/09/19 20:00 83 Height (Feet): 5 Height (Inches): 0.00 Weight (Pounds): 117 General Appearance: WD/WN, no acute distress HEENT: normocephalic, atraumatic, anicteric, mucous membranes moist, EOMI, pharynx normal, supple Respiratory/Chest: chest wall non-tender, lungs clear, normal breath sounds, no respiratory distress, no accessory muscle use Cardiovascular: normal peripheral pulses, normal rate, regular rhythm, no gallop/murmur, no JVD Abdomen: normal bowel sounds, soft, non tender, no organomegaly, non distended , no mass, no scars Genitourinary: normal external genitalia Extremities: no cyanosis, no clubbing Skin: no rash, no lesions, other - left big toe skin dehisence at the top with minimal necrosis and skin redness on the second toe with peeled of skin Neurologic/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: 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 normal, no motor/sensory deficits, alert, oriented x 3, responsive Lymphatic: no neck adenopathy, no groin adenopathy Musculoskeletal: normal muscle bulk, no effusion Current Medications Medications (Trade) Dose Ordered Sig/Arnoldo Route PRN Reason Start Time Stop Time Status Last Admin Dose Admin Acetaminophen (Tylenol) 650 mg Q4H PRN ORAL Mild Pain/Temp > 100.5 04/07/19 11:00 05/07/19 10:59 04/10/19 01:51 Acetaminophen/ Hydrocodone Bitart (Moseley 5/325) 1 tab Q4H PRN ORAL Moderate Pain (Pain Scale 4-6) 04/07/19 11:00 04/14/19 10:59 04/08/19 20:42 Chlorhexidine Gluconate (Apryl-Hex 2%) 1 applic DAILY@1999 TOPIC 04/10/19 20:00 05/10/19 19:59 Dextrose (Dextrose 50%) 25 ml Q30M PRN IV Hypoglycemia 04/07/19 11:15 05/07/19 06:44 Dextrose (Dextrose 50%) 50 ml Q30M PRN IV Hypoglycemia 04/07/19 11:15 05/07/19 06:44 Enoxaparin Sodium (Lovenox) 40 mg DAILY SUBQ 04/08/19 09:00 05/07/19 08:59 04/10/19 09:09 Ferrous Sulfate (Feosol) 325 mg THREE TIMES A DAY ORAL 04/09/19 09:00 05/09/19 08:59 04/10/19 17:50 Fluconazole/ Sodium Chloride 100 ml @ 100 mls/hr Q24H IV 04/07/19 16:00 04/14/19 15:59 04/10/19 17:50 Heparin Sodium/ Sodium Chloride (Heparin 1000 units/500ml Premix) 1,000 unit ONCE PRN IV PICC 04/10/19 12:45 04/10/19 23:59 Insulin Aspart (NovoLOG) BEFORE MEALS AND HS SUBQ 04/07/19 11:30 05/07/19 06:29 04/10/19 17:52 Insulin Aspart (NovoLOG) 8 units NOVOTIAC SUBQ 04/09/19 11:50 05/07/19 06:44 04/10/19 17:51 Insulin Detemir (Levemir) 24 units DAILY SUBQ 04/09/19 09:00 05/07/19 08:59 04/10/19 09:12 Lidocaine HCl (Xylocaine 1% 30ml) 30 ml ONCE PRN INJ PICC 04/10/19 15:00 04/10/19 23:59 Morphine Sulfate (Morphine Sulfate) 2 mg Q6H PRN IVP For severe Pain(8-10) 04/07/19 11:00 04/14/19 10:59 Pantoprazole (Protonix) 40 mg DAILY ORAL 04/08/19 09:00 05/07/19 08:59 04/10/19 09:08 Piperacillin Sod/ Tazobactam Sod 3.375 gm/Sodium Chloride 110 ml @ 27.5 mls/hr EVERY 8 HOURS IVPB 04/07/19 14:00 04/12/19 05:59 04/10/19 14:27 Jamie Simpson M.D. Apr 10, 2019 19:54
[2019-04-10] MEDS: Dyna-Hex 2% Top Sol 2oz TOPIC SCH (20:11)
[2019-04-11] VITALS: BP 130/79
[2019-04-11] MEDS: HYDROcodone/Acetamin 5/325 tab ORAL PRN (00:41)
[2019-04-11 04:00] VITALS: BP 125/79
[2019-04-11] MEDS: Piperacillin/Tazobactam 3.375 GM in NS 110 ML IVPB SCH ×3 (05:01→21:42)
[2019-04-11] MEDS: NovoLOG Insulin Flexpen SUBQ SCH ×7 (06:02→21:44)
--- NOTE | 2019-04-11 06:59 | NUR ---
HAND-OFF: Report given to Naye RN, pt,. remains stable and no signs of distress noted.
--- NOTE | 2019-04-11 07:05 | NUR ---
NURSE NOTES: Received report from Kayla/RN, Patient is asleep, Lying semi-bueno's, resting comfortably. No signs of acute distress/SOB noted at this time. Able to make needs known. Checked IV site, patent, no bleeding, or infiltration noted. Dressing on toe intact, and no sign of bleeding. Bed at lowest position, and locked. brakes on, side rails up x3, Call light and personal belonging within reach. Will continue plan of care.
[2019-04-11 08:02] VITALS: BP 96/58
[2019-04-11] MEDS: Enoxaparin 40mg Inj SUBQ SCH (08:32)
[2019-04-11] MEDS: Levemir Flexpen SUBQ SCH (09:13)
[2019-04-11 12:00] VITALS: BP 134/72
--- NOTE | 2019-04-11 13:43 | General Progress Note ---
Assessment/Plan Assessment/Plan: S: I am ok O: seems comfortable, PHYSICAL EXAMINATION: HEAD AND NECK: Atraumatic and normocephalic. CHEST: Clear to auscultation.HEART: S1, S2. Regular rate and rhythm. ABDOMEN: Soft. No organomegaly.MUSCULOSKELETAL: Positive for the postsurgical changes on the left foot. Status post left-sided great toe TMA. LABORATORY DATA: Labs dated April 08, 2019, ASSESSMENT: 1. Acute osteomyelitis of the left great greater toe, status post TMA. 2. Diabetes type 2, uncontrolled. 3. Hyperkalemia. 4. Hyponatremia. 5. GI and DVT prophylaxis. PLAN OF CARE: D/w Podiatry and Infectious Disease. Possiblity of residual OM can not be excluded. Will get benefit by 4- 6 weeks IV antibiotic . Subjective Allergies: Coded Allergies: No Known Allergies (Unverified , 03/20/19) Objective Last 24 Hour Vital Signs Date Time Temp Pulse Resp B/P (MAP) Pulse Ox O2 Delivery O2 Flow Rate FiO2 04/11/19 12:00 82 04/11/19 12:00 97.3 84 18 134/72 (92) 100 04/11/19 09:00 Room Air 04/11/19 08:02 99.6 92 18 96/58 (71) 93 04/11/19 08:00 92 04/11/19 04:00 98.4 84 20 125/79 (94) 96 04/11/19 04:00 80 04/11/19 01:11 97.9 04/11/19 00:00 98.1 85 20 130/79 (96) 96 04/11/19 00:00 82 04/10/19 21:00 Room Air 04/10/19 21:00 Room Air 04/10/19 20:36 89 111/62 (78) 04/10/19 20:00 97.9 94 20 98/59 (72) 97 04/10/19 20:00 93 04/10/19 16:00 96.7 86 18 136/80 (98) 100 04/10/19 16:00 86 Intake and Output 04/10/19 04/11/19 18:59 06:59 Intake Total 19.25 ml 110.0 ml Balance 19.25 ml 110.0 ml IV Total 19.25 ml 110.0 ml # Voids 2 Height (Feet): 5 Height (Inches): 0.00 Weight (Pounds): 117 Gaby Krishnan MD Apr 11, 2019 13:43
--- NOTE | 2019-04-11 13:50 | NUR ---
CASE MANAGEMENT: REVIEW 04/11/2019 SI:CELLULITIS OF LEFT LOWER LIMB. OSTEOMYELITIS FOOT. T 97.3 HR 84 RR 18 B/P 134/72 SATS 100% ON RA NO LABS TODAY IS: ZOSYN IV Q8H LOVENOX SUBQ QD PROTONIX PO QD LEVEMIR SUBQ QD DIFLUCAN PO QD INSULIN ASPART SUBQ AC/HS FEOSOL PO TID TELE STATUS PLAN OF CARE: DC PLANNING HOME W/ HH AND IV ANTIBX
--- NOTE | 2019-04-11 14:07 | NUR ---
INSURANCE REVIEW FAXED TO p- [phone] f- [phone]....REVIEW/CLINICAL
--- NOTE | 2019-04-11 14:09 | Surgery Progress Note ---
Surgery Progress Note Subjective Additional Comments No acute events. Daughter at bedside. Dressing change. Long discussion with daughter in teaching her how to do the wound care and the wound care that anticipated is well as the activity restrictions. Objective Last 24 Hour Vital Signs Date Time Temp Pulse Resp B/P (MAP) Pulse Ox O2 Delivery O2 Flow Rate FiO2 04/11/19 12:00 82 04/11/19 12:00 97.3 84 18 134/72 (92) 100 04/11/19 09:00 Room Air 04/11/19 08:02 99.6 92 18 96/58 (71) 93 04/11/19 08:00 92 04/11/19 04:00 98.4 84 20 125/79 (94) 96 04/11/19 04:00 80 04/11/19 01:11 97.9 04/11/19 00:00 98.1 85 20 130/79 (96) 96 04/11/19 00:00 82 04/10/19 21:00 Room Air 04/10/19 21:00 Room Air 04/10/19 20:36 89 111/62 (78) 04/10/19 20:00 97.9 94 20 98/59 (72) 97 04/10/19 20:00 93 04/10/19 16:00 96.7 86 18 136/80 (98) 100 04/10/19 16:00 86 I&O Intake and Output 04/10/19 04/11/19 18:59 06:59 Intake Total 19.25 ml 110.0 ml Balance 19.25 ml 110.0 ml IV Total 19.25 ml 110.0 ml # Voids 2 Dressing: saturated Wound: clean, other Cardiovascular: RSR Respiratory: clear Abdomen: soft, flat Extremities: edema, cyanosis, no tenderness, other Plan Problems: (1) Cellulitis Assessment & Plan: 63-year-old female with uncontrolled diabetes and recent left great toe necrotic gangrenous infection status post amputation with flap. Patient was discharged in stable condition and has been home since with family and localized wound care. Toenail of the second ray has fallen off and concerning therefore came in for evaluation. Notes some edema in the toe and is concerned that the infection may be spreading. When patient seen at the bedside the wound bed was evaluated. Wound is overall healing pretty well from the amputation and the flap is taken fairly well except some distal portions of the flap that may be nonviable but currently still holding without any active infection. There was edema of the whole foot and toe prior to discharge which seems to be improved. As the edema is improving and cellulitis improving of the left foot there is some slough of nonviable epidermis that is noted. Furthermore the edema the second ray has lots of the nailbed to fall off and some slough tissue but the toe itself is viable with good capillary refill. Patient has motor and all remaining rays and decreased neuro and sensory as prior given her diabetes. Had a long discussion with the patient and the family at bedside. Patient noted to be walking around on her forefoot despite being told in Sinhala and clear instructions to heal ambulate only. Patient's wound evaluated and appreciate podiatry evaluation as well. There is no signs of acute active infection no pus no drainage of pus and a majority of the closure and flap if taken. On the distal aspect of the flap there is some areas of necrosis and dehiscence but the remainder the flap is taken fairly well. Sutures were removed at the bedside and the remainder the wound was evaluated and as above slowly healing. The second toe and third toe are viable without signs of significant infection or ischemia. There is good capillary refill. Patient has motor and some sensory. She does have some wound development in between the webspaces which are slowly improving. At this time no further surgical intervention is recommended. Will have to continue with local wound care and allow as much as possible to heal and then continue with debridement as necessary in the areas of dehiscence or slow healing until wound is completely closed. Patient would not benefit from reoperation this early on and needs more time specially is a diabetic to heal as much as possible and then continue with the wound care until completely healed. There is no active infection or concerns viability the second or third toe so would not continue to pursue any further intervention or surgery at this time for them. I discussed with the patient and family in detail the above findings on more than one occasion furthermore I have discussed the wound care plan and limitations such as heel bearing only for the left foot. Unfortunately I feel patient may be somewhat noncompliant as noted to be walking on the forefoot furthermore also on readmission identified to have a limited amount of care provided to the wound despite clear detailed instructions been given upon discharge last time Patient is afebrile without leukocytosis. Recommend continue with localized wound care. IV antibiotics as per infectious disease. Will allow wound to continue to heal and I told the patient and family that this will take few more weeks until the wound and the flap declare themselves but currently stable and doing well. Okay for discharge from surgical standpoint Continue with wound care. Wash left extremity foot daily with soap and water. Okay to apply bacitracin with each dressing change. Gauze dressing in between toes and on wound 3 times a day followed by Kerlix wrap change as needed saturation. Keep leg elevated when possible. Tight glucose control. Dietary restrictions and glucose control as per primary wound evaluated today since sutures removed. proximal part of flap seems to have taken but distal part not. patient must stay off wound of entire flap will dehisce. heel weight bearing only. cont with wound care Jules Jeff Apr 11, 2019 14:09
--- NOTE | 2019-04-11 14:14 | NUR ---
DISCHARGE PLANNING: NOTE ANTIBx ORDERS CLARIFIED WITH ID CLINICALS FAXED TO [facility] FOR REVIEW. PRIMARY CM TO F/U
--- NOTE | 2019-04-11 14:20 | Infectious Diseases Prog Note ---
Assessment/Plan Problems: (1) Cellulitis Assessment & Plan: of the left foot , with skin sloughing and minimal necrosis , previous culture grew Enterococcus Faecalis, lactobacillus spp and quan albicans , will continue current antibiotics with zosyn and diflucan to cover all these organisms which grew out of her previous cultures for 4 weeks course of treatment since patient is poorly complaint with surgical instruction and at high risk of developing underlying osteomyelitis of the toes . recommend placement in supervised environment for local wound care and iv antibiotics treatment . please monitor weekly labs while on antibiotics with CBC, and CMP . will need PICC line for hospice administrator antibiotics treatment. D/W RN (2) Diabetes mellitus Assessment & Plan: poorly controlled, recommend tight glycemic control to keep blood glucose between 100-140 (3) Toe amputation status Assessment & Plan: with dry and intact surgical wound, continue local care and dressings as per surgery Subjective Constitutional: Reports: no symptoms HEENT: Reports: no symptoms Respiratory: Reports: no symptoms Breasts: Reports: no symptoms Cardiovascular: Reports: no symptoms Gastrointestinal/Abdominal: Reports: no symptoms Genitourinary: Reports: no symptoms Neurologic: Reports: no symptoms Psychiatric: Reports: no symptoms Skin: Reports: no symptoms Endocrine: Reports: no symptoms Hematologic: Reports: no symptoms Musculoskeletal: Reports: no symptoms Allergies: Coded Allergies: No Known Allergies (Unverified , 03/20/19) Subjective red, erythematous on the second toe , with no toe nail . Objective Vital Signs Last 24 Hour Vital Signs Date Time Temp Pulse Resp B/P (MAP) Pulse Ox O2 Delivery O2 Flow Rate FiO2 04/11/19 12:00 82 04/11/19 12:00 97.3 84 18 134/72 (92) 100 04/11/19 09:00 Room Air 04/11/19 08:02 99.6 92 18 96/58 (71) 93 04/11/19 08:00 92 04/11/19 04:00 98.4 84 20 125/79 (94) 96 04/11/19 04:00 80 04/11/19 01:11 97.9 04/11/19 00:00 98.1 85 20 130/79 (96) 96 04/11/19 00:00 82 04/10/19 21:00 Room Air 04/10/19 21:00 Room Air 04/10/19 20:36 89 111/62 (78) 04/10/19 20:00 97.9 94 20 98/59 (72) 97 04/10/19 20:00 93 04/10/19 16:00 96.7 86 18 136/80 (98) 100 04/10/19 16:00 86 Height (Feet): 5 Height (Inches): 0.00 Weight (Pounds): 117 General Appearance: WD/WN, no acute distress HEENT: normocephalic, atraumatic, anicteric, mucous membranes moist, PERRL Respiratory/Chest: chest wall non-tender, lungs clear, normal breath sounds, no respiratory distress, no accessory muscle use Cardiovascular: normal peripheral pulses, normal rate, regular rhythm, no gallop/murmur, no JVD Abdomen: normal bowel sounds, soft, non tender, no organomegaly, non distended , no mass, no scars Extremities: no cyanosis, no clubbing Skin: no rash, no lesions, other - left big toe surgical wound with small necrosis and dehisence, and red skin on the second toe Neurologic/Psychiatric: alert, responsive Lymphatic: no neck adenopathy, no groin adenopathy Musculoskeletal: normal muscle bulk, no effusion Current Medications Medications (Trade) Dose Ordered Sig/Arnoldo Route PRN Reason Start Time Stop Time Status Last Admin Dose Admin Acetaminophen (Tylenol) 650 mg Q4H PRN ORAL Mild Pain/Temp > 100.5 04/07/19 11:00 05/07/19 10:59 04/10/19 01:51 Acetaminophen/ Hydrocodone Bitart ([place] 5/325) 1 tab Q4H PRN ORAL Moderate Pain (Pain Scale 4-6) 04/07/19 11:00 04/14/19 10:59 04/11/19 00:41 Chlorhexidine Gluconate (Apryl-Hex 2%) 1 applic DAILY@2000 TOPIC 04/10/19 20:00 05/10/19 19:59 04/10/19 20:11 Dextrose (Dextrose 50%) 25 ml Q30M PRN IV Hypoglycemia 04/07/19 11:15 05/07/19 06:44 Dextrose (Dextrose 50%) 50 ml Q30M PRN IV Hypoglycemia 04/07/19 11:15 05/07/19 06:44 Enoxaparin Sodium (Lovenox) 40 mg DAILY SUBQ 04/08/19 09:00 05/07/19 08:59 04/11/19 08:32 Ferrous Sulfate (Feosol) 325 mg THREE TIMES A DAY ORAL 04/09/19 09:00 05/09/19 08:59 04/11/19 12:07 Fluconazole (Diflucan) 400 mg DAILY ORAL 04/12/19 09:00 04/19/19 08:59 Fluconazole (Diflucan) 400 mg ONCE ORAL 04/11/19 15:00 04/11/19 16:00 04/11/19 14:06 Insulin Aspart (NovoLOG) BEFORE MEALS AND HS SUBQ 04/07/19 11:30 05/07/19 06:29 04/11/19 12:11 Insulin Aspart (NovoLOG) 8 units NOVOTIAC SUBQ 04/09/19 11:50 05/07/19 06:44 04/11/19 12:10 Insulin Detemir (Levemir) 24 units DAILY SUBQ 04/09/19 09:00 05/07/19 08:59 04/11/19 09:13 Morphine Sulfate (Morphine Sulfate) 2 mg Q6H PRN IVP For severe Pain(8-10) 04/07/19 11:00 04/14/19 10:59 Pantoprazole (Protonix) 40 mg DAILY ORAL 04/08/19 09:00 05/07/19 08:59 04/11/19 08:28 Piperacillin Sod/ Tazobactam Sod 3.375 gm/Sodium Chloride 110 ml @ 27.5 mls/hr EVERY 8 HOURS IVPB 04/07/19 14:00 04/16/19 13:59 04/11/19 14:05 Jamie Simpson M.D. Apr 11, 2019 14:20
[2019-04-11] MEDS ORDERED: Fluconazole 100mg tab ORAL SCH (15:00)
[2019-04-11 16:00] VITALS: BP 113/74
--- NOTE | 2019-04-11 19:25 | NUR ---
NURSE NOTES: Received patient from SANTOS Yancey, patient in stable condition, resting in bed, AOx4, denies pain at this time, IV site on left hand G22, asymptomatic, intact, patent,family at bedside, bed low&locked, side rails upx2, will continue to monitor and reassess.
--- NOTE | 2019-04-11 19:32 | NUR ---
HAND-OFF: Report given to Lisette/RN, Patient is in stable condition. Endorsed plan of care.
[2019-04-11 20:00] VITALS: BP 127/66
[2019-04-11] MEDS: Dyna-Hex 2% Top Sol 2oz TOPIC SCH (21:30)
[2019-04-12] VITALS (7 sets, daily range): BP systolic 112–146; BP diastolic 70–87
[2019-04-12] MEDS: Piperacillin/Tazobactam 3.375 GM in NS 110 ML IVPB SCH ×3 (05:51→21:21)
[2019-04-12] MEDS: NovoLOG Insulin Flexpen SUBQ SCH ×7 (06:48→21:21)
--- NOTE | 2019-04-12 07:11 | NUR ---
HAND-OFF: Report given to SANTOS Yancey, patient in stable condition, plan of care endorsed.
--- NOTE | 2019-04-12 07:20 | General Progress Note ---
Assessment/Plan Problem List: (1) Diabetes mellitus ICD Codes: E11.9 - Type 2 diabetes mellitus without complications SNOMED: 15136738 (2) Cellulitis ICD Codes: L03.90 - Cellulitis, unspecified SNOMED: 782489340 Qualifiers: Qualified Codes: L03.116 - Cellulitis of left lower limb (3) Toe amputation status ICD Codes: S98.139A - Complete traumatic amputation of one unspecified lesser toe, initial encounter SNOMED: 609800993 Assessment/Plan: increase Levemir to 30 units daily increase Novolog to 10 units ac tid continue NISS ac / hs Subjective Allergies: Coded Allergies: No Known Allergies (Unverified , 03/20/19) All Systems: reviewed and negative except above Subjective events noted Item Value Date Time Bedside Blood Glucose 200 mg/dl H 04/12/19 0648 Bedside Blood Glucose 259 mg/dl H 04/11/19 2144 Bedside Blood Glucose 198 mg/dl H 04/11/19 1720 Bedside Blood Glucose 294 mg/dl H 04/11/19 1211 Bedside Blood Glucose 140 mg/dl H 04/11/19 0913 Bedside Blood Glucose 272 mg/dl H 04/11/19 0603 Objective Last 24 Hour Vital Signs Date Time Temp Pulse Resp B/P (MAP) Pulse Ox O2 Delivery O2 Flow Rate FiO2 04/12/19 04:29 98.2 78 18 126/78 (94) 99 04/12/19 04:00 98.2 78 18 126/78 (94) 98 04/12/19 04:00 78 04/12/19 00:00 98.6 87 18 112/87 (95) 95 04/12/19 00:00 83 04/11/19 21:00 Room Air 04/11/19 20:00 85 04/11/19 20:00 98.3 85 18 127/66 (86) 99 04/11/19 16:00 98.1 83 18 113/74 (87) 100 04/11/19 16:00 80 04/11/19 12:00 82 04/11/19 12:00 97.3 84 18 134/72 (92) 100 04/11/19 09:00 Room Air 04/11/19 08:02 99.6 92 18 96/58 (71) 93 04/11/19 08:00 92 Intake and Output 04/11/19 04/12/19 19:00 07:00 Intake Total 820 ml Balance 820 ml Intake Oral 820 ml # Voids 4 2 Height (Feet): 5 Height (Inches): 0.00 Weight (Pounds): 117 General Appearance: no apparent distress Neck: normal alignment Cardiovascular: normal rate Respiratory/Chest: lungs clear Abdomen: normal bowel sounds Objective Current Medications Medications (Trade) Dose Ordered Sig/Arnoldo Route PRN Reason Start Time Stop Time Status Last Admin Dose Admin Acetaminophen (Tylenol) 650 mg Q4H PRN ORAL Mild Pain/Temp > 100.5 04/07/19 11:00 05/07/19 10:59 04/10/19 01:51 Acetaminophen/ Hydrocodone Bitart ([place] 5/325) 1 tab Q4H PRN ORAL Moderate Pain (Pain Scale 4-6) 04/07/19 11:00 04/14/19 10:59 04/11/19 00:41 Chlorhexidine Gluconate (Apryl-Hex 2%) 1 applic DAILY@2000 TOPIC 04/10/19 20:00 05/10/19 19:59 04/11/19 21:30 Dextrose (Dextrose 50%) 25 ml Q30M PRN IV Hypoglycemia 04/07/19 11:15 05/07/19 06:44 Dextrose (Dextrose 50%) 50 ml Q30M PRN IV Hypoglycemia 04/07/19 11:15 05/07/19 06:44 Enoxaparin Sodium (Lovenox) 40 mg DAILY SUBQ 04/08/19 09:00 05/07/19 08:59 04/11/19 08:32 Ferrous Sulfate (Feosol) 325 mg THREE TIMES A DAY ORAL 04/09/19 09:00 05/09/19 08:59 04/11/19 17:13 Fluconazole (Diflucan) 400 mg DAILY ORAL 04/12/19 09:00 04/19/19 08:59 Insulin Aspart (NovoLOG) BEFORE MEALS AND HS SUBQ 04/07/19 11:30 05/07/19 06:29 04/12/19 06:48 Insulin Aspart (NovoLOG) 8 units NOVOTIAC SUBQ 04/09/19 11:50 05/07/19 06:44 04/12/19 06:48 Insulin Detemir (Levemir) 24 units DAILY SUBQ 04/09/19 09:00 05/07/19 08:59 04/11/19 09:13 Morphine Sulfate (Morphine Sulfate) 2 mg Q6H PRN IVP For severe Pain(8-10) 04/07/19 11:00 04/14/19 10:59 Pantoprazole (Protonix) 40 mg DAILY ORAL 04/08/19 09:00 05/07/19 08:59 04/11/19 08:28 Piperacillin Sod/ Tazobactam Sod 3.375 gm/Sodium Chloride 110 ml @ 27.5 mls/hr EVERY 8 HOURS IVPB 04/07/19 14:00 04/16/19 13:59 04/12/19 05:51 Lorenzo Gay MD Apr 12, 2019 07:20
--- NOTE | 2019-04-12 07:20 | NUR ---
NURSE NOTES: Received report from Lisette/RN, Patient is awake, eating breakfast. On room air, No signs of acute distress/SOB noted at this time. Able to make needs known. Checked IV site, patent, no bleeding or infiltration noted. Bed at lowest position, and locked. brakes on, side rails up x3, Call light and personal belonging within reach. Will continue plan of care.
[2019-04-12] MEDS: Fluconazole 100mg tab ORAL SCH (08:52)
[2019-04-12] MEDS: Levemir Flexpen SUBQ SCH (08:54)
[2019-04-12] MEDS: Enoxaparin 40mg Inj SUBQ SCH (08:55)
--- NOTE | 2019-04-12 10:22 | Hematology/Onc Progress Note ---
Assessment/Plan Assessment/Plan Assessment and Recs: # Thrombocytosis - likely related to reactive process (and/or underlying infection) from toe as well as poor DM management by patient, noncompliance --> Continue to monitor for improvement --> Trend CBC as needed plt 692-->656k-->580k --> If continues to be elevated, consider to send for KB-2 --> Smear reviewed and no abnormalities noted. --> less likely is a myeloproliferative disorder # Anemia of chronic disease due to underlying chronic medical issues, multifactorial, esr elevated due to infection/chronic inflamm state --> Anemia workup has been ordered, ferriin is 100-200 range, cw acd --> No evidence of hemolysis is noted, peripheral smear has been reviewed. --> Hgb goal >7. Transfuse prn. 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 She had partial amputation. # DM2 poorly controlled --> a1c 13.2, goal <8 --> accuchecks qac and qhs, low dose iss # Dvt ppx lmwh The timing of this note does not necessarily reflect the time of the patient was seen. Greatly appreciate consultation. Subjective Constitutional: Denies: no symptoms, chills, fever, malaise, weakness, other HEENT: Denies: no symptoms, eye pain, blurred vision, tearing, double vision, ear pain, ear discharge, nose pain, nose congestion, throat pain, throat swelling, mouth pain, mouth swelling, other Cardiovascular: Denies: no symptoms, chest pain, edema, irregular heart rate, lightheadedness, palpitations, syncope, other Respiratory: Denies: no symptoms, cough, shortness of breath, SOB with excertion, SOB at rest, sputum, wheezing, other Genitourinary: Denies: no symptoms, burning, discharge, frequency, flank pain, hematuria, incontinence, pain, urgency, other Neurologic/Psychiatric: Denies: no symptoms, anxiety, depressed, emotional problems, headache, numbness, paresthesia, pre-existing deficit, seizure, tingling, tremors, weakness, other Endocrine: Denies: no symptoms, excessive sweating, flushing, intolerance to cold, intolerance to heat, increased hunger, increased thirst, increased urine, unexplained weight gain, unexplained weight loss, other Hematologic/Lymphatic: Denies: no symptoms, anemia, easy bleeding, easy bruising, adenopathy, other Allergies: Coded Allergies: No Known Allergies (Unverified , 03/20/19) Subjective 04/08: no events, cbc pendng, on abx, no f/c, pain meds 04/09: no bleeding,no events, no f/c, on abx 04/10: no bleeding, no chills, or night sweats reported, bp is better 04/12: no events, no bleeding, no f/c, wound care this am Objective Objective Current Medications Medications (Trade) Dose Ordered Sig/Arnoldo Route PRN Reason Start Time Stop Time Status Last Admin Dose Admin Acetaminophen (Tylenol) 650 mg Q4H PRN ORAL Mild Pain/Temp > 100.5 04/07/19 11:00 05/07/19 10:59 04/10/19 01:51 Acetaminophen/ Hydrocodone Bitart ([place] 5/325) 1 tab Q4H PRN ORAL Moderate Pain (Pain Scale 4-6) 04/07/19 11:00 04/14/19 10:59 04/11/19 00:41 Chlorhexidine Gluconate (Apryl-Hex 2%) 1 applic DAILY@2000 TOPIC 04/10/19 20:00 05/10/19 19:59 04/11/19 21:30 Dextrose (Dextrose 50%) 25 ml Q30M PRN IV Hypoglycemia 04/07/19 11:15 05/07/19 06:44 Dextrose (Dextrose 50%) 50 ml Q30M PRN IV Hypoglycemia 04/07/19 11:15 05/07/19 06:44 Enoxaparin Sodium (Lovenox) 40 mg DAILY SUBQ 04/08/19 09:00 05/07/19 08:59 04/12/19 08:55 Ferrous Sulfate (Feosol) 325 mg THREE TIMES A DAY ORAL 04/09/19 09:00 05/09/19 08:59 04/12/19 08:52 Fluconazole (Diflucan) 400 mg DAILY ORAL 04/12/19 09:00 04/19/19 08:59 04/12/19 08:52 Insulin Aspart (NovoLOG) BEFORE MEALS AND HS SUBQ 04/07/19 11:30 05/07/19 06:29 04/12/19 06:48 Insulin Aspart (NovoLOG) 10 units NOVOTIAC SUBQ 04/12/19 11:50 05/07/19 06:44 Insulin Detemir (Levemir) 30 units DAILY SUBQ 04/12/19 09:00 05/07/19 08:59 04/12/19 08:54 Morphine Sulfate (Morphine Sulfate) 2 mg Q6H PRN IVP For severe Pain(8-10) 04/07/19 11:00 04/14/19 10:59 Pantoprazole (Protonix) 40 mg DAILY ORAL 04/08/19 09:00 05/07/19 08:59 04/12/19 08:52 Piperacillin Sod/ Tazobactam Sod 3.375 gm/Sodium Chloride 110 ml @ 27.5 mls/hr EVERY 8 HOURS IVPB 04/07/19 14:00 04/16/19 13:59 04/12/19 05:51 Last 24 Hour Vital Signs Date Time Temp Pulse Resp B/P (MAP) Pulse Ox O2 Delivery O2 Flow Rate FiO2 04/12/19 04:29 98.2 78 18 126/78 (94) 99 04/12/19 04:00 98.2 78 18 126/78 (94) 98 04/12/19 04:00 78 04/12/19 00:00 98.6 87 18 112/87 (95) 95 04/12/19 00:00 83 04/11/19 21:00 Room Air 04/11/19 20:00 85 04/11/19 20:00 98.3 85 18 127/66 (86) 99 04/11/19 16:00 98.1 83 18 113/74 (87) 100 04/11/19 16:00 80 04/11/19 12:00 82 04/11/19 12:00 97.3 84 18 134/72 (92) 100 04/11/19 09:00 Room Air 04/11/19 08:02 99.6 92 18 96/58 (71) 93 04/11/19 08:00 92 04/11/19 04:00 98.4 84 20 125/79 (94) 96 04/11/19 04:00 80 04/11/19 01:11 97.9 04/11/19 00:00 98.1 85 20 130/79 (96) 96 04/11/19 00:00 82 04/10/19 21:00 Room Air 04/10/19 21:00 Room Air 04/10/19 20:36 89 111/62 (78) 04/10/19 20:00 97.9 94 20 98/59 (72) 97 04/10/19 20:00 93 04/10/19 16:00 96.7 86 18 136/80 (98) 100 04/10/19 16:00 86 04/10/19 12:00 98.7 86 18 139/80 (99) 100 04/10/19 12:00 77 Intake and Output 04/11/19 04/12/19 19:00 07:00 Intake Total 820 ml Balance 820 ml Intake Oral 820 ml # Voids 4 2 Height (Feet): 5 Height (Inches): 0.00 Weight (Pounds): 117 Objective Physical Exam: Vitals: reviewed General Appearance: NAD HEENT: normocephalic, atraumatic Neck: non-tender, normal alignment Respiratory/Chest: normal breath sounds bilaterally Cardiovascular/Chest: normal peripheral pulses, normal rate Abdomen: normal bowel sounds, soft, nontender Extremities: normal range of motion left foot, with dressing, per pictures, surgical site over first mtp looks clean, 2nd toe with erythemia, weak pulses Can Burns MD Apr 12, 2019 10:22
--- NOTE | 2019-04-12 13:53 | Surgery Progress Note ---
Surgery Progress Note Subjective Additional Comments doing well no acute events Objective Last 24 Hour Vital Signs Date Time Temp Pulse Resp B/P (MAP) Pulse Ox O2 Delivery O2 Flow Rate FiO2 04/12/19 12:00 91 04/12/19 12:00 98.5 87 18 136/80 (98) 99 04/12/19 09:00 Room Air 04/12/19 08:00 83 04/12/19 08:00 98.1 84 18 122/70 (87) 96 04/12/19 04:29 98.2 78 18 126/78 (94) 99 04/12/19 04:00 98.2 78 18 126/78 (94) 98 04/12/19 04:00 78 04/12/19 00:00 98.6 87 18 112/87 (95) 95 04/12/19 00:00 83 04/11/19 21:00 Room Air 04/11/19 20:00 85 04/11/19 20:00 98.3 85 18 127/66 (86) 99 04/11/19 16:00 98.1 83 18 113/74 (87) 100 04/11/19 16:00 80 I&O Intake and Output 04/11/19 04/12/19 18:59 06:59 Intake Total 820 ml Balance 820 ml Intake Oral 820 ml # Voids 4 2 Dressing: dry Wound: clean Drains: none Cardiovascular: RSR Respiratory: clear Abdomen: soft, flat, non-tender, present bowel sounds Extremities: no edema, no tenderness, other Plan Problems: (1) Cellulitis Assessment & Plan: 63-year-old female with uncontrolled diabetes and recent left great toe necrotic gangrenous infection status post amputation with flap. Patient was discharged in stable condition and has been home since with family and localized wound care. Toenail of the second ray has fallen off and concerning therefore came in for evaluation. Notes some edema in the toe and is concerned that the infection may be spreading. When patient seen at the bedside the wound bed was evaluated. Wound is overall healing pretty well from the amputation and the flap is taken fairly well except some distal portions of the flap that may be nonviable but currently still holding without any active infection. There was edema of the whole foot and toe prior to discharge which seems to be improved. As the edema is improving and cellulitis improving of the left foot there is some slough of nonviable epidermis that is noted. Furthermore the edema the second ray has lots of the nailbed to fall off and some slough tissue but the toe itself is viable with good capillary refill. Patient has motor and all remaining rays and decreased neuro and sensory as prior given her diabetes. Had a long discussion with the patient and the family at bedside. Patient noted to be walking around on her forefoot despite being told in French and clear instructions to heal ambulate only. Patient's wound evaluated and appreciate podiatry evaluation as well. There is no signs of acute active infection no pus no drainage of pus and a majority of the closure and flap if taken. On the distal aspect of the flap there is some areas of necrosis and dehiscence but the remainder the flap is taken fairly well. Sutures were removed at the bedside and the remainder the wound was evaluated and as above slowly healing. The second toe and third toe are viable without signs of significant infection or ischemia. There is good capillary refill. Patient has motor and some sensory. She does have some wound development in between the webspaces which are slowly improving. At this time no further surgical intervention is recommended. Will have to continue with local wound care and allow as much as possible to heal and then continue with debridement as necessary in the areas of dehiscence or slow healing until wound is completely closed. Patient would not benefit from reoperation this early on and needs more time specially is a diabetic to heal as much as possible and then continue with the wound care until completely healed. There is no active infection or concerns viability the second or third toe so would not continue to pursue any further intervention or surgery at this time for them. I discussed with the patient and family in detail the above findings on more than one occasion furthermore I have discussed the wound care plan and limitations such as heel bearing only for the left foot. Unfortunately I feel patient may be somewhat noncompliant as noted to be walking on the forefoot furthermore also on readmission identified to have a limited amount of care provided to the wound despite clear detailed instructions been given upon discharge last time Patient is afebrile without leukocytosis. Recommend continue with localized wound care. IV antibiotics as per infectious disease. Will allow wound to continue to heal and I told the patient and family that this will take few more weeks until the wound and the flap declare themselves but currently stable and doing well. Okay for discharge from surgical standpoint Continue with wound care. Wash left extremity foot daily with soap and water. Okay to apply bacitracin with each dressing change. Gauze dressing in between toes and on wound 3 times a day followed by Kerlix wrap change as needed saturation. Keep leg elevated when possible. Tight glucose control. Dietary restrictions and glucose control as per primary wound evaluated today since sutures removed. proximal part of flap seems to have taken but distal part not. patient must stay off wound of entire flap will dehisce. heel weight bearing only. cont with wound care Jules Jeff Apr 12, 2019 13:53
--- NOTE | 2019-04-12 19:46 | NUR ---
HAND-OFF: Report given to Pascale/RN, Patient is in stable condition, Family at bedside. Endorsed plan of care.
[2019-04-12] MEDS: Dyna-Hex 2% Top Sol 2oz TOPIC SCH (20:00)
--- NOTE | 2019-04-12 20:15 | Infectious Diseases Prog Note ---
Assessment/Plan Problems: (1) Cellulitis Assessment & Plan: of the left foot , with skin sloughing and minimal necrosis , previous culture grew Enterococcus Faecalis, lactobacillus spp and quan albicans , will continue current antibiotics with zosyn and diflucan to cover all these organisms which grew out of her previous cultures for 4 weeks course of treatment since patient is poorly complaint with surgical instruction and at high risk of developing underlying osteomyelitis of the toes . recommend placement in supervised environment for local wound care and iv antibiotics treatment . please monitor weekly labs while on antibiotics with CBC, and CMP . will need PICC line for vermin exterminator antibiotics treatment. D/W RN (2) Diabetes mellitus Assessment & Plan: poorly controlled, recommend tight glycemic control to keep blood glucose between 100-140 (3) Toe amputation status Assessment & Plan: with dry and intact surgical wound, continue local care and dressings as per surgery Subjective Constitutional: Reports: no symptoms HEENT: Reports: no symptoms Respiratory: Reports: no symptoms Breasts: Reports: no symptoms Cardiovascular: Reports: no symptoms Gastrointestinal/Abdominal: Reports: no symptoms Genitourinary: Reports: no symptoms Neurologic: Reports: no symptoms Psychiatric: Reports: no symptoms Skin: Reports: no symptoms Endocrine: Reports: no symptoms Hematologic: Reports: no symptoms Musculoskeletal: Reports: no symptoms Allergies: Coded Allergies: No Known Allergies (Unverified , 03/20/19) Subjective red, erythematous on the second toe , with no toe nail . Objective Vital Signs Last 24 Hour Vital Signs Date Time Temp Pulse Resp B/P (MAP) Pulse Ox O2 Delivery O2 Flow Rate FiO2 04/12/19 16:00 81 04/12/19 16:00 97.5 83 18 121/73 (89) 99 04/12/19 12:00 91 04/12/19 12:00 98.5 87 18 136/80 (98) 99 04/12/19 09:00 Room Air 04/12/19 08:00 83 04/12/19 08:00 98.1 84 18 122/70 (87) 96 04/12/19 04:29 98.2 78 18 126/78 (94) 99 04/12/19 04:00 98.2 78 18 126/78 (94) 98 04/12/19 04:00 78 04/12/19 00:00 98.6 87 18 112/87 (95) 95 04/12/19 00:00 83 04/11/19 21:00 Room Air Height (Feet): 5 Height (Inches): 0.00 Weight (Pounds): 117 General Appearance: WD/WN, no acute distress HEENT: normocephalic, atraumatic, anicteric, mucous membranes moist, PERRL Respiratory/Chest: chest wall non-tender, lungs clear, normal breath sounds, no respiratory distress, no accessory muscle use Cardiovascular: normal peripheral pulses, normal rate, regular rhythm, no gallop/murmur, no JVD Abdomen: normal bowel sounds, soft, non tender, no organomegaly, non distended , no mass, no scars Genitourinary: normal external genitalia Extremities: no cyanosis, no clubbing Skin: no rash, no lesions, other - left foot big toe surgical amputation wound with mild necrosis, no draining, right second toe is less red ad edematous. Neurologic/Psychiatric: [employer] II-XII grossly normal, alert, responsive Lymphatic: no neck adenopathy, no groin adenopathy Musculoskeletal: normal muscle bulk Current Medications Medications (Trade) Dose Ordered Sig/Arnoldo Route PRN Reason Start Time Stop Time Status Last Admin Dose Admin Acetaminophen (Tylenol) 650 mg Q4H PRN ORAL Mild Pain/Temp > 100.5 04/07/19 11:00 05/07/19 10:59 04/10/19 01:51 Acetaminophen/ Hydrocodone Bitart ([place] 5/325) 1 tab Q4H PRN ORAL Moderate Pain (Pain Scale 4-6) 04/07/19 11:00 04/14/19 10:59 04/11/19 00:41 Chlorhexidine Gluconate (Apryl-Hex 2%) 1 applic DAILY@1999 TOPIC 04/10/19 20:00 05/10/19 19:59 04/11/19 21:30 Dextrose (Dextrose 50%) 25 ml Q30M PRN IV Hypoglycemia 04/07/19 11:15 05/07/19 06:44 Dextrose (Dextrose 50%) 50 ml Q30M PRN IV Hypoglycemia 04/07/19 11:15 05/07/19 06:44 Enoxaparin Sodium (Lovenox) 40 mg DAILY SUBQ 04/08/19 09:00 05/07/19 08:59 04/12/19 08:55 Ferrous Sulfate (Feosol) 325 mg THREE TIMES A DAY ORAL 04/09/19 09:00 05/09/19 08:59 04/12/19 17:33 Fluconazole (Diflucan) 400 mg DAILY ORAL 04/12/19 09:00 04/19/19 08:59 04/12/19 08:52 Insulin Aspart (NovoLOG) BEFORE MEALS AND HS SUBQ 04/07/19 11:30 05/07/19 06:29 04/12/19 12:27 Insulin Aspart (NovoLOG) 10 units NOVOTIAC SUBQ 04/12/19 11:50 05/07/19 06:44 04/12/19 17:37 Insulin Detemir (Levemir) 30 units DAILY SUBQ 04/12/19 09:00 05/07/19 08:59 04/12/19 08:54 Morphine Sulfate (Morphine Sulfate) 2 mg Q6H PRN IVP For severe Pain(8-10) 04/07/19 11:00 04/14/19 10:59 Pantoprazole (Protonix) 40 mg DAILY ORAL 04/08/19 09:00 05/07/19 08:59 04/12/19 08:52 Piperacillin Sod/ Tazobactam Sod 3.375 gm/Sodium Chloride 110 ml @ 27.5 mls/hr EVERY 8 HOURS IVPB 04/07/19 14:00 04/16/19 13:59 04/12/19 14:45 Jamie Simpson M.D. Apr 12, 2019 20:15
[2019-04-12] MEDS: HYDROcodone/Acetamin 5/325 tab ORAL PRN (21:32)
[2019-04-13] VITALS: BP 134/63
[2019-04-13 04:00] VITALS: BP 124/76
[2019-04-13] MEDS: Piperacillin/Tazobactam 3.375 GM in NS 110 ML IVPB SCH ×2 (05:42→14:15)
[2019-04-13] MEDS: NovoLOG Insulin Flexpen SUBQ SCH ×4 (05:44→11:25)
--- NOTE | 2019-04-13 06:32 | General Progress Note ---
Assessment/Plan Problem List: (1) Diabetes mellitus ICD Codes: E11.9 - Type 2 diabetes mellitus without complications SNOMED: 80703847 (2) Cellulitis ICD Codes: L03.90 - Cellulitis, unspecified SNOMED: 782423882 Qualifiers: Qualified Codes: L03.116 - Cellulitis of left lower limb (3) Toe amputation status ICD Codes: S98.139A - Complete traumatic amputation of one unspecified lesser toe, initial encounter SNOMED: 127489037 Assessment/Plan: continue Levemir 30 units daily continue Novolog 10 units ac tid continue NISS ac / hs Subjective Allergies: Coded Allergies: No Known Allergies (Unverified , 03/20/19) All Systems: reviewed and negative except above Subjective events noted fasting glucose improved Item Value Date Time Bedside Blood Glucose 170 mg/dl H 04/13/19 0544 Bedside Blood Glucose 269 mg/dl H 04/12/19 2121 Bedside Blood Glucose 83 mg/dl 04/12/19 1737 Bedside Blood Glucose 243 mg/dl H 04/12/19 1227 Bedside Blood Glucose 384 mg/dl H 04/12/19 0854 Bedside Blood Glucose 200 mg/dl H 04/12/19 0648 Objective Last 24 Hour Vital Signs Date Time Temp Pulse Resp B/P (MAP) Pulse Ox O2 Delivery O2 Flow Rate FiO2 04/13/19 04:00 98.2 74 16 124/76 (92) 99 04/13/19 04:00 81 04/13/19 03:50 81 04/13/19 00:00 98.4 74 18 134/63 (86) 100 04/12/19 23:52 75 04/12/19 21:00 Room Air 04/12/19 20:00 98.2 85 18 146/78 (100) 99 04/12/19 19:32 85 04/12/19 16:00 81 04/12/19 16:00 97.5 83 18 121/73 (89) 99 04/12/19 12:00 91 04/12/19 12:00 98.5 87 18 136/80 (98) 99 04/12/19 09:00 Room Air 04/12/19 08:00 83 04/12/19 08:00 98.1 84 18 122/70 (87) 96 Intake and Output 04/12/19 04/13/19 19:00 07:00 Intake Total 730 ml 238.5 ml Balance 730 ml 238.5 ml Intake Oral 730 ml 120 ml IV Total 118.5 ml # Voids 2 2 # Bowel Movements 1 Height (Feet): 5 Height (Inches): 0.00 Weight (Pounds): 117 General Appearance: no apparent distress Neck: normal alignment Cardiovascular: normal rate Respiratory/Chest: lungs clear Abdomen: normal bowel sounds Objective Current Medications Medications (Trade) Dose Ordered Sig/Arnoldo Route PRN Reason Start Time Stop Time Status Last Admin Dose Admin Acetaminophen (Tylenol) 650 mg Q4H PRN ORAL Mild Pain/Temp > 100.5 04/07/19 11:00 05/07/19 10:59 04/10/19 01:51 Acetaminophen/ Hydrocodone Bitart ([place] 5/325) 1 tab Q4H PRN ORAL Moderate Pain (Pain Scale 4-6) 04/07/19 11:00 04/14/19 10:59 04/12/19 21:32 Chlorhexidine Gluconate (Apryl-Hex 2%) 1 applic DAILY@2000 TOPIC 04/10/19 20:00 05/10/19 19:59 04/11/19 21:30 Dextrose (Dextrose 50%) 25 ml Q30M PRN IV Hypoglycemia 04/07/19 11:15 05/07/19 06:44 Dextrose (Dextrose 50%) 50 ml Q30M PRN IV Hypoglycemia 04/07/19 11:15 05/07/19 06:44 Enoxaparin Sodium (Lovenox) 40 mg DAILY SUBQ 04/08/19 09:00 05/07/19 08:59 04/12/19 08:55 Ferrous Sulfate (Feosol) 325 mg THREE TIMES A DAY ORAL 04/09/19 09:00 05/09/19 08:59 04/12/19 17:33 Fluconazole (Diflucan) 400 mg DAILY ORAL 04/12/19 09:00 04/19/19 08:59 04/12/19 08:52 Insulin Aspart (NovoLOG) BEFORE MEALS AND HS SUBQ 04/07/19 11:30 05/07/19 06:29 04/13/19 05:44 Insulin Aspart (NovoLOG) 10 units NOVOTIAC SUBQ 04/12/19 11:50 05/07/19 06:44 04/13/19 05:44 Insulin Detemir (Levemir) 30 units DAILY SUBQ 04/12/19 09:00 05/07/19 08:59 04/12/19 08:54 Morphine Sulfate (Morphine Sulfate) 2 mg Q6H PRN IVP For severe Pain(8-10) 04/07/19 11:00 04/14/19 10:59 Pantoprazole (Protonix) 40 mg DAILY ORAL 04/08/19 09:00 05/07/19 08:59 04/12/19 08:52 Piperacillin Sod/ Tazobactam Sod 3.375 gm/Sodium Chloride 110 ml @ 27.5 mls/hr EVERY 8 HOURS IVPB 04/07/19 14:00 04/16/19 13:59 04/13/19 05:42 Lornezo Gay MD Apr 13, 2019 06:32
--- NOTE | 2019-04-13 06:33 | Hematology/Onc Progress Note ---
Assessment/Plan Assessment/Plan Assessment and Recs: # Thrombocytosis - likely related to reactive process (and/or underlying infection) from toe as well as poor DM management by patient, noncompliance --> Continue to monitor for improvement --> Trend CBC as needed plt 692-->656k-->580k --> If continues to be elevated, consider to send for KB-2 --> Smear reviewed and no abnormalities noted. --> less likely is a myeloproliferative disorder --> noncompliant with labs # Anemia of chronic disease due to underlying chronic medical issues, multifactorial, esr elevated due to infection/chronic inflamm state --> Anemia workup has been ordered, ferriin is 100-200 range, cw acd --> No evidence of hemolysis is noted, peripheral smear has been reviewed. --> Hgb goal >7. Transfuse prn. --> Epogen or iron at this time is not particularly indicated --> Medications have been reviewed --> low threshold for gi evaluation in case has occult + --> hgb trend 10.2-->10.5-->10.5 # Cellulitis of the lower ext --> on abx broad spectrum vanc/zosyn-->zosyn/diflucan --> per surg, id --> hx osteomyelits of her left foot. She had partial amputation. # DM2 poorly controlled --> a1c 13.2, goal <8 --> accuchecks qac and qhs, low dose iss # Dvt ppx lmwh The timing of this note does not necessarily reflect the time of the patient was seen. Greatly appreciate consultation. Subjective Constitutional: Denies: no symptoms, chills, fever, malaise, weakness, other Cardiovascular: Denies: no symptoms, chest pain, edema, irregular heart rate, lightheadedness, palpitations, syncope, other Respiratory: Denies: no symptoms, cough, shortness of breath, SOB with excertion, SOB at rest, sputum, wheezing, other Gastrointestinal/Abdominal: Denies: no symptoms, abdomen distended, abdominal pain, black stools, tarry stools, blood in stool, constipated, diarrhea, difficulty swallowing, nausea, poor appetite, poor fluid intake, rectal bleeding , vomiting, other Genitourinary: Denies: no symptoms, burning, discharge, frequency, flank pain, hematuria, incontinence, pain, urgency, other Neurologic/Psychiatric: Denies: no symptoms, anxiety, depressed, emotional problems, headache, numbness, paresthesia, pre-existing deficit, seizure, tingling, tremors, weakness, other Endocrine: Denies: no symptoms, excessive sweating, flushing, intolerance to cold, intolerance to heat, increased hunger, increased thirst, increased urine, unexplained weight gain, unexplained weight loss, other Allergies: Coded Allergies: No Known Allergies (Unverified , 03/20/19) Subjective 04/08: no events, cbc pendng, on abx, no f/c, pain meds 04/09: no bleeding,no events, no f/c, on abx 04/10: no bleeding, no chills, or night sweats reported, bp is better 04/12: no events, no bleeding, no f/c, wound care this am 04/13: 2nd toe remains inflammed, no f/c, onabx per id Objective Objective Current Medications Medications (Trade) Dose Ordered Sig/Arnoldo Route PRN Reason Start Time Stop Time Status Last Admin Dose Admin Acetaminophen (Tylenol) 650 mg Q4H PRN ORAL Mild Pain/Temp > 100.5 04/07/19 11:00 05/07/19 10:59 04/10/19 01:51 Acetaminophen/ Hydrocodone Bitart ([place] 5/325) 1 tab Q4H PRN ORAL Moderate Pain (Pain Scale 4-6) 04/07/19 11:00 04/14/19 10:59 04/12/19 21:32 Chlorhexidine Gluconate (Apryl-Hex 2%) 1 applic DAILY@2000 TOPIC 04/10/19 20:00 05/10/19 19:59 04/11/19 21:30 Dextrose (Dextrose 50%) 25 ml Q30M PRN IV Hypoglycemia 04/07/19 11:15 05/07/19 06:44 Dextrose (Dextrose 50%) 50 ml Q30M PRN IV Hypoglycemia 04/07/19 11:15 05/07/19 06:44 Enoxaparin Sodium (Lovenox) 40 mg DAILY SUBQ 04/08/19 09:00 05/07/19 08:59 04/12/19 08:55 Ferrous Sulfate (Feosol) 325 mg THREE TIMES A DAY ORAL 04/09/19 09:00 05/09/19 08:59 04/12/19 17:33 Fluconazole (Diflucan) 400 mg DAILY ORAL 04/12/19 09:00 04/19/19 08:59 04/12/19 08:52 Insulin Aspart (NovoLOG) BEFORE MEALS AND HS SUBQ 04/07/19 11:30 05/07/19 06:29 04/13/19 05:44 Insulin Aspart (NovoLOG) 10 units NOVOTIAC SUBQ 04/12/19 11:50 05/07/19 06:44 04/13/19 05:44 Insulin Detemir (Levemir) 30 units DAILY SUBQ 04/12/19 09:00 05/07/19 08:59 04/12/19 08:54 Morphine Sulfate (Morphine Sulfate) 2 mg Q6H PRN IVP For severe Pain(8-10) 04/07/19 11:00 04/14/19 10:59 Pantoprazole (Protonix) 40 mg DAILY ORAL 04/08/19 09:00 05/07/19 08:59 04/12/19 08:52 Piperacillin Sod/ Tazobactam Sod 3.375 gm/Sodium Chloride 110 ml @ 27.5 mls/hr EVERY 8 HOURS IVPB 04/07/19 14:00 04/16/19 13:59 04/13/19 05:42 Last 24 Hour Vital Signs Date Time Temp Pulse Resp B/P (MAP) Pulse Ox O2 Delivery O2 Flow Rate FiO2 04/13/19 04:00 98.2 74 16 124/76 (92) 99 04/13/19 04:00 81 04/13/19 03:50 81 04/13/19 00:00 98.4 74 18 134/63 (86) 100 04/12/19 23:52 75 04/12/19 21:00 Room Air 04/12/19 20:00 98.2 85 18 146/78 (100) 99 04/12/19 19:32 85 04/12/19 16:00 81 04/12/19 16:00 97.5 83 18 121/73 (89) 99 04/12/19 12:00 91 04/12/19 12:00 98.5 87 18 136/80 (98) 99 04/12/19 09:00 Room Air 04/12/19 08:00 83 04/12/19 08:00 98.1 84 18 122/70 (87) 96 04/12/19 04:29 98.2 78 18 126/78 (94) 99 04/12/19 04:00 98.2 78 18 126/78 (94) 98 04/12/19 04:00 78 04/12/19 00:00 98.6 87 18 112/87 (95) 95 04/12/19 00:00 83 04/11/19 21:00 Room Air 04/11/19 20:00 85 04/11/19 20:00 98.3 85 18 127/66 (86) 99 04/11/19 16:00 98.1 83 18 113/74 (87) 100 04/11/19 16:00 80 04/11/19 12:00 82 04/11/19 12:00 97.3 84 18 134/72 (92) 100 04/11/19 09:00 Room Air 04/11/19 08:02 99.6 92 18 96/58 (71) 93 04/11/19 08:00 92 Intake and Output 04/12/19 04/13/19 19:00 07:00 Intake Total 730 ml 238.5 ml Balance 730 ml 238.5 ml Intake Oral 730 ml 120 ml IV Total 118.5 ml # Voids 2 2 # Bowel Movements 1 Height (Feet): 5 Height (Inches): 0.00 Weight (Pounds): 117 Objective Physical Exam: Vitals: reviewed General Appearance: NAD HEENT: normocephalic, atraumatic Neck: non-tender, normal alignment Respiratory/Chest: normal breath sounds bilaterally Cardiovascular/Chest: normal peripheral pulses, normal rate Abdomen: normal bowel sounds, soft, nontender Extremities: normal range of motion left foot, with dressing, per pictures, surgical site over first mtp looks clean, 2nd toe with erythemia++ Can Burns MD Apr 13, 2019 06:33
--- NOTE | 2019-04-13 07:27 | NUR ---
HAND-OFF: Report given to Domenica Bolton RN.Patient stable.
--- NOTE | 2019-04-13 07:31 | NUR ---
NURSE NOTES: Nurse report given by SANTOS Ashraf. Patient's awake in bed, AO x 4, denies pain. Bed low and locked, call light within reach, safety precaution is on, side rails x 2. Patient has surgical dressing on L foot. IV is saline locked, patent and asymptomatic. Will continue to monitor.
[2019-04-13 07:33] LABS: EOSINOPHILS % (AUTO) 3.9 % (0.0-3.0); HEMATOCRIT 30.1 % (37.0-47.0); HEMOGLOBIN 10.1 G/DL (12.0-16.0); LYMPHOCYTES % (AUTO) 30.4 % (20.0-45.0); MEAN CORPUSCULAR VOLUME 89 FL (80-99); MONOCYTES % (AUTO) 7.9 % (1.0-10.0); PLATELET COUNT 469 K/UL (150-450); RED BLOOD COUNT 3.38 M/UL (4.20-5.40); RED CELL DISTRIBUTION WIDTH 12.5 % (11.6-14.8); WHITE BLOOD COUNT 7.4 K/UL (4.8-10.8)
[2019-04-13 08:00] VITALS: BP 145/78
[2019-04-13] MEDS: Fluconazole 100mg tab ORAL SCH (09:29)
[2019-04-13] MEDS: Levemir Flexpen SUBQ SCH (09:31)
[2019-04-13] MEDS: Enoxaparin 40mg Inj SUBQ SCH (09:31)
--- NOTE | 2019-04-13 10:09 | Surgery Progress Note ---
Surgery Progress Note Subjective Additional Comments no acute events stable PICC pending labs okay Objective Last 24 Hour Vital Signs Date Time Temp Pulse Resp B/P (MAP) Pulse Ox O2 Delivery O2 Flow Rate FiO2 04/13/19 04:00 98.2 74 16 124/76 (92) 99 04/13/19 04:00 81 04/13/19 03:50 81 04/13/19 00:00 98.4 74 18 134/63 (86) 100 04/12/19 23:52 75 04/12/19 21:00 Room Air 04/12/19 20:00 98.2 85 18 146/78 (100) 99 04/12/19 19:32 85 04/12/19 16:00 81 04/12/19 16:00 97.5 83 18 121/73 (89) 99 04/12/19 12:00 91 04/12/19 12:00 98.5 87 18 136/80 (98) 99 I&O Intake and Output 04/12/19 04/13/19 19:00 07:00 Intake Total 730 ml 238.5 ml Balance 730 ml 238.5 ml Intake Oral 730 ml 120 ml IV Total 118.5 ml # Voids 2 2 # Bowel Movements 1 Dressing: dry Wound: clean Cardiovascular: RSR Respiratory: clear Abdomen: soft, flat, non-tender, present bowel sounds Extremities: other Laboratory Tests Test 04/13/19 06:20 White Blood Count 7.4 K/UL (4.8-10.8) Red Blood Count 3.38 M/UL (4.20-5.40) L Hemoglobin 10.1 G/DL (12.0-16.0) L Hematocrit 30.1 % (37.0-47.0) L Mean Corpuscular Volume 89 FL (80-99) Mean Corpuscular Hemoglobin 29.8 PG (27.0-31.0) Mean Corpuscular Hemoglobin Concent 33.4 G/DL (32.0-36.0) Red Cell Distribution Width 12.5 % (11.6-14.8) Platelet Count 469 K/UL (150-450) H Mean Platelet Volume 4.6 FL (6.5-10.1) L Neutrophils (%) (Auto) 57.0 % (45.0-75.0) Lymphocytes (%) (Auto) 30.4 % (20.0-45.0) Monocytes (%) (Auto) 7.9 % (1.0-10.0) Eosinophils (%) (Auto) 3.9 % (0.0-3.0) H Basophils (%) (Auto) 1.0 % (0.0-2.0) Plan Problems: (1) Cellulitis Assessment & Plan: 63-year-old female with uncontrolled diabetes and recent left great toe necrotic gangrenous infection status post amputation with flap. Patient was discharged in stable condition and has been home since with family and localized wound care. Toenail of the second ray has fallen off and concerning therefore came in for evaluation. Notes some edema in the toe and is concerned that the infection may be spreading. When patient seen at the bedside the wound bed was evaluated. Wound is overall healing pretty well from the amputation and the flap is taken fairly well except some distal portions of the flap that may be nonviable but currently still holding without any active infection. There was edema of the whole foot and toe prior to discharge which seems to be improved. As the edema is improving and cellulitis improving of the left foot there is some slough of nonviable epidermis that is noted. Furthermore the edema the second ray has lots of the nailbed to fall off and some slough tissue but the toe itself is viable with good capillary refill. Patient has motor and all remaining rays and decreased neuro and sensory as prior given her diabetes. Had a long discussion with the patient and the family at bedside. Patient noted to be walking around on her forefoot despite being told in Nepali and clear instructions to heal ambulate only. Patient's wound evaluated and appreciate podiatry evaluation as well. There is no signs of acute active infection no pus no drainage of pus and a majority of the closure and flap if taken. On the distal aspect of the flap there is some areas of necrosis and dehiscence but the remainder the flap is taken fairly well. Sutures were removed at the bedside and the remainder the wound was evaluated and as above slowly healing. The second toe and third toe are viable without signs of significant infection or ischemia. There is good capillary refill. Patient has motor and some sensory. She does have some wound development in between the webspaces which are slowly improving. At this time no further surgical intervention is recommended. Will have to continue with local wound care and allow as much as possible to heal and then continue with debridement as necessary in the areas of dehiscence or slow healing until wound is completely closed. Patient would not benefit from reoperation this early on and needs more time specially is a diabetic to heal as much as possible and then continue with the wound care until completely healed. There is no active infection or concerns viability the second or third toe so would not continue to pursue any further intervention or surgery at this time for them. I discussed with the patient and family in detail the above findings on more than one occasion furthermore I have discussed the wound care plan and limitations such as heel bearing only for the left foot. Unfortunately I feel patient may be somewhat noncompliant as noted to be walking on the forefoot furthermore also on readmission identified to have a limited amount of care provided to the wound despite clear detailed instructions been given upon discharge last time Patient is afebrile without leukocytosis. Recommend continue with localized wound care. IV antibiotics as per infectious disease. Will allow wound to continue to heal and I told the patient and family that this will take few more weeks until the wound and the flap declare themselves but currently stable and doing well. Okay for discharge from surgical standpoint Continue with wound care. Wash left extremity foot daily with soap and water. Okay to apply bacitracin with each dressing change. Gauze dressing in between toes and on wound 3 times a day followed by Kerlix wrap change as needed saturation. Keep leg elevated when possible. Tight glucose control. Dietary restrictions and glucose control as per primary wound evaluated today since sutures removed. proximal part of flap seems to have taken but distal part not. patient must stay off wound of entire flap will dehisce. heel weight bearing only. cont with wound care Jules Jeff Apr 13, 2019 10:09
[2019-04-13 12:00] VITALS: BP 163/91
--- NOTE | 2019-04-13 12:19 | General Progress Note ---
Assessment/Plan Assessment/Plan: S: I am ok O: seems comfortable, PHYSICAL EXAMINATION: HEAD AND NECK: Atraumatic and normocephalic. CHEST: Clear to auscultation.HEART: S1, S2. Regular rate and rhythm. ABDOMEN: Soft. No organomegaly.MUSCULOSKELETAL: Positive for the postsurgical changes on the left foot. Status post left-sided great toe TMA. LABORATORY DATA: Labs dated April 08, 2019, ASSESSMENT: 1. Acute osteomyelitis of the left great greater toe, status post TMA. 2. Diabetes type 2, uncontrolled. 3. Hyperkalemia. 4. Hyponatremia. 5. GI and DVT prophylaxis. PLAN OF CARE: Notes from Podiatry and Infectious reviewed. Will be discharged on IV abx Subjective Allergies: Coded Allergies: No Known Allergies (Unverified , 03/20/19) Objective Last 24 Hour Vital Signs Date Time Temp Pulse Resp B/P (MAP) Pulse Ox O2 Delivery O2 Flow Rate FiO2 04/13/19 12:00 97.2 77 20 163/91 (115) 100 04/13/19 09:00 Room Air 04/13/19 08:00 97.0 71 18 145/78 (100) 98 04/13/19 08:00 78 04/13/19 04:00 98.2 74 16 124/76 (92) 99 04/13/19 04:00 81 04/13/19 03:50 81 04/13/19 00:00 98.4 74 18 134/63 (86) 100 04/12/19 23:52 75 04/12/19 21:00 Room Air 04/12/19 20:00 98.2 85 18 146/78 (100) 99 04/12/19 19:32 85 04/12/19 16:00 81 04/12/19 16:00 97.5 83 18 121/73 (89) 99 Intake and Output 04/12/19 04/13/19 19:00 07:00 Intake Total 730 ml 238.5 ml Balance 730 ml 238.5 ml Intake Oral 730 ml 120 ml IV Total 118.5 ml # Voids 2 2 # Bowel Movements 1 Laboratory Tests 04/13/19 06:20: White Blood Count 7.4, Red Blood Count 3.38L, Hemoglobin 10.1L, Hematocrit 30.1L , Mean Corpuscular Volume 89, Mean Corpuscular Hemoglobin 29.8, Mean Corpuscular Hemoglobin Concent 33.4, Red Cell Distribution Width 12.5, Platelet Count 469H, Mean Platelet Volume 4.6L, Neutrophils (%) (Auto) 57.0, Lymphocytes (%) (Auto) 30.4, Monocytes (%) (Auto) 7.9, Eosinophils (%) (Auto) 3.9H, Basophils (%) (Auto) 1.0 Height (Feet): 5 Height (Inches): 0.00 Weight (Pounds): 117 Gaby Krishnan MD Apr 13, 2019 12:19
--- NOTE | 2019-04-13 13:24 | NUR ---
PICTURE [employer] SI; OSTEOMYELITIS T. 97.2 HR 77 RR 20 B/P 163/91 RA BUN 21 IS; ZOSYN IV PICC LINE INSERTION DC PLANNING TELE STATUS
--- NOTE | 2019-04-13 13:25 | NUR ---
[employer] NOTES IV ATB ORDER FAXED TO [facility]. WILL FOLLOW UP WITH ACCEPTANCE.
[2019-04-13] MEDS ORDERED: Heparin1,000 units/500ml Premix(Conc:2 units/ml) IV PRN (13:45)
[2019-04-13] MEDS ORDERED: Lidocaine 1% Plain 30 ml INJ PRN (13:45)
--- NOTE | 2019-04-13 14:51 | NUR ---
NURSE NOTES: Patient went down for PICC placement procedure. Patient's in stable condition.
--- NOTE | 2019-04-13 15:04 | NUR ---
*-* INSURANCE *-* ALL AVAILABLE CLINICALS AND REVIEW HAVE BEEN FAXED TO: YOLIS/MELISSA NO FURNITURE DELIVERY DRIVER ASSIGNED AT THIS TIME. PLEASE FAX THE REVIEW/CLINICAL P- [phone] F- [phone]....REVIEW/CLINICAL
--- NOTE | 2019-04-13 15:15 | Infectious Diseases Prog Note ---
Assessment/Plan Problems: (1) Cellulitis Assessment & Plan: of the left foot , with skin sloughing and minimal necrosis , previous culture grew Enterococcus Faecalis, lactobacillus spp and quan albicans , will continue current antibiotics with zosyn and diflucan to cover all these organisms which grew out of her previous cultures for 4 weeks course of treatment since patient is poorly complaint with surgical instruction and at high risk of developing underlying osteomyelitis of the toes . recommend placement in supervised environment for local wound care and iv antibiotics treatment . please monitor weekly labs while on antibiotics with CBC, and CMP . 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 D/W RN (2) Diabetes mellitus Assessment & Plan: poorly controlled, recommend tight glycemic control to keep blood glucose between 100-140 (3) Toe amputation status Assessment & Plan: with dry and intact surgical wound, continue local care and dressings as per surgery Subjective Constitutional: Reports: no symptoms HEENT: Reports: no symptoms Respiratory: Reports: no symptoms Breasts: Reports: no symptoms Cardiovascular: Reports: no symptoms Gastrointestinal/Abdominal: Reports: no symptoms Genitourinary: Reports: no symptoms Neurologic: Reports: no symptoms Psychiatric: Reports: no symptoms Skin: Reports: no symptoms Endocrine: Reports: no symptoms Hematologic: Reports: no symptoms Musculoskeletal: Reports: no symptoms Allergies: Coded Allergies: No Known Allergies (Unverified , 03/20/19) Subjective red, erythematous on the second toe , with no toe nail . Objective Vital Signs Last 24 Hour Vital Signs Date Time Temp Pulse Resp B/P (MAP) Pulse Ox O2 Delivery O2 Flow Rate FiO2 04/13/19 12:00 97.2 77 20 163/91 (115) 100 04/13/19 12:00 77 04/13/19 09:00 Room Air 04/13/19 08:00 97.0 71 18 145/78 (100) 98 04/13/19 08:00 78 04/13/19 04:00 98.2 74 16 124/76 (92) 99 04/13/19 04:00 81 04/13/19 03:50 81 04/13/19 00:00 98.4 74 18 134/63 (86) 100 04/12/19 23:52 75 04/12/19 21:00 Room Air 04/12/19 20:00 98.2 85 18 146/78 (100) 99 04/12/19 19:32 85 04/12/19 16:00 81 04/12/19 16:00 97.5 83 18 121/73 (89) 99 Height (Feet): 5 Height (Inches): 0.00 Weight (Pounds): 117 General Appearance: WD/WN, no acute distress HEENT: normocephalic, atraumatic, anicteric, mucous membranes moist, PERRL Respiratory/Chest: chest wall non-tender, lungs clear, normal breath sounds, no respiratory distress, no accessory muscle use Cardiovascular: normal peripheral pulses, normal rate, regular rhythm, no gallop/murmur, no JVD Abdomen: normal bowel sounds, soft, non tender, no organomegaly, non distended , no mass, no scars Genitourinary: normal external genitalia Extremities: no cyanosis, no clubbing Skin: no rash, no lesions, other - left foot big toe surgical amputation wound dry with minimal necrosis Neurologic/Psychiatric: rumper II-XII grossly normal, alert, responsive Lymphatic: no neck adenopathy, no groin adenopathy Musculoskeletal: normal muscle bulk, no effusion Laboratory Tests Test 04/13/19 06:20 White Blood Count 7.4 K/UL (4.8-10.8) Red Blood Count 3.38 M/UL (4.20-5.40) L Hemoglobin 10.1 G/DL (12.0-16.0) L Hematocrit 30.1 % (37.0-47.0) L Mean Corpuscular Volume 89 FL (80-99) Mean Corpuscular Hemoglobin 29.8 PG (27.0-31.0) Mean Corpuscular Hemoglobin Concent 33.4 G/DL (32.0-36.0) Red Cell Distribution Width 12.5 % (11.6-14.8) Platelet Count 469 K/UL (150-450) H Mean Platelet Volume 4.6 FL (6.5-10.1) L Neutrophils (%) (Auto) 57.0 % (45.0-75.0) Lymphocytes (%) (Auto) 30.4 % (20.0-45.0) Monocytes (%) (Auto) 7.9 % (1.0-10.0) Eosinophils (%) (Auto) 3.9 % (0.0-3.0) H Basophils (%) (Auto) 1.0 % (0.0-2.0) Current Medications Medications (Trade) Dose Ordered Sig/Arnoldo Route PRN Reason Start Time Stop Time Status Last Admin Dose Admin Acetaminophen (Tylenol) 650 mg Q4H PRN ORAL Mild Pain/Temp > 100.5 04/07/19 11:00 05/07/19 10:59 04/10/19 01:51 Acetaminophen/ Hydrocodone Bitart ([place] 5/325) 1 tab Q4H PRN ORAL Moderate Pain (Pain Scale 4-6) 04/07/19 11:00 04/14/19 10:59 04/12/19 21:32 Chlorhexidine Gluconate (Apryl-Hex 2%) 1 applic DAILY@2000 04/13/19 20:00 05/13/19 19:59 Dextrose (Dextrose 50%) 25 ml Q30M PRN IV Hypoglycemia 04/07/19 11:15 05/07/19 06:44 Dextrose (Dextrose 50%) 50 ml Q30M PRN IV Hypoglycemia 04/07/19 11:15 05/07/19 06:44 Enoxaparin Sodium (Lovenox) 40 mg DAILY SUBQ 04/08/19 09:00 05/07/19 08:59 04/13/19 09:31 Ferrous Sulfate (Feosol) 325 mg THREE TIMES A DAY ORAL 04/09/19 09:00 05/09/19 08:59 04/13/19 12:34 Fluconazole (Diflucan) 400 mg DAILY ORAL 04/12/19 09:00 04/19/19 08:59 04/13/19 09:29 Heparin Sodium/ Sodium Chloride (Heparin 1000 units/500ml Premix) 1,000 unit ONCE PRN IV PICC 04/13/19 13:45 04/13/19 23:59 Insulin Aspart (NovoLOG) BEFORE MEALS AND HS SUBQ 04/07/19 11:30 05/07/19 06:29 04/13/19 11:24 Insulin Aspart (NovoLOG) 10 units NOVOTIAC SUBQ 04/12/19 11:50 05/07/19 06:44 04/13/19 11:25 Insulin Detemir (Levemir) 30 units DAILY SUBQ 04/12/19 09:00 05/07/19 08:59 04/13/19 09:31 Lidocaine HCl (Xylocaine 1% 30ml) 30 ml ONCE PRN INJ PICC 04/13/19 13:45 04/13/19 23:59 Morphine Sulfate (Morphine Sulfate) 2 mg Q6H PRN IVP For severe Pain(8-10) 04/07/19 11:00 04/14/19 10:59 Pantoprazole (Protonix) 40 mg DAILY ORAL 04/08/19 09:00 05/07/19 08:59 04/13/19 09:29 Piperacillin Sod/ Tazobactam Sod 3.375 gm/Sodium Chloride 110 ml @ 27.5 mls/hr EVERY 8 HOURS IVPB 04/07/19 14:00 05/05/19 23:59 04/13/19 14:15 Jamie Simpson M.D. Apr 13, 2019 15:15
[2019-04-13] MEDS ORDERED: FLUCONAZOLE100 MG ORAL (15:41)
[2019-04-13] MEDS ORDERED: ZOSYN 3.373.375 GM/1 IVPB (15:42)
--- NOTE | 2019-04-13 15:46 | Diagnostic Imaging Report ---
Indication: long term care phlebotomist venous access Findings: After the indications, procedure, risks, complications, and alternatives of the procedure were explained, written informed consent was obtained. The right upper extremity was prepped with alcohol. All elements of maximal sterile barrier technique were followed including usage of a cap, mask, sterile gown, sterile gloves, hand hygiene and a large sterile sheet. Sonographic evaluation of the upper extremity was performed demonstrating a patent and compressible basilic vein. Access was obtained under real-time ultrasound guidance (with utilization of sterile gel and sterile probe cover) and digital image was saved and archived. An .018 wire was introduced. Needle exchanged for a 5 Ethiopian peel-away sheath. Measurements were obtained. A 5 Ethiopian dual-lumen Power PICC line catheter was cut to 40 cm and introduced over the wire. Peel-away sheath and wire were removed.Catheter was secured to the skin using 2-0 Prolene suture. Both ports aspirate and flush easily. A single fluoroscopic image shows the distal tip in the superior vena cava. Total fluoroscopic time was 8 seconds. Fluoroscopic time 35 seconds. Impression: Successful placement of an upper extremity PICC line catheter
--- NOTE | 2019-04-13 15:52 | NUR ---
*-* DISCHARGE PLANNING *-* PATIENT HAS BEEN REFERRED TO: [facility] F: [phone] Addendum: 04/13/19 at 1611 by TOYA MCDANIELS CM [facility] P: [phone] f: [phone]
[2019-04-13 16:00] VITALS: BP 157/87
--- NOTE | 2019-04-13 16:30 | NUR ---
NURSE NOTES: Patient's getting discharged Per Dr. Krishnan. Patient got PICC placement and is cleared to go home with PICC and continue antibiotic outpatient per Dr. Simpson request. Patient's stable, AO x 4, denies pain, no s/s of distress or SOB. Patient's belonging list and discharge document went over with patient and signed by patient. ID is removed and discarded properly, IV is removed, bus driver/monitor is removed. Patient is transported by wheelchair to her private vehicle, assisted to go home by patient family members. PICC line is flushed well, patent and asymptomatic. Patient is off the floor at 1630. Charge nurse and microbiology technician aware.
--- NOTE | 2019-04-13 17:30 | NUR ---
PATIENT DAY COORDINATOR NOTES SPOKE WITH SHANIQUA FROM [facility], MADE AWARE OF [facility] SUPPLYING THE IV ATB FOR PT. [facility] TO SUPPLY NURSING. BOTH TO CONTACT PT FOR DELIVERY TIME. [facility] [phone] J[facility]ANIT[facility] LIM= [phone]
[2019-04-13] MEDS ORDERED: Dyna-Hex 2% Top Sol 2oz TOPIC SCH (20:00)
--- NOTE | 2019-04-13 20:33 | Discharge Summary ---
Discharge Summary Discharge Summary _ DATE OF ADMISSION: 04/07/2019 DATE OF DISCHARGE: 04/13/2019 DISCHARGED BY: Dr Krishnan REASON FOR ADMISSION: 63 years old female with past medical history of uncontrolled diabetes mellitus , presented with complaint of left toe infection. Patient had recent left foot great toe transmetatarsal amputation due to acute osteomyelitis. Patient reported very erythematous second toe, now spreading to the third toe. No drainage. Patient denied fever and chills. Pain reported 7 out of 10. No reported trauma. Physical examination revealed tenderness on palpation. Vital signs were stable. Laboratory work-up revealed no leukocytosis, hemoglobin 11.1, hematocrit 32.7, platelet count 698. Lactic acid 1.3. Sodium 132, potassium 5.5. BUN 27, creatinine 1.1. Glucose 337. Urinalysis revealed +3 glucose, no evidence of urinary tract infection. Patient started on antibiotics , based on culture from last admission and subsequently admitted for further management. CONSULTANTS: pulmonary Dr.Naraghi ROBB specialist Dr. Simpson stator tester Dr. Gay specimen boss/oncologist Dr. Burns surgery Dr. Jeff podiatry Dr. Pate [facility] COURSE: Patient admitted and started on empiric antibiotics under infectious disease specialist recommendation. Arterial duplex of the left leg revealed no evidence of significant stenosis or occlusion. Mild calcification noted. X-ray of the left foot revealed: first toe has been resected at the base of the metatarsal. Small vessel arterial calcification noted within the foot. Surgeon seen and evaluated patient . Patient with uncontrolled diabetes and recent left great toe necrotic gangrenous infection, status post amputation with the flap. On the time of discharge patient was sent home with wound care. Patient was ambulated on the forefoot despite being told in clear instructions to ambulate on heel. At this time surgeon did not recommend any further surgical intervention. Local wound care and IV antibiotics continued. Patient remained afebrile , no leukocytosis. Surgeon recommended continue with localized wound care. Plan was to allow wound to continue healing , which will take few more weeks . Sutures were removed. Proximal part of the flap have taken , but the distal part not. Surgeon reinforced to stay off wound and heel ambulation/weight bearing only, otherwise entire flap will dehisce. Patient was strongly encouraged to stay off the wound and heel ambulation only. Wound care was detailed by surgeon and provided in the hospital as per surgeon recommendations. Continue wound care at home per [facility] nursing. Trade Marker seen and evaluated patient . Trade Marker concurred with the surgeon recommendations to continue antibiotic and wound care. Infectious disease specialist followed. Previous wound culture grew Enterococcus faecalis , lactobacillus and Maria Teresa. Patient was on Zosyn and Diflucan to cover all these organisms. Patient at high risk of developing underlying osteomyelitis of the toe. Blood cultures were negative. Patient had PICC line placement for long-term antibiotic treatment. Patient was discharged on antibiotic as per ID specialist recommendation to complete the course. Card Setter followed. Hemoglobin A1c 13.2, clearly not at goal. Diabetic teaching provided along with diabetic diet. Blood sugar was managed with long-acting Levemir , pre-meal short acting NovoLog and sliding scale of insulin as needed. Patient will need further optimization of antiglycemic regimen as outpatient. Patient was counseled to comply woth medications regimen and diabetic diet. Patient initially developed hypotension, likely due to hypovolemia. Patient was on the IV fluids. Blood pressure improved and stabilized. Hemodynamic and respiratory status stabilized. DVT prophylaxis provided. Oncologist /specimen boss follow. Patient noted to have thrombocytosis, likely reactive process . Platelet count was closely monitored, trending down. Peripheral smear was reviewed and no abnormalities were noted. Hemoglobin and hematocrit were closely monitored. Patient had anemia of chronic disease due to underlying chronic medical issues. Hemoglobin and hematocrit were closely monitored with goal to keep hemoglobin above 7. No evidence of hemolysis noted. Stool for occult blood was negative. Renal parameters and electrolytes were closely monitored. Electrolytes corrected as needed , and nephrotoxins were avoided. Prior to discharge sodium 138, potassium 4.4. BUN from 27 down to 21 , creatinine remained stable. Pain management was addressed. Supportive care provided. GI prophylaxis provided. Patient clinically stabilized and was ready for discharge home with home health services for IV antibiotic to complete the course as per ID specialist recommendations. FINAL DIAGNOSES:. Status post left hallux amputation due to acute osteomyelitis Cellulitis left foot Diabetes mellitus type 2, uncontrolled Hypotension due to hypovolemia -resolved Thrombocytosis, likely related to reactive process Anemia of chronic disease Hyponatremia-resolved Hyperkalemia -resolved DISCHARGE MEDICATIONS: See Medication Reconciliation list. DISCHARGE INSTRUCTIONS: Patient was discharged home with home health services. Follow up with primary care provider in one week. I have been assigned to dictate discharge summary for this account. I was not involved in the patient's management. Amrita Sierra NP Apr 13, 2019 20:33
== END 2019-04-13 17:07 | disposition home health service (06) | DRG 383 ==
LOC: EMR 22:30 → 4E 04-07 → EDBEDREQ 04-07 00:11 → EMR 04-07 00:36 → 4E 04-07 01:26 → 2E 04-07 10:39
PROC: 02HV33Z Insertion of Infusion Device into Superior Vena Cava, Percutaneous Approach (ICD-10-PCS; principal; 2019-04-13)
DX: L03.116 Cellulitis of left lower limb (principal); I96 Gangrene, not elsewhere classified; B37.89 Other sites of candidiasis; B95.2 Enterococcus as the cause of diseases classified elsewhere; Z89.412 Acquired absence of left great toe; D47.3 Essential (hemorrhagic) thrombocythemia; E87.5 Hyperkalemia; E87.1 Hypo-osmolality and hyponatremia; I95.9 Hypotension, unspecified; E86.1 Hypovolemia; E11.65 Type 2 diabetes mellitus with hyperglycemia; B35.1 Tinea unguium; D63.8 Anemia in other chronic diseases classified elsewhere
CPT/HCPCS: 36415; 36569; 76937; 80048; 80061; 81001; 82270; 82607; 82728; 82746; 82962; 83036; 83540; 83550; 83605; 84443; 84484; 85025; 87040; 87081; 93926; 96365; 96368; 99285; J1815; S5561

== ENCOUNTER 2019-05-29 09:54 | Emergency (ER) | payer OTHER ==
[~2019-05-29] VITALS: Ht 152.4 cm; Wt 47.6 kg
[~2019-05-29 09:54] MED LIST changes: +FLUCONAZOLE100 MG ORAL; +ZOSYN 3.373.375 GM/1 IVPB
[2019-05-29 10:10] VITALS: BP 96/61
--- NOTE | 2019-05-29 10:10 | NUR ---
ED Nurse Note: pt walked in to ED with family member for PICC line removal on left upper arm. pt had it for [facility]p antibiotic tx. tx done about 1 week ago. pcp instructed pt to go to ED for removal. no sign of infection noted. no redness or local fever. AAO x4. respirations even and non-labored noted. will wait for the further order.
--- NOTE | 2019-05-29 10:29 | Emergency Room Report ---
History of Present Illness General Chief Complaint: General Complaint Source: Family Member Present Illness HPI Patient presents with request of removal of the right arm PICC line patient had this in place for a left Toe amputation Patient reports that she has been following with her clinic and was told to have the PICC line removed patient was receiving antibiotics through the PICC line And the last dosing was approximately 2 weeks ago the home health nurse has reportedly finished antibiotics and therefore the request was made to have the Line removed patient denies any fevers or chills Denies any pain to the site denies any chest pain denies any swelling Allergies: Coded Allergies: No Known Allergies (Unverified , 03/20/19) Patient History Past Medical History: see triage record Reviewed Nursing Documentation: PMH: Agreed; PSxH: Agreed Nursing Documentation-PMH Hx Hypertension: Yes Hx Diabetes: Yes Hx Cancer: No Hx Gastrointestinal Problems: No Hx Neurological Problems: No Review of Systems All Other Systems: negative except mentioned in HPI Physical Exam Vital Signs Date Time Temp Pulse Resp B/P (MAP) Pulse Ox O2 Delivery O2 Flow Rate FiO2 05/29/19 10:03 97.3 90 21 96/61 (73) 98 Room Air Sp02 EP Interpretation: reviewed, normal General Appearance: well appearing, no apparent distress Head: normocephalic, atraumatic Eyes: bilateral eye PERRL, bilateral eye EOMI ENT: normal pharynx Neck: supple Respiratory: lungs clear Neurologic: alert, oriented x3 Skin: other - PICC line in place in the right upper arm no surrounding erythema no palpable masses Lymphatic: no adenopathy Medical Decision Making Diagnostic Impression: Primary Impression: PIC line (peripherally inserted central catheter) removal ER Course Given the patient's request given the description that the antibiotics have been finalized Patient did have the PICC line removed Area was cleansed and prepped with ChloraPrep After removing the outer dressing there does not appear to be any sutures in place and with simple withdrawal of the line The PICC line was removed without any incidents area further cleansed with ChloraPrep Betadine sterile dressing applied Patient will continue outpatient care Last Vital Signs Date Time Temp Pulse Resp B/P (MAP) Pulse Ox O2 Delivery O2 Flow Rate FiO2 05/29/19 10:03 97.3 90 21 96/61 (73) 98 Room Air Status: improved Disposition: HOME, SELF-CARE Condition: Improved Scripts No Active Prescriptions or Reported Meds Additional Instructions: Patient is provided with the discharge instructions notified to follow up with primary doctor in the next 2-3 days otherwise return to the er with any worsening symptoms. Please note that this report is being documented using VideoGenie technology. This can lead to erroneous entry secondary to incorrect interpretation by the dictating instrument. Sang Nicholas DO May 29, 2019 10:29
[2019-05-29 11:07] VITALS: BP 101/71
--- NOTE | 2019-05-29 12:35 | NUR ---
ER DISCHARGE NOTE: Patient is cleared to be discharged per ERMD with family member, pt is aox4, on room air, with stable vital signs. pt was given dc and prescription instructions, pt was able to verbalize understanding, pt id band removed without complications. pt is able to ambulate with steady gait. pt took all belongings.
== END 2019-05-29 11:07 | disposition home or self-care (01) ==
LOC: EMR 10:35
DX: Z45.2 Encounter for adjustment and management of vascular access device (principal); E11.9 Type 2 diabetes mellitus without complications; I10 Essential (primary) hypertension; Z89.422 Acquired absence of other left toe(s)
CPT/HCPCS: 99282

== ENCOUNTER 2019-11-12 13:18 | Inpatient (IN) | payer OTHER ==
[~2019-11-12] VITALS: Ht 157.5 cm; Wt 60.8 kg
--- NOTE | 2019-11-12 13:23 | NUR ---
ED Nurse Note: Pt walked into ED w/ c/o weakness and loss of appetite for a week, and pt has had productive cough for 2 days. Pt has nausea, no vomiting. Pt is alert and orientedx4, ambulatory. [place] speaking, but daughter is visitng in waiting room. Pt set up on monitor. BP in ED 108/58.
[2019-11-12 13:30] VITALS: BP 108/58
[2019-11-12] MEDS ORDERED: GLIMEPIRIDE2 MG ORAL (13:44)
[2019-11-12] MEDS ORDERED: PAIN RELIEVER500 M1 PO (13:44)
[2019-11-12] MEDS ORDERED: GLUCOPHAGE500 MG ORAL (13:44)
[2019-11-12] MEDS ORDERED: LANTUS SOL100 UNIT/1 SUBQ (13:44)
--- NOTE | 2019-11-12 14:00 | NUR ---
ED Nurse Note: Dr Santos notified that BS accucheck is over 600. states he will input insulin orders and wait for labs.
--- NOTE | 2019-11-12 14:06 | Emergency Room Report ---
History of Present Illness General Chief Complaint: Generalized Weakness Source: Family Member Present Illness HPI Disclaimer: Please note that this report is being documented using Corebook technology. This can lead to erroneous entry secondary to incorrect interpretation by the dictating instrument. HPI: 64-year-old female history of hypertension, diabetes presents for generalized weakness and cough. She has had cough, shortness of breath and generalized weakness for 2 days. She denies any fevers, nausea, vomiting, sick contacts or recent travel. She denied any pain to me at this time. She states she has been compliant with her insulin. She denies any dysuria hematuria or diarrhea. PMH: Hypertension and diabetes PSH: Reviewed Social Hx: Denies smoking drinking or illicit drug use Allergies: Coded Allergies: PENICILLINS (Unverified Allergy, Unknown, 11/12/19) COVID-19 Screening Contact w/high risk pt: No Recent Travel to affected area: No Experienced COVID-19 symptoms?: Yes COVID-19 symptoms experienced: Cough Nursing Documentation-PMH Past Medical History: No History, Except For Hx Hypertension: Yes Hx Diabetes: Yes Hx Cancer: No Hx Gastrointestinal Problems: No Hx Neurological Problems: No Review of Systems All Other Systems: negative except mentioned in HPI Physical Exam Vital Signs Date Time Temp Pulse Resp B/P (MAP) Pulse Ox O2 Delivery O2 Flow Rate FiO2 11/12/19 13:12 98.1 86 16 77/50 (59) 95 Room Air 11/12/19 13:30 99 Sp02 EP Interpretation: reviewed, normal General Appearance: well appearing, no apparent distress Head: normocephalic, atraumatic Eyes: bilateral eye PERRL, bilateral eye EOMI ENT: hearing grossly normal, dry mucus membranes Neck: full range of motion, supple Respiratory: normal breath sounds, no rhonchi, no respiratory distress, no retraction, no wheezing Cardiovascular #1: normal peripheral pulses, regular rate, rhythm, no murmur Gastrointestinal: non tender, soft, non-distended, no guarding Neurologic: alert, oriented x3, no focal defects Skin: normal color, warm/dry Procedures Critical Care Time Critical Care Time Critical care is managed patient due to presentation with severe hyperglycemia requiring my acute intervention. Critical care time is approximately 40 minutes and excludes procedures. Medical Decision Making Diagnostic Impression: Primary Impression: Severe hyperglycemia due to diabetes mellitus Additional Impressions: UTI (urinary tract infection) Hyponatremia Generalized weakness Dehydration ER Course MDM: 64-year-old female presented with generalized weakness. differential diagnosis: included but not limited to dehydration, hyperglycemia , infectious process, pneumonia, coronavirus to name a few Clinical course Patient placed on stretcher. 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 After initial history and physical I ordered labs, IV fluids, chest x-ray, coronavirus testing. Chest x- ray did not show any obvious infiltrate. Laboratory studies demonstrate leukocytosis. Urinalysis consistent with UTI so IV antibiotics were given. After IV fluid boluses patient's heart rate improved. Blood pressure stable. Blood glucose greater than 800. CO2 around 20 with a normal anion gap. I do suspect hyperglycemia with dehydration. Due to her severe hyperglycemia patient placed on insulin drip and will be admitted to the ICU. Labs -evidence of severe hyperglycemia, sodium of 116, urinalysis positive On reevaluation: Patient improved Laboratory Tests Test 11/12/19 14:05 11/12/19 14:45 11/12/19 15:40 White Blood Count 24.5 K/UL (4.8-10.8) *H Red Blood Count 3.81 M/UL (4.20-5.40) L Hemoglobin 11.4 G/DL (12.0-16.0) L Hematocrit 34.4 % (37.0-47.0) L Mean Corpuscular Volume 90 FL (80-99) Mean Corpuscular Hemoglobin 30.0 PG (27.0-31.0) Mean Corpuscular Hemoglobin Concent 33.2 G/DL (32.0-36.0) Red Cell Distribution Width 12.3 % (11.6-14.8) Platelet Count 359 K/UL (150-450) Mean Platelet Volume 5.3 FL (6.5-10.1) L Neutrophils (%) (Auto) % (45.0-75.0) Lymphocytes (%) (Auto) % (20.0-45.0) Monocytes (%) (Auto) % (1.0-10.0) Eosinophils (%) (Auto) % (0.0-3.0) Basophils (%) (Auto) % (0.0-2.0) Differential Total Cells Counted 100 Neutrophils % (Manual) 95 % (45-75) H Lymphocytes % (Manual) 1 % (20-45) L Monocytes % (Manual) 2 % (1-10) Eosinophils % (Manual) 0 % (0-3) Basophils % (Manual) 0 % (0-2) Band Neutrophils 2 % (0-8) Platelet Estimate Adequate Platelet Morphology Normal Red Blood Cell Morphology Normal Sodium Level 116 MMOL/L (136-145) *L Potassium Level 5.9 MMOL/L (3.5-5.1) H Chloride Level 84 MMOL/L (98-107) L Carbon Dioxide Level 20 MMOL/L (21-32) L Anion Gap 13 mmol/L (5-15) Blood Urea Nitrogen 101 mg/dL (7-18) H Creatinine 4.2 MG/DL (0.55-1.30) H Estimated Glomerular Filtration Rate 10.8 mL/min (>60) Glucose Level 883 MG/DL (74-106) *H Lactic Acid Level 2.10 mmol/L (0.4-2.0) H 1.30 mmol/L (0.66-2.22) Calcium Level 8.2 MG/DL (8.5-10.1) L Total Bilirubin 0.4 MG/DL (0.2-1.0) Aspartate Amino Transferase (AST) 8 U/L (15-37) L Alanine Aminotransferase (ALT) 12 U/L (12-78) Alkaline Phosphatase 140 U/L (46-116) H Total Creatine Kinase 7 U/L (26-308) L Creatine Kinase MB < 0.5 NG/ML (0.0-3.6) Creatine Kinase MB Relative Index 7.1 Troponin I 0.000 ng/mL (0.000-0.056) Pro-B-Type Natriuretic Peptide 1587 pg/mL (0-125) H Total Protein 6.3 G/DL (6.4-8.2) L Albumin 1.7 G/DL (3.4-5.0) L Globulin 4.6 g/dL Albumin/Globulin Ratio 0.4 (1.0-2.7) L Urine Color Pale yellow Urine Appearance Very cloudy Urine pH 5 (4.5-8.0) Urine Specific [place] 1.010 (1.005-1.035) Urine Protein 2+ (NEGATIVE) H Urine Glucose (UA) 4+ (NEGATIVE) H Urine Ketones 1+ (NEGATIVE) H Urine Blood 5+ (NEGATIVE) H Urine Nitrite Negative (NEGATIVE) Urine Bilirubin Negative (NEGATIVE) Urine Urobilinogen Normal MG/DL (0.0-1.0) Urine Leukocyte Esterase 3+ (NEGATIVE) H Urine RBC 0-2 /HPF (0 - 2) Urine WBC Tntc /HPF (0 - 2) H Urine Squamous Epithelial Cells Many /LPF (NONE/OCC) H Urine Bacteria Many /HPF (NONE) H EKG Diagnostic Results EP Interpretation: y Rate: normal Rhythm: NSR ST Segments: no acute changes Other Impression Normal EKG Rhythm Strip Diag. Results EP Interpretation: yes Rate: 85 Rhythm: NSR, no PVC's, no ectopy Chest X-Ray Diagnostic Results Chest X-Ray Diagnostic Results : Chest X-Ray Ordered: Yes # of Views/Limited/Complete: 1 View Indication: Shortness of Breath EP Interpretation: Yes Interpretation: no consolidation, no effusion, no pneumothorax Impression: No acute disease Electronically Signed by: Jose Angel Santos MD Last Vital Signs Date Time Temp Pulse Resp B/P (MAP) Pulse Ox O2 Delivery O2 Flow Rate FiO2 11/12/19 13:30 82 18 Room Air 99 11/12/19 13:30 98.1 108/58 99 Status: improved Disposition: ADMITTED INPATIENT Condition: Critical Jose Angel Santos M.D. Nov 12, 2019 14:06
[2019-11-12] MEDS ORDERED: Sodium Chloride 1,400 ML IVLG ONE (14:15)
[2019-11-12 14:46] LABS: HEMATOCRIT 34.4 % (37.0-47.0); HEMOGLOBIN 11.4 G/DL (12.0-16.0); MEAN CORPUSCULAR VOLUME 90 FL (80-99); PLATELET COUNT 359 K/UL (150-450); RED BLOOD COUNT 3.81 M/UL (4.20-5.40); RED CELL DISTRIBUTION WIDTH 12.3 % (11.6-14.8)
[2019-11-12 14:52] LABS: WHITE BLOOD COUNT 24.5 K/UL (4.8-10.8)
[2019-11-12 15:18] LABS: APPEARANCE,URINE VERY CLOUDY; BILIRUBIN, URINE NEGATIVE (NEGATIVE); COLOR,URINE PALE YELLOW; GLUCOSE, URINE (UA) 4+ (NEGATIVE); KETONES,URINE 1+ (NEGATIVE); LEUKOCYTE ESTERASE ,URINE 3+ (NEGATIVE); NITRITE,URINE NEGATIVE (NEGATIVE); PH,URINE 5 (4.5-8.0); PROTEIN,URINE 2+ (NEGATIVE); UROBILINOGEN,URINE NORMAL MG/DL (0.0-1.0)
[2019-11-12 15:27] LABS: ALANINE AMINOTRANSFERASE 12 U/L (12-78); ALBUMIN 1.7 G/DL (3.4-5.0); ALBUMIN/GLOBULIN RATIO 0.4 (1.0-2.7); ALKALINE PHOSPHATASE 140 U/L (46-116); ANION GAP 13 mmol/L (5-15); ASPARTATE AMINO TRANSFERASE 8 U/L (15-37); BILIRUBIN,TOTAL 0.4 MG/DL (0.2-1.0); BLOOD UREA NITROGEN 101 mg/dL (7-18); CALCIUM 8.2 MG/DL (8.5-10.1); CARBON DIOXIDE 20 MMOL/L (21-32); CHLORIDE 84 MMOL/L (98-107); CKMB < 0.5 NG/ML (0.0-3.6); CREATINE KINASE 7 U/L (26-308); CREATININE 4.2 MG/DL (0.55-1.30); POTASSIUM 5.9 MMOL/L (3.5-5.1); SODIUM 116 MMOL/L (136-145)
[2019-11-12] MEDS ORDERED: cefTRIAXone 1 GM in NS 55 ML IVPB ONE (15:30)
[2019-11-12] MEDS ORDERED: Insulin Reg 100 units Premix 100 ML IV SCH (15:45)
[2019-11-12] MEDS ORDERED: Insulin Human Regular 100units/ml 3ml IV ONE (15:45)
--- NOTE | 2019-11-12 15:57 | Diagnostic Imaging Report ---
Indication: Bars of breath Technique: One view of the chest Comparison: 03/20/2019 Findings: There is some atelectasis at the left lung base. Lungs and pleural spaces are otherwise clear. The heart size is normal. Impression: Left basilar atelectasis No acute process otherwise
[2019-11-12 16:00] VITALS: BP 110/61
[2019-11-12] MEDS: Insulin Reg 100 units Premix 100 ML IVPB SCH ×4 (16:04→22:46)
--- NOTE | 2019-11-12 16:04 | NUR ---
ED Nurse Note: Insulin drip started at 6 units/hr. Pt 1600 accucheck is 881. Pt is alert amnd orientedx4, amb.
[2019-11-12] MEDS ORDERED: Albuterol/Ipratropium 3ml neb HHN PRN (16:45)
[2019-11-12] MEDS ORDERED: Morphine Sulfate 4mg/ml Inj (IV USE ONLY) IVP PRN (16:45)
[2019-11-12] MEDS ORDERED: Insulin Rate Change 1 Each MISC PRN (16:45)
[2019-11-12] MEDS ORDERED: LORazepam Inj 2mg/ml 1ml IV PRN (16:45)
[2019-11-12] MEDS ORDERED: Nitroglycerin Subl 0.4mg tab SL PRN (16:45)
[2019-11-12] MEDS ORDERED: Miralax 17gm pkt ORAL PRN (16:45)
[2019-11-12] MEDS ORDERED: Insulin Reg 100 units Premix 100 ML IVPB SCH ×2 (16:45→20:15)
--- NOTE | 2019-11-12 17:00 | NUR ---
ED Nurse Note: Pt transported to ICU with all belongings. Pt taken with monitor. Received by SANTOS moreira.
--- NOTE | 2019-11-12 17:01 | NUR ---
ED Nurse Note: Report given to Polly GRAHAM ICU.
--- NOTE | 2019-11-12 17:51 | History & Physical ---
History and Physical History & Physicial Dictated for Int Med-DR Santos no. [id number]. Ramón Bruno MD Nov 12, 2019 17:51
[2019-11-12] MEDS: Insulin Human Regular 100units/ml 3ml IV PRN ×6 (18:46→23:13)
--- NOTE | 2019-11-12 19:40 | NUR ---
NURSE NOTES: Received report from Niels RN. Patient in bed resting, able to verbalize needs to staff. Denies any pain or discomfort. No SOB. HOB elevated. IV site intact no s/s of infiltration. Infusing NS at 150cc/hr, Insulin drip at 6units. Instructed patient to use call light for assistance. Contact and droplet precaution maintained and observed for Rule out COVID 19. No fever. Temp 98.8 axillary. will continue plan of care.
--- NOTE | 2019-11-12 19:53 | NUR ---
NURSE NOTES: called md Gay regarding bg 456, alog 1. 6 units plus +10. awaiting call back
[2019-11-12] MEDS: Heparin 5000 units/ml inj SUBQ SCH (21:02)
--- NOTE | 2019-11-12 22:00 | NUR ---
NURSE NOTES: patient in bed sleeping comfortably. denies any pain or discomfort. no s/s of hypo/hyperglycemia. continue on Insulin drip. will continue plan of care
[2019-11-13] MEDS: Insulin Human Regular 100units/ml 3ml IV PRN (00:03)
[2019-11-13] MEDS: Insulin Reg 100 units Premix 100 ML IVPB SCH (00:04)
--- NOTE | 2019-11-13 00:54 | NUR ---
NURSE NOTES: blood glucose 54mg/dl patient asymptomatic. no SOB. denies any pain or discomfort. will follow insulin protocol and recheck blood glucose. frequent visual checks continued.no s/s of acute distress noted.
--- NOTE | 2019-11-13 01:35 | NUR ---
NURSE NOTES: Rechecked Blood glucose 134mg/dl will follow insulin protocol will inform MD. patient in bed resting asymptomatic. denies any pain or discomfort. no s/s of hypo/hyperglycemia. will continue plan of care.
[2019-11-13] MEDS ORDERED: Insulin Reg 100 units Premix 100 ML IVPB SCH ×2 (01:45→06:00)
--- NOTE | 2019-11-13 03:00 | NUR ---
patient in bed sleeping comfortably. no urine output yet. offered bedpan. blood glucose 113mg/dl continue on Insulin drip Algorithm 3 at 2units/hr. denies any pain or discomfort. call light within easy reach.
--- NOTE | 2019-11-13 05:00 | NUR ---
NURSE NOTES: patient in bed sleeping comfortably. no s/s of acute distress noted. blood glucose 114mg/dl continue on Insulin drip Algorithm 3 at 2units/hr. denies any pain or discomfort. call light within easy reach.
--- NOTE | 2019-11-13 05:59 | NUR ---
NURSE NOTES: Blood glucose 91mg/dl will follow protocol will changed Algorithm 3 to Algorithm 2 at 0.5 units/hr. noted and carried out, Patient no urine output for 11 hours bladder scan done with 500cc bladder output. MD made aware Inserted Fisher noted and carried out.
--- NOTE | 2019-11-13 07:16 | NUR ---
HAND-OFF: Report given to Niels GRAHAM.
[2019-11-13 07:33] LABS: ANION GAP 14 mmol/L (5-15); BLOOD UREA NITROGEN 88 mg/dL (7-18); CALCIUM 7.4 MG/DL (8.5-10.1); CARBON DIOXIDE 18 MMOL/L (21-32); CHLORIDE 102 MMOL/L (98-107); CREATININE 3.6 MG/DL (0.55-1.30); SODIUM 134 MMOL/L (136-145)
[2019-11-13 07:51] LABS: ALANINE AMINOTRANSFERASE 27 U/L (12-78); ALBUMIN 1.5 G/DL (3.4-5.0); ALKALINE PHOSPHATASE 199 U/L (46-116); ASPARTATE AMINO TRANSFERASE 50 U/L (15-37); BILIRUBIN,DIRECT 0.3 MG/DL (0.0-0.3); BILIRUBIN,TOTAL 0.6 MG/DL (0.2-1.0); PHOSPHORUS 2.6 MG/DL (2.5-4.9)
[2019-11-13] MEDS: Heparin 5000 units/ml inj SUBQ SCH ×2 (08:10→22:21)
--- NOTE | 2019-11-13 08:26 | NUR ---
CASE MANAGEMENT: INITIAL REVIEW 11/12/2019 64 YO F PRESENTED TO ED FROM HOME CC: WEAKNESS AND LOSS OF APPETITE X 1 WEEK PMHx: Hypertension and diabetes SI:HYPERGLYCEMIA. GEN WEAKNESS. T 98.1 HR 86 RR 18 B/P 77/50 SATS 95% ON RA LABS: WBC 24.5 NA 116 K 5.9 CL 84 CO2 20 BUN 101 CR 4.2 GLU 883 CA 8.2 AST 8 ALP 140 TOTAL CK 7 IS: NS BOLUS X2 CEFTRIAXONE IV X1 INSULIN REGULAR DRIP CXR Impression: No acute disease EKG Normal EKG PATIENT ADMITTED TO ICU 11/12/2019 @ 1603 DCP: TO BE DETERMINED PLAN OF CARE: GLYCEMIC CONTROL AND MONITORING 11/13/2019 SI:HYPERGLYCEMIA. GEN WEAKNESS. T 98.1 HR 80 RR 18 B/P 110/61 SATS 98% ON RA LABS: NA 134 CO2 18 BUN 88 CR 3.6 GLU 114 CA 7.4 AST 50 ALP 199 IS: NS @ 150 ML/HR CEFTRIAXONE IV Q24H INSULIN HUMAN REGULAR PER PARAMETERS ICU DCP: TO BE DETERMINED PLAN OF CARE: GLYCEMIC CONTROL AND MONITORING
--- NOTE | 2019-11-13 08:43 | History and Physical Report ---
DATE OF ADMISSION: 11/12/2019 CHIEF COMPLAINT: Patient is a 64-year-old female, who presents with a chief complaint of cough and generalized weakness. HISTORY OF PRESENT ILLNESS: Patient has a history of diabetes. Patient states she began to experience a nonproductive cough two days ago. Patient states she has been coughing so much, she has been unable to eat. Patient gets nauseated secondary to coughing. Patient denies fevers. Patient presented to [place] emergency room. Patient was found to have venous glucose value of greater than 800. Patient is admitted with diabetic ketoacidosis and cough to rule out pneumonia versus COVID-19. REVIEW OF SYSTEMS: CONSTITUTIONAL: Patient denies weight loss or weight gain. Patient denies fevers or chills. HEENT: Patient denies ear or throat pain. Patient denies headache. CARDIOVASCULAR: Patient denies palpitation or chest pain. CHEST: Patient complains of nonproductive cough as above. Patient denies wheezes. ABDOMEN: Patient denies nausea, vomiting, diarrhea, or constipation. GENITOURINARY: Patient denies dysuria or increased frequency of urination. NEUROMUSCULAR: Patient denies seizures or generalized weakness. PAST MEDICAL HISTORY: Significant for: 1. Diabetes type 2. 2. Hypertension. PAST SURGICAL HISTORY: Significant for transmetatarsal amputation of the left great toe. CURRENT MEDICATIONS: 1. Glimepiride 4 mg p.o. daily. 2. Lantus insulin 12 units subcutaneously at bedtime. 3. Metformin 500 mg p.o. twice daily. ALLERGIES: Penicillin. SOCIAL HISTORY: Patient is and is disabled. Patient denies tobacco or alcohol use. PHYSICAL EXAMINATION: VITAL SIGNS: Temperature 98.1, respirations 16, pulse 86, blood pressure 77/50, pulse ox 95% on room air. GENERAL: Patient is a well-developed and well-nourished female, in no apparent distress. HEENT: Eyes, pupils are equal and responsive to light and accommodation. Extraocular movements are intact. NECK: Supple without lymphadenopathy. CHEST: Lungs are clear to auscultation bilaterally without wheezes or rales. CARDIOVASCULAR: Regular rhythm and rate. S1, S2 are normal without murmurs, rubs, or gallops. ABDOMINAL: Soft, nontender, and nondistended. Positive bowel sounds. No evidence of hepatosplenomegaly. Currently, no rebound or guarding noted. EXTREMITIES: Negative for clubbing, cyanosis, or edema. RECTAL/GENITAL: Not performed. NEUROLOGIC: Cranial nerves II through XII are grossly intact without focal deficits. Motor strength is 5/5 bilaterally. Deep tendon reflexes 2+ plantar. LABORATORY STUDIES: WBC 24.5, hemoglobin 11.4, hematocrit 34.4, platelets 359,000. Sodium 116, potassium 5.9, chloride 84, CO2 20, BUN 101, creatinine 4.2, glucose 883. Troponin 0.0. A chest x-ray was reported as left basilar atelectasis, otherwise without acute disease. ASSESSMENT: This is a 64-year-old female. 1. Hyperglycemia. 2. Diabetic ketoacidosis. 3. Diabetes type 2. 4. Hyponatremia. 5. Acute renal failure. 6. Cough. 7. Hypertension. 8. Diabetes type 2. 9. Urinary tract infection. TREATMENT: 1. Urinary tract infection/leukocytosis. Patient has been started empirically on intravenous ceftriaxone. A urine culture is pending. 2. Diabetic ketoacidosis. Patient is currently on insulin drip. An Endocrinology consultation has been obtained with Dr. Gay. We will follow recommendations of Endocrinology. 3. Cough. Cough is concerning for COVID-19. A COVID-19 test is pending. We will follow recommendations of Pulmonary. Pulmonary consultation has been obtained with Dr. Kadie Chavarria. 4. Generalized weakness. 5. Renal failure. A Nephrology consultation has been obtained with Dr. Inder Wong. Patient is currently receiving intravenous fluids. Renal failure may be secondary to diabetic ketoacidosis and dehydration. 6. Hyponatremia. Patient is currently receiving normal saline. 7. Diabetes type 2. 8. Hypertension. Patient is currently hypotensive. Ramón Bruno M.D. DR: ASIM JOB#: [id number] CC:
[2019-11-13] MEDS ORDERED: cefTRIAXone 1 GM in D5W 55 ML IVPB SCH (09:00)
--- NOTE | 2019-11-13 09:49 | NUR ---
*-* INSURANCE *-* ALL CLINICALS AND REVIEWS HAVE BEEN FAXED TO: [facility] F: [phone]
--- NOTE | 2019-11-13 10:00 | NUR ---
NURSE NOTES: insulin drip off. pt a/x4. no c/o pain. requesting water. levy draining dark la and purluent.
[2019-11-13] MEDS: NovoLOG Insulin Flexpen SUBQ SCH ×4 (11:28→23:27)
[2019-11-13] MEDS ORDERED: Levemir Flexpen SUBQ SCH (11:30)
--- NOTE | 2019-11-13 12:56 | Pulmonolgy Critical Care Note ---
Critical Care - Asmt/Plan Problems: (1) Severe hyperglycemia due to diabetes mellitus (2) Dehydration, severe (3) UTI (urinary tract infection) Respiratory: monitor respiratory rate, adjust FIO2 Cardiac: continue to monitor HR/BP Renal: F/U I&O, increase IV fluid Infectious Disease: check cultures, continue antibiotics Gastrointestinal: start feedings Endocrine: monitor blood sugar, d/c insulin drip, continue sliding scale insulin Neurologic: PRN Ativan Affect: PRN ativan Disposition: transfer to [facility] Reviewed: township clerk Discussed with: nurses, consultants, case operatormedical education manager - Objective Last 24 Hour Vital Signs Date Time Temp Pulse Resp B/P (MAP) Pulse Ox O2 Delivery O2 Flow Rate FiO2 11/13/19 08:31 77 20 98 Room Air 21 11/13/19 04:00 81 11/13/19 04:00 Room Air 11/13/19 00:00 Room Air 11/13/19 00:00 80 11/12/19 20:00 82 11/12/19 20:00 Room Air 11/12/19 18:02 Room Air 11/12/19 16:00 98.1 80 18 110/61 98 Room Air 11/12/19 14:24 98.1 91 17 112/61 98 Room Air 11/12/19 13:30 82 18 Room Air 99 11/12/19 13:30 98.1 82 18 108/58 99 Room Air 11/12/19 13:12 98.1 86 16 77/50 (59) 95 Room Air Status: awake Condition: critical, improving Neck: full ROM Lungs: chest wall tender Abdomen: soft Extremities: edema Micro: Microbiology Date/Time Source Procedure Growth Status 11/12/19 13:50 Blood Blood Culture - Preliminary Resulted 11/13/19 03:30 Nasal Nares - Final Complete 11/13/19 03:30 Nasal Nares - Final Complete 11/12/19 14:45 Urine,Clean Catch Urine Culture - Preliminary Gram Negative Christiano Resulted 11/12/19 16:45 Rectum Received Accucheck: 215 Critical Care - Subjective ROS Limited/Unobtainable: Yes Interval Events: 64-year-old female history of hypertension, diabetes presented to ER for generalized weakness and cough for 2 days. She denies any fevers, nausea, vomiting, sick contacts or recent travel. She was found in renal failure with severe hyperglycemia. She is admitted to ICU on Insulin drip. FI02: 21 Sputum Amount: None Drips: insulin drip I&O: Intake and Output 11/12/19 11/13/19 19:00 07:00 Intake Total 1412 ml 1605.0 ml Balance 1412 ml 1605.0 ml Intake Oral 0 ml IV Total 1412 ml 1605.0 ml # Voids 2 # Bowel Movements 1 1 Labs: Laboratory Tests Test 11/12/19 14:05 11/12/19 14:45 11/12/19 15:40 11/13/19 05:10 White Blood Count 24.5 K/UL (4.8-10.8) *H Red Blood Count 3.81 M/UL (4.20-5.40) L Hemoglobin 11.4 G/DL (12.0-16.0) L Hematocrit 34.4 % (37.0-47.0) L Mean Corpuscular Volume 90 FL (80-99) Mean Corpuscular Hemoglobin 30.0 PG (27.0-31.0) Mean Corpuscular Hemoglobin Concent 33.2 G/DL (32.0-36.0) Red Cell Distribution Width 12.3 % (11.6-14.8) Platelet Count 359 K/UL (150-450) Mean Platelet Volume 5.3 FL (6.5-10.1) L Neutrophils (%) (Auto) % (45.0-75.0) Lymphocytes (%) (Auto) % (20.0-45.0) Monocytes (%) (Auto) % (1.0-10.0) Eosinophils (%) (Auto) % (0.0-3.0) Basophils (%) (Auto) % (0.0-2.0) Differential Total Cells Counted 100 Neutrophils % (Manual) 95 % (45-75) H Lymphocytes % (Manual) 1 % (20-45) L Monocytes % (Manual) 2 % (1-10) Eosinophils % (Manual) 0 % (0-3) Basophils % (Manual) 0 % (0-2) Band Neutrophils 2 % (0-8) Platelet Estimate Adequate Platelet Morphology Normal Red Blood Cell Morphology Normal Sodium Level 116 MMOL/L (136-145) *L 134 MMOL/L (136-145) #L Potassium Level 5.9 MMOL/L (3.5-5.1) H 4.0 MMOL/L (3.5-5.1) Chloride Level 84 MMOL/L (98-107) L 102 MMOL/L (98-107) Carbon Dioxide Level 20 MMOL/L (21-32) L 18 MMOL/L (21-32) L Anion Gap 13 mmol/L (5-15) 14 mmol/L (5-15) Blood Urea Nitrogen 101 mg/dL (7-18) H 88 mg/dL (7-18) H Creatinine 4.2 MG/DL (0.55-1.30) H 3.6 MG/DL (0.55-1.30) H Estimat Glomerular Filtration Rate 10.8 mL/min (>60) 12.8 mL/min (>60) Glucose Level 883 MG/DL (74-106) *H 114 MG/DL (74-106) #H Lactic Acid Level 2.10 mmol/L (0.4-2.0) H 1.30 mmol/L (0.66-2.22) Calcium Level 8.2 MG/DL (8.5-10.1) L 7.4 MG/DL (8.5-10.1) L Total Bilirubin 0.4 MG/DL (0.2-1.0) 0.6 MG/DL (0.2-1.0) Aspartate Amino Transf (AST/SGOT) 8 U/L (15-37) L 50 U/L (15-37) H Alanine Aminotransferase (ALT/SGPT) 12 U/L (12-78) 27 U/L (12-78) Alkaline Phosphatase 140 U/L (46-116) H 199 U/L (46-116) H Total Creatine Kinase 7 U/L (26-308) L Creatine Kinase MB < 0.5 NG/ML (0.0-3.6) Creatine Kinase MB Relative Index 7.1 Troponin I 0.000 ng/mL (0.000-0.056) Pro-B-Type Natriuretic Peptide 1587 pg/mL (0-125) H Total Protein 6.3 G/DL (6.4-8.2) L 6.5 G/DL (6.4-8.2) Albumin 1.7 G/DL (3.4-5.0) L 1.5 G/DL (3.4-5.0) L Globulin 4.6 g/dL Albumin/Globulin Ratio 0.4 (1.0-2.7) L Urine Color Pale yellow Urine Appearance Very cloudy Urine pH 5 (4.5-8.0) Urine Specific [place] 1.010 (1.005-1.035) Urine Protein 2+ (NEGATIVE) H Urine Glucose (UA) 4+ (NEGATIVE) H Urine Ketones 1+ (NEGATIVE) H Urine Blood 5+ (NEGATIVE) H Urine Nitrite Negative (NEGATIVE) Urine Bilirubin Negative (NEGATIVE) Urine Urobilinogen Normal MG/DL (0.0-1.0) Urine Leukocyte Esterase 3+ (NEGATIVE) H Urine RBC 0-2 /HPF (0 - 2) Urine WBC Tntc /HPF (0 - 2) H Urine Squamous Epithelial Cells Many /LPF (NONE/OCC) H Urine Bacteria Many /HPF (NONE) H Prothrombin Time 11.1 SEC (9.30-11.50) Prothromb Time International Ratio 1.0 (0.9-1.1) Activated Partial Thromboplast Time 29 SEC (23-33) Phosphorus Level 2.6 MG/DL (2.5-4.9) Direct Bilirubin 0.3 MG/DL (0.0-0.3) Kadie Chavarria MD Nov 13, 2019 12:56
--- NOTE | 2019-11-13 13:01 | Consultation ---
History of Present Illness General Date patient seen: Nov 13, 2019 Chief Complaint: Generalized Weakness Present Illness HPI 64 y/o F with hx of HTN, Dm2, PVD, L TMA presented to ED on 11/11 with 2 days of generalized weakness, cough, SOB, nausea when coughing. Upon admission, BG>800, found to be on DKA. Undergoing COVID19 evaluation. Denied fevers, vomiting, sick contacts, recent travel, dysuria, hematuria, diarrhea. Allergies: Coded Allergies: PENICILLINS (Unverified Allergy, Unknown, 11/12/19) Medication History Scheduled Acetaminophen (Pain Reliever), 1,000 MG PO TWICE A DAY, (Reported) Glimepiride (Glimepiride), 4 MG ORAL DAILY, (Reported) Insulin Glargine (Lantus), 12 SUBQ BEDTIME, (Reported) Metformin Hcl* (Glucophage*), 500 MG ORAL TWICE A DAY, (Reported) Patient History Healthcare decision maker Resuscitation status Full Code Advanced Directive on File Patient History Narrative Pmhx: as above Shx: Denies smoking drinking or illicit drug use Fhx: non contributory Physical Exam Physical Exam Narrative GENERAL: Patient is a well-developed and well-nourished female, in no apparent distress. HEENT: Eyes, pupils are equal and responsive to light and accommodation. Extraocular movements are intact. NECK: Supple without lymphadenopathy. CHEST: Lungs are clear to auscultation bilaterally without wheezes or rales. CARDIOVASCULAR: Regular rhythm and rate. S1, S2 are normal without murmurs, rubs, or gallops. ABDOMINAL: Soft, nontender, and nondistended. Positive bowel sounds. No evidence of hepatosplenomegaly. Currently, no rebound or guarding noted. EXTREMITIES: Negative for clubbing, cyanosis, or edema. Last 24 Hour Vital Signs Date Time Temp Pulse Resp B/P (MAP) Pulse Ox O2 Delivery O2 Flow Rate FiO2 11/13/19 08:31 77 20 98 Room Air 21 11/13/19 04:00 81 11/13/19 04:00 Room Air 11/13/19 00:00 Room Air 11/13/19 00:00 80 11/12/19 20:00 82 11/12/19 20:00 Room Air 11/12/19 18:02 Room Air 11/12/19 16:00 98.1 80 18 110/61 98 Room Air 11/12/19 14:24 98.1 91 17 112/61 98 Room Air 11/12/19 13:30 82 18 Room Air 99 11/12/19 13:30 98.1 82 18 108/58 99 Room Air 11/12/19 13:12 98.1 86 16 77/50 (59) 95 Room Air Intake and Output 11/12/19 11/13/19 19:00 07:00 Intake Total 1412 ml 1605.0 ml Balance 1412 ml 1605.0 ml Intake Oral 0 ml IV Total 1412 ml 1605.0 ml # Voids 2 # Bowel Movements 1 1 Laboratory Tests Test 11/12/19 14:05 11/12/19 14:45 11/12/19 15:40 11/13/19 05:10 White Blood Count 24.5 K/UL (4.8-10.8) *H Red Blood Count 3.81 M/UL (4.20-5.40) L Hemoglobin 11.4 G/DL (12.0-16.0) L Hematocrit 34.4 % (37.0-47.0) L Mean Corpuscular Volume 90 FL (80-99) Mean Corpuscular Hemoglobin 30.0 PG (27.0-31.0) Mean Corpuscular Hemoglobin Concent 33.2 G/DL (32.0-36.0) Red Cell Distribution Width 12.3 % (11.6-14.8) Platelet Count 359 K/UL (150-450) Mean Platelet Volume 5.3 FL (6.5-10.1) L Neutrophils (%) (Auto) % (45.0-75.0) Lymphocytes (%) (Auto) % (20.0-45.0) Monocytes (%) (Auto) % (1.0-10.0) Eosinophils (%) (Auto) % (0.0-3.0) Basophils (%) (Auto) % (0.0-2.0) Differential Total Cells Counted 100 Neutrophils % (Manual) 95 % (45-75) H Lymphocytes % (Manual) 1 % (20-45) L Monocytes % (Manual) 2 % (1-10) Eosinophils % (Manual) 0 % (0-3) Basophils % (Manual) 0 % (0-2) Band Neutrophils 2 % (0-8) Platelet Estimate Adequate Platelet Morphology Normal Red Blood Cell Morphology Normal Sodium Level 116 MMOL/L (136-145) *L 134 MMOL/L (136-145) #L Potassium Level 5.9 MMOL/L (3.5-5.1) H 4.0 MMOL/L (3.5-5.1) Chloride Level 84 MMOL/L (98-107) L 102 MMOL/L (98-107) Carbon Dioxide Level 20 MMOL/L (21-32) L 18 MMOL/L (21-32) L Anion Gap 13 mmol/L (5-15) 14 mmol/L (5-15) Blood Urea Nitrogen 101 mg/dL (7-18) H 88 mg/dL (7-18) H Creatinine 4.2 MG/DL (0.55-1.30) H 3.6 MG/DL (0.55-1.30) H Estimat Glomerular Filtration Rate 10.8 mL/min (>60) 12.8 mL/min (>60) Glucose Level 883 MG/DL (74-106) *H 114 MG/DL (74-106) #H Lactic Acid Level 2.10 mmol/L (0.4-2.0) H 1.30 mmol/L (0.66-2.22) Calcium Level 8.2 MG/DL (8.5-10.1) L 7.4 MG/DL (8.5-10.1) L Total Bilirubin 0.4 MG/DL (0.2-1.0) 0.6 MG/DL (0.2-1.0) Aspartate Amino Transf (AST/SGOT) 8 U/L (15-37) L 50 U/L (15-37) H Alanine Aminotransferase (ALT/SGPT) 12 U/L (12-78) 27 U/L (12-78) Alkaline Phosphatase 140 U/L (46-116) H 199 U/L (46-116) H Total Creatine Kinase 7 U/L (26-308) L Creatine Kinase MB < 0.5 NG/ML (0.0-3.6) Creatine Kinase MB Relative Index 7.1 Troponin I 0.000 ng/mL (0.000-0.056) Pro-B-Type Natriuretic Peptide 1587 pg/mL (0-125) H Total Protein 6.3 G/DL (6.4-8.2) L 6.5 G/DL (6.4-8.2) Albumin 1.7 G/DL (3.4-5.0) L 1.5 G/DL (3.4-5.0) L Globulin 4.6 g/dL Albumin/Globulin Ratio 0.4 (1.0-2.7) L Urine Color Pale yellow Urine Appearance Very cloudy Urine pH 5 (4.5-8.0) Urine Specific [place] 1.010 (1.005-1.035) Urine Protein 2+ (NEGATIVE) H Urine Glucose (UA) 4+ (NEGATIVE) H Urine Ketones 1+ (NEGATIVE) H Urine Blood 5+ (NEGATIVE) H Urine Nitrite Negative (NEGATIVE) Urine Bilirubin Negative (NEGATIVE) Urine Urobilinogen Normal MG/DL (0.0-1.0) Urine Leukocyte Esterase 3+ (NEGATIVE) H Urine RBC 0-2 /HPF (0 - 2) Urine WBC Tntc /HPF (0 - 2) H Urine Squamous Epithelial Cells Many /LPF (NONE/OCC) H Urine Bacteria Many /HPF (NONE) H Prothrombin Time 11.1 SEC (9.30-11.50) Prothromb Time International Ratio 1.0 (0.9-1.1) Activated Partial Thromboplast Time 29 SEC (23-33) Phosphorus Level 2.6 MG/DL (2.5-4.9) Direct Bilirubin 0.3 MG/DL (0.0-0.3) Microbiology Date/Time Source Procedure Growth Status 11/12/19 13:50 Blood Blood Culture - Preliminary Resulted 11/13/19 03:30 Nasal Nares - Final Complete 11/13/19 03:30 Nasal Nares - Final Complete 11/12/19 14:45 Urine,Clean Catch Urine Culture - Preliminary Gram Negative Christiano Resulted 11/12/19 16:45 Rectum Received Height (Feet): 5 Height (Inches): 2.00 Weight (Pounds): 131 Medications Current Medications Medications (Trade) Dose Ordered Sig/Arnoldo Route PRN Reason Start Time Stop Time Status Last Admin Dose Admin Acetaminophen (Tylenol) 650 mg Q4H PRN ORAL Fever 11/12/19 16:45 12/12/19 16:44 Albuterol/ Ipratropium (Albuterol/ Ipratropium) 3 ml EVERY 4 HOURS PRN HHN Shortness of Breath 11/12/19 16:45 11/17/19 16:44 Ceftriaxone Sodium 1 gm/ Dextrose 55 ml @ 110 mls/hr Q24H IVPB 11/13/19 09:00 11/20/19 08:59 11/13/19 08:08 Dextrose (Dextrose 50%) 25 ml Q30M PRN IV Hypoglycemia 11/13/19 10:15 02/11/20 10:14 Dextrose (Dextrose 50%) 50 ml Q30M PRN IV Hypoglycemia 11/13/19 10:15 02/11/20 10:14 Heparin Sodium (Porcine) (Heparin 5000 units/ml) 5,000 units EVERY 12 HOURS SUBQ 11/12/19 21:00 12/27/19 20:59 11/13/19 08:10 Insulin Aspart (NovoLOG) Q4H SUBQ 11/13/19 11:00 02/11/20 10:59 11/13/19 11:28 Insulin Detemir (Levemir) 10 units BID SUBQ 11/13/19 11:30 02/11/20 11:29 11/13/19 11:29 Lorazepam (Ativan 2mg/ml 1ml) 2 mg EVERY 2 HOURS PRN IV agitation 11/12/19 16:45 11/19/19 16:44 Morphine Sulfate (Morphine Sulfate) 4 mg EVERY 4 HOURS PRN IVP Severe Pain (Pain Scale 7-10) 11/12/19 16:45 11/19/19 16:44 Ondansetron HCl (Zofran) 4 mg Q6H PRN IVP Nausea & Vomiting 11/12/19 16:45 12/12/19 16:44 Sodium Chloride 1,000 ml @ 150 mls/hr Q6H40M IV 11/12/19 16:37 12/12/19 16:36 11/13/19 11:30 Assessment/Plan Assessment/Plan: Abx: Ceftriaxone 11/11- Assessment: Severe sepsis (transient hypotension) UTI c/w bacteremia -Bcx 08/30 GNR -u/a wbc tnct, nit neg, leuk +3; ucx -CXR: Left basilar atelectasis. No acute process otherwise Cough- r/o COVID19. No PNA on CXR -influenza sc neg Afebrile Leukocytosis DKA Lactic acidosis, SP SARAHI, improving Severe hyponatremia; improving Hyperkalemia, SP HTN Dm2 PVD L TMA PLan: -Switch Ceftriaxone #2 to Meropenem pending ID and sensi GNR -f/u cx -Monitor CBC/CMP, temperatures -Bcx x2 -CXR am -COVID19 isolation and testing Thank you for consulting [facility]. Will continue to follow along with you. Discussed with Renate Harrington M.D. Nov 13, 2019 13:00
--- NOTE | 2019-11-13 13:36 | NUR ---
PRN OCCUPATIONAL THERAPIST NOTE PT is currently on droplet and contact precaution r/o COVID-19. SW spoke w/ pt's daughter, Arianne Dixon [phone] and obtained information. Pt resides w/ family at [address] [place] [address]. PT has four adult children. Pt does not have POA/AD. Primary contact is Arianne Dixon [phone]. For future DC information, pt has her own room for isolation at home in case of COVID-19.
[2019-11-13] MEDS ORDERED: Meropenem 1 GM in NS 55 ML IVPB SCH ×2 (14:00→21:00)
--- NOTE | 2019-11-13 16:33 | NUR ---
TRANSFER TO FLOOR: Patient transferred to 411, per . Report given to . Belongings and medications given to primary r.n . Family and or S/O informed of transfer. yes
--- NOTE | 2019-11-13 16:48 | NUR ---
NURSE NOTES: Received report and patient from ICU nurse SANTOS Pearce. Patient A&Ox4, mostly Amharic speaking.. On room air, no signs of distress or labored breathing. IVs intact and infusing IV fluids. Bed in lowest position with call light in reach. Will continue with plan of care.
[2019-11-13] MEDS ORDERED: Albuterol/Ipratropium 3ml neb HHN PRN (17:00)
[2019-11-13] MEDS ORDERED: Morphine Sulfate 4mg/ml Inj (IV USE ONLY) IVP PRN (17:00)
[2019-11-13] MEDS ORDERED: LORazepam Inj 2mg/ml 1ml IV PRN (17:02)
[2019-11-13] MEDS: Levemir Flexpen SUBQ SCH (18:50)
--- NOTE | 2019-11-13 19:38 | NUR ---
NURSE NOTES: Received patient in bed, awake, alert, oriented x4, speaks Occitan, on room air, patient is NPO, has Fisher catheter, secured and intact. IV sites are clean dry and intact, call light is within reach, bed is lowered, locked, alarm is on. Will continue to monitor for comfort and safety.
--- NOTE | 2019-11-13 19:48 | NUR ---
HAND-OFF: Report given to SANTOS Beltre. Addendum: 11/13/19 at 1950 by April Zazueta RN WRONG NURSE. HAND OFF TO SANTOS WOLF (RITA)
--- NOTE | 2019-11-13 20:44 | Consultation ---
DATE OF CONSULTATION: 11/13/2019 ENDOCRINOLOGY CONSULTATION CONSULTING PHYSICIAN: Lorenzo Gay M.D. REFERRING PHYSICIAN: Sang Almaraz M.D. REASON FOR CONSULTATION: Diabetes management. HISTORY OF PRESENT ILLNESS: The patient is a 64-year-old female with history of hypertension, diabetes, peripheral vascular disease, status post left transmetatarsal amputation, presented to the emergency department yesterday with two days of generalized weakness, cough, shortness of breath, and glucose on evaluation more than 800. The patient was found to be in DKA and she underwent COVID-19 evaluation. The patient was started on insulin drip and I was asked for management of diabetes. PAST MEDICAL HISTORY: 1. Diabetes. 2. Hypertension. 3. Peripheral vascular disease. PAST SURGICAL HISTORY: TMA. ALLERGIES TO MEDICATION: Penicillin. MEDICATIONS: Reviewed and reconciled. SOCIAL HISTORY: No smoking, alcohol, or drug use. REVIEW OF SYSTEMS: As per HPI. LABORATORY DATA: WBC 24, hemoglobin 11, hematocrit 34, platelet of 359. Sodium 134, potassium 4, chloride 102, bicarb 18, BUN 88, creatinine 3.6. Lactic acid of 2.1. UA, 1+ ketones. PHYSICAL EXAMINATION: GENERAL: Lethargic. VITAL SIGNS: Pulse is 79, temperature of 98, respiratory rate of 12. HEENT: Pupils are equal and reactive to light. NECK: No JVD. HEART: Regular. LUNGS: Clear. ABDOMEN: Positive bowel sounds. EXTREMITIES: No clubbing, cyanosis, or edema. DIAGNOSES: 1. Lactic acidosis, resolved. 2. Anion gap acidosis, improved. 3. Diabetes, out of control. 4. Acute kidney injury. 5. COVID-19 rule out. PLAN: 1. Discontinue insulin drip. 2. Start Levemir 10 units b.i.d. 3. NovoLog sliding scale highly resistant to scale every 4 hours. 4. Further adjustment according to blood glucose values. 5. Hypoglycemia protocol in order. Thank you, Dr. Almaraz, for the courtesy of this consultation. Lorenzo Gay M.D. DR: SANTOS/MARTHA JOB#: [id number] CC:
--- NOTE | 2019-11-13 23:29 | Internal Med Progress Note ---
Subjective Physician Name Lb Santos Attending Physician Lb Santos MD Current Medications Medications (Trade) Dose Ordered Sig/Arnoldo Route PRN Reason Start Time Stop Time Status Last Admin Dose Admin Acetaminophen (Tylenol) 650 mg Q4H PRN ORAL Fever 11/13/19 16:59 12/12/19 16:58 Albuterol/ Ipratropium (Albuterol/ Ipratropium) 3 ml EVERY 4 HOURS PRN HHN Shortness of Breath 11/13/19 17:00 11/17/19 16:44 Dextrose (Dextrose 50%) 25 ml Q30M PRN IV Hypoglycemia 11/13/19 17:15 02/11/20 10:14 Dextrose (Dextrose 50%) 50 ml Q30M PRN IV Hypoglycemia 11/13/19 17:15 02/11/20 10:14 Heparin Sodium (Porcine) (Heparin 5000 units/ml) 5,000 units EVERY 12 HOURS SUBQ 11/13/19 21:00 12/27/19 20:59 11/13/19 22:21 Insulin Aspart (NovoLOG) Q4H SUBQ 11/13/19 19:00 02/11/20 10:59 11/13/19 23:27 Insulin Detemir (Levemir) 10 units BID SUBQ 11/13/19 18:00 02/11/20 11:29 11/13/19 18:50 Lorazepam (Ativan 2mg/ml 1ml) 2 mg EVERY 2 HOURS PRN IV agitation 11/13/19 17:02 11/19/19 17:01 Meropenem 1 gm/ Sodium Chloride 55 ml @ 110 mls/hr Q12HR IVPB 11/13/19 21:00 11/18/19 13:59 11/13/19 22:19 Morphine Sulfate (Morphine Sulfate) 4 mg EVERY 4 HOURS PRN IVP Severe Pain (Pain Scale 7-10) 11/13/19 17:00 11/19/19 16:44 Ondansetron HCl (Zofran) 4 mg Q6H PRN IVP Nausea & Vomiting 11/13/19 17:03 12/12/19 17:02 Sodium Chloride 1,000 ml @ 250 mls/hr Q4H IV 11/13/19 17:00 12/12/19 12:59 11/13/19 22:19 Allergies: Coded Allergies: PENICILLINS (Unverified Allergy, Unknown, 11/12/19) Subjective awake, responsive, NAD, in ICU. Objective Last Vital Signs Date Time Temp Pulse Resp B/P (MAP) Pulse Ox O2 Delivery O2 Flow Rate FiO2 11/13/19 21:47 Room Air 11/13/19 21:25 71 20 98 21 11/12/19 16:00 98.1 110/61 Laboratory Tests Test 11/13/19 05:10 Prothrombin Time 11.1 SEC (9.30-11.50) Prothromb Time International Ratio 1.0 (0.9-1.1) Activated Partial Thromboplast Time 29 SEC (23-33) Sodium Level 134 MMOL/L (136-145) #L Potassium Level 4.0 MMOL/L (3.5-5.1) Chloride Level 102 MMOL/L (98-107) Carbon Dioxide Level 18 MMOL/L (21-32) L Anion Gap 14 mmol/L (5-15) Blood Urea Nitrogen 88 mg/dL (7-18) H Creatinine 3.6 MG/DL (0.55-1.30) H Estimat Glomerular Filtration Rate 12.8 mL/min (>60) Glucose Level 114 MG/DL (74-106) #H Calcium Level 7.4 MG/DL (8.5-10.1) L Phosphorus Level 2.6 MG/DL (2.5-4.9) Total Bilirubin 0.6 MG/DL (0.2-1.0) Direct Bilirubin 0.3 MG/DL (0.0-0.3) Aspartate Amino Transf (AST/SGOT) 50 U/L (15-37) H Alanine Aminotransferase (ALT/SGPT) 27 U/L (12-78) Alkaline Phosphatase 199 U/L (46-116) H Total Protein 6.5 G/DL (6.4-8.2) Albumin 1.5 G/DL (3.4-5.0) L Microbiology Date/Time Source Procedure Growth Status 11/12/19 13:50 Blood Blood Culture - Preliminary Resulted 11/13/19 03:30 Nasal Nares - Final Complete 11/13/19 03:30 Nasal Nares - Final Complete 11/12/19 14:45 Urine,Clean Catch Urine Culture - Preliminary Gram Negative Christiano Resulted 11/12/19 16:45 Rectum Received Intake and Output 11/12/19 11/13/19 19:00 07:00 Intake Total 1412 ml 1605.0 ml Balance 1412 ml 1605.0 ml Intake Oral 0 ml IV Total 1412 ml 1605.0 ml # Voids 2 # Bowel Movements 1 1 Objective General: No acute distress, awake and alert HEENT: NCAT, sclera anicteric, PERRL, EOMI. Neck: Supple, no significant jugular venous distention, Lungs: Fair inspiratory effort, decrease air at bases, no Wheeze or Rales. Heart: Regular rate and rhythm, normal S1/S2, no murmur. Abdomen: soft, nontender, nondistended. Normoactive bowel sounds. / Rectal: Refused and deferred. Extremities: No Cyanosis , clubbing or edema. Left TMA. Neuro: A&O x 3, Able to move all extremities Skin: warm, no rash. Assessment/Plan Assessment/Plan ASSESSMENT: This is a 64-year-old female. 1. Hyperglycemia. 2. Diabetic ketoacidosis. 3. Diabetes type 2. 4. Hyponatremia. 5. Acute renal failure. 6. Cough. 7. Hypertension. 8. Diabetes type 2. 9. Sepsis due to Acute E. Coli Urinary tract infection. 10.PVD / PAD s/p left TMA. TREATMENT: 1. Urinary tract infection/leukocytosis. Patient has been started empirically on intravenous ceftriaxone. urine culture result noted. 2. Diabetic ketoacidosis. wean off insulin drip. An Endocrinology consultation has been obtained with Dr. Gay. We will follow recommendations of Endocrinology. 3. Cough. COVID-19 test is negative X 1 . We will follow recommendations of Pulmonary. Pulmonary consultation has been obtained with Dr. Kadie Chavarria. 4. Generalized weakness. 5. Renal failure. A Nephrology consultation has been obtained with Dr. Inder Wong. Patient is currently receiving intravenous fluids. Renal failure may be secondary to diabetic ketoacidosis and dehydration. 6. Hyponatremia. Patient is currently receiving normal saline. 7. Diabetes type 2. 8. Hypertension. Patient is currently hypotensive improving. Transfer out of ICU Heparin SQ Monitor Labs and culture. Full code. Lb Santos MD Nov 13, 2019 23:29
[2019-11-14] MEDS: NovoLOG Insulin Flexpen SUBQ SCH ×6 (03:17→23:00)
--- NOTE | 2019-11-14 07:19 | NUR ---
HAND-OFF: Report given to Pritesh GRAHAM.
--- NOTE | 2019-11-14 07:50 | NUR ---
NURSE NOTES: Report received from Cecily GRAHAM. Patient seen on rounds, AxO3-4, Khmer speaking only but able to comprehend simple congolese commands. Not in acute distress, no complaints of pain. PIV on right and left AC patent and intact with no sx of infiltration. Fisher secured and draining well. Bed low and locked, siderails up x2, call light within reach. Advised to call nurse for assistance. Will continue to mionitor.
[2019-11-14] MEDS ORDERED: cefTRIAXone 1 GM in D5W 55 ML IVPB SCH (09:00)
[2019-11-14] MEDS: cefTRIAXone 1 GM in NS 55 ML IVPB SCH (09:00)
[2019-11-14] MEDS: Levemir Flexpen SUBQ SCH ×2 (09:00→17:23)
[2019-11-14] MEDS: Heparin 5000 units/ml inj SUBQ SCH ×2 (09:48→20:39)
--- NOTE | 2019-11-14 10:12 | Infectious Diseases Prog Note ---
Assessment/Plan Assessment/Plan Ceftriaxone 11/11- Assessment: Severe sepsis (transient hypotension) UTI c/w bacteremia -Bcx 2/2 GNR -u/a wbc tnct, nit neg, leuk +3; ucx -CXR: Left basilar atelectasis. No acute process otherwise Cough- r/o COVID19. No PNA on CXR -influenza sc neg Afebrile Leukocytosis DKA Lactic acidosis, SP SARAHI, improving Severe hyponatremia; improving Hyperkalemia, SP HTN Dm2 PVD L TMA PLan: -Continue Ceftriaxone #10/05-14 -f/u cx -Monitor CBC/CMP, temperatures -Bcx x2 -CXR am -COVID19 isolation and testing Thank you for consulting [facility]. Will continue to follow along with you. Discussed with RN. Subjective Allergies: Coded Allergies: PENICILLINS (Unverified Allergy, Unknown, 11/12/19) Subjective Afebrile Satting well on RA WBCs 24 yesterday Urine and blood Cx Pos for GNR Objective Vital Signs Last 24 Hour Vital Signs Date Time Temp Pulse Resp B/P (MAP) Pulse Ox O2 Delivery O2 Flow Rate FiO2 11/13/19 21:47 Room Air 11/13/19 21:25 71 20 98 Room Air 21 11/13/19 16:00 Room Air 11/13/19 12:00 Room Air 11/13/19 12:00 79 Height (Feet): 5 Height (Inches): 2.00 Weight (Pounds): 131 Objective Unable to examine due lack of available PPE Microbiology Date/Time Source Procedure Growth Status 11/12/19 14:05 Blood Blood Culture - Preliminary NO GROWTH AFTER 24 HOURS Resulted 11/12/19 13:50 Blood Blood Culture - Preliminary Gram Negative Christiano Resulted 11/13/19 03:30 Nasal Nares - Final Complete 11/13/19 03:30 Nasal Nares - Final Complete 11/12/19 16:45 Nasal Nares MRSA Culture - Final NO METHICILLIN RESISTANT STAPH AUREUS... Complete 11/12/19 14:45 Nasopharynx Coronavirus COVID-19 PCR (KUNAL) - Final Complete 11/12/19 14:45 Urine,Clean Catch Urine Culture - Final Escherichia Coli Complete 11/12/19 16:45 Rectum - Final NO CARBAPENEM-RESISTANT ENTEROBACTERI... Complete 11/12/19 16:45 Rectum VRE Culture - Final NO VANCOMYCIN RESISTANT ENTEROCOCCUS ... Complete Current Medications Medications (Trade) Dose Ordered Sig/Arnoldo Route PRN Reason Start Time Stop Time Status Last Admin Dose Admin Acetaminophen (Tylenol) 650 mg Q4H PRN ORAL Fever 11/13/19 16:59 12/12/19 16:58 Albuterol/ Ipratropium (Albuterol/ Ipratropium) 3 ml EVERY 4 HOURS PRN HHN Shortness of Breath 11/13/19 17:00 11/17/19 16:44 Ceftriaxone Sodium 1 gm/ Sodium Chloride 55 ml @ 110 mls/hr Q24H IVPB 11/14/19 09:00 11/21/19 08:59 Dextrose (Dextrose 50%) 25 ml Q30M PRN IV Hypoglycemia 11/13/19 17:15 02/11/20 10:14 Dextrose (Dextrose 50%) 50 ml Q30M PRN IV Hypoglycemia 11/13/19 17:15 02/11/20 10:14 Heparin Sodium (Porcine) (Heparin 5000 units/ml) 5,000 units EVERY 12 HOURS SUBQ 11/13/19 21:00 12/27/19 20:59 11/14/19 09:48 Insulin Aspart (NovoLOG) Q4H SUBQ 11/13/19 19:00 02/11/20 10:59 11/14/19 03:17 Insulin Detemir (Levemir) 10 units BID SUBQ 11/13/19 18:00 02/11/20 11:29 11/13/19 18:50 Lorazepam (Ativan 2mg/ml 1ml) 2 mg EVERY 2 HOURS PRN IV agitation 11/13/19 17:02 11/19/19 17:01 Morphine Sulfate (Morphine Sulfate) 4 mg EVERY 4 HOURS PRN IVP Severe Pain (Pain Scale 7-10) 11/13/19 17:00 11/19/19 16:44 Ondansetron HCl (Zofran) 4 mg Q6H PRN IVP Nausea & Vomiting 11/13/19 17:03 12/12/19 17:02 Sodium Chloride 1,000 ml @ 250 mls/hr Q4H IV 11/13/19 17:00 12/12/19 12:59 11/13/19 22:19 Arcadio Barajas MD Nov 14, 2019 10:12
--- NOTE | 2019-11-14 10:45 | Diagnostic Imaging Report ---
EXAM: XR Chest, 1 View CLINICAL HISTORY: COUGH TECHNIQUE: Frontal view of the chest. COMPARISON: Chest x-ray dated 11/12/19 FINDINGS: Lungs: Interval improved aeration in the left lung base with minimal residual atelectasis seen. The lungs otherwise appear clear. Pleural space: Unremarkable. The costophrenic angles are sharp. No visible pneumothorax. Heart: Unremarkable. No cardiomegaly. Mediastinum: Unremarkable. Bones/joints: Unremarkable. Vasculature: Atherosclerotic calcifications are noted within the aortic arch. IMPRESSION: Interval improved aeration in the left lung base with minimal residual atelectasis seen. The lungs otherwise appear clear.
[2019-11-14] MEDS ORDERED: cefTRIAXone 1 GM in NS 55 ML IVPB SCH (11:30)
--- NOTE | 2019-11-14 11:31 | Consultation ---
Consult Note Consult Note I was asked to evaluate the patient at the request of Dr. gaxiola for renal failure Chief Complaint: Generalized Weakness HPI: 64-year-old female history of hypertension, diabetes presents for generalized weakness and cough. She has had cough, shortness of breath and generalized weakness for 2 days. She denies any fevers, nausea, vomiting, sick contacts or recent travel. She denied any pain to me at this time. She states she has been compliant with her insulin. She denies any dysuria hematuria or diarrhea. PMH: Hypertension and diabetes PSH: Reviewed Social Hx: Denies smoking drinking or illicit drug use Allergies: PENICILLINS (Unverified Allergy, Unknown, 11/12/19) COVID-19 Screening Contact w/high risk pt: No Recent Travel to affected area: No Experienced COVID-19 symptoms?: Yes COVID-19 symptoms experienced: Cough Past Medical History: No History, Except For Hx Hypertension: Yes Hx Diabetes: Yes Patient examined Data reviewed Discussed with RN . Assessment/Plan 64-year-old female presents with hyperglycemia and hyponatremia She also have elevated BUN and creatinine Renal impression mainly dehydration Patient may also have underlying chronic kidney disease Patient have evidence of urinary tract infection She is hypoalbuminemic She has underlying anemia Impression: - Hyperglycemia. - Hyponatremia. Mainly due to hyperglycemia - Acute renal failure. Mainly due to dehydration - Hypertension. - Sepsis due to Acute E. Coli Urinary tract infection. - PVD / PAD s/p left TMA. Plan: Monitor renal parameters Monitor electrolytes Keep the blood sugar and blood pressure in check Antibiotics Avoid nephrotoxic's Per orders Inder Wong MD Nov 14, 2019 11:31
[2019-11-14] MEDS ORDERED: HydrALAZINE 25mg tab ORAL PRN (11:45)
--- NOTE | 2019-11-14 11:46 | Internal Med Progress Note ---
Subjective Date of Service: Nov 14, 2019 Physician Name Ramón Bruno Attending Physician Lb Santos MD Current Medications Medications (Trade) Dose Ordered Sig/Arnoldo Route PRN Reason Start Time Stop Time Status Last Admin Dose Admin Acetaminophen (Tylenol) 650 mg Q4H PRN ORAL Fever 11/13/19 16:59 12/12/19 16:58 Albuterol/ Ipratropium (Albuterol/ Ipratropium) 3 ml EVERY 4 HOURS PRN HHN Shortness of Breath 11/13/19 17:00 11/17/19 16:44 Ceftriaxone Sodium 1 gm/ Sodium Chloride 55 ml @ 110 mls/hr ONCE IVPB 11/14/19 11:30 11/14/19 15:30 Ceftriaxone Sodium 1 gm/ Sodium Chloride 55 ml @ 110 mls/hr Q24H IVPB 11/14/19 09:00 11/21/19 08:59 11/14/19 09:00 Dextrose (Dextrose 50%) 25 ml Q30M PRN IV Hypoglycemia 11/13/19 17:15 02/11/20 10:14 Dextrose (Dextrose 50%) 50 ml Q30M PRN IV Hypoglycemia 11/13/19 17:15 02/11/20 10:14 Docusate Sodium (Colace) 100 mg TWICE A DAY ORAL 11/14/19 18:00 12/14/19 17:59 UNV Heparin Sodium (Porcine) (Heparin 5000 units/ml) 5,000 units EVERY 12 HOURS SUBQ 11/13/19 21:00 12/27/19 20:59 11/14/19 09:48 Insulin Aspart (NovoLOG) Q4H SUBQ 11/13/19 19:00 02/11/20 10:59 11/14/19 03:17 Insulin Detemir (Levemir) 10 units BID SUBQ 11/13/19 18:00 02/11/20 11:29 11/14/19 09:00 Lorazepam (Ativan 2mg/ml 1ml) 2 mg EVERY 2 HOURS PRN IV agitation 11/13/19 17:02 11/19/19 17:01 Morphine Sulfate (Morphine Sulfate) 4 mg EVERY 4 HOURS PRN IVP Severe Pain (Pain Scale 7-10) 11/13/19 17:00 11/19/19 16:44 Ondansetron HCl (Zofran) 4 mg Q6H PRN IVP Nausea & Vomiting 11/13/19 17:03 12/12/19 17:02 Pantoprazole (Protonix) 40 mg DAILY ORAL 11/14/19 11:45 12/14/19 11:44 UNV Sodium Chloride 1,000 ml @ 100 mls/hr Q10H IV 11/14/19 11:45 12/14/19 11:44 UNV Allergies: Coded Allergies: PENICILLINS (Unverified Allergy, Unknown, 11/12/19) ROS Limited/Unobtainable: No Constitutional: Reports: no symptoms HEENT: Reports: no symptoms Cardiovascular: Reports: no symptoms Respiratory: Reports: no symptoms Gastrointestinal/Abdominal: Reports: no symptoms Genitourinary: Reports: no symptoms Neurologic/Psychiatric: Reports: no symptoms Subjective 64 YO F admitted with cough and gen weakness. Now UTI and sepsis. Cover for Int Med-Dr Santos. Objective Last Vital Signs Date Time Temp Pulse Resp B/P (MAP) Pulse Ox O2 Delivery O2 Flow Rate FiO2 11/14/19 09:00 Room Air 11/13/19 21:25 71 20 98 21 11/12/19 16:00 98.1 110/61 Microbiology Date/Time Source Procedure Growth Status 11/12/19 14:05 Blood Blood Culture - Preliminary NO GROWTH AFTER 24 HOURS Resulted 11/12/19 13:50 Blood Blood Culture - Preliminary Gram Negative Christiano Resulted 11/13/19 03:30 Nasal Nares - Final Complete 11/13/19 03:30 Nasal Nares - Final Complete 11/12/19 16:45 Nasal Nares MRSA Culture - Final NO METHICILLIN RESISTANT STAPH AUREUS... Complete 11/12/19 14:45 Nasopharynx Coronavirus COVID-19 PCR ([facility]) - Final Complete 11/12/19 14:45 Urine,Clean Catch Urine Culture - Final Escherichia Coli Complete 11/12/19 16:45 Rectum - Final NO CARBAPENEM-RESISTANT ENTEROBACTERI... Complete 11/12/19 16:45 Rectum VRE Culture - Final NO VANCOMYCIN RESISTANT ENTEROCOCCUS ... Complete Intake and Output 11/13/19 11/14/19 19:00 07:00 Intake Total 240 ml Output Total 900 ml Balance -660 ml Intake Oral 240 ml Output Urine Total 900 ml # Voids 1 Objective PHYSICAL EXAMINATION: GENERAL: Patient is a well-developed and well-nourished female, in no apparent distress. HEENT: Eyes, pupils are equal and responsive to light and accommodation. Extraocular movements are intact. NECK: Supple without lymphadenopathy. CHEST: Lungs are clear to auscultation bilaterally without wheezes or rales. CARDIOVASCULAR: Regular rhythm and rate. S1, S2 are normal without murmurs, rubs, or gallops. ABDOMINAL: Soft, nontender, and nondistended. Positive bowel sounds. No evidence of hepatosplenomegaly. Currently, no rebound or guarding noted. EXTREMITIES: Negative for clubbing, cyanosis, or edema. RECTAL/GENITAL: Not performed. NEUROLOGIC: Cranial nerves II through XII are grossly intact without focal deficits. Motor strength is 5/5 bilaterally. Deep tendon reflexes 2+ plantar. Assessment/Plan Assessment/Plan ASSESSMENT: This is a 64-year-old female. 1. Hyperglycemia. 2. Diabetic ketoacidosis. 3. Diabetes type 2. 4. Hyponatremia. 5. Acute renal failure. 6. Cough. 7. Hypertension. 8. Diabetes type 2. 9. Urinary tract infection=E. Coli 10. Sepsis=gram neg christiano TREATMENT: 1. Urinary tract infection=E. Coli ABX=ceftriaxone. 2. Diabetic ketoacidosis. Patient is currently on insulin drip. An Endocrinology consultation has been obtained with Dr. Gay. We will follow recommendations of Endocrinology. 3. Cough. COVID-19=neg X1. A Pulmonary consultation has been obtained with Dr. Kadie Chavarria. 4. Generalized weakness. 5. Renal failure. A Nephrology consultation has been obtained with Dr. Inder Wong. Patient is currently receiving intravenous fluids. Renal failure may be secondary to diabetic ketoacidosis and dehydration. 6. Hyponatremia. Patient is currently receiving normal saline. 7. Diabetes type 2. 8. Hypertension. Patient is currently hypotensive. 9. ABX=ceftriaxone Ramón Bruno MD Nov 14, 2019 11:46
[2019-11-14 13:05] LABS: HEMATOCRIT 29.6 % (37.0-47.0); HEMOGLOBIN 9.9 G/DL (12.0-16.0); MEAN CORPUSCULAR VOLUME 87 FL (80-99); PLATELET COUNT 441 K/UL (150-450); RED CELL DISTRIBUTION WIDTH 12.5 % (11.6-14.8); WHITE BLOOD COUNT 19.7 K/UL (4.8-10.8)
[2019-11-14 13:17] LABS: ANION GAP 13 mmol/L (5-15); BLOOD UREA NITROGEN 82 mg/dL (7-18); CALCIUM 7.4 MG/DL (8.5-10.1); CARBON DIOXIDE 18 MMOL/L (21-32); CHLORIDE 107 MMOL/L (98-107); CREATININE 3.9 MG/DL (0.55-1.30); POTASSIUM 4.4 MMOL/L (3.5-5.1); SODIUM 138 MMOL/L (136-145)
[2019-11-14 13:28] LABS: ALANINE AMINOTRANSFERASE 16 U/L (12-78); ALBUMIN 1.4 G/DL (3.4-5.0); ALBUMIN/GLOBULIN RATIO 0.4 (1.0-2.7); ALKALINE PHOSPHATASE 86 U/L (46-116); ASPARTATE AMINO TRANSFERASE 18 U/L (15-37); BILIRUBIN,TOTAL 0.3 MG/DL (0.2-1.0)
[2019-11-14 16:00] VITALS: BP 102/62
--- NOTE | 2019-11-14 16:45 | NUR ---
NURSE NOTES: Left message with Dr. Barajas re: negative Covid PCR results from swab done on 11/11. Awaiting response.
--- NOTE | 2019-11-14 17:14 | NUR ---
NURSE NOTES: Received orders from Dr. Barajas to D/C Droplet precautions. Patient swab results negative for Covid-19. Also relayed CXR results from today, NNO.
[2019-11-14] MEDS: Docusate 100mg cap ORAL SCH (17:23)
--- NOTE | 2019-11-14 19:19 | NUR ---
HAND-OFF: Report given to Cecily GRAHAM.
--- NOTE | 2019-11-14 19:35 | NUR ---
NURSE NOTES: Received patient in bed, awake, alert, oriented, able to make her needs known, IV sites are clean dry and intact. Call light is within reach, bed is lowered, locked, alarm is on, will continue to monitor for comfort and safety.
[2019-11-14 20:00] VITALS: BP 128/79
[2019-11-15 00:42] VITALS: BP 127/69
[2019-11-15] MEDS: NovoLOG Insulin Flexpen SUBQ SCH ×5 (03:00→21:02)
[2019-11-15 04:00] VITALS: BP 134/74
--- NOTE | 2019-11-15 07:29 | NUR ---
NURSE NOTES: Report received from Cecily GRAHAM. Patient seen on rounds, AxO3-4, Czech speaking only but able to comprehend simple northern irish commands. Not in acute distress, no complaints of pain. PIV on right and left AC patent and intact with no sx of infiltration. Fisher secured and draining well. Bed low and locked, siderails up x2, call light within reach. Advised to call nurse for assistance. Will continue to mionitor.
[2019-11-15 08:00] VITALS: BP 109/61
[2019-11-15] MEDS: Levemir Flexpen SUBQ SCH ×2 (08:13→17:38)
[2019-11-15] MEDS: cefTRIAXone 1 GM in NS 55 ML IVPB SCH (08:13)
[2019-11-15] MEDS: Docusate 100mg cap ORAL SCH ×3 (08:13→17:14)
[2019-11-15] MEDS: Heparin 5000 units/ml inj SUBQ SCH ×2 (08:15→21:04)
--- NOTE | 2019-11-15 09:00 | General Progress Note ---
Assessment/Plan Problem List: (1) Hyponatremia ICD Codes: E87.1 - Hypo-osmolality and hyponatremia SNOMED: 42490127, 01719161 (2) Diabetes mellitus ICD Codes: E11.9 - Type 2 diabetes mellitus without complications SNOMED: 13132990 (3) Toe amputation status ICD Codes: S98.139A - Complete traumatic amputation of one unspecified lesser toe, initial encounter SNOMED: 060757306 (4) Severe hyperglycemia due to diabetes mellitus ICD Codes: E11.65 - Type 2 diabetes mellitus with hyperglycemia SNOMED: 765745661, 38643744 Assessment/Plan: continue Levemir 10 units bid change Novolog every 4 hours to ac / hs add Starlix 60 mg ac tid Subjective Allergies: Coded Allergies: PENICILLINS (Unverified Allergy, Unknown, 11/12/19) All Systems: reviewed and negative except above Subjective events noted glucose values improved Item Value Date Time Bedside Blood Glucose 95 mg/dl 11/15/19 0813 Bedside Blood Glucose 95 mg/dl 11/15/19 0631 Bedside Blood Glucose 135 mg/dl H 11/14/19 2322 Bedside Blood Glucose 196 mg/dl H 11/14/19 1900 Bedside Blood Glucose 196 mg/dl H 11/14/19 1827 Bedside Blood Glucose 209 mg/dl H 11/14/19 1100 Bedside Blood Glucose 114 mg/dl 11/14/19 0900 Objective Last 24 Hour Vital Signs Date Time Temp Pulse Resp B/P (MAP) Pulse Ox O2 Delivery O2 Flow Rate FiO2 11/15/19 07:05 79 20 98 Room Air 21 11/15/19 04:00 97.8 78 18 134/74 (94) 98 78 11/15/19 00:42 97.8 74 18 127/69 (88) 98 11/14/19 21:08 Room Air 11/14/19 20:00 98.7 78 18 128/79 (95) 98 11/14/19 19:54 76 20 98 Room Air 21 11/14/19 16:00 98.5 82 102/62 (75) 96 11/14/19 09:00 Room Air Intake and Output 11/14/19 11/15/19 19:00 07:00 Intake Total 1355 ml Output Total 500 ml Balance 855 ml Intake Oral 600 ml IV Total 755 ml Output Urine Total 500 ml # Bowel Movements 1 Laboratory Tests 11/14/19 12:00: White Blood Count 19.7H, Red Blood Count 3.40L, Hemoglobin 9.9L, Hematocrit 29.6L, Mean Corpuscular Volume 87, Mean Corpuscular Hemoglobin 29.1, Mean Corpuscular Hemoglobin Concent 33.5, Red Cell Distribution Width 12.5, Platelet Count 441, Mean Platelet Volume 4.9L, Neutrophils (%) (Auto) , Lymphocytes (%) ( Auto) , Monocytes (%) (Auto) , Eosinophils (%) (Auto) , Basophils (%) (Auto) , Differential Total Cells Counted 100, Neutrophils % (Manual) 93H, Lymphocytes % (Manual) 4L, Monocytes % (Manual) 3, Eosinophils % (Manual) 0, Basophils % ( Manual) 0, Band Neutrophils 0, Platelet Estimate Adequate, Platelet Morphology Normal, Red Blood Cell Morphology Normal, Sodium Level 138, Potassium Level 4.4 , Chloride Level 107, Carbon Dioxide Level 18L, Anion Gap 13, Blood Urea Nitrogen 82H, Creatinine 3.9H, Estimat Glomerular Filtration Rate 11.6, Glucose Level 152H, Uric Acid 10.2H, Calcium Level 7.4L, Magnesium Level 2.5H, Total Bilirubin 0.3, Aspartate Amino Transf (AST/SGOT) 18, Alanine Aminotransferase ( ALT/SGPT) 16, Alkaline Phosphatase 86, C-Reactive Protein, Quantitative 12.1H, Pro-B-Type Natriuretic Peptide 1786H, Total Protein 5.2L, Albumin 1.4L, Globulin 3.8, Albumin/Globulin Ratio 0.4L Height (Feet): 5 Height (Inches): 2.00 Weight (Pounds): 131 General Appearance: no apparent distress Neck: normal alignment Cardiovascular: normal rate Respiratory/Chest: lungs clear Abdomen: normal bowel sounds Objective Current Medications Medications (Trade) Dose Ordered Sig/Arnoldo Route PRN Reason Start Time Stop Time Status Last Admin Dose Admin Acetaminophen (Tylenol) 650 mg Q4H PRN ORAL Fever 11/13/19 16:59 12/12/19 16:58 11/15/19 06:33 Albuterol/ Ipratropium (Albuterol/ Ipratropium) 3 ml EVERY 4 HOURS PRN HHN Shortness of Breath 11/13/19 17:00 11/17/19 16:44 Ceftriaxone Sodium 1 gm/ Sodium Chloride 55 ml @ 110 mls/hr Q24H IVPB 11/14/19 09:00 11/21/19 08:59 11/15/19 08:13 Dextrose (Dextrose 50%) 25 ml Q30M PRN IV Hypoglycemia 11/13/19 17:15 02/11/20 10:14 Dextrose (Dextrose 50%) 50 ml Q30M PRN IV Hypoglycemia 11/13/19 17:15 02/11/20 10:14 Docusate Sodium (Colace) 100 mg TWICE A DAY ORAL 11/14/19 18:00 12/14/19 17:59 11/15/19 08:13 Heparin Sodium (Porcine) (Heparin 5000 units/ml) 5,000 units EVERY 12 HOURS SUBQ 11/13/19 21:00 12/27/19 20:59 11/15/19 08:15 Hydralazine HCl (Apresoline) 25 mg Q4H PRN ORAL Blood pressure over 160 systol 11/14/19 11:45 02/12/20 11:44 Insulin Aspart (NovoLOG) Q4H SUBQ 11/13/19 19:00 02/11/20 10:59 11/14/19 18:27 Insulin Detemir (Levemir) 10 units BID SUBQ 11/13/19 18:00 02/11/20 11:29 11/14/19 17:23 Lorazepam (Ativan 2mg/ml 1ml) 2 mg EVERY 2 HOURS PRN IV agitation 11/13/19 17:02 11/19/19 17:01 Morphine Sulfate (Morphine Sulfate) 4 mg EVERY 4 HOURS PRN IVP Severe Pain (Pain Scale 7-10) 11/13/19 17:00 11/19/19 16:44 Ondansetron HCl (Zofran) 4 mg Q6H PRN IVP Nausea & Vomiting 11/13/19 17:03 12/12/19 17:02 Pantoprazole (Protonix) 40 mg DAILY ORAL 11/14/19 11:45 12/14/19 11:44 11/15/19 08:13 Sodium Chloride 1,000 ml @ 100 mls/hr Q10H IV 11/14/19 12:00 12/14/19 11:59 11/14/19 20:38 Lorenzo Gay MD Nov 15, 2019 09:00
[2019-11-15 09:11] LABS: HEMOGLOBIN 9.8 G/DL (12.0-16.0); MEAN CORPUSCULAR VOLUME 87 FL (80-99); PLATELET COUNT 416 K/UL (150-450); RED BLOOD COUNT 3.33 M/UL (4.20-5.40); RED CELL DISTRIBUTION WIDTH 12.5 % (11.6-14.8)
[2019-11-15 09:23] LABS: CREATINE KINASE 11 U/L (26-308); LACTATE DEHYDROGENASE 132 U/L (81-234)
[2019-11-15 09:24] LABS: GAMMA GLUTAMYL TRANSPEPTIDASE 19 U/L (5-85)
[2019-11-15 09:35] LABS: IRON 22 ug/dL (50-175); TOTAL IRON BINDING CAPACITY 113 ug/dL (250-450)
[2019-11-15 09:36] LABS: % IRON SATURATION 19 % (15-50)
--- NOTE | 2019-11-15 10:01 | Nephrology Progress Note ---
Assessment/Plan Problem List: (1) Diabetic nephropathy (2) Renal failure (ARF), acute on chronic (3) Severe hyperglycemia due to diabetes mellitus (4) Dehydration (5) Hypotension due to hypovolemia (6) Hyponatremia (7) UTI (urinary tract infection) Assessment 64-year-old female presents with hyperglycemia and hyponatremia She also have elevated BUN and creatinine Renal impression mainly dehydration Patient may also have underlying chronic kidney disease Patient have evidence of urinary tract infection She is hypoalbuminemic She has underlying anemia Impression: - Hyperglycemia. - Hyponatremia. Mainly due to hyperglycemia - Acute renal failure. Mainly due to dehydration - Hypertension. - Sepsis due to Acute E. Coli Urinary tract infection. - PVD / PAD s/p left TMA. Plan Monitor renal parameters Monitor electrolytes Keep the blood sugar and blood pressure in check Antibiotics Avoid nephrotoxic's 2D echocardiogram Kidney ultrasound Per orders Subjective ROS Limited/Unobtainable: No Constitutional: Reports: malaise Objective Objective Last 24 Hour Vital Signs Date Time Temp Pulse Resp B/P (MAP) Pulse Ox O2 Delivery O2 Flow Rate FiO2 11/15/19 09:00 Room Air 11/15/19 08:00 97.7 83 18 109/61 (77) 97 11/15/19 07:05 79 20 98 Room Air 21 11/15/19 04:00 97.8 78 18 134/74 (94) 98 78 11/15/19 00:42 97.8 74 18 127/69 (88) 98 11/14/19 21:08 Room Air 11/14/19 20:00 98.7 78 18 128/79 (95) 98 11/14/19 19:54 76 20 98 Room Air 21 11/14/19 16:00 98.5 82 102/62 (75) 96 Intake and Output 11/14/19 11/15/19 19:00 07:00 Intake Total 1355 ml Output Total 500 ml Balance 855 ml Intake Oral 600 ml IV Total 755 ml Output Urine Total 500 ml # Bowel Movements 1 Laboratory Tests 11/14/19 12:00: White Blood Count 19.7H, Red Blood Count 3.40L, Hemoglobin 9.9L, Hematocrit 29.6L, Mean Corpuscular Volume 87, Mean Corpuscular Hemoglobin 29.1, Mean Corpuscular Hemoglobin Concent 33.5, Red Cell Distribution Width 12.5, Platelet Count 441, Mean Platelet Volume 4.9L, Neutrophils (%) (Auto) , Lymphocytes (%) ( Auto) , Monocytes (%) (Auto) , Eosinophils (%) (Auto) , Basophils (%) (Auto) , Differential Total Cells Counted 100, Neutrophils % (Manual) 93H, Lymphocytes % (Manual) 4L, Monocytes % (Manual) 3, Eosinophils % (Manual) 0, Basophils % ( Manual) 0, Band Neutrophils 0, Platelet Estimate Adequate, Platelet Morphology Normal, Red Blood Cell Morphology Normal, Sodium Level 138, Potassium Level 4.4 , Chloride Level 107, Carbon Dioxide Level 18L, Anion Gap 13, Blood Urea Nitrogen 82H, Creatinine 3.9H, Estimat Glomerular Filtration Rate 11.6, Glucose Level 152H, Uric Acid 10.2H, Calcium Level 7.4L, Magnesium Level 2.5H, Total Bilirubin 0.3, Aspartate Amino Transf (AST/SGOT) 18, Alanine Aminotransferase ( ALT/SGPT) 16, Alkaline Phosphatase 86, C-Reactive Protein, Quantitative 12.1H, Pro-B-Type Natriuretic Peptide 1786H, Total Protein 5.2L, Albumin 1.4L, Globulin 3.8, Albumin/Globulin Ratio 0.4L 11/15/19 07:08: White Blood Count 15.0H, Red Blood Count 3.33L, Hemoglobin 9.8L, Hematocrit 29.0L, Mean Corpuscular Volume 87, Mean Corpuscular Hemoglobin 29.4, Mean Corpuscular Hemoglobin Concent 33.8, Red Cell Distribution Width 12.5, Platelet Count 416, Mean Platelet Volume 4.9L, Neutrophils (%) (Auto) , Lymphocytes (%) ( Auto) , Monocytes (%) (Auto) , Eosinophils (%) (Auto) , Basophils (%) (Auto) , Neutrophils % (Manual) [Pending], Lymphocytes % (Manual) [Pending], Platelet Estimate [Pending], Platelet Morphology [Pending], Sodium Level [Pending], Potassium Level [Pending], Chloride Level [Pending], Carbon Dioxide Level [ Pending], Blood Urea Nitrogen [Pending], Creatinine [Pending], Estimat Glomerular Filtration Rate [Pending], Glucose Level [Pending], Calcium Level [ Pending], Magnesium Level [Pending], Total Bilirubin [Pending], Aspartate Amino Transf (AST/SGOT) [Pending], Alanine Aminotransferase (ALT/SGPT) [Pending], Alkaline Phosphatase [Pending], C-Reactive Protein, Quantitative 8.5H, Pro-B- Type Natriuretic Peptide [Pending], Total Protein [Pending], Albumin [Pending], Globulin [Pending], D-Dimer 4.50H, Hemoglobin A1c [Pending], Phosphorus Level [ Pending], Iron Level 22L, Total Iron Binding Capacity 113L, Percent Iron Saturation 19, Unsaturated Iron Binding 91L, Ferritin [Pending], Gamma Glutamyl Transpeptidase 19, Lactate Dehydrogenase 132, Total Creatine Kinase 11L, Triglycerides Level [Pending], Cholesterol Level [Pending], LDL Cholesterol [ Pending], HDL Cholesterol [Pending], Cholesterol/HDL Ratio [Pending], Vitamin B12 Level [Pending], Folate [Pending], Thyroid Stimulating Hormone (TSH) [ Pending] Height (Feet): 5 Height (Inches): 2.00 Weight (Pounds): 131 General Appearance: no apparent distress Cardiovascular: normal rate Respiratory/Chest: decreased breath sounds Abdomen: distended Inder Wong MD Nov 15, 2019 10:01
[2019-11-15 10:20] LABS: ALANINE AMINOTRANSFERASE 16 U/L (12-78); ALBUMIN 1.4 G/DL (3.4-5.0); ALBUMIN/GLOBULIN RATIO 0.4 (1.0-2.7); ALKALINE PHOSPHATASE 77 U/L (46-116); ANION GAP 16 mmol/L (5-15); ASPARTATE AMINO TRANSFERASE 14 U/L (15-37); BILIRUBIN,TOTAL 0.2 MG/DL (0.2-1.0); BLOOD UREA NITROGEN 75 mg/dL (7-18); CALCIUM 7.2 MG/DL (8.5-10.1); CARBON DIOXIDE 15 MMOL/L (21-32); CHLORIDE 107 MMOL/L (98-107); CHOLESTEROL 125 MG/DL (< 200); CREATININE 3.7 MG/DL (0.55-1.30); FERRITIN 436 NG/ML (8-388); HDL CHOLESTEROL 16 MG/DL (40-60); PHOSPHORUS 5.1 MG/DL (2.5-4.9); POTASSIUM 4.6 MMOL/L (3.5-5.1); SODIUM 138 MMOL/L (136-145); TRIGLYCERIDES 229 MG/DL (30-150)
[2019-11-15] MEDS: Nateglinide 60mg tab ORAL SCH ×2 (11:47→17:14)
[2019-11-15 12:09] VITALS: BP 135/80
--- NOTE | 2019-11-15 14:32 | Internal Med Progress Note ---
Subjective Date of Service: Nov 15, 2019 Physician Name Ramón Bruno Attending Physician Lb Santos MD Current Medications Medications (Trade) Dose Ordered Sig/Arnoldo Route PRN Reason Start Time Stop Time Status Last Admin Dose Admin Acetaminophen (Tylenol) 650 mg Q4H PRN ORAL Fever 11/13/19 16:59 12/12/19 16:58 11/15/19 06:33 Albuterol/ Ipratropium (Albuterol/ Ipratropium) 3 ml EVERY 4 HOURS PRN HHN Shortness of Breath 11/13/19 17:00 11/17/19 16:44 Ceftriaxone Sodium 1 gm/ Sodium Chloride 55 ml @ 110 mls/hr Q24H IVPB 11/14/19 09:00 11/21/19 08:59 11/15/19 08:13 Dextrose (Dextrose 50%) 25 ml Q30M PRN IV Hypoglycemia 11/13/19 17:15 02/11/20 10:14 Dextrose (Dextrose 50%) 50 ml Q30M PRN IV Hypoglycemia 11/13/19 17:15 02/11/20 10:14 Docusate Sodium (Colace) 100 mg TID ORAL 11/15/19 13:00 12/14/19 17:59 Heparin Sodium (Porcine) (Heparin 5000 units/ml) 5,000 units EVERY 12 HOURS SUBQ 11/13/19 21:00 12/27/19 20:59 11/15/19 08:15 Hydralazine HCl (Apresoline) 25 mg Q4H PRN ORAL Blood pressure over 160 systol 11/14/19 11:45 02/12/20 11:44 Insulin Aspart (NovoLOG) AC+HS SUBQ 11/15/19 11:30 02/11/20 10:59 11/15/19 11:49 Insulin Detemir (Levemir) 10 units BID SUBQ 11/13/19 18:00 02/11/20 11:29 11/14/19 17:23 Lorazepam (Ativan 2mg/ml 1ml) 2 mg EVERY 2 HOURS PRN IV agitation 11/13/19 17:02 11/19/19 17:01 Morphine Sulfate (Morphine Sulfate) 4 mg EVERY 4 HOURS PRN IVP Severe Pain (Pain Scale 7-10) 11/13/19 17:00 11/19/19 16:44 Nateglinide (Starlix) 60 mg TIAC ORAL 11/15/19 11:30 12/15/19 11:29 11/15/19 11:47 Ondansetron HCl (Zofran) 4 mg Q6H PRN IVP Nausea & Vomiting 11/13/19 17:03 12/12/19 17:02 Pantoprazole (Protonix) 40 mg BID ORAL 11/15/19 18:00 12/14/19 11:44 Sodium Chloride 1,000 ml @ 100 mls/hr Q10H IV 11/14/19 12:00 12/14/19 11:59 11/14/19 20:38 Allergies: Coded Allergies: PENICILLINS (Unverified Allergy, Unknown, 11/12/19) ROS Limited/Unobtainable: No Constitutional: Reports: no symptoms HEENT: Reports: no symptoms Cardiovascular: Reports: no symptoms Respiratory: Reports: no symptoms Gastrointestinal/Abdominal: Reports: no symptoms Genitourinary: Reports: no symptoms Neurologic/Psychiatric: Reports: no symptoms Subjective 64 YO F admitted with cough and gen weakness. Now UTI and sepsis. Cover for Int Med-Dr Santos. Objective Last Vital Signs Date Time Temp Pulse Resp B/P (MAP) Pulse Ox O2 Delivery O2 Flow Rate FiO2 11/15/19 12:09 98.2 70 18 135/80 (98) 93 11/15/19 09:00 Room Air 11/15/19 07:05 21 Laboratory Tests Test 11/15/19 07:08 11/15/19 11:00 White Blood Count 15.0 K/UL (4.8-10.8) H Red Blood Count 3.33 M/UL (4.20-5.40) L Hemoglobin 9.8 G/DL (12.0-16.0) L Hematocrit 29.0 % (37.0-47.0) L Mean Corpuscular Volume 87 FL (80-99) Mean Corpuscular Hemoglobin 29.4 PG (27.0-31.0) Mean Corpuscular Hemoglobin Concent 33.8 G/DL (32.0-36.0) Red Cell Distribution Width 12.5 % (11.6-14.8) Platelet Count 416 K/UL (150-450) Mean Platelet Volume 4.9 FL (6.5-10.1) L Neutrophils (%) (Auto) % (45.0-75.0) Lymphocytes (%) (Auto) % (20.0-45.0) Monocytes (%) (Auto) % (1.0-10.0) Eosinophils (%) (Auto) % (0.0-3.0) Basophils (%) (Auto) % (0.0-2.0) Differential Total Cells Counted 100 Neutrophils % (Manual) 83 % (45-75) H Lymphocytes % (Manual) 12 % (20-45) L Monocytes % (Manual) 5 % (1-10) Eosinophils % (Manual) 0 % (0-3) Basophils % (Manual) 0 % (0-2) Band Neutrophils 0 % (0-8) Platelet Estimate Adequate Platelet Morphology Normal Hypochromasia 1+ D-Dimer 4.50 mg/L FEU (0.00-0.49) H Sodium Level 138 MMOL/L (136-145) Potassium Level 4.6 MMOL/L (3.5-5.1) Chloride Level 107 MMOL/L (98-107) Carbon Dioxide Level 15 MMOL/L (21-32) L Anion Gap 16 mmol/L (5-15) H Blood Urea Nitrogen 75 mg/dL (7-18) H Creatinine 3.7 MG/DL (0.55-1.30) H Estimat Glomerular Filtration Rate 12.4 mL/min (>60) Glucose Level 134 MG/DL (74-106) H Hemoglobin A1c 12.4 % (4.3-6.0) H Calcium Level 7.2 MG/DL (8.5-10.1) L Phosphorus Level 5.1 MG/DL (2.5-4.9) H Magnesium Level 2.4 MG/DL (1.8-2.4) Iron Level 22 ug/dL (50-175) L Total Iron Binding Capacity 113 ug/dL (250-450) L Percent Iron Saturation 19 % (15-50) Unsaturated Iron Binding 91 ug/dL (112-346) L Ferritin 436 NG/ML (8-388) H Total Bilirubin 0.2 MG/DL (0.2-1.0) Gamma Glutamyl Transpeptidase 19 U/L (5-85) Aspartate Amino Transf (AST/SGOT) 14 U/L (15-37) L Alanine Aminotransferase (ALT/SGPT) 16 U/L (12-78) Alkaline Phosphatase 77 U/L (46-116) Lactate Dehydrogenase 132 U/L (81-234) Total Creatine Kinase 11 U/L (26-308) L C-Reactive Protein, Quantitative 8.5 mg/dL (0.00-0.90) H Pro-B-Type Natriuretic Peptide 1837 pg/mL (0-125) H Total Protein 4.7 G/DL (6.4-8.2) L Albumin 1.4 G/DL (3.4-5.0) L Globulin 3.3 g/dL Albumin/Globulin Ratio 0.4 (1.0-2.7) L Triglycerides Level 229 MG/DL (30-150) H Cholesterol Level 125 MG/DL (< 200) LDL Cholesterol 64 mg/dL (<100) HDL Cholesterol 16 MG/DL (40-60) L Cholesterol/HDL Ratio 7.8 (3.3-4.4) H Vitamin B12 Level > 2000 PG/ML (193-986) H Folate 15.1 NG/ML (8.6-58.9) Thyroid Stimulating Hormone (TSH) 1.483 uiU/mL (0.358-3.740) Urine Random Sodium 51 mmol/L (20-110) Microbiology Date/Time Source Procedure Growth Status 11/13/19 16:00 Blood Blood Culture - Preliminary NO GROWTH AFTER 24 HOURS Resulted 11/13/19 15:50 Blood Blood Culture - Preliminary NO GROWTH AFTER 24 HOURS Resulted 11/13/19 03:30 Nasal Nares - Final Complete 11/13/19 03:30 Nasal Nares - Final Complete 11/12/19 16:45 Nasal Nares MRSA Culture - Final NO METHICILLIN RESISTANT STAPH AUREUS... Complete 11/12/19 14:45 Nasopharynx Coronavirus COVID-19 PCR ([facility]) - Final Complete 11/12/19 14:45 Urine,Clean Catch Urine Culture - Final Escherichia Coli Complete 11/12/19 16:45 Rectum - Final NO CARBAPENEM-RESISTANT ENTEROBACTERI... Complete 11/12/19 16:45 Rectum VRE Culture - Final NO VANCOMYCIN RESISTANT ENTEROCOCCUS ... Complete Intake and Output 11/14/19 11/15/19 19:00 07:00 Intake Total 1355 ml 100 ml Output Total 500 ml Balance 855 ml 100 ml Intake Oral 600 ml IV Total 755 ml 100 ml Output Urine Total 500 ml # Bowel Movements 1 Objective PHYSICAL EXAMINATION: GENERAL: Patient is a well-developed and well-nourished female, in no apparent distress. HEENT: Eyes, pupils are equal and responsive to light and accommodation. Extraocular movements are intact. NECK: Supple without lymphadenopathy. CHEST: Lungs are clear to auscultation bilaterally without wheezes or rales. CARDIOVASCULAR: Regular rhythm and rate. S1, S2 are normal without murmurs, rubs, or gallops. ABDOMINAL: Soft, nontender, and nondistended. Positive bowel sounds. No evidence of hepatosplenomegaly. Currently, no rebound or guarding noted. EXTREMITIES: Negative for clubbing, cyanosis, or edema. RECTAL/GENITAL: Not performed. NEUROLOGIC: Cranial nerves II through XII are grossly intact without focal deficits. Motor strength is 5/5 bilaterally. Deep tendon reflexes 2+ plantar. Assessment/Plan Assessment/Plan ASSESSMENT: This is a 64-year-old female. 1. Hyperglycemia. 2. Diabetic ketoacidosis. 3. Diabetes type 2. 4. Hyponatremia. 5. Acute renal failure. 6. Cough. 7. Hypertension. 8. Diabetes type 2. 9. Urinary tract infection=E. Coli 10. Sepsis=gram neg alesia TREATMENT: 1. Urinary tract infection=E. Coli ABX=ceftriaxone. 2. Diabetic ketoacidosis. Patient is currently off insulin drip. An Endocrinology consultation has been obtained with Dr. Gay. Continue levemir and novolog sliding scale per endocrinology 3. Cough. COVID-19=neg X1. A Pulmonary consultation has been obtained with Dr. Kadie Chavarria. 4. Generalized weakness. 5. Renal failure. A Nephrology consultation has been obtained with Dr. Inder Wong. Patient is currently receiving intravenous fluids. Renal failure may be secondary to diabetic ketoacidosis and dehydration. 6. Hyponatremia. Patient is currently receiving normal saline. 7. Diabetes type 2. 8. Hypertension. Patient is currently hypotensive. 9. ABX=ceftriaxone Ramón Bruno MD Nov 15, 2019 14:32
--- NOTE | 2019-11-15 15:26 | NUR ---
NURSE NOTES: Patient transferred to room 321-1 in stable condition.
--- NOTE | 2019-11-15 15:27 | NUR ---
HAND-OFF: Report given to SANTOS Mendenhall. Patients belongings accounted for and sent with patient.
--- NOTE | 2019-11-15 15:30 | NUR ---
NURSE NOTES: Pt transferred to unit from via bed. Received report from SANTOS Pearce. Pt awake and alert. Liberian speaking. No acute distress noted. All belonging are accounted for. IV site intact and patent. Fisher cath intact and draining. Call light within reach, Bed in lowest position and locked. 2 side rails up.
[2019-11-15 16:00] VITALS: BP 130/66
--- NOTE | 2019-11-15 19:34 | NUR ---
HAND-OFF: Report given to SANTOS Smiley.
--- NOTE | 2019-11-15 19:40 | NUR ---
NURSE NOTES: Received report from SANTOS Mendenhall. Patient in stable condition.
[2019-11-15 20:00] VITALS: BP 133/65
[2019-11-16] VITALS: BP 119/68
[2019-11-16 04:00] VITALS: BP 119/65
[2019-11-16] MEDS: Nateglinide 60mg tab ORAL SCH (06:06)
[2019-11-16] MEDS: NovoLOG Insulin Flexpen SUBQ SCH ×4 (06:14→22:07)
[2019-11-16 07:03] LABS: ANION GAP 12 mmol/L (5-15); BLOOD UREA NITROGEN 65 mg/dL (7-18); CALCIUM 7.6 MG/DL (8.5-10.1); CARBON DIOXIDE 16 MMOL/L (21-32); CHLORIDE 109 MMOL/L (98-107); CREATININE 3.5 MG/DL (0.55-1.30); POTASSIUM 4.6 MMOL/L (3.5-5.1); SODIUM 137 MMOL/L (136-145)
[2019-11-16 07:19] LABS: BASOPHILS % (AUTO) 0.6 % (0.0-2.0); EOSINOPHILS % (AUTO) 0.5 % (0.0-3.0); HEMATOCRIT 28.3 % (37.0-47.0); HEMOGLOBIN 9.6 G/DL (12.0-16.0); LYMPHOCYTES % (AUTO) 7.7 % (20.0-45.0); MEAN CORPUSCULAR VOLUME 87 FL (80-99); MONOCYTES % (AUTO) 6.7 % (1.0-10.0); NEUTROPHILS % (AUTO) 84.4 % (45.0-75.0); PLATELET COUNT 423 K/UL (150-450); RED BLOOD COUNT 3.26 M/UL (4.20-5.40); RED CELL DISTRIBUTION WIDTH 12.3 % (11.6-14.8); WHITE BLOOD COUNT 14.3 K/UL (4.8-10.8)
[2019-11-16 08:00] VITALS: BP 123/65
--- NOTE | 2019-11-16 08:00 | NUR ---
NURSE NOTES: Received report from karrie GRAHAM, pt a/a/o x4 laying in bed with no signs of distress or other issues at this time. IV on the Left FA gauge#22 running NS@100ml/hr. no skin issues, except for the left toe amputate. RN will call MD to request PT eval. call light within reach, bed in lowest position. side rales up x2. I will f/u as needed.
--- NOTE | 2019-11-16 08:00 | NUR ---
HAND-OFF: Report given to SANTOS Wilson. Patient in stable condition .
--- NOTE | 2019-11-16 08:14 | General Progress Note ---
Assessment/Plan Problem List: (1) Hyponatremia ICD Codes: E87.1 - Hypo-osmolality and hyponatremia SNOMED: 36741535, 00021684 (2) Diabetes mellitus ICD Codes: E11.9 - Type 2 diabetes mellitus without complications SNOMED: 73228716 (3) Toe amputation status ICD Codes: S98.139A - Complete traumatic amputation of one unspecified lesser toe, initial encounter SNOMED: 815849138 (4) Severe hyperglycemia due to diabetes mellitus ICD Codes: E11.65 - Type 2 diabetes mellitus with hyperglycemia SNOMED: 273761715, 39043390 Assessment/Plan: continue Levemir 10 units bid increase Starlix to 120 mg ac tid continue Novolog sliding scale ac / hs Subjective Allergies: Coded Allergies: PENICILLINS (Unverified Allergy, Unknown, 11/12/19) Subjective events noted mealtime glucose is elevated Item Value Date Time Bedside Blood Glucose 167 mg/dl H 11/16/19 0630 Bedside Blood Glucose 225 mg/dl H 11/15/19 2102 Bedside Blood Glucose 245 mg/dl H 11/15/19 1738 Bedside Blood Glucose 239 mg/dl H 11/15/19 1149 Bedside Blood Glucose 95 mg/dl 11/15/19 0813 Bedside Blood Glucose 95 mg/dl 11/15/19 0631 Objective Last 24 Hour Vital Signs Date Time Temp Pulse Resp B/P (MAP) Pulse Ox O2 Delivery O2 Flow Rate FiO2 11/16/19 04:00 97.6 81 16 119/65 (83) 99 11/16/19 00:00 98.4 85 17 119/68 (85) 97 11/15/19 21:00 Room Air 11/15/19 20:00 98.2 89 17 133/65 (87) 98 11/15/19 16:00 98.1 70 18 130/66 (87) 95 11/15/19 12:09 98.2 70 18 135/80 (98) 93 11/15/19 09:00 Room Air Intake and Output 11/15/19 11/16/19 19:00 07:00 Intake Total 805 ml 100 ml Output Total 600 ml 1000 ml Balance 205 ml -900 ml Intake Oral 150 ml 100 ml IV Total 655 ml Output Urine Total 600 ml 1000 ml Laboratory Tests 11/15/19 11:00: Urine Random Sodium 51 11/16/19 05:45: White Blood Count 14.3H, Red Blood Count 3.26L, Hemoglobin 9.6L, Hematocrit 28.3L, Mean Corpuscular Volume 87, Mean Corpuscular Hemoglobin 29.5, Mean Corpuscular Hemoglobin Concent 34.1, Red Cell Distribution Width 12.3, Platelet Count 423, Mean Platelet Volume 4.6L, Neutrophils (%) (Auto) 84.4H, Lymphocytes (%) (Auto) 7.7L, Monocytes (%) (Auto) 6.7, Eosinophils (%) (Auto) 0.5, Basophils (%) (Auto) 0.6, Sodium Level 137, Potassium Level 4.6, Chloride Level 109H, Carbon Dioxide Level 16L, Anion Gap 12, Blood Urea Nitrogen 65H, Creatinine 3.5H, Estimat Glomerular Filtration Rate 13.2, Glucose Level 101, Calcium Level 7.6L Height (Feet): 5 Height (Inches): 2.00 Weight (Pounds): 131 General Appearance: no apparent distress Neck: normal alignment Cardiovascular: normal rate Respiratory/Chest: lungs clear Abdomen: normal bowel sounds Pelvis: normal external exam Objective Current Medications Medications (Trade) Dose Ordered Sig/Arnoldo Route PRN Reason Start Time Stop Time Status Last Admin Dose Admin Acetaminophen (Tylenol) 650 mg Q4H PRN ORAL Fever 11/13/19 16:59 12/12/19 16:58 11/15/19 06:33 Albuterol/ Ipratropium (Albuterol/ Ipratropium) 3 ml EVERY 4 HOURS PRN HHN Shortness of Breath 11/13/19 17:00 11/17/19 16:44 Ceftriaxone Sodium 1 gm/ Sodium Chloride 55 ml @ 110 mls/hr Q24H IVPB 11/14/19 09:00 11/21/19 08:59 11/15/19 08:13 Dextrose (Dextrose 50%) 25 ml Q30M PRN IV Hypoglycemia 11/13/19 17:15 02/11/20 10:14 Dextrose (Dextrose 50%) 50 ml Q30M PRN IV Hypoglycemia 11/13/19 17:15 02/11/20 10:14 Docusate Sodium (Colace) 100 mg TID ORAL 11/15/19 13:00 12/14/19 17:59 11/15/19 17:14 Heparin Sodium (Porcine) (Heparin 5000 units/ml) 5,000 units EVERY 12 HOURS SUBQ 11/13/19 21:00 12/27/19 20:59 11/15/19 21:04 Hydralazine HCl (Apresoline) 25 mg Q4H PRN ORAL Blood pressure over 160 systol 11/14/19 11:45 02/12/20 11:44 Insulin Aspart (NovoLOG) AC+HS SUBQ 11/15/19 11:30 02/11/20 10:59 11/16/19 06:14 Insulin Detemir (Levemir) 10 units BID SUBQ 11/13/19 18:00 02/11/20 11:29 11/15/19 17:38 Lorazepam (Ativan 2mg/ml 1ml) 2 mg EVERY 2 HOURS PRN IV agitation 11/13/19 17:02 11/19/19 17:01 Morphine Sulfate (Morphine Sulfate) 4 mg EVERY 4 HOURS PRN IVP Severe Pain (Pain Scale 7-10) 11/13/19 17:00 11/19/19 16:44 Nateglinide (Starlix) 60 mg TIAC ORAL 11/15/19 11:30 12/15/19 11:29 11/16/19 06:06 Ondansetron HCl (Zofran) 4 mg Q6H PRN IVP Nausea & Vomiting 11/13/19 17:03 12/12/19 17:02 Pantoprazole (Protonix) 40 mg BID ORAL 11/15/19 18:00 12/14/19 11:44 11/15/19 17:14 Sodium Chloride 1,000 ml @ 100 mls/hr Q10H IV 11/14/19 12:00 12/14/19 11:59 11/16/19 03:31 Lorenzo Gay MD Nov 16, 2019 08:14
[2019-11-16] MEDS: Docusate 100mg cap ORAL SCH ×3 (08:56→18:13)
[2019-11-16] MEDS: Heparin 5000 units/ml inj SUBQ SCH ×2 (08:57→22:59)
[2019-11-16] MEDS: cefTRIAXone 1 GM in NS 55 ML IVPB SCH (08:58)
[2019-11-16] MEDS: Levemir Flexpen SUBQ SCH ×2 (08:59→18:13)
--- NOTE | 2019-11-16 10:30 | Nephrology Progress Note ---
Assessment/Plan Problem List: (1) Diabetic nephropathy (2) Renal failure (ARF), acute on chronic (3) Severe hyperglycemia due to diabetes mellitus (4) Dehydration (5) Hypotension due to hypovolemia (6) Hyponatremia (7) UTI (urinary tract infection) Assessment 64-year-old female presents with hyperglycemia and hyponatremia She also have elevated BUN and creatinine Renal impression mainly dehydration Patient may also have underlying chronic kidney disease Patient have evidence of urinary tract infection She is hypoalbuminemic She has underlying anemia Impression: - Hyperglycemia. - Hyponatremia. Mainly due to hyperglycemia - Acute renal failure. Mainly due to dehydration - Hypertension. - Sepsis due to Acute E. Coli Urinary tract infection. - PVD / PAD s/p left TMA. Plan Monitor renal parameters Monitor electrolytes Keep the blood sugar and blood pressure in check Antibiotics Avoid nephrotoxic's Start fish oil for high triglycerides 2D echocardiogram ejection fraction 65% Kidney ultrasound results pending Per orders Subjective ROS Limited/Unobtainable: No Constitutional: Reports: malaise, weakness Objective Objective Last 24 Hour Vital Signs Date Time Temp Pulse Resp B/P (MAP) Pulse Ox O2 Delivery O2 Flow Rate FiO2 11/16/19 08:00 98.1 83 18 123/65 (84) 99 11/16/19 07:00 83 20 99 Room Air 21 11/16/19 04:00 97.6 81 16 119/65 (83) 99 11/16/19 00:00 98.4 85 17 119/68 (85) 97 11/15/19 21:00 Room Air 11/15/19 20:00 98.2 89 17 133/65 (87) 98 11/15/19 16:00 98.1 70 18 130/66 (87) 95 11/15/19 12:09 98.2 70 18 135/80 (98) 93 Intake and Output 11/15/19 11/16/19 19:00 07:00 Intake Total 805 ml 100 ml Output Total 600 ml 1000 ml Balance 205 ml -900 ml Intake Oral 150 ml 100 ml IV Total 655 ml Output Urine Total 600 ml 1000 ml Laboratory Tests 11/15/19 11:00: Urine Random Sodium 51 11/16/19 05:45: White Blood Count 14.3H, Red Blood Count 3.26L, Hemoglobin 9.6L, Hematocrit 28.3L, Mean Corpuscular Volume 87, Mean Corpuscular Hemoglobin 29.5, Mean Corpuscular Hemoglobin Concent 34.1, Red Cell Distribution Width 12.3, Platelet Count 423, Mean Platelet Volume 4.6L, Neutrophils (%) (Auto) 84.4H, Lymphocytes (%) (Auto) 7.7L, Monocytes (%) (Auto) 6.7, Eosinophils (%) (Auto) 0.5, Basophils (%) (Auto) 0.6, Sodium Level 137, Potassium Level 4.6, Chloride Level 109H, Carbon Dioxide Level 16L, Anion Gap 12, Blood Urea Nitrogen 65H, Creatinine 3.5H, Estimat Glomerular Filtration Rate 13.2, Glucose Level 101, Calcium Level 7.6L Height (Feet): 5 Height (Inches): 2.00 Weight (Pounds): 131 General Appearance: no apparent distress Cardiovascular: normal rate Abdomen: distended Objective No change Inder Wong MD Nov 16, 2019 10:30
--- NOTE | 2019-11-16 11:17 | Diagnostic Imaging Report ---
Indication: Acute renal failure Technique: Grayscale and duplex images of the kidneys, retroperitoneum, and bladder were obtained. Comparison: none Findings: Right kidney measures 13.3 cm in length. Left kidney measures 13.5 cm in length. Both kidneys demonstrate normal echogenicity. No hydronephrosis. No focal abnormality. Normal inferior vena cava. Bladder is empty, contains a Fisher catheter. Impression: Negative for hydronephrosis Empty bladder with a Fisher catheter.
[2019-11-16 12:00] VITALS: BP 124/67
[2019-11-16] MEDS ORDERED: Iron Sucrose 200 MG in NS 50 ML IV ONE (12:00)
--- NOTE | 2019-11-16 13:02 | Pulmonology Progress Note ---
Assessment/Plan Problems: (1) Gram-negative bacteremia (2) UTI (urinary tract infection) (3) Dehydration, severe (4) Diabetic nephropathy (5) Severe hyperglycemia due to diabetes mellitus Assessment/Plan continue abx on Starlix and Levemir sliding scale pt/ot WBC still high dvt prophylaxis Subjective ROS Limited/Unobtainable: No Interval Events: feels debil Allergies: Coded Allergies: PENICILLINS (Unverified Allergy, Unknown, 11/12/19) Objective Last 24 Hour Vital Signs Date Time Temp Pulse Resp B/P (MAP) Pulse Ox O2 Delivery O2 Flow Rate FiO2 11/16/19 08:00 98.1 83 18 123/65 (84) 99 11/16/19 07:00 83 20 99 Room Air 21 11/16/19 04:00 97.6 81 16 119/65 (83) 99 11/16/19 00:00 98.4 85 17 119/68 (85) 97 11/15/19 21:00 Room Air 11/15/19 20:00 98.2 89 17 133/65 (87) 98 11/15/19 16:00 98.1 70 18 130/66 (87) 95 Intake and Output 11/15/19 11/16/19 19:00 07:00 Intake Total 805 ml 100 ml Output Total 600 ml 1000 ml Balance 205 ml -900 ml Intake Oral 150 ml 100 ml IV Total 655 ml Output Urine Total 600 ml 1000 ml General Appearance: WD/WN HEENT: normocephalic, atraumatic Respiratory/Chest: chest wall non-tender, lungs clear Breasts: no masses Cardiovascular: normal rate Abdomen: normal bowel sounds, no mass Extremities: no cyanosis Skin: no lesions Microbiology Date/Time Source Procedure Growth Status 11/13/19 16:00 Blood Blood Culture - Preliminary NO GROWTH AFTER 48 HOURS Resulted 11/13/19 15:50 Blood Blood Culture - Preliminary NO GROWTH AFTER 48 HOURS Resulted Laboratory Tests 11/16/19 05:45: White Blood Count 14.3H, Red Blood Count 3.26L, Hemoglobin 9.6L, Hematocrit 28.3L, Mean Corpuscular Volume 87, Mean Corpuscular Hemoglobin 29.5, Mean Corpuscular Hemoglobin Concent 34.1, Red Cell Distribution Width 12.3, Platelet Count 423, Mean Platelet Volume 4.6L, Neutrophils (%) (Auto) 84.4H, Lymphocytes (%) (Auto) 7.7L, Monocytes (%) (Auto) 6.7, Eosinophils (%) (Auto) 0.5, Basophils (%) (Auto) 0.6, Sodium Level 137, Potassium Level 4.6, Chloride Level 109H, Carbon Dioxide Level 16L, Anion Gap 12, Blood Urea Nitrogen 65H, Creatinine 3.5H, Estimat Glomerular Filtration Rate 13.2, Glucose Level 101, Calcium Level 7.6L Current Medications Medications (Trade) Dose Ordered Sig/Arnoldo Route PRN Reason Start Time Stop Time Status Last Admin Dose Admin Acetaminophen (Tylenol) 650 mg Q4H PRN ORAL Fever 11/13/19 16:59 12/12/19 16:58 11/15/19 06:33 Albuterol/ Ipratropium (Albuterol/ Ipratropium) 3 ml EVERY 4 HOURS PRN HHN Shortness of Breath 11/13/19 17:00 11/17/19 16:44 Allopurinol (allopurinoL) 300 mg DAILY ORAL 11/16/19 10:30 12/16/19 10:29 11/16/19 12:10 Ceftriaxone Sodium 1 gm/ Sodium Chloride 55 ml @ 110 mls/hr Q24H IVPB 11/14/19 09:00 11/21/19 08:59 11/16/19 08:58 Dextrose (Dextrose 50%) 25 ml Q30M PRN IV Hypoglycemia 11/13/19 17:15 02/11/20 10:14 Dextrose (Dextrose 50%) 50 ml Q30M PRN IV Hypoglycemia 11/13/19 17:15 02/11/20 10:14 Docusate Sodium (Colace) 100 mg TID ORAL 11/15/19 13:00 12/14/19 17:59 11/16/19 12:10 Fish Oil (Fish Oil) 1,000 mg BID ORAL 11/16/19 10:30 12/16/19 10:29 11/16/19 12:10 Heparin Sodium (Porcine) (Heparin 5000 units/ml) 5,000 units EVERY 12 HOURS SUBQ 11/13/19 21:00 12/27/19 20:59 11/16/19 08:57 Hydralazine HCl (Apresoline) 25 mg Q4H PRN ORAL Blood pressure over 160 systol 11/14/19 11:45 02/12/20 11:44 Insulin Aspart (NovoLOG) AC+HS SUBQ 11/15/19 11:30 02/11/20 10:59 11/16/19 06:14 Insulin Detemir (Levemir) 10 units BID SUBQ 11/13/19 18:00 02/11/20 11:29 11/16/19 08:59 Lorazepam (Ativan 2mg/ml 1ml) 2 mg EVERY 2 HOURS PRN IV agitation 11/13/19 17:02 11/19/19 17:01 Morphine Sulfate (Morphine Sulfate) 4 mg EVERY 4 HOURS PRN IVP Severe Pain (Pain Scale 7-10) 11/13/19 17:00 11/19/19 16:44 Nateglinide (Starlix) 120 mg TIAC ORAL 11/16/19 11:30 12/15/19 11:29 11/16/19 12:10 Ondansetron HCl (Zofran) 4 mg Q6H PRN IVP Nausea & Vomiting 11/13/19 17:03 12/12/19 17:02 Pantoprazole (Protonix) 40 mg BID ORAL 11/15/19 18:00 12/14/19 11:44 11/16/19 08:56 Sevelamer Carbonate (Renvela) 800 mg THREE TIMES A DAY ORAL 11/16/19 13:00 02/14/20 12:59 11/16/19 12:10 Sodium Chloride 1,000 ml @ 75 mls/hr [id number] IV 11/16/19 10:45 12/14/19 10:44 Kadie Chavarria MD Nov 16, 2019 13:01
--- NOTE | 2019-11-16 13:15 | NUR ---
CASE MANAGEMENT: REVIEW 11/14/2019 SI:GEN WEAKNESS. UTI E-COLI . SEPSIS . ACUTE RENAL FAILURE D/T DEHYDRATION 98.5 82 20 102/62 96% ON RA WBC 19.7 H/H 9.9/29.6 CO2 18 BUN/CREAT 82/3.9 BGLU 152 URIC ACID 10.2 BNP 1786 ALBUMIN 1.4 CA+ 7.4 C REC PROTEIN- 12.1 IS: IV NS@ 100 ML/HR IV CEFTRIAXONE Q24H INSULIN HUMAN REGULAR PER PARAMETERS HEPARIN SQ BID ICU \: TRANSFER TO MED SURG UNIT DCP: HOME WHEN STABLE ABLE TO SELF ISOLATE WHEN STABLE FOR DISCHARGE PLAN: Keep the blood sugar and blood pressure in check CASE MANAGEMENT: REVIEW 11/15/2019 SI:GEN WEAKNESS. UTI E-COLI . SEPSIS . ACUTE RENAL FAILURE D/T DEHYDRATION 98.1 70 18 130/66 95% ON RA WBC 15.0 CO2 15 ANION GAP-16 BUN/CREAT 75/3.7 BG 134 H/H 9.8/29.0 PHOS 5.1 CA+ 7.2 FERR 436 HA1C 12.4 BNP 1837 ALB 1.4 VIT B12 >2000 IS: IV NS@ 100 ML/HR IV CEFTRIAXONE Q24H INSULIN HUMAN REGULAR PER PARAMETERS HEPARIN SQ BID PROTONIX PO BID \: 3E MED SURG UNIT DCP: HOME WHEN STABLE; ABLE TO SELF ISOLATE WHEN STABLE FOR DISCHARGE PLAN: CONTROL SUGARS CONT HYDRATION CASE MANAGEMENT: REVIEW 11/16/2019 SI:GRAM NEGATIVE BACTEREMIA . UTI E-COLI . SEPSIS . ACUTE RENAL FAILURE D/T SEVERE DEHYDRATION 98.1 83 18 123/65 99% ON RA WBC 14.3 H/H 9.6/28.3 BUN/CREAT 65/3.5 CA+ 7.6 IS: IV VENOFER X1 IV NS@ 100 ML/HR IV CEFTRIAXONE Q24H INSULIN HUMAN REGULAR PER PARAMETERS HEPARIN SQ BID PROTONIX PO BID \: 3E MED SURG UNIT DCP: HOME WHEN STABLE; ABLE TO SELF ISOLATE WHEN STABLE FOR DISCHARGE PLAN: CONTROL SUGARS CONT HYDRATION PT/PT EVAL AND THERAPY MONITOR WBC- STILL ELEVATED
--- NOTE | 2019-11-16 13:27 | Internal Med Progress Note ---
Subjective Date of Service: Nov 16, 2019 Physician Name Ramón Bruno Attending Physician Lb Santos MD Current Medications Medications (Trade) Dose Ordered Sig/Arnoldo Route PRN Reason Start Time Stop Time Status Last Admin Dose Admin Acetaminophen (Tylenol) 650 mg Q4H PRN ORAL Fever 11/13/19 16:59 12/12/19 16:58 11/15/19 06:33 Albuterol/ Ipratropium (Albuterol/ Ipratropium) 3 ml EVERY 4 HOURS PRN HHN Shortness of Breath 11/13/19 17:00 11/17/19 16:44 Allopurinol (allopurinoL) 300 mg DAILY ORAL 11/16/19 10:30 12/16/19 10:29 11/16/19 12:10 Ceftriaxone Sodium 1 gm/ Sodium Chloride 55 ml @ 110 mls/hr Q24H IVPB 11/14/19 09:00 11/21/19 08:59 11/16/19 08:58 Dextrose (Dextrose 50%) 25 ml Q30M PRN IV Hypoglycemia 11/13/19 17:15 02/11/20 10:14 Dextrose (Dextrose 50%) 50 ml Q30M PRN IV Hypoglycemia 11/13/19 17:15 02/11/20 10:14 Docusate Sodium (Colace) 100 mg TID ORAL 11/15/19 13:00 12/14/19 17:59 11/16/19 12:10 Fish Oil (Fish Oil) 1,000 mg BID ORAL 11/16/19 10:30 12/16/19 10:29 11/16/19 12:10 Heparin Sodium (Porcine) (Heparin 5000 units/ml) 5,000 units EVERY 12 HOURS SUBQ 11/13/19 21:00 12/27/19 20:59 11/16/19 08:57 Hydralazine HCl (Apresoline) 25 mg Q4H PRN ORAL Blood pressure over 160 systol 11/14/19 11:45 02/12/20 11:44 Insulin Aspart (NovoLOG) AC+HS SUBQ 11/15/19 11:30 02/11/20 10:59 11/16/19 06:14 Insulin Detemir (Levemir) 10 units BID SUBQ 11/13/19 18:00 02/11/20 11:29 11/16/19 08:59 Lorazepam (Ativan 2mg/ml 1ml) 2 mg EVERY 2 HOURS PRN IV agitation 11/13/19 17:02 11/19/19 17:01 Morphine Sulfate (Morphine Sulfate) 4 mg EVERY 4 HOURS PRN IVP Severe Pain (Pain Scale 7-10) 11/13/19 17:00 11/19/19 16:44 Nateglinide (Starlix) 120 mg TIAC ORAL 11/16/19 11:30 12/15/19 11:29 11/16/19 12:10 Ondansetron HCl (Zofran) 4 mg Q6H PRN IVP Nausea & Vomiting 11/13/19 17:03 12/12/19 17:02 Pantoprazole (Protonix) 40 mg BID ORAL 11/15/19 18:00 12/14/19 11:44 11/16/19 08:56 Sevelamer Carbonate (Renvela) 800 mg THREE TIMES A DAY ORAL 11/16/19 13:00 02/14/20 12:59 11/16/19 12:10 Sodium Chloride 1,000 ml @ 75 mls/hr [id number] IV 11/16/19 10:45 12/14/19 10:44 Allergies: Coded Allergies: PENICILLINS (Unverified Allergy, Unknown, 11/12/19) ROS Limited/Unobtainable: No Constitutional: Reports: no symptoms HEENT: Reports: no symptoms Cardiovascular: Reports: no symptoms Respiratory: Reports: no symptoms Gastrointestinal/Abdominal: Reports: no symptoms Genitourinary: Reports: no symptoms Neurologic/Psychiatric: Reports: no symptoms Subjective 64 YO F admitted with cough and gen weakness. Now UTI and sepsis. Cover for Int Med-Dr Santos. Objective Last Vital Signs Date Time Temp Pulse Resp B/P (MAP) Pulse Ox O2 Delivery O2 Flow Rate FiO2 11/16/19 08:00 98.1 83 18 123/65 (84) 99 11/16/19 07:00 Room Air 21 Laboratory Tests Test 11/16/19 05:45 White Blood Count 14.3 K/UL (4.8-10.8) H Red Blood Count 3.26 M/UL (4.20-5.40) L Hemoglobin 9.6 G/DL (12.0-16.0) L Hematocrit 28.3 % (37.0-47.0) L Mean Corpuscular Volume 87 FL (80-99) Mean Corpuscular Hemoglobin 29.5 PG (27.0-31.0) Mean Corpuscular Hemoglobin Concent 34.1 G/DL (32.0-36.0) Red Cell Distribution Width 12.3 % (11.6-14.8) Platelet Count 423 K/UL (150-450) Mean Platelet Volume 4.6 FL (6.5-10.1) L Neutrophils (%) (Auto) 84.4 % (45.0-75.0) H Lymphocytes (%) (Auto) 7.7 % (20.0-45.0) L Monocytes (%) (Auto) 6.7 % (1.0-10.0) Eosinophils (%) (Auto) 0.5 % (0.0-3.0) Basophils (%) (Auto) 0.6 % (0.0-2.0) Sodium Level 137 MMOL/L (136-145) Potassium Level 4.6 MMOL/L (3.5-5.1) Chloride Level 109 MMOL/L (98-107) H Carbon Dioxide Level 16 MMOL/L (21-32) L Anion Gap 12 mmol/L (5-15) Blood Urea Nitrogen 65 mg/dL (7-18) H Creatinine 3.5 MG/DL (0.55-1.30) H Estimat Glomerular Filtration Rate 13.2 mL/min (>60) Glucose Level 101 MG/DL (74-106) Calcium Level 7.6 MG/DL (8.5-10.1) L Microbiology Date/Time Source Procedure Growth Status 11/13/19 16:00 Blood Blood Culture - Preliminary NO GROWTH AFTER 48 HOURS Resulted 11/13/19 15:50 Blood Blood Culture - Preliminary NO GROWTH AFTER 48 HOURS Resulted Intake and Output 11/15/19 11/16/19 19:00 07:00 Intake Total 805 ml 100 ml Output Total 600 ml 1000 ml Balance 205 ml -900 ml Intake Oral 150 ml 100 ml IV Total 655 ml Output Urine Total 600 ml 1000 ml Objective PHYSICAL EXAMINATION: GENERAL: Patient is a well-developed and well-nourished female, in no apparent distress. HEENT: Eyes, pupils are equal and responsive to light and accommodation. Extraocular movements are intact. NECK: Supple without lymphadenopathy. CHEST: Lungs are clear to auscultation bilaterally without wheezes or rales. CARDIOVASCULAR: Regular rhythm and rate. S1, S2 are normal without murmurs, rubs, or gallops. ABDOMINAL: Soft, nontender, and nondistended. Positive bowel sounds. No evidence of hepatosplenomegaly. Currently, no rebound or guarding noted. EXTREMITIES: Negative for clubbing, cyanosis, or edema. RECTAL/GENITAL: Not performed. NEUROLOGIC: Cranial nerves II through XII are grossly intact without focal deficits. Motor strength is 5/5 bilaterally. Deep tendon reflexes 2+ plantar. Assessment/Plan Assessment/Plan ASSESSMENT: This is a 64-year-old female. 1. Hyperglycemia. 2. Diabetic ketoacidosis. 3. Diabetes type 2. 4. Hyponatremia. 5. Acute renal failure. 6. Cough. 7. Hypertension. 8. Diabetes type 2. 9. Urinary tract infection=E. Coli 10. Sepsis=E. Coli TREATMENT: 1. Urinary tract infection/sepsis=E. Coli ABX=ceftriaxone. 2. Diabetic ketoacidosis. Patient is currently off insulin drip. An Endocrinology consultation has been obtained with Dr. Gay. Continue levemir and novolog sliding scale per endocrinology 3. Cough. COVID-19=neg X1. A Pulmonary consultation has been obtained with Dr. Kadie Chavarria. 4. Generalized weakness. 5. Renal failure. A Nephrology consultation has been obtained with Dr. Inder Wong. Patient is currently receiving intravenous fluids. Renal failure may be secondary to diabetic ketoacidosis and dehydration. 6. Hyponatremia. Patient is currently receiving normal saline. 7. Diabetes type 2. 8. Hypertension. Patient is currently hypotensive. Ramón Bruno MD Nov 16, 2019 13:27
--- NOTE | 2019-11-16 13:50 | Infectious Diseases Prog Note ---
Assessment/Plan Assessment/Plan Assessment: Severe sepsis (transient hypotension) UTI c/w bacteremia -11/11 Bcx 2/4 E.coli (R amp, bactrim; otherwise S); 11/12 Bcx NTD -u/a wbc tnct, nit neg, leuk +3; ucx >100k e.coli (R amp, bactrim; otherwise S ) -CXR: Left basilar atelectasis. No acute process otherwise Cough- COVID19 neg. No PNA on CXR -11/13 CXR: Interval improved aeration in the left lung base with minimal residual atelectasis seen. The lungs otherwise appear clear. -influenza sc neg -11/11 SARS-COV2 PCR neg Afebrile Leukocytosis, improving DKA Lactic acidosis, SP SARAHI, improving Severe hyponatremia; improving Hyperkalemia, SP HTN Dm2 PVD L TMA PLan: -Continue Ceftriaxone #12/05-14 -f/u cx -Monitor CBC/CMP, temperatures -f/u repeat Bcx x2 -ok to dc COVID19 isolation Thank you for consulting [facility]. Will continue to follow along with you. Discussed with RN. Subjective Allergies: Coded Allergies: PENICILLINS (Unverified Allergy, Unknown, 11/12/19) Subjective afebrile at RA wbc improving repeat bcx NTD Objective Vital Signs Last 24 Hour Vital Signs Date Time Temp Pulse Resp B/P (MAP) Pulse Ox O2 Delivery O2 Flow Rate FiO2 11/16/19 08:00 98.1 83 18 123/65 (84) 99 11/16/19 07:00 83 20 99 Room Air 21 11/16/19 04:00 97.6 81 16 119/65 (83) 99 11/16/19 00:00 98.4 85 17 119/68 (85) 97 11/15/19 21:00 Room Air 11/15/19 20:00 98.2 89 17 133/65 (87) 98 11/15/19 16:00 98.1 70 18 130/66 (87) 95 Height (Feet): 5 Height (Inches): 2.00 Weight (Pounds): 131 Microbiology Date/Time Source Procedure Growth Status 11/13/19 16:00 Blood Blood Culture - Preliminary NO GROWTH AFTER 48 HOURS Resulted 11/13/19 15:50 Blood Blood Culture - Preliminary NO GROWTH AFTER 48 HOURS Resulted Laboratory Tests Test 11/16/19 05:45 White Blood Count 14.3 K/UL (4.8-10.8) H Red Blood Count 3.26 M/UL (4.20-5.40) L Hemoglobin 9.6 G/DL (12.0-16.0) L Hematocrit 28.3 % (37.0-47.0) L Mean Corpuscular Volume 87 FL (80-99) Mean Corpuscular Hemoglobin 29.5 PG (27.0-31.0) Mean Corpuscular Hemoglobin Concent 34.1 G/DL (32.0-36.0) Red Cell Distribution Width 12.3 % (11.6-14.8) Platelet Count 423 K/UL (150-450) Mean Platelet Volume 4.6 FL (6.5-10.1) L Neutrophils (%) (Auto) 84.4 % (45.0-75.0) H Lymphocytes (%) (Auto) 7.7 % (20.0-45.0) L Monocytes (%) (Auto) 6.7 % (1.0-10.0) Eosinophils (%) (Auto) 0.5 % (0.0-3.0) Basophils (%) (Auto) 0.6 % (0.0-2.0) Sodium Level 137 MMOL/L (136-145) Potassium Level 4.6 MMOL/L (3.5-5.1) Chloride Level 109 MMOL/L (98-107) H Carbon Dioxide Level 16 MMOL/L (21-32) L Anion Gap 12 mmol/L (5-15) Blood Urea Nitrogen 65 mg/dL (7-18) H Creatinine 3.5 MG/DL (0.55-1.30) H Estimat Glomerular Filtration Rate 13.2 mL/min (>60) Glucose Level 101 MG/DL (74-106) Calcium Level 7.6 MG/DL (8.5-10.1) L Current Medications Medications (Trade) Dose Ordered Sig/Arnoldo Route PRN Reason Start Time Stop Time Status Last Admin Dose Admin Acetaminophen (Tylenol) 650 mg Q4H PRN ORAL Fever 11/13/19 16:59 12/12/19 16:58 11/15/19 06:33 Albuterol/ Ipratropium (Albuterol/ Ipratropium) 3 ml EVERY 4 HOURS PRN HHN Shortness of Breath 11/13/19 17:00 11/17/19 16:44 Allopurinol (allopurinoL) 300 mg DAILY ORAL 11/16/19 10:30 12/16/19 10:29 11/16/19 12:10 Ceftriaxone Sodium 1 gm/ Sodium Chloride 55 ml @ 110 mls/hr Q24H IVPB 11/14/19 09:00 11/21/19 08:59 11/16/19 08:58 Dextrose (Dextrose 50%) 25 ml Q30M PRN IV Hypoglycemia 11/13/19 17:15 02/11/20 10:14 Dextrose (Dextrose 50%) 50 ml Q30M PRN IV Hypoglycemia 11/13/19 17:15 02/11/20 10:14 Docusate Sodium (Colace) 100 mg TID ORAL 11/15/19 13:00 12/14/19 17:59 11/16/19 12:10 Fish Oil (Fish Oil) 1,000 mg BID ORAL 11/16/19 10:30 12/16/19 10:29 11/16/19 12:10 Heparin Sodium (Porcine) (Heparin 5000 units/ml) 5,000 units EVERY 12 HOURS SUBQ 11/13/19 21:00 12/27/19 20:59 11/16/19 08:57 Hydralazine HCl (Apresoline) 25 mg Q4H PRN ORAL Blood pressure over 160 systol 11/14/19 11:45 02/12/20 11:44 Insulin Aspart (NovoLOG) AC+HS SUBQ 11/15/19 11:30 02/11/20 10:59 11/16/19 06:14 Insulin Detemir (Levemir) 10 units BID SUBQ 11/13/19 18:00 02/11/20 11:29 11/16/19 08:59 Lorazepam (Ativan 2mg/ml 1ml) 2 mg EVERY 2 HOURS PRN IV agitation 11/13/19 17:02 11/19/19 17:01 Morphine Sulfate (Morphine Sulfate) 4 mg EVERY 4 HOURS PRN IVP Severe Pain (Pain Scale 7-10) 11/13/19 17:00 11/19/19 16:44 Nateglinide (Starlix) 120 mg TIAC ORAL 11/16/19 11:30 12/15/19 11:29 11/16/19 12:10 Ondansetron HCl (Zofran) 4 mg Q6H PRN IVP Nausea & Vomiting 11/13/19 17:03 12/12/19 17:02 Pantoprazole (Protonix) 40 mg BID ORAL 11/15/19 18:00 12/14/19 11:44 11/16/19 08:56 Sevelamer Carbonate (Renvela) 800 mg THREE TIMES A DAY ORAL 11/16/19 13:00 02/14/20 12:59 11/16/19 12:10 Sodium Chloride 1,000 ml @ 75 mls/hr [id number] IV 11/16/19 10:45 12/14/19 10:44 Renate Duffy M.D. Nov 16, 2019 13:50
--- NOTE | 2019-11-16 15:20 | NUR ---
*-* INSURANCE *-* ALL CLINICALS AND REVIEWS HAVE BEEN FAXED TO: [facility] F: [phone]
--- NOTE | 2019-11-16 15:34 | NUR ---
P.T Note: late entry 1145 P.T evaluation completed and tx initiated. Please refer to P.T evaluation for current functional status. Pt is alert, O x 4 , pleasant and cooperative. Pt. presented limited participation due to abdominal discomfort, generalized weakness and fatigue. Pt currently require MIN A x 1 for bed mobilities, transfers and gait/ambulation activities using the FWW. Pt will benefit from skilled P.T service in improve her strength, balance and activity tolerance to increase her mobility independence and safety. Recommend SNF for short term rehab or home with P.T follow up. Also recommending [facility]WW at [facility]. Thank you for this referral.
[2019-11-16 16:00] VITALS: BP 121/65
--- NOTE | 2019-11-16 19:39 | NUR ---
HAND-OFF: Report given to Caprice GRAHAM ; pt in stable condition.
--- NOTE | 2019-11-16 19:40 | NUR ---
NURSE NOTES: Received report from SANTOS Wilson. Patient in stable condition, sleeping on and off. IV site intact, levy cath patent,no distress noted, Bed in low position, locked, side rails up x2, call light within reach. Will continue to monitor.
[2019-11-16 20:00] VITALS: BP 121/58
[2019-11-17] VITALS: BP 119/61
[2019-11-17 04:00] VITALS: BP 121/53
[2019-11-17 06:25] LABS: BASOPHILS % (AUTO) 0.7 % (0.0-2.0); EOSINOPHILS % (AUTO) 0.7 % (0.0-3.0); HEMATOCRIT 27.4 % (37.0-47.0); HEMOGLOBIN 9.3 G/DL (12.0-16.0); LYMPHOCYTES % (AUTO) 8.6 % (20.0-45.0); MEAN CORPUSCULAR VOLUME 88 FL (80-99); MONOCYTES % (AUTO) 8.3 % (1.0-10.0); NEUTROPHILS % (AUTO) 81.8 % (45.0-75.0); PLATELET COUNT 403 K/UL (150-450); RED BLOOD COUNT 3.12 M/UL (4.20-5.40); RED CELL DISTRIBUTION WIDTH 12.7 % (11.6-14.8); WHITE BLOOD COUNT 11.2 K/UL (4.8-10.8)
[2019-11-17] MEDS: NovoLOG Insulin Flexpen SUBQ SCH ×4 (06:30→20:36)
[2019-11-17 07:19] LABS: ALANINE AMINOTRANSFERASE 9 U/L (12-78); ALBUMIN 1.3 G/DL (3.4-5.0); ALBUMIN/GLOBULIN RATIO 0.4 (1.0-2.7); ALKALINE PHOSPHATASE 77 U/L (46-116); ANION GAP 10 mmol/L (5-15); ASPARTATE AMINO TRANSFERASE 13 U/L (15-37); BILIRUBIN,TOTAL 0.2 MG/DL (0.2-1.0); BLOOD UREA NITROGEN 58 mg/dL (7-18); CALCIUM 7.9 MG/DL (8.5-10.1); CARBON DIOXIDE 19 MMOL/L (21-32); CHLORIDE 108 MMOL/L (98-107); CREATININE 3.5 MG/DL (0.55-1.30); GAMMA GLUTAMYL TRANSPEPTIDASE 14 U/L (5-85); PHOSPHORUS 5.8 MG/DL (2.5-4.9); POTASSIUM 4.8 MMOL/L (3.5-5.1); SODIUM 137 MMOL/L (136-145)
--- NOTE | 2019-11-17 07:30 | NUR ---
HAND-OFF: Report given to SANTOS George. Patient having breakfast.
--- NOTE | 2019-11-17 07:45 | NUR ---
NURSE NOTES: Received report from Caprice GRAHAM. Patient is awake and oriented, no acute distress noted, reporting no pain. IVF running per order. Fisher to gravity drainage. Fall precautions maintained. Side rails upx3, bed low and locked, call light within reach, bed alarm armed.
[2019-11-17 08:00] VITALS: BP 127/66
[2019-11-17] MEDS: Docusate 100mg cap ORAL SCH ×3 (09:02→18:12)
[2019-11-17] MEDS: cefTRIAXone 1 GM in NS 55 ML IVPB SCH (09:03)
[2019-11-17] MEDS: Heparin 5000 units/ml inj SUBQ SCH ×2 (09:04→20:23)
[2019-11-17] MEDS: Levemir Flexpen SUBQ SCH ×2 (09:04→18:13)
--- NOTE | 2019-11-17 10:22 | Nephrology Progress Note ---
Assessment/Plan Problem List: (1) Diabetic nephropathy (2) Renal failure (ARF), acute on chronic Assessment: GFR 13 (3) Severe hyperglycemia due to diabetes mellitus (4) Dehydration (5) Hypotension due to hypovolemia (6) Hyponatremia (7) UTI (urinary tract infection) Assessment 64-year-old female presents with hyperglycemia and hyponatremia She also have elevated BUN and creatinine Renal impression mainly dehydration Patient may also have underlying chronic kidney disease Patient have evidence of urinary tract infection She is hypoalbuminemic She has underlying anemia Impression: - Hyperglycemia. - Hyponatremia. Mainly due to hyperglycemia - Acute renal failure. Mainly due to dehydration - Hypertension. - Sepsis due to Acute E. Coli Urinary tract infection. - PVD / PAD s/p left TMA. Plan Discontinue IV fluid Discontinue Fisher catheter Monitor renal parameters Monitor electrolytes Keep the blood sugar and blood pressure in check Antibiotics Avoid nephrotoxic's Start fish oil for high triglycerides 2D echocardiogram ejection fraction 65% Kidney ultrasound results noted Per orders Subjective ROS Limited/Unobtainable: No Constitutional: Reports: malaise, weakness Objective Objective Last 24 Hour Vital Signs Date Time Temp Pulse Resp B/P (MAP) Pulse Ox O2 Delivery O2 Flow Rate FiO2 11/17/19 08:00 98.1 84 18 127/66 (86) 98 11/17/19 04:00 97.9 78 18 121/53 (75) 97 11/17/19 00:00 98.4 77 16 119/61 (80) 96 11/16/19 21:00 Room Air 11/16/19 20:48 84 22 100 Room Air 21 11/16/19 20:00 98.0 81 16 121/58 (79) 99 11/16/19 16:00 98.1 78 18 121/65 (83) 97 11/16/19 12:00 98.2 79 20 124/67 (86) 98 Intake and Output 11/16/19 11/17/19 19:00 07:00 Intake Total 375 ml 615 ml Output Total 1300 ml 1400 ml Balance -925 ml -785 ml Intake Oral 300 ml 240 ml IV Total 75 ml 375 ml Output Urine Total 1300 ml 1400 ml # Bowel Movements 2 Current Medications Medications (Trade) Dose Ordered Sig/Arnoldo Route PRN Reason Start Time Stop Time Status Last Admin Dose Admin Acetaminophen (Tylenol) 650 mg Q4H PRN ORAL Fever 11/13/19 16:59 5/16/20 16:58 11/15/19 06:33 Albuterol/ Ipratropium (Albuterol/ Ipratropium) 3 ml EVERY 4 HOURS PRN HHN Shortness of Breath 11/13/19 17:00 11/17/19 16:44 Allopurinol (allopurinoL) 300 mg DAILY ORAL 11/16/19 10:30 12/16/19 10:29 11/17/19 09:02 Ceftriaxone Sodium 1 gm/ Sodium Chloride 55 ml @ 110 mls/hr Q24H IVPB 11/14/19 09:00 11/25/19 23:59 11/17/19 09:03 Dextrose (Dextrose 50%) 25 ml Q30M PRN IV Hypoglycemia 11/13/19 17:15 02/11/20 10:14 Dextrose (Dextrose 50%) 50 ml Q30M PRN IV Hypoglycemia 11/13/19 17:15 02/11/20 10:14 Docusate Sodium (Colace) 100 mg TID ORAL 11/15/19 13:00 12/14/19 17:59 11/17/19 09:02 Fish Oil (Fish Oil) 1,000 mg BID ORAL 11/16/19 10:30 12/16/19 10:29 11/17/19 09:01 Heparin Sodium (Porcine) (Heparin 5000 units/ml) 5,000 units EVERY 12 HOURS SUBQ 11/13/19 21:00 12/27/19 20:59 11/17/19 09:04 Hydralazine HCl (Apresoline) 25 mg Q4H PRN ORAL Blood pressure over 160 systol 11/14/19 11:45 02/12/20 11:44 Insulin Aspart (NovoLOG) AC+HS SUBQ 11/15/19 11:30 02/11/20 10:59 11/16/19 22:07 Insulin Detemir (Levemir) 10 units BID SUBQ 11/13/19 18:00 02/11/20 11:29 11/17/19 09:04 Lorazepam (Ativan 2mg/ml 1ml) 2 mg EVERY 2 HOURS PRN IV agitation 11/13/19 17:02 11/19/19 17:01 Morphine Sulfate (Morphine Sulfate) 4 mg EVERY 4 HOURS PRN IVP Severe Pain (Pain Scale 7-10) 11/13/19 17:00 11/19/19 16:44 11/16/19 23:11 Nateglinide (Starlix) 120 mg TIAC ORAL 11/16/19 11:30 12/15/19 11:29 11/17/19 06:56 Ondansetron HCl (Zofran) 4 mg Q6H PRN IVP Nausea & Vomiting 11/13/19 17:03 12/12/19 17:02 11/17/19 05:58 Pantoprazole (Protonix) 40 mg BID ORAL 11/15/19 18:00 12/14/19 11:44 11/17/19 09:02 Sevelamer Carbonate (Renvela) 1,600 mg THREE TIMES A DAY ORAL 11/17/19 09:00 02/14/20 12:59 11/17/19 09:01 Laboratory Tests 11/17/19 05:30: White Blood Count 11.2H, Red Blood Count 3.12L, Hemoglobin 9.3L, Hematocrit 27.4L, Mean Corpuscular Volume 88, Mean Corpuscular Hemoglobin 29.7, Mean Corpuscular Hemoglobin Concent 33.9, Red Cell Distribution Width 12.7, Platelet Count 403, Mean Platelet Volume 4.7L, Neutrophils (%) (Auto) 81.8H, Lymphocytes (%) (Auto) 8.6L, Monocytes (%) (Auto) 8.3, Eosinophils (%) (Auto) 0.7, Basophils (%) (Auto) 0.7, Erythrocyte Sedimentation Rate 62H, Sodium Level 137, Potassium Level 4.8, Chloride Level 108H, Carbon Dioxide Level 19L, Anion Gap 10 , Blood Urea Nitrogen 58H, Creatinine 3.5H, Estimat Glomerular Filtration Rate 13.2, Glucose Level 134H, Uric Acid 7.6H, Calcium Level 7.9L, Phosphorus Level 5.8H, Magnesium Level 2.2, Total Bilirubin 0.2, Gamma Glutamyl Transpeptidase 14 , Aspartate Amino Transf (AST/SGOT) 13L, Alanine Aminotransferase (ALT/SGPT) 9L , Alkaline Phosphatase 77, C-Reactive Protein, Quantitative 7.4H, Pro-B-Type Natriuretic Peptide 1370H, Total Protein 5.0L, Albumin 1.3L, Globulin 3.7, Albumin/Globulin Ratio 0.4L Height (Feet): 5 Height (Inches): 2.00 Weight (Pounds): 142 General Appearance: no apparent distress Cardiovascular: normal rate Respiratory/Chest: decreased breath sounds Abdomen: distended Objective No change Inder Wong MD Nov 17, 2019 10:22
--- NOTE | 2019-11-17 11:26 | NUR ---
*-* INSURANCE *-* ALL CLINICALS AND REVIEWS HAVE BEEN FAXED TO: [facility] F: [phone]
[2019-11-17 12:00] VITALS: BP 121/76
--- NOTE | 2019-11-17 12:00 | NUR ---
NURSE NOTES: Fisher catheter removed per MD order, patient tolerated well. Patient educated to call for assistance when ready to void and verbalized agreement.
--- NOTE | 2019-11-17 12:16 | Infectious Diseases Prog Note ---
Assessment/Plan Assessment/Plan Assessment: Severe sepsis (transient hypotension) UTI c/w bacteremia -11/11 Bcx 2/4 E.coli (R amp, bactrim; otherwise S); 11/12 Bcx NTD -u/a wbc tnct, nit neg, leuk +3; ucx >100k e.coli (R amp, bactrim; otherwise S ) -CXR: Left basilar atelectasis. No acute process otherwise Cough- COVID19 neg. No PNA on CXR -11/13 CXR: Interval improved aeration in the left lung base with minimal residual atelectasis seen. The lungs otherwise appear clear. -influenza sc neg -11/11 SARS-COV2 PCR neg Afebrile Leukocytosis, improving DKA Lactic acidosis, SP SARAHI, improving Severe hyponatremia; improving Hyperkalemia, SP HTN Dm2 PVD L TMA PLan: -Continue Ceftriaxone #01/05-14 -f/u cx -Monitor CBC/CMP, temperatures -f/u repeat Bcx x2 -ok to dc COVID19 isolation Thank you for consulting [facility]. Will continue to follow along with you. Discussed with RN. Subjective Allergies: Coded Allergies: PENICILLINS (Unverified Allergy, Unknown, 11/12/19) Subjective afebrile at RA wbc improving repeat bcx NTD Objective Vital Signs Last 24 Hour Vital Signs Date Time Temp Pulse Resp B/P (MAP) Pulse Ox O2 Delivery O2 Flow Rate FiO2 11/17/19 08:00 98.1 84 18 127/66 (86) 98 11/17/19 07:00 84 22 98 Room Air 21 11/17/19 04:00 97.9 78 18 121/53 (75) 97 11/17/19 00:00 98.4 77 16 119/61 (80) 96 11/16/19 21:00 Room Air 11/16/19 20:48 84 22 100 Room Air 21 11/16/19 20:00 98.0 81 16 121/58 (79) 99 11/16/19 16:00 98.1 78 18 121/65 (83) 97 Height (Feet): 5 Height (Inches): 2.00 Weight (Pounds): 142 Objective General Appearance: no apparent distress Cardiovascular: normal rate Respiratory/Chest: decreased breath sounds Abdomen: distended Objective No change Laboratory Tests Test 11/17/19 05:30 White Blood Count 11.2 K/UL (4.8-10.8) H Red Blood Count 3.12 M/UL (4.20-5.40) L Hemoglobin 9.3 G/DL (12.0-16.0) L Hematocrit 27.4 % (37.0-47.0) L Mean Corpuscular Volume 88 FL (80-99) Mean Corpuscular Hemoglobin 29.7 PG (27.0-31.0) Mean Corpuscular Hemoglobin Concent 33.9 G/DL (32.0-36.0) Red Cell Distribution Width 12.7 % (11.6-14.8) Platelet Count 403 K/UL (150-450) Mean Platelet Volume 4.7 FL (6.5-10.1) L Neutrophils (%) (Auto) 81.8 % (45.0-75.0) H Lymphocytes (%) (Auto) 8.6 % (20.0-45.0) L Monocytes (%) (Auto) 8.3 % (1.0-10.0) Eosinophils (%) (Auto) 0.7 % (0.0-3.0) Basophils (%) (Auto) 0.7 % (0.0-2.0) Erythrocyte Sedimentation Rate 62 MM/HR (0-30) H Sodium Level 137 MMOL/L (136-145) Potassium Level 4.8 MMOL/L (3.5-5.1) Chloride Level 108 MMOL/L (98-107) H Carbon Dioxide Level 19 MMOL/L (21-32) L Anion Gap 10 mmol/L (5-15) Blood Urea Nitrogen 58 mg/dL (7-18) H Creatinine 3.5 MG/DL (0.55-1.30) H Estimat Glomerular Filtration Rate 13.2 mL/min (>60) Glucose Level 134 MG/DL (74-106) H Uric Acid 7.6 MG/DL (2.6-7.2) H Calcium Level 7.9 MG/DL (8.5-10.1) L Phosphorus Level 5.8 MG/DL (2.5-4.9) H Magnesium Level 2.2 MG/DL (1.8-2.4) Total Bilirubin 0.2 MG/DL (0.2-1.0) Gamma Glutamyl Transpeptidase 14 U/L (5-85) Aspartate Amino Transf (AST/SGOT) 13 U/L (15-37) L Alanine Aminotransferase (ALT/SGPT) 9 U/L (12-78) L Alkaline Phosphatase 77 U/L (46-116) C-Reactive Protein, Quantitative 7.4 mg/dL (0.00-0.90) H Pro-B-Type Natriuretic Peptide 1370 pg/mL (0-125) H Total Protein 5.0 G/DL (6.4-8.2) L Albumin 1.3 G/DL (3.4-5.0) L Globulin 3.7 g/dL Albumin/Globulin Ratio 0.4 (1.0-2.7) L Current Medications Medications (Trade) Dose Ordered Sig/Arnoldo Route PRN Reason Start Time Stop Time Status Last Admin Dose Admin Acetaminophen (Tylenol) 650 mg Q4H PRN ORAL Fever 11/13/19 16:59 12/12/19 16:58 11/15/19 06:33 Albuterol/ Ipratropium (Albuterol/ Ipratropium) 3 ml EVERY 4 HOURS PRN HHN Shortness of Breath 11/13/19 17:00 11/17/19 16:44 Allopurinol (allopurinoL) 300 mg DAILY ORAL 11/16/19 10:30 12/16/19 10:29 11/17/19 09:02 Ceftriaxone Sodium 1 gm/ Sodium Chloride 55 ml @ 110 mls/hr Q24H IVPB 11/14/19 09:00 11/25/19 23:59 11/17/19 09:03 Dextrose (Dextrose 50%) 25 ml Q30M PRN IV Hypoglycemia 11/13/19 17:15 02/11/20 10:14 Dextrose (Dextrose 50%) 50 ml Q30M PRN IV Hypoglycemia 11/13/19 17:15 02/11/20 10:14 Docusate Sodium (Colace) 100 mg TID ORAL 11/15/19 13:00 12/14/19 17:59 11/17/19 09:02 Fish Oil (Fish Oil) 1,000 mg BID ORAL 11/16/19 10:30 12/16/19 10:29 11/17/19 09:01 Heparin Sodium (Porcine) (Heparin 5000 units/ml) 5,000 units EVERY 12 HOURS SUBQ 11/13/19 21:00 12/27/19 20:59 11/17/19 09:04 Hydralazine HCl (Apresoline) 25 mg Q4H PRN ORAL Blood pressure over 160 systol 11/14/19 11:45 02/12/20 11:44 Insulin Aspart (NovoLOG) AC+HS SUBQ 11/15/19 11:30 02/11/20 10:59 11/16/19 22:07 Insulin Detemir (Levemir) 10 units BID SUBQ 11/13/19 18:00 02/11/20 11:29 11/17/19 09:04 Lorazepam (Ativan 2mg/ml 1ml) 2 mg EVERY 2 HOURS PRN IV agitation 11/13/19 17:02 11/19/19 17:01 Morphine Sulfate (Morphine Sulfate) 4 mg EVERY 4 HOURS PRN IVP Severe Pain (Pain Scale 7-10) 11/13/19 17:00 11/19/19 16:44 11/16/19 23:11 Nateglinide (Starlix) 120 mg TIAC ORAL 11/16/19 11:30 12/15/19 11:29 11/17/19 11:58 Ondansetron HCl (Zofran) 4 mg Q6H PRN IVP Nausea & Vomiting 11/13/19 17:03 12/12/19 17:02 11/17/19 05:58 Pantoprazole (Protonix) 40 mg BID ORAL 11/15/19 18:00 12/14/19 11:44 11/17/19 09:02 Sevelamer Carbonate (Renvela) 1,600 mg THREE TIMES A DAY ORAL 11/17/19 09:00 02/14/20 12:59 11/17/19 09:01 Renate Duffy M.D. Nov 17, 2019 12:16
--- NOTE | 2019-11-17 12:54 | Pulmonology Progress Note ---
Assessment/Plan Problems: (1) Gram-negative bacteremia (2) UTI (urinary tract infection) (3) Dehydration, severe (4) Diabetic nephropathy (5) Severe hyperglycemia due to diabetes mellitus Assessment/Plan still nauseous continue abx on Starlix and Levemir sliding scale pt/ot WBC still high dvt prophylaxis Subjective ROS Limited/Unobtainable: Yes Interval Events: feels debil Allergies: Coded Allergies: PENICILLINS (Unverified Allergy, Unknown, 11/12/19) All Systems: reviewed and negative except above Objective Last 24 Hour Vital Signs Date Time Temp Pulse Resp B/P (MAP) Pulse Ox O2 Delivery O2 Flow Rate FiO2 11/17/19 08:00 98.1 84 18 127/66 (86) 98 11/17/19 07:00 84 22 98 Room Air 21 11/17/19 04:00 97.9 78 18 121/53 (75) 97 11/17/19 00:00 98.4 77 16 119/61 (80) 96 11/16/19 21:00 Room Air 11/16/19 20:48 84 22 100 Room Air 21 11/16/19 20:00 98.0 81 16 121/58 (79) 99 11/16/19 16:00 98.1 78 18 121/65 (83) 97 Intake and Output 11/16/19 11/17/19 19:00 07:00 Intake Total 375 ml 615 ml Output Total 1300 ml 1400 ml Balance -925 ml -785 ml Intake Oral 300 ml 240 ml IV Total 75 ml 375 ml Output Urine Total 1300 ml 1400 ml # Bowel Movements 2 General Appearance: WD/WN HEENT: normocephalic, atraumatic Respiratory/Chest: chest wall non-tender, lungs clear Breasts: no masses Cardiovascular: normal rate Abdomen: normal bowel sounds, no mass Extremities: no cyanosis Skin: no lesions Laboratory Tests 11/17/19 05:30: White Blood Count 11.2H, Red Blood Count 3.12L, Hemoglobin 9.3L, Hematocrit 27.4L, Mean Corpuscular Volume 88, Mean Corpuscular Hemoglobin 29.7, Mean Corpuscular Hemoglobin Concent 33.9, Red Cell Distribution Width 12.7, Platelet Count 403, Mean Platelet Volume 4.7L, Neutrophils (%) (Auto) 81.8H, Lymphocytes (%) (Auto) 8.6L, Monocytes (%) (Auto) 8.3, Eosinophils (%) (Auto) 0.7, Basophils (%) (Auto) 0.7, Erythrocyte Sedimentation Rate 62H, Sodium Level 137, Potassium Level 4.8, Chloride Level 108H, Carbon Dioxide Level 19L, Anion Gap 10 , Blood Urea Nitrogen 58H, Creatinine 3.5H, Estimat Glomerular Filtration Rate 13.2, Glucose Level 134H, Uric Acid 7.6H, Calcium Level 7.9L, Phosphorus Level 5.8H, Magnesium Level 2.2, Total Bilirubin 0.2, Gamma Glutamyl Transpeptidase 14 , Aspartate Amino Transf (AST/SGOT) 13L, Alanine Aminotransferase (ALT/SGPT) 9L , Alkaline Phosphatase 77, C-Reactive Protein, Quantitative 7.4H, Pro-B-Type Natriuretic Peptide 1370H, Total Protein 5.0L, Albumin 1.3L, Globulin 3.7, Albumin/Globulin Ratio 0.4L Current Medications Medications (Trade) Dose Ordered Sig/Arnoldo Route PRN Reason Start Time Stop Time Status Last Admin Dose Admin Acetaminophen (Tylenol) 650 mg Q4H PRN ORAL Fever 11/13/19 16:59 12/12/19 16:58 11/15/19 06:33 Albuterol/ Ipratropium (Albuterol/ Ipratropium) 3 ml EVERY 4 HOURS PRN HHN Shortness of Breath 11/13/19 17:00 11/17/19 16:44 Allopurinol (allopurinoL) 300 mg DAILY ORAL 11/16/19 10:30 12/16/19 10:29 11/17/19 09:02 Ceftriaxone Sodium 1 gm/ Sodium Chloride 55 ml @ 110 mls/hr Q24H IVPB 11/14/19 09:00 11/25/19 23:59 11/17/19 09:03 Dextrose (Dextrose 50%) 25 ml Q30M PRN IV Hypoglycemia 11/13/19 17:15 02/11/20 10:14 Dextrose (Dextrose 50%) 50 ml Q30M PRN IV Hypoglycemia 11/13/19 17:15 02/11/20 10:14 Docusate Sodium (Colace) 100 mg TID ORAL 11/15/19 13:00 12/14/19 17:59 11/17/19 09:02 Fish Oil (Fish Oil) 1,000 mg BID ORAL 11/16/19 10:30 12/16/19 10:29 11/17/19 09:01 Heparin Sodium (Porcine) (Heparin 5000 units/ml) 5,000 units EVERY 12 HOURS SUBQ 11/13/19 21:00 12/27/19 20:59 11/17/19 09:04 Hydralazine HCl (Apresoline) 25 mg Q4H PRN ORAL Blood pressure over 160 systol 11/14/19 11:45 02/12/20 11:44 Insulin Aspart (NovoLOG) AC+HS SUBQ 11/15/19 11:30 02/11/20 10:59 11/16/19 22:07 Insulin Detemir (Levemir) 10 units BID SUBQ 11/13/19 18:00 02/11/20 11:29 11/17/19 09:04 Lorazepam (Ativan 2mg/ml 1ml) 2 mg EVERY 2 HOURS PRN IV agitation 11/13/19 17:02 11/19/19 17:01 Morphine Sulfate (Morphine Sulfate) 4 mg EVERY 4 HOURS PRN IVP Severe Pain (Pain Scale 7-10) 11/13/19 17:00 11/19/19 16:44 11/16/19 23:11 Nateglinide (Starlix) 120 mg TIAC ORAL 11/16/19 11:30 12/15/19 11:29 11/17/19 11:58 Ondansetron HCl (Zofran) 4 mg Q6H PRN IVP Nausea & Vomiting 11/13/19 17:03 12/12/19 17:02 11/17/19 05:58 Pantoprazole (Protonix) 40 mg BID ORAL 11/15/19 18:00 12/14/19 11:44 11/17/19 09:02 Sevelamer Carbonate (Renvela) 1,600 mg THREE TIMES A DAY ORAL 11/17/19 09:00 02/14/20 12:59 11/17/19 09:01 Kadie Chavarria MD Nov 17, 2019 12:54
--- NOTE | 2019-11-17 14:26 | General Progress Note ---
Assessment/Plan Problem List: (1) Hyponatremia ICD Codes: E87.1 - Hypo-osmolality and hyponatremia SNOMED: 99462919, 56977828 (2) Diabetes mellitus ICD Codes: E11.9 - Type 2 diabetes mellitus without complications SNOMED: 26815181 (3) Toe amputation status ICD Codes: S98.139A - Complete traumatic amputation of one unspecified lesser toe, initial encounter SNOMED: 713146279 (4) Severe hyperglycemia due to diabetes mellitus ICD Codes: E11.65 - Type 2 diabetes mellitus with hyperglycemia SNOMED: 679212964, 07483542 Assessment/Plan: continue Levemir 10 units bid increase Starlix to 120 mg ac tid continue Novolog sliding scale ac / hs Subjective Allergies: Coded Allergies: PENICILLINS (Unverified Allergy, Unknown, 11/12/19) Subjective events noted mealtime glucose improved Item Value Date Time Bedside Blood Glucose 136 mg/dl H 11/17/19 1149 Bedside Blood Glucose 115 mg/dl 11/17/19 0904 Bedside Blood Glucose 115 mg/dl 11/17/19 0630 Bedside Blood Glucose 185 mg/dl H 11/16/19 2207 Bedside Blood Glucose 185 mg/dl H 11/16/19 1813 Bedside Blood Glucose 119 mg/dl 11/16/19 1130 Bedside Blood Glucose 167 mg/dl H 11/16/19 0859 Objective Last 24 Hour Vital Signs Date Time Temp Pulse Resp B/P (MAP) Pulse Ox O2 Delivery O2 Flow Rate FiO2 11/17/19 08:00 98.1 84 18 127/66 (86) 98 11/17/19 07:00 84 22 98 Room Air 21 11/17/19 04:00 97.9 78 18 121/53 (75) 97 11/17/19 00:00 98.4 77 16 119/61 (80) 96 11/16/19 21:00 Room Air 11/16/19 20:48 84 22 100 Room Air 21 11/16/19 20:00 98.0 81 16 121/58 (79) 99 11/16/19 16:00 98.1 78 18 121/65 (83) 97 Intake and Output 11/16/19 11/17/19 19:00 07:00 Intake Total 375 ml 615 ml Output Total 1300 ml 1400 ml Balance -925 ml -785 ml Intake Oral 300 ml 240 ml IV Total 75 ml 375 ml Output Urine Total 1300 ml 1400 ml # Bowel Movements 2 Laboratory Tests 11/17/19 05:30: White Blood Count 11.2H, Red Blood Count 3.12L, Hemoglobin 9.3L, Hematocrit 27.4L, Mean Corpuscular Volume 88, Mean Corpuscular Hemoglobin 29.7, Mean Corpuscular Hemoglobin Concent 33.9, Red Cell Distribution Width 12.7, Platelet Count 403, Mean Platelet Volume 4.7L, Neutrophils (%) (Auto) 81.8H, Lymphocytes (%) (Auto) 8.6L, Monocytes (%) (Auto) 8.3, Eosinophils (%) (Auto) 0.7, Basophils (%) (Auto) 0.7, Erythrocyte Sedimentation Rate 62H, Sodium Level 137, Potassium Level 4.8, Chloride Level 108H, Carbon Dioxide Level 19L, Anion Gap 10 , Blood Urea Nitrogen 58H, Creatinine 3.5H, Estimat Glomerular Filtration Rate 13.2, Glucose Level 134H, Uric Acid 7.6H, Calcium Level 7.9L, Phosphorus Level 5.8H, Magnesium Level 2.2, Total Bilirubin 0.2, Gamma Glutamyl Transpeptidase 14 , Aspartate Amino Transf (AST/SGOT) 13L, Alanine Aminotransferase (ALT/SGPT) 9L , Alkaline Phosphatase 77, C-Reactive Protein, Quantitative 7.4H, Pro-B-Type Natriuretic Peptide 1370H, Total Protein 5.0L, Albumin 1.3L, Globulin 3.7, Albumin/Globulin Ratio 0.4L Height (Feet): 5 Height (Inches): 2.00 Weight (Pounds): 142 General Appearance: no apparent distress Neck: normal alignment Cardiovascular: normal rate Respiratory/Chest: lungs clear Abdomen: normal bowel sounds Objective Current Medications Medications (Trade) Dose Ordered Sig/Arnoldo Route PRN Reason Start Time Stop Time Status Last Admin Dose Admin Acetaminophen (Tylenol) 650 mg Q4H PRN ORAL Fever 11/13/19 16:59 12/12/19 16:58 11/15/19 06:33 Albuterol/ Ipratropium (Albuterol/ Ipratropium) 3 ml EVERY 4 HOURS PRN HHN Shortness of Breath 11/13/19 17:00 11/17/19 16:44 Allopurinol (allopurinoL) 300 mg DAILY ORAL 11/16/19 10:30 12/16/19 10:29 11/17/19 09:02 Ceftriaxone Sodium 1 gm/ Sodium Chloride 55 ml @ 110 mls/hr Q24H IVPB 11/14/19 09:00 11/25/19 23:59 11/17/19 09:03 Dextrose (Dextrose 50%) 25 ml Q30M PRN IV Hypoglycemia 11/13/19 17:15 02/11/20 10:14 Dextrose (Dextrose 50%) 50 ml Q30M PRN IV Hypoglycemia 11/13/19 17:15 02/11/20 10:14 Docusate Sodium (Colace) 100 mg TID ORAL 11/15/19 13:00 12/14/19 17:59 11/17/19 09:02 Fish Oil (Fish Oil) 1,000 mg BID ORAL 11/16/19 10:30 12/16/19 10:29 11/17/19 09:01 Heparin Sodium (Porcine) (Heparin 5000 units/ml) 5,000 units EVERY 12 HOURS SUBQ 11/13/19 21:00 12/27/19 20:59 11/17/19 09:04 Hydralazine HCl (Apresoline) 25 mg Q4H PRN ORAL Blood pressure over 160 systol 11/14/19 11:45 02/12/20 11:44 Insulin Aspart (NovoLOG) AC+HS SUBQ 11/15/19 11:30 02/11/20 10:59 11/16/19 22:07 Insulin Detemir (Levemir) 10 units BID SUBQ 11/13/19 18:00 02/11/20 11:29 11/17/19 09:04 Lorazepam (Ativan 2mg/ml 1ml) 2 mg EVERY 2 HOURS PRN IV agitation 11/13/19 17:02 11/19/19 17:01 Morphine Sulfate (Morphine Sulfate) 4 mg EVERY 4 HOURS PRN IVP Severe Pain (Pain Scale 7-10) 11/13/19 17:00 11/19/19 16:44 11/16/19 23:11 Nateglinide (Starlix) 120 mg TIAC ORAL 11/16/19 11:30 12/15/19 11:29 11/17/19 11:58 Ondansetron HCl (Zofran) 4 mg Q6H PRN IVP Nausea & Vomiting 4/17/20 17:03 12/12/19 17:02 11/17/19 05:58 Pantoprazole (Protonix) 40 mg BID ORAL 11/15/19 18:00 12/14/19 11:44 11/17/19 09:02 Sevelamer Carbonate (Renvela) 1,600 mg THREE TIMES A DAY ORAL 11/17/19 09:00 02/14/20 12:59 11/17/19 09:01 Lorenzo Gay MD Nov 17, 2019 14:26
--- NOTE | 2019-11-17 15:30 | NUR ---
CASE MANAGEMENT: REVIEW 11/17/2019 SI:GRAM NEGATIVE BACTEREMIA . UTI E-COLI . SEPSIS . ACUTE RENAL FAILURE D/T SEVERE DEHYDRATION 98.1 84 18 127/66 98% ON RA WBC 11.2 H/H 9.3/27.4 BUN/CREAT 58/3.5 URIC ACID 7.6 CA+ 7.9 PHOS 5.8 BNP 1370 IS: IV ROCEPHIN Q24HR STARLIX PO TIAC LEVEMIR SQ BID RENVELA PO TID HEPARIN SQ BID PROTONIX PO BID ALLOPURINOL PO QD \: 3E MED SURG UNIT DCP: HOME WHEN STABLE; ABLE TO SELF ISOLATE WHEN STABLE FOR DISCHARGE PLAN: ADJUSTED DM MEDICATION PT/PT EVAL AND THERAPY RENAL US - Negative for hydronephrosis
[2019-11-17 16:19] VITALS: BP 129/66
--- NOTE | 2019-11-17 17:00 | NUR ---
NURSE NOTES: Patient voided 500mL of urine without difficulty.
--- NOTE | 2019-11-17 17:09 | Internal Med Progress Note ---
Subjective Date of Service: Nov 17, 2019 Physician Name Ramón Bruno Attending Physician Lb Santos MD Current Medications Medications (Trade) Dose Ordered Sig/Arnoldo Route PRN Reason Start Time Stop Time Status Last Admin Dose Admin Acetaminophen (Tylenol) 650 mg Q4H PRN ORAL Fever 11/13/19 16:59 12/12/19 16:58 11/15/19 06:33 Allopurinol (allopurinoL) 300 mg DAILY ORAL 11/16/19 10:30 12/16/19 10:29 11/17/19 09:02 Ceftriaxone Sodium 1 gm/ Sodium Chloride 55 ml @ 110 mls/hr Q24H IVPB 11/14/19 09:00 11/25/19 23:59 11/17/19 09:03 Dextrose (Dextrose 50%) 25 ml Q30M PRN IV Hypoglycemia 11/13/19 17:15 02/11/20 10:14 Dextrose (Dextrose 50%) 50 ml Q30M PRN IV Hypoglycemia 11/13/19 17:15 02/11/20 10:14 Docusate Sodium (Colace) 100 mg TID ORAL 11/15/19 13:00 12/14/19 17:59 11/17/19 14:26 Fish Oil (Fish Oil) 1,000 mg BID ORAL 11/16/19 10:30 12/16/19 10:29 11/17/19 09:01 Heparin Sodium (Porcine) (Heparin 5000 units/ml) 5,000 units EVERY 12 HOURS SUBQ 11/13/19 21:00 12/27/19 20:59 11/17/19 09:04 Hydralazine HCl (Apresoline) 25 mg Q4H PRN ORAL Blood pressure over 160 systol 11/14/19 11:45 02/12/20 11:44 Insulin Aspart (NovoLOG) AC+HS SUBQ 11/15/19 11:30 02/11/20 10:59 11/17/19 16:57 Insulin Detemir (Levemir) 10 units BID SUBQ 11/13/19 18:00 02/11/20 11:29 11/17/19 09:04 Lorazepam (Ativan 2mg/ml 1ml) 2 mg EVERY 2 HOURS PRN IV agitation 11/13/19 17:02 11/19/19 17:01 Morphine Sulfate (Morphine Sulfate) 4 mg EVERY 4 HOURS PRN IVP Severe Pain (Pain Scale 7-10) 11/13/19 17:00 11/19/19 16:44 11/16/19 23:11 Nateglinide (Starlix) 120 mg TIAC ORAL 11/16/19 11:30 12/15/19 11:29 11/17/19 16:55 Ondansetron HCl (Zofran) 4 mg Q6H PRN IVP Nausea & Vomiting 11/13/19 17:03 12/12/19 17:02 11/17/19 17:01 Pantoprazole (Protonix) 40 mg BID ORAL 11/15/19 18:00 12/14/19 11:44 11/17/19 09:02 Sevelamer Carbonate (Renvela) 1,600 mg THREE TIMES A DAY ORAL 11/17/19 09:00 02/14/20 12:59 11/17/19 14:26 Allergies: Coded Allergies: PENICILLINS (Unverified Allergy, Unknown, 11/12/19) ROS Limited/Unobtainable: No Constitutional: Reports: no symptoms HEENT: Reports: no symptoms Cardiovascular: Reports: no symptoms Respiratory: Reports: no symptoms Gastrointestinal/Abdominal: Reports: no symptoms Genitourinary: Reports: no symptoms Neurologic/Psychiatric: Reports: no symptoms Subjective 64 YO F admitted with cough and gen weakness. Now UTI and sepsis. Cover for Int Med-Dr Santos. Objective Last Vital Signs Date Time Temp Pulse Resp B/P (MAP) Pulse Ox O2 Delivery O2 Flow Rate FiO2 11/17/19 16:19 98.5 70 18 129/66 (87) 98 11/17/19 09:00 Room Air 11/17/19 07:00 21 Laboratory Tests Test 11/17/19 05:30 White Blood Count 11.2 K/UL (4.8-10.8) H Red Blood Count 3.12 M/UL (4.20-5.40) L Hemoglobin 9.3 G/DL (12.0-16.0) L Hematocrit 27.4 % (37.0-47.0) L Mean Corpuscular Volume 88 FL (80-99) Mean Corpuscular Hemoglobin 29.7 PG (27.0-31.0) Mean Corpuscular Hemoglobin Concent 33.9 G/DL (32.0-36.0) Red Cell Distribution Width 12.7 % (11.6-14.8) Platelet Count 403 K/UL (150-450) Mean Platelet Volume 4.7 FL (6.5-10.1) L Neutrophils (%) (Auto) 81.8 % (45.0-75.0) H Lymphocytes (%) (Auto) 8.6 % (20.0-45.0) L Monocytes (%) (Auto) 8.3 % (1.0-10.0) Eosinophils (%) (Auto) 0.7 % (0.0-3.0) Basophils (%) (Auto) 0.7 % (0.0-2.0) Erythrocyte Sedimentation Rate 62 MM/HR (0-30) H Sodium Level 137 MMOL/L (136-145) Potassium Level 4.8 MMOL/L (3.5-5.1) Chloride Level 108 MMOL/L (98-107) H Carbon Dioxide Level 19 MMOL/L (21-32) L Anion Gap 10 mmol/L (5-15) Blood Urea Nitrogen 58 mg/dL (7-18) H Creatinine 3.5 MG/DL (0.55-1.30) H Estimat Glomerular Filtration Rate 13.2 mL/min (>60) Glucose Level 134 MG/DL (74-106) H Uric Acid 7.6 MG/DL (2.6-7.2) H Calcium Level 7.9 MG/DL (8.5-10.1) L Phosphorus Level 5.8 MG/DL (2.5-4.9) H Magnesium Level 2.2 MG/DL (1.8-2.4) Total Bilirubin 0.2 MG/DL (0.2-1.0) Gamma Glutamyl Transpeptidase 14 U/L (5-85) Aspartate Amino Transf (AST/SGOT) 13 U/L (15-37) L Alanine Aminotransferase (ALT/SGPT) 9 U/L (12-78) L Alkaline Phosphatase 77 U/L (46-116) C-Reactive Protein, Quantitative 7.4 mg/dL (0.00-0.90) H Pro-B-Type Natriuretic Peptide 1370 pg/mL (0-125) H Total Protein 5.0 G/DL (6.4-8.2) L Albumin 1.3 G/DL (3.4-5.0) L Globulin 3.7 g/dL Albumin/Globulin Ratio 0.4 (1.0-2.7) L Intake and Output 11/16/19 11/17/19 19:00 07:00 Intake Total 375 ml 690 ml Output Total 1300 ml 1400 ml Balance -925 ml -710 ml Intake Oral 300 ml 240 ml IV Total 75 ml 450 ml Output Urine Total 1300 ml 1400 ml # Bowel Movements 2 Objective PHYSICAL EXAMINATION: GENERAL: Patient is a well-developed and well-nourished female, in no apparent distress. HEENT: Eyes, pupils are equal and responsive to light and accommodation. Extraocular movements are intact. NECK: Supple without lymphadenopathy. CHEST: Lungs are clear to auscultation bilaterally without wheezes or rales. CARDIOVASCULAR: Regular rhythm and rate. S1, S2 are normal without murmurs, rubs, or gallops. ABDOMINAL: Soft, nontender, and nondistended. Positive bowel sounds. No evidence of hepatosplenomegaly. Currently, no rebound or guarding noted. EXTREMITIES: Negative for clubbing, cyanosis, or edema. RECTAL/GENITAL: Not performed. NEUROLOGIC: Cranial nerves II through XII are grossly intact without focal deficits. Motor strength is 5/5 bilaterally. Deep tendon reflexes 2+ plantar. Assessment/Plan Assessment/Plan ASSESSMENT: This is a 64-year-old female. 1. Hyperglycemia. 2. Diabetic ketoacidosis. 3. Diabetes type 2. 4. Hyponatremia. 5. Acute renal failure. 6. Cough. 7. Hypertension. 8. Diabetes type 2. 9. Urinary tract infection=E. Coli 10. Sepsis=E. Coli TREATMENT: 1. Urinary tract infection/sepsis=E. Coli ABX=ceftriaxone. 2. Diabetic ketoacidosis. Patient is currently off insulin drip. An Endocrinology consultation has been obtained with Dr. Gay. Continue starlix , levemir and novolog sliding scale per endocrinology 3. Cough. COVID-19=neg X1. A Pulmonary consultation has been obtained with Dr. Kadie Chavarria. 4. Generalized weakness. 5. Renal failure. A Nephrology consultation has been obtained with Dr. Inder Wong. Patient is currently receiving intravenous fluids. Renal failure may be secondary to diabetic ketoacidosis and dehydration. 6. Hyponatremia. Patient is currently receiving normal saline. 7. Diabetes type 2. 8. Hypertension. Patient is currently hypotensive. Ramón Bruno MD Nov 17, 2019 17:09
--- NOTE | 2019-11-17 19:24 | NUR ---
HAND-OFF: Report given to Caprice GRAHAM.
--- NOTE | 2019-11-17 19:25 | NUR ---
NURSE NOTES: Received report from SANTOS George. Patient sleeping quietly, no distress noted. Bed in low position, locked, side rails up x2. Call light next to her. Will continue to monitor.
[2019-11-17 20:00] VITALS: BP 120/62
[2019-11-18 04:00] VITALS: BP 128/71
[2019-11-18 06:09] LABS: HEMATOCRIT 27.2 % (37.0-47.0); HEMOGLOBIN 9.3 G/DL (12.0-16.0); MEAN CORPUSCULAR VOLUME 87 FL (80-99); PLATELET COUNT 405 K/UL (150-450); RED BLOOD COUNT 3.11 M/UL (4.20-5.40); RED CELL DISTRIBUTION WIDTH 12.8 % (11.6-14.8); WHITE BLOOD COUNT 12.7 K/UL (4.8-10.8)
[2019-11-18 06:19] LABS: ALANINE AMINOTRANSFERASE 10 U/L (12-78); ALBUMIN 1.5 G/DL (3.4-5.0); ALBUMIN/GLOBULIN RATIO 0.4 (1.0-2.7); ALKALINE PHOSPHATASE 77 U/L (46-116); AMYLASE 36 U/L (25-115); ANION GAP 11 mmol/L (5-15); ASPARTATE AMINO TRANSFERASE 16 U/L (15-37); BILIRUBIN,TOTAL 0.1 MG/DL (0.2-1.0); BLOOD UREA NITROGEN 48 mg/dL (7-18); CALCIUM 8.2 MG/DL (8.5-10.1); CARBON DIOXIDE 18 MMOL/L (21-32); CHLORIDE 109 MMOL/L (98-107); CREATININE 3.4 MG/DL (0.55-1.30); PHOSPHORUS 5.4 MG/DL (2.5-4.9); POTASSIUM 4.5 MMOL/L (3.5-5.1); SODIUM 138 MMOL/L (136-145)
[2019-11-18] MEDS: NovoLOG Insulin Flexpen SUBQ SCH ×4 (06:30→22:25)
--- NOTE | 2019-11-18 06:56 | General Progress Note ---
Assessment/Plan Problem List: (1) Hyponatremia ICD Codes: E87.1 - Hypo-osmolality and hyponatremia SNOMED: 95619619, 49942051 (2) Diabetes mellitus ICD Codes: E11.9 - Type 2 diabetes mellitus without complications SNOMED: 51593412 (3) Toe amputation status ICD Codes: S98.139A - Complete traumatic amputation of one unspecified lesser toe, initial encounter SNOMED: 142785884 (4) Severe hyperglycemia due to diabetes mellitus ICD Codes: E11.65 - Type 2 diabetes mellitus with hyperglycemia SNOMED: 713701031, 62154976 Assessment/Plan: change Levemir 10 units bid to 12 units qhs continue Starlix 120 mg ac tid continue Novolog sliding scale ac / hs Subjective Allergies: Coded Allergies: PENICILLINS (Unverified Allergy, Unknown, 11/12/19) Subjective events noted fasting glucose on lower side Item Value Date Time Bedside Blood Glucose 74 mg/dl 11/18/19 0623 Bedside Blood Glucose 149 mg/dl H 11/17/19 2100 Bedside Blood Glucose 150 mg/dl H 11/17/19 1813 Bedside Blood Glucose 136 mg/dl H 11/17/19 1149 Bedside Blood Glucose 115 mg/dl 11/17/19 0904 Objective Last 24 Hour Vital Signs Date Time Temp Pulse Resp B/P (MAP) Pulse Ox O2 Delivery O2 Flow Rate FiO2 11/18/19 04:00 97.0 78 18 128/71 (90) 98 11/17/19 21:00 Room Air 11/17/19 20:00 74 19 96 Room Air 21 11/17/19 20:00 98.2 80 20 120/62 (81) 98 11/17/19 16:19 98.5 70 18 129/66 (87) 98 11/17/19 12:00 98.9 75 18 121/76 (91) 98 11/17/19 09:00 Room Air 11/17/19 08:00 98.1 84 18 127/66 (86) 98 11/17/19 07:00 84 22 98 Room Air 21 Intake and Output 11/17/19 11/18/19 19:00 07:00 Intake Total 680 ml 240 ml Output Total 1100 ml Balance -420 ml 240 ml Intake Oral 400 ml 240 ml IV Total 280 ml Output Urine Total 1100 ml # Voids 3 Laboratory Tests 11/18/19 05:20: White Blood Count 12.7H, Red Blood Count 3.11L, Hemoglobin 9.3L, Hematocrit 27.2L, Mean Corpuscular Volume 87, Mean Corpuscular Hemoglobin 29.8, Mean Corpuscular Hemoglobin Concent 34.2, Red Cell Distribution Width 12.8, Platelet Count 405, Mean Platelet Volume 4.4L, Neutrophils (%) (Auto) , Lymphocytes (%) ( Auto) , Monocytes (%) (Auto) , Eosinophils (%) (Auto) , Basophils (%) (Auto) , Neutrophils % (Manual) [Pending], Lymphocytes % (Manual) [Pending], Platelet Estimate [Pending], Platelet Morphology [Pending], Erythrocyte Sedimentation Rate [Pending], Sodium Level 138, Potassium Level 4.5, Chloride Level 109H, Carbon Dioxide Level 18L, Anion Gap 11, Blood Urea Nitrogen 48H, Creatinine 3.4H , Estimat Glomerular Filtration Rate 13.7, Glucose Level 71L, Calcium Level 8.2L , Phosphorus Level 5.4H, Magnesium Level 2.2, Total Bilirubin 0.1L, Aspartate Amino Transf (AST/SGOT) 16, Alanine Aminotransferase (ALT/SGPT) 10L, Alkaline Phosphatase 77, C-Reactive Protein, Quantitative 6.8H, Total Protein 5.4L, Albumin 1.5L, Globulin 3.9, Albumin/Globulin Ratio 0.4L, Amylase Level 36, Lipase 54L Height (Feet): 5 Height (Inches): 2.00 Weight (Pounds): 142 General Appearance: no apparent distress Neck: normal alignment Cardiovascular: normal rate Respiratory/Chest: lungs clear Abdomen: normal bowel sounds Objective Current Medications Medications (Trade) Dose Ordered Sig/Arnoldo Route PRN Reason Start Time Stop Time Status Last Admin Dose Admin Acetaminophen (Tylenol) 650 mg Q4H PRN ORAL Fever 11/13/19 16:59 12/12/19 16:58 11/15/19 06:33 Allopurinol (allopurinoL) 300 mg DAILY ORAL 11/16/19 10:30 12/16/19 10:29 11/17/19 09:02 Ceftriaxone Sodium 1 gm/ Sodium Chloride 55 ml @ 110 mls/hr Q24H IVPB 11/14/19 09:00 11/25/19 23:59 11/17/19 09:03 Dextrose (Dextrose 50%) 25 ml Q30M PRN IV Hypoglycemia 11/13/19 17:15 02/11/20 10:14 Dextrose (Dextrose 50%) 50 ml Q30M PRN IV Hypoglycemia 11/13/19 17:15 02/11/20 10:14 Docusate Sodium (Colace) 100 mg TID ORAL 11/15/19 13:00 12/14/19 17:59 11/17/19 18:12 Fish Oil (Fish Oil) 1,000 mg BID ORAL 11/16/19 10:30 12/16/19 10:29 11/17/19 09:01 Heparin Sodium (Porcine) (Heparin 5000 units/ml) 5,000 units EVERY 12 HOURS SUBQ 11/13/19 21:00 12/27/19 20:59 11/17/19 20:23 Hydralazine HCl (Apresoline) 25 mg Q4H PRN ORAL Blood pressure over 160 systol 11/14/19 11:45 02/12/20 11:44 Insulin Aspart (NovoLOG) AC+HS SUBQ 11/15/19 11:30 02/11/20 10:59 11/17/19 20:36 Insulin Detemir (Levemir) 10 units BID SUBQ 11/13/19 18:00 02/11/20 11:29 11/17/19 18:13 Lorazepam (Ativan 2mg/ml 1ml) 2 mg EVERY 2 HOURS PRN IV agitation 11/13/19 17:02 11/19/19 17:01 Morphine Sulfate (Morphine Sulfate) 4 mg EVERY 4 HOURS PRN IVP Severe Pain (Pain Scale 7-10) 11/13/19 17:00 11/19/19 16:44 11/16/19 23:11 Nateglinide (Starlix) 120 mg TIAC ORAL 11/16/19 11:30 12/15/19 11:29 11/17/19 16:55 Ondansetron HCl (Zofran) 4 mg Q6H PRN IVP Nausea & Vomiting 11/13/19 17:03 12/12/19 17:02 11/17/19 22:16 Pantoprazole (Protonix) 40 mg BID ORAL 11/15/19 18:00 12/14/19 11:44 11/17/19 18:12 Sevelamer Carbonate (Renvela) 1,600 mg THREE TIMES A DAY ORAL 11/17/19 09:00 02/14/20 12:59 11/17/19 18:12 Lorenzo Gay MD Nov 18, 2019 06:56
--- NOTE | 2019-11-18 06:58 | NUR ---
NURSE NOTES: Chemical Process Project Engineer here to speak with patient, discussed patient's poor appetite. Will be sending nutritional supplements with meals. Patient verbalizes understanding of measures.
--- NOTE | 2019-11-18 07:16 | NUR ---
HAND-OFF: Report given to SANTOS George.
--- NOTE | 2019-11-18 07:30 | NUR ---
NURSE NOTES: Received report from Caprice GRAHAM. Patient is asleep during rounds, no acute distress noted, RR even and unlabored. IV intact. Fall precautions maintained. Side rails upx3, bed low and locked, bed alarm armed, call light within reach.
[2019-11-18 08:00] VITALS: BP 102/48
--- NOTE | 2019-11-18 08:34 | NUR ---
RD ASSESSMENT & RECOMMENDATIONS SEE CARE ACTIVITY FOR COMPLETE ASSESSMENT DAILY ESTIMATED NEEDS: Needs based on DM, 50.3kg abw 25-30 kcals/kg 7116-9235 total kcals 1-1.5 g protein/kg 50-76 g total protein 25-30 mL/kg 8732-2726 total fluid mLs NUTRITION DIAGNOSIS: * Altered nutrition related lab values R/T DKA, diabetes as evidenced by A1C of 12.4, urine glucose of 4+ on adm, BG of 883 on adm. (CURRENT DIET: CCHO MED) PO DIET RECOMMENDATIONS: CCHO LOW + GLUCERNA BID ADDITIONAL RECOMMENDATIONS: * Obtain a calibrated bedscale wt for accurate CBW * 1 carb snack in b/w meals w/ current poor intake * Monitor renal labs and need for renal diet restrictions
[2019-11-18] MEDS: Docusate 100mg cap ORAL SCH ×3 (09:06→17:58)
[2019-11-18] MEDS: Heparin 5000 units/ml inj SUBQ SCH ×2 (09:06→22:16)
[2019-11-18] MEDS: cefTRIAXone 1 GM in NS 55 ML IVPB SCH (09:07)
--- NOTE | 2019-11-18 11:33 | Nephrology Progress Note ---
Assessment/Plan Problem List: (1) Diabetic nephropathy (2) Renal failure (ARF), acute on chronic Assessment: GFR 13 (3) Severe hyperglycemia due to diabetes mellitus (4) Dehydration (5) Hypotension due to hypovolemia (6) Hyponatremia (7) UTI (urinary tract infection) (8) Chronic kidney disease (CKD), stage V Assessment 64-year-old female presents with hyperglycemia and hyponatremia She also have elevated BUN and creatinine Renal impression mainly dehydration Patient may also have underlying chronic kidney disease Patient have evidence of urinary tract infection She is hypoalbuminemic She has underlying anemia Impression: - Hyperglycemia. - Hyponatremia. Mainly due to hyperglycemia - Acute renal failure. Mainly due to dehydration - Hypertension. - Sepsis due to Acute E. Coli Urinary tract infection. - PVD / PAD s/p left TMA. Plan Discontinue IV fluid Discontinue Fisher catheter Monitor renal parameters Monitor electrolytes Keep the blood sugar and blood pressure in check Antibiotics Avoid nephrotoxic's Start fish oil for high triglycerides 2D echocardiogram ejection fraction 65% Kidney ultrasound results noted Per orders Subjective ROS Limited/Unobtainable: No Constitutional: Reports: malaise, weakness Objective Objective Last 24 Hour Vital Signs Date Time Temp Pulse Resp B/P (MAP) Pulse Ox O2 Delivery O2 Flow Rate FiO2 11/18/19 08:00 97.9 72 16 102/48 (66) 98 11/18/19 07:00 72 20 98 Room Air 21 11/18/19 04:00 97.0 78 18 128/71 (90) 98 11/17/19 21:00 Room Air 11/17/19 20:00 74 19 96 Room Air 21 11/17/19 20:00 98.2 80 20 120/62 (81) 98 11/17/19 16:19 98.5 70 18 129/66 (87) 98 11/17/19 12:00 98.9 75 18 121/76 (91) 98 Intake and Output 11/17/19 11/18/19 19:00 07:00 Intake Total 680 ml 240 ml Output Total 1100 ml Balance -420 ml 240 ml Intake Oral 400 ml 240 ml IV Total 280 ml Output Urine Total 1100 ml # Voids 3 Laboratory Tests 11/18/19 05:20: White Blood Count 12.7H, Red Blood Count 3.11L, Hemoglobin 9.3L, Hematocrit 27.2L, Mean Corpuscular Volume 87, Mean Corpuscular Hemoglobin 29.8, Mean Corpuscular Hemoglobin Concent 34.2, Red Cell Distribution Width 12.8, Platelet Count 405, Mean Platelet Volume 4.4L, Neutrophils (%) (Auto) , Lymphocytes (%) ( Auto) , Monocytes (%) (Auto) , Eosinophils (%) (Auto) , Basophils (%) (Auto) , Differential Total Cells Counted 100, Neutrophils % (Manual) 96H, Lymphocytes % (Manual) 1L, Monocytes % (Manual) 3, Eosinophils % (Manual) 0, Basophils % ( Manual) 0, Band Neutrophils 0, Platelet Estimate Adequate, Platelet Morphology Normal, Erythrocyte Sedimentation Rate 72H, Sodium Level 138, Potassium Level 4.5, Chloride Level 109H, Carbon Dioxide Level 18L, Anion Gap 11, Blood Urea Nitrogen 48H, Creatinine 3.4H, Estimat Glomerular Filtration Rate 13.7, Glucose Level 71L, Calcium Level 8.2L, Phosphorus Level 5.4H, Magnesium Level 2.2, Total Bilirubin 0.1L, Aspartate Amino Transf (AST/SGOT) 16, Alanine Aminotransferase (ALT/SGPT) 10L, Alkaline Phosphatase 77, C-Reactive Protein, Quantitative 6.8H, Total Protein 5.4L, Albumin 1.5L, Globulin 3.9, Albumin/ Globulin Ratio 0.4L, Amylase Level 36, Lipase 54L Height (Feet): 5 Height (Inches): 2.00 Weight (Pounds): 142 General Appearance: no apparent distress Cardiovascular: normal rate Respiratory/Chest: decreased breath sounds Abdomen: soft Objective No change Inder Wong MD Nov 18, 2019 11:33
--- NOTE | 2019-11-18 11:39 | Internal Med Progress Note ---
Subjective Date of Service: Nov 18, 2019 Physician Name Ramón Bruno Attending Physician Lb Santos MD Current Medications Medications (Trade) Dose Ordered Sig/Arnoldo Route PRN Reason Start Time Stop Time Status Last Admin Dose Admin Acetaminophen (Tylenol) 650 mg Q4H PRN ORAL Fever 11/13/19 16:59 12/12/19 16:58 11/15/19 06:33 Allopurinol (allopurinoL) 300 mg DAILY ORAL 11/16/19 10:30 12/16/19 10:29 11/18/19 09:06 Ceftriaxone Sodium 1 gm/ Sodium Chloride 55 ml @ 110 mls/hr Q24H IVPB 11/14/19 09:00 11/25/19 23:59 11/18/19 09:07 Dextrose (Dextrose 50%) 25 ml Q30M PRN IV Hypoglycemia 11/13/19 17:15 02/11/20 10:14 Dextrose (Dextrose 50%) 50 ml Q30M PRN IV Hypoglycemia 11/13/19 17:15 02/11/20 10:14 Docusate Sodium (Colace) 100 mg TID ORAL 11/15/19 13:00 12/14/19 17:59 11/18/19 09:06 Fish Oil (Fish Oil) 1,000 mg BID ORAL 11/16/19 10:30 12/16/19 10:29 11/18/19 09:06 Heparin Sodium (Porcine) (Heparin 5000 units/ml) 5,000 units EVERY 12 HOURS SUBQ 11/13/19 21:00 12/27/19 20:59 11/18/19 09:06 Hydralazine HCl (Apresoline) 25 mg Q4H PRN ORAL Blood pressure over 160 systol 11/14/19 11:45 02/12/20 11:44 Insulin Aspart (NovoLOG) AC+HS SUBQ 11/15/19 11:30 02/11/20 10:59 11/17/19 20:36 Insulin Detemir (Levemir) 12 units BEDTIME SUBQ 11/18/19 21:00 02/11/20 11:29 Lorazepam (Ativan 2mg/ml 1ml) 2 mg EVERY 2 HOURS PRN IV agitation 11/13/19 17:02 11/19/19 17:01 Morphine Sulfate (Morphine Sulfate) 4 mg EVERY 4 HOURS PRN IVP Severe Pain (Pain Scale 7-10) 11/13/19 17:00 11/19/19 16:44 11/16/19 23:11 Nateglinide (Starlix) 120 mg TIAC ORAL 11/16/19 11:30 12/15/19 11:29 11/17/19 16:55 Ondansetron HCl (Zofran) 4 mg Q6H PRN IVP Nausea & Vomiting 11/13/19 17:03 12/12/19 17:02 11/17/19 22:16 Pantoprazole (Protonix) 40 mg BID ORAL 11/15/19 18:00 12/14/19 11:44 11/18/19 09:06 Sevelamer Carbonate (Renvela) 1,600 mg THREE TIMES A DAY ORAL 11/17/19 09:00 02/14/20 12:59 11/18/19 09:05 Allergies: Coded Allergies: PENICILLINS (Unverified Allergy, Unknown, 11/12/19) ROS Limited/Unobtainable: No Constitutional: Reports: no symptoms Cardiovascular: Reports: no symptoms Respiratory: Reports: no symptoms Gastrointestinal/Abdominal: Reports: nausea Genitourinary: Reports: no symptoms Neurologic/Psychiatric: Reports: no symptoms Subjective 64 YO F admitted with cough and gen weakness. Now UTI and sepsis. Cover for Int Med-Dr Santos.. C/O nausea Objective Last Vital Signs Date Time Temp Pulse Resp B/P (MAP) Pulse Ox O2 Delivery O2 Flow Rate FiO2 11/18/19 08:00 97.9 72 16 102/48 (66) 98 11/18/19 07:00 Room Air 21 Laboratory Tests Test 11/18/19 05:20 White Blood Count 12.7 K/UL (4.8-10.8) H Red Blood Count 3.11 M/UL (4.20-5.40) L Hemoglobin 9.3 G/DL (12.0-16.0) L Hematocrit 27.2 % (37.0-47.0) L Mean Corpuscular Volume 87 FL (80-99) Mean Corpuscular Hemoglobin 29.8 PG (27.0-31.0) Mean Corpuscular Hemoglobin Concent 34.2 G/DL (32.0-36.0) Red Cell Distribution Width 12.8 % (11.6-14.8) Platelet Count 405 K/UL (150-450) Mean Platelet Volume 4.4 FL (6.5-10.1) L Neutrophils (%) (Auto) % (45.0-75.0) Lymphocytes (%) (Auto) % (20.0-45.0) Monocytes (%) (Auto) % (1.0-10.0) Eosinophils (%) (Auto) % (0.0-3.0) Basophils (%) (Auto) % (0.0-2.0) Differential Total Cells Counted 100 Neutrophils % (Manual) 96 % (45-75) H Lymphocytes % (Manual) 1 % (20-45) L Monocytes % (Manual) 3 % (1-10) Eosinophils % (Manual) 0 % (0-3) Basophils % (Manual) 0 % (0-2) Band Neutrophils 0 % (0-8) Platelet Estimate Adequate Platelet Morphology Normal Erythrocyte Sedimentation Rate 72 MM/HR (0-30) H Sodium Level 138 MMOL/L (136-145) Potassium Level 4.5 MMOL/L (3.5-5.1) Chloride Level 109 MMOL/L (98-107) H Carbon Dioxide Level 18 MMOL/L (21-32) L Anion Gap 11 mmol/L (5-15) Blood Urea Nitrogen 48 mg/dL (7-18) H Creatinine 3.4 MG/DL (0.55-1.30) H Estimat Glomerular Filtration Rate 13.7 mL/min (>60) Glucose Level 71 MG/DL (74-106) L Calcium Level 8.2 MG/DL (8.5-10.1) L Phosphorus Level 5.4 MG/DL (2.5-4.9) H Magnesium Level 2.2 MG/DL (1.8-2.4) Total Bilirubin 0.1 MG/DL (0.2-1.0) L Aspartate Amino Transf (AST/SGOT) 16 U/L (15-37) Alanine Aminotransferase (ALT/SGPT) 10 U/L (12-78) L Alkaline Phosphatase 77 U/L (46-116) C-Reactive Protein, Quantitative 6.8 mg/dL (0.00-0.90) H Total Protein 5.4 G/DL (6.4-8.2) L Albumin 1.5 G/DL (3.4-5.0) L Globulin 3.9 g/dL Albumin/Globulin Ratio 0.4 (1.0-2.7) L Amylase Level 36 U/L (25-115) Lipase 54 U/L (73-393) L Intake and Output 11/17/19 11/18/19 19:00 07:00 Intake Total 680 ml 240 ml Output Total 1100 ml Balance -420 ml 240 ml Intake Oral 400 ml 240 ml IV Total 280 ml Output Urine Total 1100 ml # Voids 3 Objective PHYSICAL EXAMINATION: GENERAL: Patient is a well-developed and well-nourished female, in no apparent distress. HEENT: Eyes, pupils are equal and responsive to light and accommodation. Extraocular movements are intact. NECK: Supple without lymphadenopathy. CHEST: Lungs are clear to auscultation bilaterally without wheezes or rales. CARDIOVASCULAR: Regular rhythm and rate. S1, S2 are normal without murmurs, rubs, or gallops. ABDOMINAL: Soft, nontender, and nondistended. Positive bowel sounds. No evidence of hepatosplenomegaly. Currently, no rebound or guarding noted. EXTREMITIES: Negative for clubbing, cyanosis, or edema. RECTAL/GENITAL: Not performed. NEUROLOGIC: Cranial nerves II through XII are grossly intact without focal deficits. Motor strength is 5/5 bilaterally. Deep tendon reflexes 2+ plantar. Assessment/Plan Assessment/Plan ASSESSMENT: This is a 64-year-old female. 1. Hyperglycemia. 2. Diabetic ketoacidosis. 3. Diabetes type 2. 4. Hyponatremia. 5. Acute renal failure. 6. Cough. 7. Hypertension. 8. Diabetes type 2. 9. Urinary tract infection=E. Coli 10. Sepsis=E. Coli TREATMENT: 1. Urinary tract infection/sepsis=E. Coli ABX=ceftriaxone. 2. Diabetic ketoacidosis. Patient is currently off insulin drip. An Endocrinology consultation has been obtained with Dr. Gay. Continue starlix , levemir and novolog sliding scale per endocrinology 3. Cough. COVID-19=neg X1. A Pulmonary consultation has been obtained with Dr. Kadie Chavarria. 4. Generalized weakness. 5. Renal failure. A Nephrology consultation has been obtained with Dr. Inder Wong. 6. Hyponatremia. Patient is currently receiving normal saline. 7. Diabetes type 2. 8. Hypertension. Patient is currently hypotensive. Ramón Bruno MD Nov 18, 2019 11:39
[2019-11-18 12:00] VITALS: BP 131/86
--- NOTE | 2019-11-18 12:55 | Pulmonology Progress Note ---
Assessment/Plan Problems: (1) Gram-negative bacteremia (2) UTI (urinary tract infection) (3) Dehydration, severe (4) Diabetic nephropathy (5) Severe hyperglycemia due to diabetes mellitus Assessment/Plan doing better, eating relatively well continue abx, on Ceftriaxone on Starlix and Levemir sliding scale pt/ot WBC still high dvt prophylaxis Subjective ROS Limited/Unobtainable: No Interval Events: feels debil Constitutional: Reports: no symptoms HEENT: Repors: no symptoms Allergies: Coded Allergies: PENICILLINS (Unverified Allergy, Unknown, 11/12/19) All Systems: reviewed and negative except above Objective Last 24 Hour Vital Signs Date Time Temp Pulse Resp B/P (MAP) Pulse Ox O2 Delivery O2 Flow Rate FiO2 11/18/19 12:00 98.1 74 16 131/86 (101) 99 11/18/19 09:00 Room Air 11/18/19 08:00 97.9 72 16 102/48 (66) 98 11/18/19 07:00 72 20 98 Room Air 21 11/18/19 04:00 97.0 78 18 128/71 (90) 98 11/17/19 21:00 Room Air 11/17/19 20:00 74 19 96 Room Air 21 11/17/19 20:00 98.2 80 20 120/62 (81) 98 11/17/19 16:19 98.5 70 18 129/66 (87) 98 Intake and Output 11/17/19 11/18/19 19:00 07:00 Intake Total 680 ml 240 ml Output Total 1100 ml Balance -420 ml 240 ml Intake Oral 400 ml 240 ml IV Total 280 ml Output Urine Total 1100 ml # Voids 3 General Appearance: WD/WN HEENT: normocephalic, atraumatic Respiratory/Chest: chest wall non-tender, lungs clear Breasts: no masses Cardiovascular: normal rate Abdomen: normal bowel sounds, no mass Extremities: no cyanosis Skin: no lesions Laboratory Tests 11/18/19 05:20: White Blood Count 12.7H, Red Blood Count 3.11L, Hemoglobin 9.3L, Hematocrit 27.2L, Mean Corpuscular Volume 87, Mean Corpuscular Hemoglobin 29.8, Mean Corpuscular Hemoglobin Concent 34.2, Red Cell Distribution Width 12.8, Platelet Count 405, Mean Platelet Volume 4.4L, Neutrophils (%) (Auto) , Lymphocytes (%) ( Auto) , Monocytes (%) (Auto) , Eosinophils (%) (Auto) , Basophils (%) (Auto) , Differential Total Cells Counted 100, Neutrophils % (Manual) 96H, Lymphocytes % (Manual) 1L, Monocytes % (Manual) 3, Eosinophils % (Manual) 0, Basophils % ( Manual) 0, Band Neutrophils 0, Platelet Estimate Adequate, Platelet Morphology Normal, Erythrocyte Sedimentation Rate 72H, Sodium Level 138, Potassium Level 4.5, Chloride Level 109H, Carbon Dioxide Level 18L, Anion Gap 11, Blood Urea Nitrogen 48H, Creatinine 3.4H, Estimat Glomerular Filtration Rate 13.7, Glucose Level 71L, Calcium Level 8.2L, Phosphorus Level 5.4H, Magnesium Level 2.2, Total Bilirubin 0.1L, Aspartate Amino Transf (AST/SGOT) 16, Alanine Aminotransferase (ALT/SGPT) 10L, Alkaline Phosphatase 77, C-Reactive Protein, Quantitative 6.8H, Total Protein 5.4L, Albumin 1.5L, Globulin 3.9, Albumin/ Globulin Ratio 0.4L, Amylase Level 36, Lipase 54L Current Medications Medications (Trade) Dose Ordered Sig/Arnoldo Route PRN Reason Start Time Stop Time Status Last Admin Dose Admin Acetaminophen (Tylenol) 650 mg Q4H PRN ORAL Fever 11/13/19 16:59 12/12/19 16:58 11/15/19 06:33 Allopurinol (allopurinoL) 300 mg DAILY ORAL 11/16/19 10:30 12/16/19 10:29 11/18/19 09:06 Ceftriaxone Sodium 1 gm/ Sodium Chloride 55 ml @ 110 mls/hr Q24H IVPB 11/14/19 09:00 11/25/19 23:59 11/18/19 09:07 Dextrose (Dextrose 50%) 25 ml Q30M PRN IV Hypoglycemia 11/13/19 17:15 02/11/20 10:14 Dextrose (Dextrose 50%) 50 ml Q30M PRN IV Hypoglycemia 11/13/19 17:15 02/11/20 10:14 Docusate Sodium (Colace) 100 mg TID ORAL 11/15/19 13:00 12/14/19 17:59 11/18/19 12:17 Fish Oil (Fish Oil) 1,000 mg BID ORAL 11/16/19 10:30 5/20/20 10:29 11/18/19 09:06 Heparin Sodium (Porcine) (Heparin 5000 units/ml) 5,000 units EVERY 12 HOURS SUBQ 11/13/19 21:00 12/27/19 20:59 11/18/19 09:06 Hydralazine HCl (Apresoline) 25 mg Q4H PRN ORAL Blood pressure over 160 systol 11/14/19 11:45 02/12/20 11:44 Insulin Aspart (NovoLOG) AC+HS SUBQ 11/15/19 11:30 02/11/20 10:59 11/18/19 12:19 Insulin Detemir (Levemir) 12 units BEDTIME SUBQ 11/18/19 21:00 02/11/20 11:29 Lorazepam (Ativan 2mg/ml 1ml) 2 mg EVERY 2 HOURS PRN IV agitation 11/13/19 17:02 11/19/19 17:01 Morphine Sulfate (Morphine Sulfate) 4 mg EVERY 4 HOURS PRN IVP Severe Pain (Pain Scale 7-10) 11/13/19 17:00 11/19/19 16:44 11/16/19 23:11 Nateglinide (Starlix) 120 mg TIAC ORAL 11/16/19 11:30 12/15/19 11:29 11/18/19 12:17 Ondansetron HCl (Zofran) 4 mg Q6H PRN IVP Nausea & Vomiting 11/13/19 17:03 12/12/19 17:02 11/17/19 22:16 Pantoprazole (Protonix) 40 mg BID ORAL 11/15/19 18:00 12/14/19 11:44 11/18/19 09:06 Sevelamer Carbonate (Renvela) 1,600 mg THREE TIMES A DAY ORAL 11/17/19 09:00 02/14/20 12:59 11/18/19 12:17 Kadie Chavarria MD Nov 18, 2019 12:55
--- NOTE | 2019-11-18 14:37 | NUR ---
CASE MANAGEMENT: REVIEW 11/18/2019 SI:GRAM NEGATIVE BACTEREMIA . UTI E-COLI . SEPSIS . ACUTE RENAL FAILURE D/T SEVERE DEHYDRATION 98.1 74 16 131/86 99% ON RA WBC 12.7 H/H 9.3/27.2 BUN/CREAT 48/3.4 PHOS 5.4 IS: IV ROCEPHIN Q24HR STARLIX PO TIAC LEVEMIR SQ BID RENVELA PO TID HEPARIN SQ BID PROTONIX PO BID ALLOPURINOL PO QD \: 3E MED SURG UNIT DCP: HOME WHEN STABLE; ABLE TO SELF ISOLATE WHEN STABLE FOR DISCHARGE PLAN: COVID-19- NOT DETECTED
--- NOTE | 2019-11-18 14:59 | NUR ---
*-* INSURANCE *-* ALL CLINICALS AND REVIEWS HAVE BEEN FAXED TO: [facility] F: [phone]
[2019-11-18 16:00] VITALS: BP 130/82
--- NOTE | 2019-11-18 19:30 | NUR ---
NURSE NOTES: Receive a report from SANTOS George. Round is done. Pt is asleep without acute distress. No chilling or febrile sensation. IV H/L on left AC without infiltration. Call light within reach. Will continue to monitor.
--- NOTE | 2019-11-18 19:31 | NUR ---
HAND-OFF: Report given to Lubna GRAHAM.
[2019-11-18 20:00] VITALS: BP 114/68
[2019-11-18] MEDS ORDERED: Levemir Flexpen SUBQ SCH (21:00)
[2019-11-19 04:00] VITALS: BP 127/76
[2019-11-19 06:03] LABS: BASOPHILS % (AUTO) 0.5 % (0.0-2.0); EOSINOPHILS % (AUTO) 0.4 % (0.0-3.0); HEMATOCRIT 26.1 % (37.0-47.0); HEMOGLOBIN 8.8 G/DL (12.0-16.0); LYMPHOCYTES % (AUTO) 8.4 % (20.0-45.0); MEAN CORPUSCULAR VOLUME 88 FL (80-99); MONOCYTES % (AUTO) 7.2 % (1.0-10.0); NEUTROPHILS % (AUTO) 83.5 % (45.0-75.0); PLATELET COUNT 410 K/UL (150-450); RED BLOOD COUNT 2.98 M/UL (4.20-5.40); RED CELL DISTRIBUTION WIDTH 13.1 % (11.6-14.8); WHITE BLOOD COUNT 11.1 K/UL (4.8-10.8)
[2019-11-19] MEDS: NovoLOG Insulin Flexpen SUBQ SCH ×4 (06:17→20:37)
[2019-11-19 06:45] LABS: ALANINE AMINOTRANSFERASE 11 U/L (12-78); ALBUMIN 1.5 G/DL (3.4-5.0); ALBUMIN/GLOBULIN RATIO 0.4 (1.0-2.7); ALKALINE PHOSPHATASE 76 U/L (46-116); ANION GAP 10 mmol/L (5-15); ASPARTATE AMINO TRANSFERASE 16 U/L (15-37); BILIRUBIN,TOTAL 0.1 MG/DL (0.2-1.0); BLOOD UREA NITROGEN 43 mg/dL (7-18); CALCIUM 8.3 MG/DL (8.5-10.1); CARBON DIOXIDE 19 MMOL/L (21-32); CHLORIDE 108 MMOL/L (98-107); CHOLESTEROL 118 MG/DL (< 200); CREATININE 3.3 MG/DL (0.55-1.30); HDL CHOLESTEROL 26 MG/DL (40-60); PHOSPHORUS 4.9 MG/DL (2.5-4.9); POTASSIUM 4.9 MMOL/L (3.5-5.1); SODIUM 137 MMOL/L (136-145); TRIGLYCERIDES 119 MG/DL (30-150)
--- NOTE | 2019-11-19 07:45 | NUR ---
HAND-OFF: Report given to SANTOS Kaba.
[2019-11-19 08:00] VITALS: BP 105/55
--- NOTE | 2019-11-19 08:00 | NUR ---
NURSE NOTES: Patient stable AOx4, drowsy with no complaints, no pain and no s/sx of distress. RR even and unlabored on RA. Patient ambulated to BSC with RN. IV flushed and patent. Side rails upx2, call light within reach , bed low and locked. Will continue to monitor.
[2019-11-19] MEDS: Docusate 100mg cap ORAL SCH ×3 (09:18→17:30)
[2019-11-19] MEDS: cefTRIAXone 1 GM in NS 55 ML IVPB SCH (09:19)
[2019-11-19] MEDS: Heparin 5000 units/ml inj SUBQ SCH ×2 (09:20→20:35)
--- NOTE | 2019-11-19 10:29 | Nephrology Progress Note ---
Assessment/Plan Problem List: (1) Diabetic nephropathy (2) Renal failure (ARF), acute on chronic Assessment: GFR 13 (3) Severe hyperglycemia due to diabetes mellitus (4) Dehydration (5) Hypotension due to hypovolemia (6) Hyponatremia (7) UTI (urinary tract infection) (8) Chronic kidney disease (CKD), stage V Assessment 64-year-old female presents with hyperglycemia and hyponatremia She also have elevated BUN and creatinine Renal impression mainly dehydration Patient may also have underlying chronic kidney disease Patient have evidence of urinary tract infection She is hypoalbuminemic She has underlying anemia Impression: - Hyperglycemia. - Hyponatremia. Mainly due to hyperglycemia - Acute renal failure. Mainly due to dehydration - Hypertension. - Sepsis due to Acute E. Coli Urinary tract infection. - PVD / PAD s/p left TMA. Plan Discontinue IV fluid Discontinue Fisher catheter Monitor renal parameters Monitor electrolytes Keep the blood sugar and blood pressure in check Antibiotics Avoid nephrotoxic's Start fish oil for high triglycerides 2D echocardiogram ejection fraction 65% Kidney ultrasound results noted Per orders Subjective ROS Limited/Unobtainable: No Constitutional: Reports: malaise Objective Objective Last 24 Hour Vital Signs Date Time Temp Pulse Resp B/P (MAP) Pulse Ox O2 Delivery O2 Flow Rate FiO2 11/19/19 09:00 Room Air 11/19/19 08:00 97.8 89 18 105/55 (72) 96 11/19/19 04:00 98.4 88 18 127/76 (93) 98 11/18/19 21:00 Room Air 11/18/19 20:11 75 20 98 Room Air 21 11/18/19 20:00 98.6 90 18 114/68 (83) 97 11/18/19 16:00 97.8 84 16 130/82 (98) 98 11/18/19 12:00 98.1 74 16 131/86 (101) 99 Intake and Output 11/18/19 11/19/19 19:00 07:00 Intake Total 355 ml Balance 355 ml Intake Oral 300 ml IV Total 55 ml # Voids 3 3 Current Medications Medications (Trade) Dose Ordered Sig/Arnoldo Route PRN Reason Start Time Stop Time Status Last Admin Dose Admin Acetaminophen (Tylenol) 650 mg Q4H PRN ORAL Fever 11/13/19 16:59 12/12/19 16:58 11/15/19 06:33 Allopurinol (allopurinoL) 300 mg DAILY ORAL 11/16/19 10:30 12/16/19 10:29 11/19/19 09:18 Ceftriaxone Sodium 1 gm/ Sodium Chloride 55 ml @ 110 mls/hr Q24H IVPB 11/14/19 09:00 11/25/19 23:59 11/19/19 09:19 Dextrose (Dextrose 50%) 25 ml Q30M PRN IV Hypoglycemia 11/13/19 17:15 02/11/20 10:14 Dextrose (Dextrose 50%) 50 ml Q30M PRN IV Hypoglycemia 11/13/19 17:15 02/11/20 10:14 Docusate Sodium (Colace) 100 mg TID ORAL 11/15/19 13:00 12/14/19 17:59 11/19/19 09:18 Fish Oil (Fish Oil) 1,000 mg BID ORAL 11/16/19 10:30 12/16/19 10:29 11/19/19 09:18 Heparin Sodium (Porcine) (Heparin 5000 units/ml) 5,000 units EVERY 12 HOURS SUBQ 11/13/19 21:00 12/27/19 20:59 11/19/19 09:20 Hydralazine HCl (Apresoline) 25 mg Q4H PRN ORAL Blood pressure over 160 systol 11/14/19 11:45 02/12/20 11:44 Insulin Aspart (NovoLOG) AC+HS SUBQ 11/15/19 11:30 02/11/20 10:59 11/18/19 22:25 Insulin Detemir (Levemir) 12 units BEDTIME SUBQ 11/18/19 21:00 02/11/20 11:29 11/18/19 22:23 Nateglinide (Starlix) 120 mg TIAC ORAL 11/16/19 11:30 12/15/19 11:29 11/19/19 06:21 Ondansetron HCl (Zofran) 4 mg Q6H PRN IVP Nausea & Vomiting 11/13/19 17:03 12/12/19 17:02 11/17/19 22:16 Pantoprazole (Protonix) 40 mg BID ORAL 11/15/19 18:00 12/14/19 11:44 11/19/19 09:18 Sevelamer Carbonate (Renvela) 1,600 mg THREE TIMES A DAY ORAL 11/17/19 09:00 02/14/20 12:59 11/19/19 09:18 Laboratory Tests 11/19/19 05:30: White Blood Count 11.1H, Red Blood Count 2.98L, Hemoglobin 8.8L, Hematocrit 26.1L, Mean Corpuscular Volume 88, Mean Corpuscular Hemoglobin 29.6, Mean Corpuscular Hemoglobin Concent 33.8, Red Cell Distribution Width 13.1, Platelet Count 410, Mean Platelet Volume 4.4L, Neutrophils (%) (Auto) 83.5H, Lymphocytes (%) (Auto) 8.4L, Monocytes (%) (Auto) 7.2, Eosinophils (%) (Auto) 0.4, Basophils (%) (Auto) 0.5, Sodium Level 137, Potassium Level 4.9, Chloride Level 108H, Carbon Dioxide Level 19L, Anion Gap 10, Blood Urea Nitrogen 43H, Creatinine 3.3H, Estimat Glomerular Filtration Rate 14.2, Glucose Level 81, Uric Acid 6.3, Calcium Level 8.3L, Phosphorus Level 4.9, Magnesium Level 2.1, Total Bilirubin 0.1L, Aspartate Amino Transf (AST/SGOT) 16, Alanine Aminotransferase (ALT/SGPT) 11L, Alkaline Phosphatase 76, C-Reactive Protein, Quantitative 4.6H, Pro-B-Type Natriuretic Peptide 1105H, Total Protein 5.3L, Albumin 1.5L, Globulin 3.8, Albumin/Globulin Ratio 0.4L, Triglycerides Level 119 , Cholesterol Level 118, LDL Cholesterol 71, HDL Cholesterol 26L, Cholesterol/ HDL Ratio 4.5H Height (Feet): 5 Height (Inches): 2.00 Weight (Pounds): 138 General Appearance: no apparent distress Objective No change Inder Wong MD Nov 19, 2019 10:29
--- NOTE | 2019-11-19 11:05 | NUR ---
*-* INSURANCE *-* ALL CLINICALS AND REVIEWS HAVE BEEN FAXED TO: [facility] VOGT:[facility] F: [phone]
--- NOTE | 2019-11-19 11:56 | NUR ---
CASE MANAGEMENT: REVIEW 11/19/2019 SI:GRAM NEGATIVE BACTEREMIA . UTI E-COLI . SEPSIS . ACUTE RENAL FAILURE D/T SEVERE DEHYDRATION 97.8 89 18 105/55 96% ON RA WBC 11.1 H/H 8.8/26.1 BUN/CREAT 43/3.3 CA+ 8.3 BNP 1105 ALBUMIN 1.5 LIPASE 54 IS: IV ROCEPHIN Q24HR STARLIX PO TIAC LEVEMIR SQ BID RENVELA PO TID HEPARIN SQ BID PROTONIX PO BID ALLOPURINOL PO QD \: 3E MED SURG UNIT DCP: HOME WHEN STABLE; ABLE TO SELF ISOLATE WHEN STABLE FOR DISCHARGE PLAN: COVID-19- NOT DETECTED
--- NOTE | 2019-11-19 11:56 | Pulmonology Progress Note ---
Assessment/Plan Problems: (1) Gram-negative bacteremia (2) UTI (urinary tract infection) (3) Dehydration, severe (4) Diabetic nephropathy (5) Severe hyperglycemia due to diabetes mellitus Assessment/Plan doing better, eating relatively well continue abx, on Ceftriaxone on Starlix and Levemir sliding scale pt/ot WBC still high, dvt prophylaxis repeat cultures, might go home if ok with ID Subjective ROS Limited/Unobtainable: No Interval Events: feels debil Constitutional: Reports: no symptoms HEENT: Repors: no symptoms Allergies: Coded Allergies: PENICILLINS (Unverified Allergy, Unknown, 11/12/19) All Systems: reviewed and negative except above Objective Last 24 Hour Vital Signs Date Time Temp Pulse Resp B/P (MAP) Pulse Ox O2 Delivery O2 Flow Rate FiO2 11/19/19 09:00 Room Air 11/19/19 08:00 97.8 89 18 105/55 (72) 96 11/19/19 04:00 98.4 88 18 127/76 (93) 98 11/18/19 21:00 Room Air 11/18/19 20:11 75 20 98 Room Air 21 11/18/19 20:00 98.6 90 18 114/68 (83) 97 11/18/19 16:00 97.8 84 16 130/82 (98) 98 11/18/19 12:00 98.1 74 16 131/86 (101) 99 Intake and Output 11/18/19 11/19/19 19:00 07:00 Intake Total 355 ml Balance 355 ml Intake Oral 300 ml IV Total 55 ml # Voids 3 3 General Appearance: WD/WN HEENT: normocephalic, atraumatic Respiratory/Chest: chest wall non-tender, lungs clear Breasts: no masses Cardiovascular: normal rate Abdomen: normal bowel sounds, no mass Extremities: no cyanosis Skin: no lesions Laboratory Tests 11/19/19 05:30: White Blood Count 11.1H, Red Blood Count 2.98L, Hemoglobin 8.8L, Hematocrit 26.1L, Mean Corpuscular Volume 88, Mean Corpuscular Hemoglobin 29.6, Mean Corpuscular Hemoglobin Concent 33.8, Red Cell Distribution Width 13.1, Platelet Count 410, Mean Platelet Volume 4.4L, Neutrophils (%) (Auto) 83.5H, Lymphocytes (%) (Auto) 8.4L, Monocytes (%) (Auto) 7.2, Eosinophils (%) (Auto) 0.4, Basophils (%) (Auto) 0.5, Sodium Level 137, Potassium Level 4.9, Chloride Level 108H, Carbon Dioxide Level 19L, Anion Gap 10, Blood Urea Nitrogen 43H, Creatinine 3.3H, Estimat Glomerular Filtration Rate 14.2, Glucose Level 81, Uric Acid 6.3, Calcium Level 8.3L, Phosphorus Level 4.9, Magnesium Level 2.1, Total Bilirubin 0.1L, Aspartate Amino Transf (AST/SGOT) 16, Alanine Aminotransferase (ALT/SGPT) 11L, Alkaline Phosphatase 76, C-Reactive Protein, Quantitative 4.6H, Pro-B-Type Natriuretic Peptide 1105H, Total Protein 5.3L, Albumin 1.5L, Globulin 3.8, Albumin/Globulin Ratio 0.4L, Triglycerides Level 119 , Cholesterol Level 118, LDL Cholesterol 71, HDL Cholesterol 26L, Cholesterol/ HDL Ratio 4.5H Current Medications Medications (Trade) Dose Ordered Sig/Arnoldo Route PRN Reason Start Time Stop Time Status Last Admin Dose Admin Acetaminophen (Tylenol) 650 mg Q4H PRN ORAL Fever 11/13/19 16:59 12/12/19 16:58 11/15/19 06:33 Allopurinol (allopurinoL) 300 mg DAILY ORAL 11/16/19 10:30 12/16/19 10:29 11/19/19 09:18 Ceftriaxone Sodium 1 gm/ Sodium Chloride 55 ml @ 110 mls/hr Q24H IVPB 11/14/19 09:00 11/25/19 23:59 11/19/19 09:19 Dextrose (Dextrose 50%) 25 ml Q30M PRN IV Hypoglycemia 11/13/19 17:15 02/11/20 10:14 Dextrose (Dextrose 50%) 50 ml Q30M PRN IV Hypoglycemia 11/13/19 17:15 02/11/20 10:14 Docusate Sodium (Colace) 100 mg TID ORAL 11/15/19 13:00 12/14/19 17:59 11/19/19 09:18 Fish Oil (Fish Oil) 1,000 mg BID ORAL 11/16/19 10:30 12/16/19 10:29 11/19/19 09:18 Heparin Sodium (Porcine) (Heparin 5000 units/ml) 5,000 units EVERY 12 HOURS SUBQ 11/13/19 21:00 12/27/19 20:59 11/19/19 09:20 Hydralazine HCl (Apresoline) 25 mg Q4H PRN ORAL Blood pressure over 160 systol 11/14/19 11:45 02/12/20 11:44 Insulin Aspart (NovoLOG) AC+HS SUBQ 11/15/19 11:30 02/11/20 10:59 11/18/19 22:25 Insulin Detemir (Levemir) 12 units BEDTIME SUBQ 11/18/19 21:00 02/11/20 11:29 11/18/19 22:23 Nateglinide (Starlix) 120 mg TIAC ORAL 11/16/19 11:30 12/15/19 11:29 11/19/19 06:21 Ondansetron HCl (Zofran) 4 mg Q6H PRN IVP Nausea & Vomiting 11/13/19 17:03 12/12/19 17:02 11/17/19 22:16 Pantoprazole (Protonix) 40 mg BID ORAL 11/15/19 18:00 12/14/19 11:44 11/19/19 09:18 Sevelamer Carbonate (Renvela) 1,600 mg THREE TIMES A DAY ORAL 11/17/19 09:00 02/14/20 12:59 11/19/19 09:18 Kadie Chavarria MD Nov 19, 2019 11:56
[2019-11-19 12:00] VITALS: BP 131/72
--- NOTE | 2019-11-19 12:32 | Infectious Diseases Prog Note ---
Assessment/Plan Assessment/Plan Assessment: Severe sepsis (transient hypotension) UTI c/w bacteremia -11/11 Bcx 2/4 E.coli (R amp, bactrim; otherwise S); 11/12 Bcx Neg -u/a wbc tnct, nit neg, leuk +3; ucx >100k e.coli (R amp, bactrim; otherwise S ) -CXR: Left basilar atelectasis. No acute process otherwise Cough- COVID19 neg. No PNA on CXR -11/13 CXR: Interval improved aeration in the left lung base with minimal residual atelectasis seen. The lungs otherwise appear clear. -influenza sc neg -11/11 SARS-COV2 PCR neg Afebrile Leukocytosis, improving DKA Lactic acidosis, SP SARAHI, improving Severe hyponatremia; improving Hyperkalemia, SP HTN Dm2 PVD L TMA PLan: -Continue Ceftriaxone #03/07-14 -f/u cx -Monitor CBC/CMP, temperatures -ok to dc COVID19 isolation -CXR Thank you for consulting [facility]. Will continue to follow along with you. Discussed with RN. Subjective Allergies: Coded Allergies: PENICILLINS (Unverified Allergy, Unknown, 11/12/19) Subjective afebrile wbc improving repeat bcx Neg Objective Vital Signs Last 24 Hour Vital Signs Date Time Temp Pulse Resp B/P (MAP) Pulse Ox O2 Delivery O2 Flow Rate FiO2 11/19/19 12:00 98.2 89 17 131/72 (91) 97 11/19/19 09:00 Room Air 11/19/19 08:00 97.8 89 18 105/55 (72) 96 11/19/19 04:00 98.4 88 18 127/76 (93) 98 11/18/19 21:00 Room Air 11/18/19 20:11 75 20 98 Room Air 21 11/18/19 20:00 98.6 90 18 114/68 (83) 97 11/18/19 16:00 97.8 84 16 130/82 (98) 98 Height (Feet): 5 Height (Inches): 2.00 Weight (Pounds): 138 Objective General Appearance: no apparent distress Cardiovascular: normal rate Respiratory/Chest: decreased breath sounds Abdomen: distended Objective No change Laboratory Tests Test 11/19/19 05:30 White Blood Count 11.1 K/UL (4.8-10.8) H Red Blood Count 2.98 M/UL (4.20-5.40) L Hemoglobin 8.8 G/DL (12.0-16.0) L Hematocrit 26.1 % (37.0-47.0) L Mean Corpuscular Volume 88 FL (80-99) Mean Corpuscular Hemoglobin 29.6 PG (27.0-31.0) Mean Corpuscular Hemoglobin Concent 33.8 G/DL (32.0-36.0) Red Cell Distribution Width 13.1 % (11.6-14.8) Platelet Count 410 K/UL (150-450) Mean Platelet Volume 4.4 FL (6.5-10.1) L Neutrophils (%) (Auto) 83.5 % (45.0-75.0) H Lymphocytes (%) (Auto) 8.4 % (20.0-45.0) L Monocytes (%) (Auto) 7.2 % (1.0-10.0) Eosinophils (%) (Auto) 0.4 % (0.0-3.0) Basophils (%) (Auto) 0.5 % (0.0-2.0) Sodium Level 137 MMOL/L (136-145) Potassium Level 4.9 MMOL/L (3.5-5.1) Chloride Level 108 MMOL/L (98-107) H Carbon Dioxide Level 19 MMOL/L (21-32) L Anion Gap 10 mmol/L (5-15) Blood Urea Nitrogen 43 mg/dL (7-18) H Creatinine 3.3 MG/DL (0.55-1.30) H Estimat Glomerular Filtration Rate 14.2 mL/min (>60) Glucose Level 81 MG/DL (74-106) Uric Acid 6.3 MG/DL (2.6-7.2) Calcium Level 8.3 MG/DL (8.5-10.1) L Phosphorus Level 4.9 MG/DL (2.5-4.9) Magnesium Level 2.1 MG/DL (1.8-2.4) Total Bilirubin 0.1 MG/DL (0.2-1.0) L Aspartate Amino Transf (AST/SGOT) 16 U/L (15-37) Alanine Aminotransferase (ALT/SGPT) 11 U/L (12-78) L Alkaline Phosphatase 76 U/L (46-116) C-Reactive Protein, Quantitative 4.6 mg/dL (0.00-0.90) H Pro-B-Type Natriuretic Peptide 1105 pg/mL (0-125) H Total Protein 5.3 G/DL (6.4-8.2) L Albumin 1.5 G/DL (3.4-5.0) L Globulin 3.8 g/dL Albumin/Globulin Ratio 0.4 (1.0-2.7) L Triglycerides Level 119 MG/DL (30-150) Cholesterol Level 118 MG/DL (< 200) LDL Cholesterol 71 mg/dL (<100) HDL Cholesterol 26 MG/DL (40-60) L Cholesterol/HDL Ratio 4.5 (3.3-4.4) H Current Medications Medications (Trade) Dose Ordered Sig/Arnoldo Route PRN Reason Start Time Stop Time Status Last Admin Dose Admin Acetaminophen (Tylenol) 650 mg Q4H PRN ORAL Fever 11/13/19 16:59 12/12/19 16:58 11/15/19 06:33 Allopurinol (allopurinoL) 300 mg DAILY ORAL 11/16/19 10:30 12/16/19 10:29 11/19/19 09:18 Ceftriaxone Sodium 1 gm/ Sodium Chloride 55 ml @ 110 mls/hr Q24H IVPB 11/14/19 09:00 11/25/19 23:59 11/19/19 09:19 Dextrose (Dextrose 50%) 25 ml Q30M PRN IV Hypoglycemia 11/13/19 17:15 02/11/20 10:14 Dextrose (Dextrose 50%) 50 ml Q30M PRN IV Hypoglycemia 11/13/19 17:15 02/11/20 10:14 Docusate Sodium (Colace) 100 mg TID ORAL 11/15/19 13:00 12/14/19 17:59 11/19/19 09:18 Fish Oil (Fish Oil) 1,000 mg BID ORAL 11/16/19 10:30 12/16/19 10:29 11/19/19 09:18 Heparin Sodium (Porcine) (Heparin 5000 units/ml) 5,000 units EVERY 12 HOURS SUBQ 11/13/19 21:00 12/27/19 20:59 11/19/19 09:20 Hydralazine HCl (Apresoline) 25 mg Q4H PRN ORAL Blood pressure over 160 systol 11/14/19 11:45 02/12/20 11:44 Insulin Aspart (NovoLOG) AC+HS SUBQ 11/15/19 11:30 02/11/20 10:59 11/18/19 22:25 Insulin Detemir (Levemir) 12 units BEDTIME SUBQ 11/18/19 21:00 02/11/20 11:29 11/18/19 22:23 Nateglinide (Starlix) 120 mg TIAC ORAL 11/16/19 11:30 12/15/19 11:29 11/19/19 06:21 Ondansetron HCl (Zofran) 4 mg Q6H PRN IVP Nausea & Vomiting 11/13/19 17:03 12/12/19 17:02 11/17/19 22:16 Pantoprazole (Protonix) 40 mg BID ORAL 11/15/19 18:00 12/14/19 11:44 11/19/19 09:18 Sevelamer Carbonate (Renvela) 1,600 mg THREE TIMES A DAY ORAL 11/17/19 09:00 02/14/20 12:59 11/19/19 09:18 Renate Duffy M.D. Nov 19, 2019 12:32
--- NOTE | 2019-11-19 13:21 | General Progress Note ---
Assessment/Plan Problem List: (1) Hyponatremia ICD Codes: E87.1 - Hypo-osmolality and hyponatremia SNOMED: 23325003, 45358439 (2) Diabetes mellitus ICD Codes: E11.9 - Type 2 diabetes mellitus without complications SNOMED: 09175273 (3) Toe amputation status ICD Codes: S98.139A - Complete traumatic amputation of one unspecified lesser toe, initial encounter SNOMED: 086790840 (4) Severe hyperglycemia due to diabetes mellitus ICD Codes: E11.65 - Type 2 diabetes mellitus with hyperglycemia SNOMED: 327397397, 10352477 Assessment/Plan: reduce Levemir to 10 units qhs continue Starlix 120 mg ac tid continue Novolog sliding scale ac / hs Subjective Allergies: Coded Allergies: PENICILLINS (Unverified Allergy, Unknown, 11/12/19) Subjective events noted fasting glucose on lower side Item Value Date Time Bedside Blood Glucose 103 mg/dl 11/19/19 1130 Bedside Blood Glucose 72 mg/dl 11/19/19 0617 Bedside Blood Glucose 182 mg/dl H 11/18/19 1639 Bedside Blood Glucose 183 mg/dl H 11/18/19 2225 Bedside Blood Glucose 163 mg/dl H 11/18/19 1219 Objective Last 24 Hour Vital Signs Date Time Temp Pulse Resp B/P (MAP) Pulse Ox O2 Delivery O2 Flow Rate FiO2 11/19/19 12:00 98.2 89 17 131/72 (91) 97 11/19/19 09:00 Room Air 11/19/19 08:00 97.8 89 18 105/55 (72) 96 11/19/19 04:00 98.4 88 18 127/76 (93) 98 11/18/19 21:00 Room Air 11/18/19 20:11 75 20 98 Room Air 21 11/18/19 20:00 98.6 90 18 114/68 (83) 97 11/18/19 16:00 97.8 84 16 130/82 (98) 98 Intake and Output 11/18/19 11/19/19 19:00 07:00 Intake Total 355 ml Balance 355 ml Intake Oral 300 ml IV Total 55 ml # Voids 3 3 Laboratory Tests 11/19/19 05:30: White Blood Count 11.1H, Red Blood Count 2.98L, Hemoglobin 8.8L, Hematocrit 26.1L, Mean Corpuscular Volume 88, Mean Corpuscular Hemoglobin 29.6, Mean Corpuscular Hemoglobin Concent 33.8, Red Cell Distribution Width 13.1, Platelet Count 410, Mean Platelet Volume 4.4L, Neutrophils (%) (Auto) 83.5H, Lymphocytes (%) (Auto) 8.4L, Monocytes (%) (Auto) 7.2, Eosinophils (%) (Auto) 0.4, Basophils (%) (Auto) 0.5, Sodium Level 137, Potassium Level 4.9, Chloride Level 108H, Carbon Dioxide Level 19L, Anion Gap 10, Blood Urea Nitrogen 43H, Creatinine 3.3H, Estimat Glomerular Filtration Rate 14.2, Glucose Level 81, Uric Acid 6.3, Calcium Level 8.3L, Phosphorus Level 4.9, Magnesium Level 2.1, Total Bilirubin 0.1L, Aspartate Amino Transf (AST/SGOT) 16, Alanine Aminotransferase (ALT/SGPT) 11L, Alkaline Phosphatase 76, C-Reactive Protein, Quantitative 4.6H, Pro-B-Type Natriuretic Peptide 1105H, Total Protein 5.3L, Albumin 1.5L, Globulin 3.8, Albumin/Globulin Ratio 0.4L, Triglycerides Level 119 , Cholesterol Level 118, LDL Cholesterol 71, HDL Cholesterol 26L, Cholesterol/ HDL Ratio 4.5H Height (Feet): 5 Height (Inches): 2.00 Weight (Pounds): 138 General Appearance: no apparent distress Neck: normal alignment Cardiovascular: normal rate Respiratory/Chest: decreased breath sounds Abdomen: normal bowel sounds Pelvis: normal external exam Objective Current Medications Medications (Trade) Dose Ordered Sig/Arnoldo Route PRN Reason Start Time Stop Time Status Last Admin Dose Admin Acetaminophen (Tylenol) 650 mg Q4H PRN ORAL Fever 11/13/19 16:59 12/12/19 16:58 11/15/19 06:33 Allopurinol (allopurinoL) 300 mg DAILY ORAL 11/16/19 10:30 12/16/19 10:29 11/19/19 09:18 Ceftriaxone Sodium 1 gm/ Sodium Chloride 55 ml @ 110 mls/hr Q24H IVPB 11/14/19 09:00 11/25/19 23:59 11/19/19 09:19 Dextrose (Dextrose 50%) 25 ml Q30M PRN IV Hypoglycemia 11/13/19 17:15 02/11/20 10:14 Dextrose (Dextrose 50%) 50 ml Q30M PRN IV Hypoglycemia 11/13/19 17:15 02/11/20 10:14 Docusate Sodium (Colace) 100 mg TID ORAL 11/15/19 13:00 12/14/19 17:59 11/19/19 13:14 Fish Oil (Fish Oil) 1,000 mg BID ORAL 11/16/19 10:30 12/16/19 10:29 11/19/19 09:18 Heparin Sodium (Porcine) (Heparin 5000 units/ml) 5,000 units EVERY 12 HOURS SUBQ 11/13/19 21:00 12/27/19 20:59 11/19/19 09:20 Hydralazine HCl (Apresoline) 25 mg Q4H PRN ORAL Blood pressure over 160 systol 11/14/19 11:45 02/12/20 11:44 Insulin Aspart (NovoLOG) AC+HS SUBQ 11/15/19 11:30 02/11/20 10:59 11/18/19 22:25 Insulin Detemir (Levemir) 12 units BEDTIME SUBQ 11/18/19 21:00 02/11/20 11:29 11/18/19 22:23 Nateglinide (Starlix) 120 mg TIAC ORAL 11/16/19 11:30 12/15/19 11:29 11/19/19 06:21 Ondansetron HCl (Zofran) 4 mg Q6H PRN IVP Nausea & Vomiting 11/13/19 17:03 12/12/19 17:02 11/17/19 22:16 Pantoprazole (Protonix) 40 mg BID ORAL 11/15/19 18:00 12/14/19 11:44 11/19/19 09:18 Sevelamer Carbonate (Renvela) 1,600 mg THREE TIMES A DAY ORAL 11/17/19 09:00 02/14/20 12:59 11/19/19 13:14 Lorenzo Gay MD Nov 19, 2019 13:21
--- NOTE | 2019-11-19 13:54 | Diagnostic Imaging Report ---
Indication: Cough Technique: One view of the chest Comparison: For 2019 Findings: Less optimal inspiration currently. Atelectatic bands and interstitial and possible hazy airspace disease is developed at the right lung base. There are atelectatic changes in the left perihilar region. The remaining lungs pleural spaces are clear. The heart size is normal Impression: Hypoventilatory exam Right basilar atelectasis and possibly interstitial and airspace infiltrates Left perihilar atelectasis
--- NOTE | 2019-11-19 15:59 | Internal Med Progress Note ---
Subjective Date of Service: Nov 19, 2019 Physician Name Ramón Bruno Attending Physician Lb Santos MD Current Medications Medications (Trade) Dose Ordered Sig/Arnoldo Route PRN Reason Start Time Stop Time Status Last Admin Dose Admin Acetaminophen (Tylenol) 650 mg Q4H PRN ORAL Fever 11/13/19 16:59 12/12/19 16:58 11/15/19 06:33 Allopurinol (allopurinoL) 300 mg DAILY ORAL 11/16/19 10:30 12/16/19 10:29 11/19/19 09:18 Ceftriaxone Sodium 1 gm/ Sodium Chloride 55 ml @ 110 mls/hr Q24H IVPB 11/14/19 09:00 11/25/19 23:59 11/19/19 09:19 Dextrose (Dextrose 50%) 25 ml Q30M PRN IV Hypoglycemia 11/13/19 17:15 02/11/20 10:14 Dextrose (Dextrose 50%) 50 ml Q30M PRN IV Hypoglycemia 11/13/19 17:15 02/11/20 10:14 Docusate Sodium (Colace) 100 mg TID ORAL 11/15/19 13:00 12/14/19 17:59 11/19/19 13:14 Fish Oil (Fish Oil) 1,000 mg BID ORAL 11/16/19 10:30 12/16/19 10:29 11/19/19 09:18 Heparin Sodium (Porcine) (Heparin 5000 units/ml) 5,000 units EVERY 12 HOURS SUBQ 11/13/19 21:00 12/27/19 20:59 11/19/19 09:20 Hydralazine HCl (Apresoline) 25 mg Q4H PRN ORAL Blood pressure over 160 systol 11/14/19 11:45 02/12/20 11:44 Insulin Aspart (NovoLOG) AC+HS SUBQ 11/15/19 11:30 02/11/20 10:59 11/18/19 22:25 Insulin Detemir (Levemir) 10 units BEDTIME SUBQ 11/19/19 21:00 02/11/20 11:29 Nateglinide (Starlix) 120 mg TIAC ORAL 11/16/19 11:30 12/15/19 11:29 11/19/19 06:21 Ondansetron HCl (Zofran) 4 mg Q6H PRN IVP Nausea & Vomiting 11/13/19 17:03 12/12/19 17:02 11/17/19 22:16 Pantoprazole (Protonix) 40 mg BID ORAL 11/15/19 18:00 12/14/19 11:44 11/19/19 09:18 Sevelamer Carbonate (Renvela) 1,600 mg THREE TIMES A DAY ORAL 11/17/19 09:00 02/14/20 12:59 11/19/19 13:14 Allergies: Coded Allergies: PENICILLINS (Unverified Allergy, Unknown, 11/12/19) ROS Limited/Unobtainable: No Constitutional: Reports: no symptoms HEENT: Reports: no symptoms Cardiovascular: Reports: no symptoms Respiratory: Reports: no symptoms Gastrointestinal/Abdominal: Reports: no symptoms Genitourinary: Reports: no symptoms Neurologic/Psychiatric: Reports: no symptoms Subjective 64 YO F admitted with cough and gen weakness. Now UTI and sepsis. Cover for Int Med-Dr Santos.. Nausea improved Objective Last Vital Signs Date Time Temp Pulse Resp B/P (MAP) Pulse Ox O2 Delivery O2 Flow Rate FiO2 11/19/19 12:00 98.2 89 17 131/72 (91) 97 11/19/19 09:00 Room Air 11/18/19 20:11 21 Laboratory Tests Test 11/19/19 05:30 White Blood Count 11.1 K/UL (4.8-10.8) H Red Blood Count 2.98 M/UL (4.20-5.40) L Hemoglobin 8.8 G/DL (12.0-16.0) L Hematocrit 26.1 % (37.0-47.0) L Mean Corpuscular Volume 88 FL (80-99) Mean Corpuscular Hemoglobin 29.6 PG (27.0-31.0) Mean Corpuscular Hemoglobin Concent 33.8 G/DL (32.0-36.0) Red Cell Distribution Width 13.1 % (11.6-14.8) Platelet Count 410 K/UL (150-450) Mean Platelet Volume 4.4 FL (6.5-10.1) L Neutrophils (%) (Auto) 83.5 % (45.0-75.0) H Lymphocytes (%) (Auto) 8.4 % (20.0-45.0) L Monocytes (%) (Auto) 7.2 % (1.0-10.0) Eosinophils (%) (Auto) 0.4 % (0.0-3.0) Basophils (%) (Auto) 0.5 % (0.0-2.0) Sodium Level 137 MMOL/L (136-145) Potassium Level 4.9 MMOL/L (3.5-5.1) Chloride Level 108 MMOL/L (98-107) H Carbon Dioxide Level 19 MMOL/L (21-32) L Anion Gap 10 mmol/L (5-15) Blood Urea Nitrogen 43 mg/dL (7-18) H Creatinine 3.3 MG/DL (0.55-1.30) H Estimat Glomerular Filtration Rate 14.2 mL/min (>60) Glucose Level 81 MG/DL (74-106) Uric Acid 6.3 MG/DL (2.6-7.2) Calcium Level 8.3 MG/DL (8.5-10.1) L Phosphorus Level 4.9 MG/DL (2.5-4.9) Magnesium Level 2.1 MG/DL (1.8-2.4) Total Bilirubin 0.1 MG/DL (0.2-1.0) L Aspartate Amino Transf (AST/SGOT) 16 U/L (15-37) Alanine Aminotransferase (ALT/SGPT) 11 U/L (12-78) L Alkaline Phosphatase 76 U/L (46-116) C-Reactive Protein, Quantitative 4.6 mg/dL (0.00-0.90) H Pro-B-Type Natriuretic Peptide 1105 pg/mL (0-125) H Total Protein 5.3 G/DL (6.4-8.2) L Albumin 1.5 G/DL (3.4-5.0) L Globulin 3.8 g/dL Albumin/Globulin Ratio 0.4 (1.0-2.7) L Triglycerides Level 119 MG/DL (30-150) Cholesterol Level 118 MG/DL (< 200) LDL Cholesterol 71 mg/dL (<100) HDL Cholesterol 26 MG/DL (40-60) L Cholesterol/HDL Ratio 4.5 (3.3-4.4) H Intake and Output 11/18/19 11/19/19 19:00 07:00 Intake Total 355 ml Balance 355 ml Intake Oral 300 ml IV Total 55 ml # Voids 3 3 Objective PHYSICAL EXAMINATION: GENERAL: Patient is a well-developed and well-nourished female, in no apparent distress. HEENT: Eyes, pupils are equal and responsive to light and accommodation. Extraocular movements are intact. NECK: Supple without lymphadenopathy. CHEST: Lungs are clear to auscultation bilaterally without wheezes or rales. CARDIOVASCULAR: Regular rhythm and rate. S1, S2 are normal without murmurs, rubs, or gallops. ABDOMINAL: Soft, nontender, and nondistended. Positive bowel sounds. No evidence of hepatosplenomegaly. Currently, no rebound or guarding noted. EXTREMITIES: Negative for clubbing, cyanosis, or edema. RECTAL/GENITAL: Not performed. NEUROLOGIC: Cranial nerves II through XII are grossly intact without focal deficits. Motor strength is 5/5 bilaterally. Deep tendon reflexes 2+ plantar. Assessment/Plan Assessment/Plan ASSESSMENT: This is a 64-year-old female. 1. Hyperglycemia. 2. Diabetic ketoacidosis. 3. Diabetes type 2. 4. Hyponatremia. 5. Acute renal failure. 6. Cough. 7. Hypertension. 8. Diabetes type 2. 9. Urinary tract infection=E. Coli 10. Sepsis=E. Coli TREATMENT: 1. Urinary tract infection/sepsis=E. Coli ABX=ceftriaxone day #03/07-. 2. Diabetic ketoacidosis. Patient is currently off insulin drip. An Endocrinology consultation has been obtained with Dr. Gay. Continue starlix , levemir and novolog sliding scale per endocrinology 3. Cough. COVID-19=neg X1. A Pulmonary consultation has been obtained with Dr. Kadie Chavarria. 4. Generalized weakness. 5. Renal failure. A Nephrology consultation has been obtained with Dr. Inder Wong. 6. Hyponatremia. Patient is currently receiving normal saline. 7. Diabetes type 2. 8. Hypertension. Patient is currently hypotensive. Ramón Bruno MD Nov 19, 2019 15:59
[2019-11-19 16:00] VITALS: BP 129/76
--- NOTE | 2019-11-19 19:35 | NUR ---
NURSE NOTES: Report received from Victoria. SANTOS. Patient in stable condition.
[2019-11-19 20:00] VITALS: BP 116/63
--- NOTE | 2019-11-19 20:27 | NUR ---
HAND-OFF: Report given to WES GRAHAM. PATIENT STABLE. PLAN OF CARE ENDORSED.
[2019-11-19] MEDS: Levemir Flexpen SUBQ SCH (20:36)
[2019-11-20] VITALS: BP 116/60
[2019-11-20 04:00] VITALS: BP 120/79
[2019-11-20 05:58] LABS: BASOPHILS % (AUTO) 0.8 % (0.0-2.0); EOSINOPHILS % (AUTO) 0.4 % (0.0-3.0); HEMATOCRIT 26.5 % (37.0-47.0); HEMOGLOBIN 8.9 G/DL (12.0-16.0); LYMPHOCYTES % (AUTO) 8.2 % (20.0-45.0); MEAN CORPUSCULAR VOLUME 88 FL (80-99); MONOCYTES % (AUTO) 5.8 % (1.0-10.0); NEUTROPHILS % (AUTO) 84.9 % (45.0-75.0); PLATELET COUNT 377 K/UL (150-450); RED BLOOD COUNT 3.01 M/UL (4.20-5.40); RED CELL DISTRIBUTION WIDTH 12.9 % (11.6-14.8); WHITE BLOOD COUNT 12.8 K/UL (4.8-10.8)
[2019-11-20] MEDS: NovoLOG Insulin Flexpen SUBQ SCH ×4 (06:25→20:24)
[2019-11-20 06:30] LABS: ANION GAP 8 mmol/L (5-15); BLOOD UREA NITROGEN 36 mg/dL (7-18); CALCIUM 8.3 MG/DL (8.5-10.1); CARBON DIOXIDE 21 MMOL/L (21-32); CHLORIDE 108 MMOL/L (98-107); CREATININE 3.2 MG/DL (0.55-1.30); POTASSIUM 5.4 MMOL/L (3.5-5.1); SODIUM 137 MMOL/L (136-145)
--- NOTE | 2019-11-20 07:25 | NUR ---
NURSE NOTES: Patient is A/AOx4, ambulates with assist. no c/o pain/discomfort noted. no s/sx of acute distress. IV access patent and intact. Siderails upx3, bed is in the lowest position. brakes and locked engaged. call light within reach , Will continue to monitor.
--- NOTE | 2019-11-20 07:27 | NUR ---
HAND-OFF: Report given to SANTOS Sheridan. Patient in stable condition
[2019-11-20 08:00] VITALS: BP 106/56
[2019-11-20] MEDS: Docusate 100mg cap ORAL SCH ×3 (08:40→17:12)
[2019-11-20] MEDS: Heparin 5000 units/ml inj SUBQ SCH ×2 (08:50→20:23)
[2019-11-20] MEDS ORDERED: Sodium Polystyrene Sulfonate 15gm Powder ORAL SCH (10:00)
[2019-11-20] MEDS: cefTRIAXone 1 GM in NS 55 ML IVPB SCH (10:00)
--- NOTE | 2019-11-20 10:03 | NUR ---
NURSE NOTES: DR FREEMAN ENTERED NEW ORDER FOR K+5.4. WILL CONT TO MONITOR.
--- NOTE | 2019-11-20 11:02 | NUR ---
CASE MANAGEMENT: REVIEW 11/20/2019 SI:Gram-negative bacteremia. UTI (urinary tract infection). T 97.8 HR 86 RR 20 B/P 106/56 SATS 98% ON RA LABS: WBC 12.8 K 5.4 CL 108 BUN 36 CR 3.2 CA 8.3 IS:INSULIN ASPART SUBQ AC/HS LEVEMIR SUBQ QHS PROTONIX PO BID ALLOPURINOL PO QD CEFTRIAXONE IV Q24H MED/SURG PLAN OF CARE: PT EVAL GLYCEMIC CONTROL AND MONITORING
--- NOTE | 2019-11-20 11:18 | NUR ---
INSURANCE REVIEW FAXED TO [facility] VOGT:HANDY Branch: [phone]
--- NOTE | 2019-11-20 11:24 | Nephrology Progress Note ---
Assessment/Plan Problem List: (1) Diabetic nephropathy (2) Renal failure (ARF), acute on chronic Assessment: GFR 10-15 (3) Severe hyperglycemia due to diabetes mellitus (4) Dehydration (5) Hypotension due to hypovolemia (6) Hyponatremia (7) UTI (urinary tract infection) (8) Chronic kidney disease (CKD), stage V Assessment 64-year-old female presents with hyperglycemia and hyponatremia She also have elevated BUN and creatinine Renal impression mainly dehydration Patient may also have underlying chronic kidney disease Patient have evidence of urinary tract infection She is hypoalbuminemic She has underlying anemia Impression: - Hyperglycemia. - Hyponatremia. Mainly due to hyperglycemia - Acute renal failure. Mainly due to dehydration - Hypertension. - Sepsis due to Acute E. Coli Urinary tract infection. - PVD / PAD s/p left TMA. Plan Oral Kayexalate today for high potassium discontinue IV fluid Discontinue Fisher catheter Monitor renal parameters Monitor electrolytes Keep the blood sugar and blood pressure in check Antibiotics Avoid nephrotoxic's Start fish oil for high triglycerides 2D echocardiogram ejection fraction 65% Kidney ultrasound results noted Per orders Subjective ROS Limited/Unobtainable: No Constitutional: Reports: malaise, weakness Objective Objective Last 24 Hour Vital Signs Date Time Temp Pulse Resp B/P (MAP) Pulse Ox O2 Delivery O2 Flow Rate FiO2 11/20/19 08:00 97.8 86 20 106/56 (73) 98 11/20/19 04:00 97.6 88 19 120/79 (93) 98 11/20/19 00:00 98.3 90 19 116/60 (78) 97 11/19/19 21:00 Room Air 11/19/19 20:00 97.9 95 19 116/63 (80) 98 11/19/19 16:00 98.3 86 19 129/76 (93) 98 11/19/19 12:00 98.2 89 17 131/72 (91) 97 Intake and Output 11/19/19 11/20/19 19:00 07:00 # Voids 1 Current Medications Medications (Trade) Dose Ordered Sig/Arnoldo Route PRN Reason Start Time Stop Time Status Last Admin Dose Admin Acetaminophen (Tylenol) 650 mg Q4H PRN ORAL Fever 11/13/19 16:59 12/12/19 16:58 11/15/19 06:33 Allopurinol (allopurinoL) 300 mg DAILY ORAL 11/16/19 10:30 12/16/19 10:29 11/20/19 08:40 Ceftriaxone Sodium 1 gm/ Sodium Chloride 55 ml @ 110 mls/hr Q24H IVPB 11/14/19 09:00 11/25/19 23:59 11/20/19 10:00 Dextrose (Dextrose 50%) 25 ml Q30M PRN IV Hypoglycemia 11/13/19 17:15 02/11/20 10:14 Dextrose (Dextrose 50%) 50 ml Q30M PRN IV Hypoglycemia 11/13/19 17:15 02/11/20 10:14 Docusate Sodium (Colace) 100 mg TID ORAL 11/15/19 13:00 12/14/19 17:59 11/20/19 08:40 Fish Oil (Fish Oil) 1,000 mg BID ORAL 11/16/19 10:30 12/16/19 10:29 11/20/19 08:40 Heparin Sodium (Porcine) (Heparin 5000 units/ml) 5,000 units EVERY 12 HOURS SUBQ 11/13/19 21:00 12/27/19 20:59 11/20/19 08:50 Hydralazine HCl (Apresoline) 25 mg Q4H PRN ORAL Blood pressure over 160 systol 11/14/19 11:45 02/12/20 11:44 Insulin Aspart (NovoLOG) AC+HS SUBQ 11/15/19 11:30 02/11/20 10:59 11/19/19 20:37 Insulin Detemir (Levemir) 10 units BEDTIME SUBQ 11/19/19 21:00 02/11/20 11:29 11/19/19 20:36 Nateglinide (Starlix) 120 mg TIAC ORAL 11/16/19 11:30 12/15/19 11:29 11/20/19 10:44 Ondansetron HCl (Zofran) 4 mg Q6H PRN IVP Nausea & Vomiting 11/13/19 17:03 12/12/19 17:02 11/17/19 22:16 Pantoprazole (Protonix) 40 mg BID ORAL 11/15/19 18:00 12/14/19 11:44 11/20/19 08:40 Sevelamer Carbonate (Renvela) 1,600 mg THREE TIMES A DAY ORAL 11/17/19 09:00 02/14/20 12:59 11/20/19 08:40 Laboratory Tests 11/20/19 05:30: White Blood Count 12.8H, Red Blood Count 3.01L, Hemoglobin 8.9L, Hematocrit 26.5L, Mean Corpuscular Volume 88, Mean Corpuscular Hemoglobin 29.5, Mean Corpuscular Hemoglobin Concent 33.5, Red Cell Distribution Width 12.9, Platelet Count 377, Mean Platelet Volume 4.4L, Neutrophils (%) (Auto) 84.9H, Lymphocytes (%) (Auto) 8.2L, Monocytes (%) (Auto) 5.8, Eosinophils (%) (Auto) 0.4, Basophils (%) (Auto) 0.8, Sodium Level 137, Potassium Level 5.4H, Chloride Level 108H, Carbon Dioxide Level 21, Anion Gap 8, Blood Urea Nitrogen 36H, Creatinine 3.2H, Estimat Glomerular Filtration Rate 14.7, Glucose Level 88, Calcium Level 8.3L, Phosphorus Level [Pending], Magnesium Level [Pending], Total Bilirubin [Pending], Direct Bilirubin [Pending], Aspartate Amino Transf ( AST/SGOT) [Pending], Alanine Aminotransferase (ALT/SGPT) [Pending], Alkaline Phosphatase [Pending], Total Protein [Pending], Albumin [Pending] Height (Feet): 5 Height (Inches): 2.00 Weight (Pounds): 62 Cardiovascular: normal rate Respiratory/Chest: decreased breath sounds Abdomen: distended Objective No change Inder Wong MD Nov 20, 2019 11:24
[2019-11-20 11:31] LABS: ALANINE AMINOTRANSFERASE 16 U/L (12-78); ALBUMIN 1.6 G/DL (3.4-5.0); ALKALINE PHOSPHATASE 79 U/L (46-116); ASPARTATE AMINO TRANSFERASE 14 U/L (15-37); BILIRUBIN,DIRECT < 0.1 MG/DL (0.0-0.3); BILIRUBIN,TOTAL 0.1 MG/DL (0.2-1.0); PHOSPHORUS 4.3 MG/DL (2.5-4.9)
[2019-11-20 12:00] VITALS: BP 120/73
--- NOTE | 2019-11-20 13:05 | Pulmonology Progress Note ---
Assessment/Plan Problems: (1) Gram-negative bacteremia (2) UTI (urinary tract infection) (3) Dehydration, severe (4) Diabetic nephropathy (5) Severe hyperglycemia due to diabetes mellitus Assessment/Plan doing better, eating relatively well continue abx, on Ceftriaxone day 9. on Starlix and Levemir sliding scale pt/ot WBC still high, coming down gradually dvt prophylaxis repeat cultures, might go home if ok with ID Subjective ROS Limited/Unobtainable: No Interval Events: feels debil Constitutional: Reports: no symptoms HEENT: Repors: no symptoms Respiratory: Reports: no symptoms Allergies: Coded Allergies: PENICILLINS (Unverified Allergy, Unknown, 11/12/19) All Systems: reviewed and negative except above Objective Last 24 Hour Vital Signs Date Time Temp Pulse Resp B/P (MAP) Pulse Ox O2 Delivery O2 Flow Rate FiO2 11/20/19 12:00 98.5 89 18 120/73 (89) 98 11/20/19 08:00 97.8 86 20 106/56 (73) 98 11/20/19 04:00 97.6 88 19 120/79 (93) 98 11/20/19 00:00 98.3 90 19 116/60 (78) 97 11/19/19 21:00 Room Air 11/19/19 20:00 97.9 95 19 116/63 (80) 98 11/19/19 16:00 98.3 86 19 129/76 (93) 98 Intake and Output 11/19/19 11/20/19 19:00 07:00 # Voids 1 General Appearance: WD/WN HEENT: normocephalic, atraumatic Respiratory/Chest: chest wall non-tender, lungs clear Breasts: no masses Cardiovascular: normal rate Abdomen: normal bowel sounds, no mass Extremities: no cyanosis Skin: no lesions Laboratory Tests 11/20/19 05:30: White Blood Count 12.8H, Red Blood Count 3.01L, Hemoglobin 8.9L, Hematocrit 26.5L, Mean Corpuscular Volume 88, Mean Corpuscular Hemoglobin 29.5, Mean Corpuscular Hemoglobin Concent 33.5, Red Cell Distribution Width 12.9, Platelet Count 377, Mean Platelet Volume 4.4L, Neutrophils (%) (Auto) 84.9H, Lymphocytes (%) (Auto) 8.2L, Monocytes (%) (Auto) 5.8, Eosinophils (%) (Auto) 0.4, Basophils (%) (Auto) 0.8, Sodium Level 137, Potassium Level 5.4H, Chloride Level 108H, Carbon Dioxide Level 21, Anion Gap 8, Blood Urea Nitrogen 36H, Creatinine 3.2H, Estimat Glomerular Filtration Rate 14.7, Glucose Level 88, Calcium Level 8.3L, Phosphorus Level 4.3, Magnesium Level 2.1, Total Bilirubin 0.1L, Direct Bilirubin < 0.1, Aspartate Amino Transf (AST/SGOT) 14L, Alanine Aminotransferase (ALT/SGPT) 16, Alkaline Phosphatase 79, Total Protein 5.7L, Albumin 1.6L Current Medications Medications (Trade) Dose Ordered Sig/Arnoldo Route PRN Reason Start Time Stop Time Status Last Admin Dose Admin Acetaminophen (Tylenol) 650 mg Q4H PRN ORAL Fever 11/13/19 16:59 12/12/19 16:58 11/15/19 06:33 Allopurinol (allopurinoL) 300 mg DAILY ORAL 11/16/19 10:30 12/16/19 10:29 11/20/19 08:40 Ceftriaxone Sodium 1 gm/ Sodium Chloride 55 ml @ 110 mls/hr Q24H IVPB 11/14/19 09:00 11/25/19 23:59 11/20/19 10:00 Dextrose (Dextrose 50%) 25 ml Q30M PRN IV Hypoglycemia 11/13/19 17:15 02/11/20 10:14 Dextrose (Dextrose 50%) 50 ml Q30M PRN IV Hypoglycemia 11/13/19 17:15 02/11/20 10:14 Docusate Sodium (Colace) 100 mg TID ORAL 11/15/19 13:00 12/14/19 17:59 11/20/19 08:40 Fish Oil (Fish Oil) 1,000 mg BID ORAL 11/16/19 10:30 12/16/19 10:29 11/20/19 08:40 Heparin Sodium (Porcine) (Heparin 5000 units/ml) 5,000 units EVERY 12 HOURS SUBQ 11/13/19 21:00 12/27/19 20:59 11/20/19 08:50 Hydralazine HCl (Apresoline) 25 mg Q4H PRN ORAL Blood pressure over 160 systol 11/14/19 11:45 02/12/20 11:44 Insulin Aspart (NovoLOG) AC+HS SUBQ 11/15/19 11:30 02/11/20 10:59 11/19/19 20:37 Insulin Detemir (Levemir) 10 units BEDTIME SUBQ 11/19/19 21:00 02/11/20 11:29 11/19/19 20:36 Nateglinide (Starlix) 120 mg TIAC ORAL 11/16/19 11:30 12/15/19 11:29 11/20/19 10:44 Ondansetron HCl (Zofran) 4 mg Q6H PRN IVP Nausea & Vomiting 11/13/19 17:03 12/12/19 17:02 11/17/19 22:16 Pantoprazole (Protonix) 40 mg BID ORAL 11/15/19 18:00 12/14/19 11:44 11/20/19 08:40 Sevelamer Carbonate (Renvela) 1,600 mg THREE TIMES A DAY ORAL 11/17/19 09:00 02/14/20 12:59 11/20/19 08:40 Kadie Chavarria MD Nov 20, 2019 13:05
--- NOTE | 2019-11-20 13:52 | General Progress Note ---
Assessment/Plan Problem List: (1) Anemia ICD Codes: D64.9 - Anemia, unspecified SNOMED: 191113564 (2) Gram-negative bacteremia ICD Codes: R78.81 - Bacteremia SNOMED: 001609994184 (3) Chronic kidney disease (CKD), stage V ICD Codes: N18.5 - Chronic kidney disease, stage 5 SNOMED: 053478816 (4) Diabetic nephropathy ICD Codes: E11.21 - Type 2 diabetes mellitus with diabetic nephropathy SNOMED: 31215078, 801978747 (5) UTI (urinary tract infection) ICD Codes: N39.0 - Urinary tract infection, site not specified SNOMED: 11747174, 73314440 Assessment/Plan: anemia work up stool ob repeat cbc in am needs out patient fu for GI procedures Subjective ROS Limited/Unobtainable: Yes Allergies: Coded Allergies: PENICILLINS (Unverified Allergy, Unknown, 11/12/19) Objective Last 24 Hour Vital Signs Date Time Temp Pulse Resp B/P (MAP) Pulse Ox O2 Delivery O2 Flow Rate FiO2 11/20/19 12:00 98.5 89 18 120/73 (89) 98 11/20/19 09:00 Room Air 11/20/19 08:00 97.8 86 20 106/56 (73) 98 11/20/19 04:00 97.6 88 19 120/79 (93) 98 11/20/19 00:00 98.3 90 19 116/60 (78) 97 11/19/19 21:00 Room Air 11/19/19 20:00 97.9 95 19 116/63 (80) 98 11/19/19 16:00 98.3 86 19 129/76 (93) 98 Intake and Output 11/19/19 11/20/19 19:00 07:00 # Voids 1 Laboratory Tests 11/20/19 05:30: White Blood Count 12.8H, Red Blood Count 3.01L, Hemoglobin 8.9L, Hematocrit 26.5L, Mean Corpuscular Volume 88, Mean Corpuscular Hemoglobin 29.5, Mean Corpuscular Hemoglobin Concent 33.5, Red Cell Distribution Width 12.9, Platelet Count 377, Mean Platelet Volume 4.4L, Neutrophils (%) (Auto) 84.9H, Lymphocytes (%) (Auto) 8.2L, Monocytes (%) (Auto) 5.8, Eosinophils (%) (Auto) 0.4, Basophils (%) (Auto) 0.8, Sodium Level 137, Potassium Level 5.4H, Chloride Level 108H, Carbon Dioxide Level 21, Anion Gap 8, Blood Urea Nitrogen 36H, Creatinine 3.2H, Estimat Glomerular Filtration Rate 14.7, Glucose Level 88, Calcium Level 8.3L, Phosphorus Level 4.3, Magnesium Level 2.1, Total Bilirubin 0.1L, Direct Bilirubin < 0.1, Aspartate Amino Transf (AST/SGOT) 14L, Alanine Aminotransferase (ALT/SGPT) 16, Alkaline Phosphatase 79, Total Protein 5.7L, Albumin 1.6L Height (Feet): 5 Height (Inches): 2.00 Weight (Pounds): 62 General Appearance: no apparent distress EENT: PERRL/EOMI Neck: supple Cardiovascular: normal rate Respiratory/Chest: decreased breath sounds Abdomen: normal bowel sounds, non tender, soft Extremities: non-tender Andrez Cordero MD Nov 20, 2019 13:51
--- NOTE | 2019-11-20 14:07 | Internal Med Progress Note ---
Subjective Physician Name Lb Santos Attending Physician Lb Santos MD Current Medications Medications (Trade) Dose Ordered Sig/Arnoldo Route PRN Reason Start Time Stop Time Status Last Admin Dose Admin Acetaminophen (Tylenol) 650 mg Q4H PRN ORAL Fever 11/13/19 16:59 12/12/19 16:58 11/15/19 06:33 Allopurinol (allopurinoL) 300 mg DAILY ORAL 11/16/19 10:30 12/16/19 10:29 11/20/19 08:40 Ceftriaxone Sodium 1 gm/ Sodium Chloride 55 ml @ 110 mls/hr Q24H IVPB 11/14/19 09:00 11/25/19 23:59 11/20/19 10:00 Dextrose (Dextrose 50%) 25 ml Q30M PRN IV Hypoglycemia 11/13/19 17:15 02/11/20 10:14 Dextrose (Dextrose 50%) 50 ml Q30M PRN IV Hypoglycemia 11/13/19 17:15 02/11/20 10:14 Docusate Sodium (Colace) 100 mg TID ORAL 11/15/19 13:00 12/14/19 17:59 11/20/19 08:40 Fish Oil (Fish Oil) 1,000 mg BID ORAL 11/16/19 10:30 12/16/19 10:29 11/20/19 08:40 Heparin Sodium (Porcine) (Heparin 5000 units/ml) 5,000 units EVERY 12 HOURS SUBQ 11/13/19 21:00 12/27/19 20:59 11/20/19 08:50 Hydralazine HCl (Apresoline) 25 mg Q4H PRN ORAL Blood pressure over 160 systol 11/14/19 11:45 02/12/20 11:44 Insulin Aspart (NovoLOG) AC+HS SUBQ 11/15/19 11:30 02/11/20 10:59 11/19/19 20:37 Insulin Detemir (Levemir) 10 units BEDTIME SUBQ 11/19/19 21:00 02/11/20 11:29 11/19/19 20:36 Nateglinide (Starlix) 120 mg TIAC ORAL 11/16/19 11:30 12/15/19 11:29 11/20/19 10:44 Ondansetron HCl (Zofran) 4 mg Q6H PRN IVP Nausea & Vomiting 11/13/19 17:03 12/12/19 17:02 11/17/19 22:16 Pantoprazole (Protonix) 40 mg BID ORAL 11/15/19 18:00 12/14/19 11:44 11/20/19 08:40 Sevelamer Carbonate (Renvela) 1,600 mg THREE TIMES A DAY ORAL 11/17/19 09:00 02/14/20 12:59 11/20/19 08:40 Allergies: Coded Allergies: PENICILLINS (Unverified Allergy, Unknown, 11/12/19) Subjective awake, responsive, No CP or SOB, NAD. WBC: 12.8 Objective Last Vital Signs Date Time Temp Pulse Resp B/P (MAP) Pulse Ox O2 Delivery O2 Flow Rate FiO2 11/20/19 12:00 98.5 89 18 120/73 (89) 98 11/20/19 09:00 Room Air 11/18/19 20:11 21 Laboratory Tests Test 11/20/19 05:30 White Blood Count 12.8 K/UL (4.8-10.8) H Red Blood Count 3.01 M/UL (4.20-5.40) L Hemoglobin 8.9 G/DL (12.0-16.0) L Hematocrit 26.5 % (37.0-47.0) L Mean Corpuscular Volume 88 FL (80-99) Mean Corpuscular Hemoglobin 29.5 PG (27.0-31.0) Mean Corpuscular Hemoglobin Concent 33.5 G/DL (32.0-36.0) Red Cell Distribution Width 12.9 % (11.6-14.8) Platelet Count 377 K/UL (150-450) Mean Platelet Volume 4.4 FL (6.5-10.1) L Neutrophils (%) (Auto) 84.9 % (45.0-75.0) H Lymphocytes (%) (Auto) 8.2 % (20.0-45.0) L Monocytes (%) (Auto) 5.8 % (1.0-10.0) Eosinophils (%) (Auto) 0.4 % (0.0-3.0) Basophils (%) (Auto) 0.8 % (0.0-2.0) Sodium Level 137 MMOL/L (136-145) Potassium Level 5.4 MMOL/L (3.5-5.1) H Chloride Level 108 MMOL/L (98-107) H Carbon Dioxide Level 21 MMOL/L (21-32) Anion Gap 8 mmol/L (5-15) Blood Urea Nitrogen 36 mg/dL (7-18) H Creatinine 3.2 MG/DL (0.55-1.30) H Estimat Glomerular Filtration Rate 14.7 mL/min (>60) Glucose Level 88 MG/DL (74-106) Calcium Level 8.3 MG/DL (8.5-10.1) L Phosphorus Level 4.3 MG/DL (2.5-4.9) Magnesium Level 2.1 MG/DL (1.8-2.4) Total Bilirubin 0.1 MG/DL (0.2-1.0) L Direct Bilirubin < 0.1 MG/DL (0.0-0.3) Aspartate Amino Transf (AST/SGOT) 14 U/L (15-37) L Alanine Aminotransferase (ALT/SGPT) 16 U/L (12-78) Alkaline Phosphatase 79 U/L (46-116) Total Protein 5.7 G/DL (6.4-8.2) L Albumin 1.6 G/DL (3.4-5.0) L Intake and Output 11/19/19 11/20/19 19:00 07:00 # Voids 1 Objective General: No acute distress, awake and alert HEENT: NCAT, sclera anicteric, PERRL, EOMI. Neck: Supple, no significant jugular venous distention, Lungs: Fair inspiratory effort, decrease air at bases, no Wheeze or Rales. Heart: Regular rate and rhythm, normal S1/S2, no murmur. Abdomen: soft, nontender, nondistended. Normoactive bowel sounds. / Rectal: Refused and deferred. Extremities: No Cyanosis , clubbing or edema. Left TMA. Neuro: A&O x 3, Able to move all extremities Skin: warm, no rash. Assessment/Plan Assessment/Plan ASSESSMENT: This is a 64-year-old female. 1. Hyperglycemia. 2. Diabetic ketoacidosis. 3. Diabetes type 2. 4. Hyponatremia. 5. Acute renal failure. 6. Cough. 7. Hypertension. 8. Diabetes type 2. 9. Sepsis due to Acute E. Coli Urinary tract infection. 10.PVD / PAD s/p left TMA. TREATMENT: 1. Urinary tract infection/leukocytosis. Patient has been started empirically on intravenous ceftriaxone. urine culture result noted. 2. Diabetic ketoacidosis. wean off insulin drip. An Endocrinology consultation has been obtained with Dr. Gay. We will follow recommendations of Endocrinology. 3. Cough. COVID-19 test is negative X 2 . We will follow recommendations of Pulmonary. Pulmonary consultation has been obtained with Dr. Kadie Chavarria. 4. Generalized weakness. 5. Renal failure. A Nephrology consultation has been obtained with Dr. Inder Wong. Patient is currently receiving intravenous fluids. Renal failure may be secondary to diabetic ketoacidosis and dehydration. 6. Hyponatremia. Patient is currently receiving normal saline. 7. Diabetes type 2. 8. Hypertension. Patient is currently hypotensive improving. Kayexalate 30 gram Heparin SQ Monitor Labs and culture. Full code. Lb Santos MD Nov 20, 2019 14:07
--- NOTE | 2019-11-20 14:45 | General Progress Note ---
Assessment/Plan Problem List: (1) Hyponatremia ICD Codes: E87.1 - Hypo-osmolality and hyponatremia SNOMED: 49852406, 85435182 (2) Diabetes mellitus ICD Codes: E11.9 - Type 2 diabetes mellitus without complications SNOMED: 09291714 (3) Toe amputation status ICD Codes: S98.139A - Complete traumatic amputation of one unspecified lesser toe, initial encounter SNOMED: 283193470 (4) Severe hyperglycemia due to diabetes mellitus ICD Codes: E11.65 - Type 2 diabetes mellitus with hyperglycemia SNOMED: 342696254, 48582237 Assessment/Plan: continue Levemir 10 units qhs continue Starlix 120 mg ac tid continue Novolog sliding scale ac / hs Subjective Allergies: Coded Allergies: PENICILLINS (Unverified Allergy, Unknown, 11/12/19) All Systems: reviewed and negative except above Subjective events noted glucose values are stable Item Value Date Time Bedside Blood Glucose 114 mg/dl 11/20/19 1134 Bedside Blood Glucose 76 mg/dl 11/20/19 0633 Bedside Blood Glucose 173 mg/dl H 11/19/19 2100 Bedside Blood Glucose 144 mg/dl H 11/19/19 1739 Bedside Blood Glucose 103 mg/dl 11/19/19 1130 Objective Last 24 Hour Vital Signs Date Time Temp Pulse Resp B/P (MAP) Pulse Ox O2 Delivery O2 Flow Rate FiO2 11/20/19 12:00 98.5 89 18 120/73 (89) 98 11/20/19 09:00 Room Air 11/20/19 08:00 97.8 86 20 106/56 (73) 98 11/20/19 04:00 97.6 88 19 120/79 (93) 98 11/20/19 00:00 98.3 90 19 116/60 (78) 97 11/19/19 21:00 Room Air 11/19/19 20:00 97.9 95 19 116/63 (80) 98 11/19/19 16:00 98.3 86 19 129/76 (93) 98 Intake and Output 11/19/19 11/20/19 19:00 07:00 # Voids 1 Laboratory Tests 11/20/19 05:30: White Blood Count 12.8H, Red Blood Count 3.01L, Hemoglobin 8.9L, Hematocrit 26.5L, Mean Corpuscular Volume 88, Mean Corpuscular Hemoglobin 29.5, Mean Corpuscular Hemoglobin Concent 33.5, Red Cell Distribution Width 12.9, Platelet Count 377, Mean Platelet Volume 4.4L, Neutrophils (%) (Auto) 84.9H, Lymphocytes (%) (Auto) 8.2L, Monocytes (%) (Auto) 5.8, Eosinophils (%) (Auto) 0.4, Basophils (%) (Auto) 0.8, Sodium Level 137, Potassium Level 5.4H, Chloride Level 108H, Carbon Dioxide Level 21, Anion Gap 8, Blood Urea Nitrogen 36H, Creatinine 3.2H, Estimat Glomerular Filtration Rate 14.7, Glucose Level 88, Calcium Level 8.3L, Phosphorus Level 4.3, Magnesium Level 2.1, Total Bilirubin 0.1L, Direct Bilirubin < 0.1, Aspartate Amino Transf (AST/SGOT) 14L, Alanine Aminotransferase (ALT/SGPT) 16, Alkaline Phosphatase 79, Total Protein 5.7L, Albumin 1.6L Height (Feet): 5 Height (Inches): 2.00 Weight (Pounds): 62 General Appearance: no apparent distress Neck: normal alignment Cardiovascular: normal rate Respiratory/Chest: lungs clear Abdomen: normal bowel sounds Pelvis: normal external exam Objective Current Medications Medications (Trade) Dose Ordered Sig/Arnoldo Route PRN Reason Start Time Stop Time Status Last Admin Dose Admin Acetaminophen (Tylenol) 650 mg Q4H PRN ORAL Fever 11/13/19 16:59 12/12/19 16:58 11/15/19 06:33 Allopurinol (allopurinoL) 300 mg DAILY ORAL 11/16/19 10:30 12/16/19 10:29 11/20/19 08:40 Ceftriaxone Sodium 1 gm/ Sodium Chloride 55 ml @ 110 mls/hr Q24H IVPB 11/14/19 09:00 11/25/19 23:59 11/20/19 10:00 Dextrose (Dextrose 50%) 25 ml Q30M PRN IV Hypoglycemia 11/13/19 17:15 02/11/20 10:14 Dextrose (Dextrose 50%) 50 ml Q30M PRN IV Hypoglycemia 11/13/19 17:15 02/11/20 10:14 Docusate Sodium (Colace) 100 mg TID ORAL 11/15/19 13:00 12/14/19 17:59 11/20/19 08:40 Fish Oil (Fish Oil) 1,000 mg BID ORAL 11/16/19 10:30 12/16/19 10:29 11/20/19 08:40 Heparin Sodium (Porcine) (Heparin 5000 units/ml) 5,000 units EVERY 12 HOURS SUBQ 11/13/19 21:00 12/27/19 20:59 11/20/19 08:50 Hydralazine HCl (Apresoline) 25 mg Q4H PRN ORAL Blood pressure over 160 systol 11/14/19 11:45 02/12/20 11:44 Insulin Aspart (NovoLOG) AC+HS SUBQ 11/15/19 11:30 02/11/20 10:59 11/19/19 20:37 Insulin Detemir (Levemir) 10 units BEDTIME SUBQ 11/19/19 21:00 02/11/20 11:29 11/19/19 20:36 Nateglinide (Starlix) 120 mg TIAC ORAL 11/16/19 11:30 12/15/19 11:29 11/20/19 10:44 Ondansetron HCl (Zofran) 4 mg Q6H PRN IVP Nausea & Vomiting 11/13/19 17:03 12/12/19 17:02 11/17/19 22:16 Pantoprazole (Protonix) 40 mg BID ORAL 11/15/19 18:00 12/14/19 11:44 11/20/19 08:40 Sevelamer Carbonate (Renvela) 1,600 mg THREE TIMES A DAY ORAL 11/17/19 09:00 02/14/20 12:59 11/20/19 08:40 Lorenzo Gay MD Nov 20, 2019 14:45
[2019-11-20] MEDS ORDERED: Tubing IV Secondary IV ONE (15:37)
[2019-11-20] MEDS ORDERED: NS 275ml ONE (15:37)
[2019-11-20 16:00] VITALS: BP 110/70
--- NOTE | 2019-11-20 18:58 | NUR ---
HAND-OFF: Report given to
--- NOTE | 2019-11-20 19:27 | NUR ---
NURSE NOTES: Report received from Fatimah GRAHAM. Patient in stable condition.
[2019-11-20 20:00] VITALS: BP 126/77
[2019-11-20] MEDS: Levemir Flexpen SUBQ SCH (20:23)
[2019-11-21] VITALS: BP 119/66
[2019-11-21 04:00] VITALS: BP 146/77
[2019-11-21] MEDS: NovoLOG Insulin Flexpen SUBQ SCH ×4 (06:12→21:00)
[2019-11-21 06:23] LABS: BASOPHILS % (AUTO) 1.1 % (0.0-2.0); EOSINOPHILS % (AUTO) 0.7 % (0.0-3.0); HEMATOCRIT 25.6 % (37.0-47.0); HEMOGLOBIN 8.6 G/DL (12.0-16.0); LYMPHOCYTES % (AUTO) 10.2 % (20.0-45.0); MEAN CORPUSCULAR VOLUME 88 FL (80-99); MONOCYTES % (AUTO) 7.3 % (1.0-10.0); NEUTROPHILS % (AUTO) 80.7 % (45.0-75.0); PLATELET COUNT 372 K/UL (150-450); RED BLOOD COUNT 2.91 M/UL (4.20-5.40); WHITE BLOOD COUNT 11.5 K/UL (4.8-10.8)
[2019-11-21 06:58] LABS: ANION GAP 6 mmol/L (5-15); BLOOD UREA NITROGEN 37 mg/dL (7-18); CALCIUM 8.5 MG/DL (8.5-10.1); CARBON DIOXIDE 24 MMOL/L (21-32); CHLORIDE 106 MMOL/L (98-107); CREATININE 3.2 MG/DL (0.55-1.30); POTASSIUM 5.8 MMOL/L (3.5-5.1); SODIUM 136 MMOL/L (136-145)
--- NOTE | 2019-11-21 07:10 | NUR ---
NURSE NOTES:WALKING ROUNDS WITH NIGHT RN.KAREN,PT.ASLEEP ON HER LEFT SIDE,ROOM AIR,NO SIGN OF DISTRESS.
--- NOTE | 2019-11-21 07:25 | NUR ---
HAND-OFF: Report given to SANTOS Solis. Patient in stable condition.
[2019-11-21 07:55] LABS: % IRON SATURATION 38 % (15-50); IRON 46 ug/dL (50-175); TOTAL IRON BINDING CAPACITY 122 ug/dL (250-450)
[2019-11-21 08:00] VITALS: BP 99/52
[2019-11-21] MEDS: Docusate 100mg cap ORAL SCH ×3 (08:36→17:10)
[2019-11-21] MEDS: cefTRIAXone 1 GM in NS 55 ML IVPB SCH (08:38)
[2019-11-21] MEDS: Heparin 5000 units/ml inj SUBQ SCH ×2 (08:39→21:00)
[2019-11-21] MEDS ORDERED: Sodium Polystyrene Sulfonate 15gm Powder ORAL SCH (08:45)
--- NOTE | 2019-11-21 09:54 | General Progress Note ---
Assessment/Plan Problem List: (1) Hyponatremia ICD Codes: E87.1 - Hypo-osmolality and hyponatremia SNOMED: 45242646, 99305875 (2) Diabetes mellitus ICD Codes: E11.9 - Type 2 diabetes mellitus without complications SNOMED: 46019015 (3) Toe amputation status ICD Codes: S98.139A - Complete traumatic amputation of one unspecified lesser toe, initial encounter SNOMED: 307043168 (4) Severe hyperglycemia due to diabetes mellitus ICD Codes: E11.65 - Type 2 diabetes mellitus with hyperglycemia SNOMED: 461295851, 34695310 Assessment/Plan: continue Levemir 10 units qhs continue Starlix 120 mg ac tid continue Novolog sliding scale ac / hs Subjective Allergies: Coded Allergies: PENICILLINS (Unverified Allergy, Unknown, 11/12/19) Subjective events noted glucose values are stable Item Value Date Time Bedside Blood Glucose 118 mg/dl 11/21/19 0612 Bedside Blood Glucose 95 mg/dl 11/20/19 1640 Bedside Blood Glucose 114 mg/dl 11/20/19 1134 Bedside Blood Glucose 76 mg/dl 11/20/19 0633 Objective Last 24 Hour Vital Signs Date Time Temp Pulse Resp B/P (MAP) Pulse Ox O2 Delivery O2 Flow Rate FiO2 11/21/19 09:00 Room Air 11/21/19 08:00 99.2 90 18 99/52 (68) 99 11/21/19 04:00 97.8 87 16 146/77 (100) 98 11/21/19 00:00 98.9 88 18 119/66 (83) 97 11/20/19 21:00 Room Air 11/20/19 20:00 99.0 90 20 126/77 (93) 97 11/20/19 16:00 98.4 80 20 110/70 (83) 97 11/20/19 12:00 98.5 89 18 120/73 (89) 98 Intake and Output 11/20/19 11/21/19 19:00 07:00 Intake Total 350 ml 500 ml Balance 350 ml 500 ml Intake Oral 240 ml 500 ml IV Total 110 ml # Voids 2 3 Laboratory Tests 11/21/19 05:35: White Blood Count 11.5H, Red Blood Count 2.91L, Hemoglobin 8.6L, Hematocrit 25.6L, Mean Corpuscular Volume 88, Mean Corpuscular Hemoglobin 29.6, Mean Corpuscular Hemoglobin Concent 33.7, Red Cell Distribution Width 13.0, Platelet Count 372, Mean Platelet Volume 4.5L, Neutrophils (%) (Auto) 80.7H, Lymphocytes (%) (Auto) 10.2L, Monocytes (%) (Auto) 7.3, Eosinophils (%) (Auto) 0.7, Basophils (%) (Auto) 1.1, Carcinoembryonic Antigen [Pending] 11/21/19 05:55: Sodium Level 136, Potassium Level 5.8H, Chloride Level 106, Carbon Dioxide Level 24, Anion Gap 6, Blood Urea Nitrogen 37H, Creatinine 3.2H, Estimat Glomerular Filtration Rate 14.7, Glucose Level 116H, Calcium Level 8.5, Iron Level 46L, Total Iron Binding Capacity 122L, Percent Iron Saturation 38, Unsaturated Iron Binding 76L, Vitamin B12 Level > 2000H, Folate 10.2 Height (Feet): 5 Height (Inches): 2.00 Weight (Pounds): 135 General Appearance: no apparent distress Neck: normal alignment Cardiovascular: normal rate Respiratory/Chest: lungs clear Abdomen: normal bowel sounds Objective Current Medications Medications (Trade) Dose Ordered Sig/Arnoldo Route PRN Reason Start Time Stop Time Status Last Admin Dose Admin Acetaminophen (Tylenol) 650 mg Q4H PRN ORAL Fever 11/13/19 16:59 12/12/19 16:58 11/15/19 06:33 Allopurinol (allopurinoL) 300 mg DAILY ORAL 11/16/19 10:30 12/16/19 10:29 11/21/19 08:36 Ceftriaxone Sodium 1 gm/ Sodium Chloride 55 ml @ 110 mls/hr Q24H IVPB 11/14/19 09:00 11/25/19 23:59 11/21/19 08:38 Dextrose (Dextrose 50%) 25 ml Q30M PRN IV Hypoglycemia 11/13/19 17:15 02/11/20 10:14 Dextrose (Dextrose 50%) 50 ml Q30M PRN IV Hypoglycemia 11/13/19 17:15 02/11/20 10:14 Docusate Sodium (Colace) 100 mg TID ORAL 11/15/19 13:00 12/14/19 17:59 11/21/19 08:36 Fish Oil (Fish Oil) 1,000 mg BID ORAL 11/16/19 10:30 12/16/19 10:29 11/21/19 08:37 Heparin Sodium (Porcine) (Heparin 5000 units/ml) 5,000 units EVERY 12 HOURS SUBQ 11/13/19 21:00 12/27/19 20:59 11/21/19 08:39 Hydralazine HCl (Apresoline) 25 mg Q4H PRN ORAL Blood pressure over 160 systol 11/14/19 11:45 02/12/20 11:44 Insulin Aspart (NovoLOG) AC+HS SUBQ 11/15/19 11:30 02/11/20 10:59 11/20/19 20:24 Insulin Detemir (Levemir) 10 units BEDTIME SUBQ 11/19/19 21:00 02/11/20 11:29 11/20/19 20:23 Metoclopramide HCl (Reglan) 10 mg ONCE ORAL 11/21/19 08:45 11/21/19 10:00 11/21/19 09:03 Nateglinide (Starlix) 120 mg TIAC ORAL 11/16/19 11:30 12/15/19 11:29 11/21/19 06:12 Ondansetron HCl (Zofran) 4 mg Q6H PRN IVP Nausea & Vomiting 11/13/19 17:03 12/12/19 17:02 11/17/19 22:16 Pantoprazole (Protonix) 40 mg BID ORAL 11/15/19 18:00 12/14/19 11:44 11/21/19 08:36 Sevelamer Carbonate (Renvela) 1,600 mg THREE TIMES A DAY ORAL 11/17/19 09:00 02/14/20 12:59 11/21/19 08:37 Sodium Polystyrene Sulfonate (Kayexalate) 45 gm ONCE ORAL 11/21/19 08:45 11/21/19 10:00 11/21/19 09:03 Lorenzo Gay MD Nov 21, 2019 09:54
--- NOTE | 2019-11-21 10:00 | Nephrology Progress Note ---
Assessment/Plan Problem List: (1) Diabetic nephropathy (2) Renal failure (ARF), acute on chronic Assessment: GFR 10-15 (3) Severe hyperglycemia due to diabetes mellitus (4) Dehydration (5) Hypotension due to hypovolemia (6) Hyponatremia (7) UTI (urinary tract infection) (8) Chronic kidney disease (CKD), stage V Assessment 64-year-old female presents with hyperglycemia and hyponatremia She also have elevated BUN and creatinine Renal impression mainly dehydration Patient may also have underlying chronic kidney disease Patient have evidence of urinary tract infection She is hypoalbuminemic She has underlying anemia Impression: - Hyperglycemia. - Hyponatremia. Mainly due to hyperglycemia - Acute renal failure. Mainly due to dehydration - Hypertension. - Sepsis due to Acute E. Coli Urinary tract infection. - PVD / PAD s/p left TMA. Plan Oral Kayexalate today for high potassium discontinue IV fluid Discontinue Fisher catheter Monitor renal parameters Monitor electrolytes Keep the blood sugar and blood pressure in check Antibiotics Avoid nephrotoxic's Start fish oil for high triglycerides 2D echocardiogram ejection fraction 65% Kidney ultrasound results noted Per orders Subjective ROS Limited/Unobtainable: No Constitutional: Reports: malaise, weakness Objective Objective Last 24 Hour Vital Signs Date Time Temp Pulse Resp B/P (MAP) Pulse Ox O2 Delivery O2 Flow Rate FiO2 11/21/19 09:00 Room Air 11/21/19 08:00 99.2 90 18 99/52 (68) 99 11/21/19 04:00 97.8 87 16 146/77 (100) 98 11/21/19 00:00 98.9 88 18 119/66 (83) 97 11/20/19 21:00 Room Air 11/20/19 20:00 99.0 90 20 126/77 (93) 97 11/20/19 16:00 98.4 80 20 110/70 (83) 97 11/20/19 12:00 98.5 89 18 120/73 (89) 98 Intake and Output 11/20/19 11/21/19 19:00 07:00 Intake Total 350 ml 500 ml Balance 350 ml 500 ml Intake Oral 240 ml 500 ml IV Total 110 ml # Voids 2 3 Laboratory Tests 11/21/19 05:35: White Blood Count 11.5H, Red Blood Count 2.91L, Hemoglobin 8.6L, Hematocrit 25.6L, Mean Corpuscular Volume 88, Mean Corpuscular Hemoglobin 29.6, Mean Corpuscular Hemoglobin Concent 33.7, Red Cell Distribution Width 13.0, Platelet Count 372, Mean Platelet Volume 4.5L, Neutrophils (%) (Auto) 80.7H, Lymphocytes (%) (Auto) 10.2L, Monocytes (%) (Auto) 7.3, Eosinophils (%) (Auto) 0.7, Basophils (%) (Auto) 1.1, Carcinoembryonic Antigen [Pending] 11/21/19 05:55: Sodium Level 136, Potassium Level 5.8H, Chloride Level 106, Carbon Dioxide Level 24, Anion Gap 6, Blood Urea Nitrogen 37H, Creatinine 3.2H, Estimat Glomerular Filtration Rate 14.7, Glucose Level 116H, Calcium Level 8.5, Iron Level 46L, Total Iron Binding Capacity 122L, Percent Iron Saturation 38, Unsaturated Iron Binding 76L, Vitamin B12 Level > 2000H, Folate 10.2 Height (Feet): 5 Height (Inches): 2.00 Weight (Pounds): 135 General Appearance: no apparent distress Cardiovascular: normal rate Respiratory/Chest: decreased breath sounds Abdomen: distended Objective No change Inder Wong MD Nov 21, 2019 10:00
[2019-11-21 12:02] VITALS: BP 149/81
--- NOTE | 2019-11-21 13:23 | GI Progress Note ---
Assessment/Plan Problems: (1) Anemia ICD Codes: D64.9 - Anemia, unspecified SNOMED: 021335000 (2) Generalized weakness ICD Codes: R53.1 - Weakness SNOMED: 75948829, 94340970 (3) Dehydration, severe ICD Codes: E86.0 - Dehydration SNOMED: 644022252 Status: unchanged Status Narrative Discussed with Dr. Cordero. Assessment/Plan anemia work up stool ob repeat cbc in am needs out patient fu for GI procedures The patient was seen and examined at bedside and all new and available data was reviewed in the patients chart. I agree with the above findings, impression and plan. (Patient seen earlier today. Signature stamp does not reflect patient encounter time.). - Andrez Cordero MD Subjective Gastrointestinal/Abdominal: Reports: no symptoms Objective Last 24 Hour Vital Signs Date Time Temp Pulse Resp B/P (MAP) Pulse Ox O2 Delivery O2 Flow Rate FiO2 11/21/19 12:02 98.5 86 20 149/81 (103) 99 11/21/19 09:00 Room Air 11/21/19 08:00 99.2 90 18 99/52 (68) 99 11/21/19 04:00 97.8 87 16 146/77 (100) 98 11/21/19 00:00 98.9 88 18 119/66 (83) 97 11/20/19 21:00 Room Air 11/20/19 20:00 99.0 90 20 126/77 (93) 97 11/20/19 16:00 98.4 80 20 110/70 (83) 97 Intake and Output 11/20/19 11/21/19 19:00 07:00 Intake Total 350 ml 500 ml Balance 350 ml 500 ml Intake Oral 240 ml 500 ml IV Total 110 ml # Voids 2 3 Laboratory Tests Test 11/21/19 05:35 11/21/19 05:55 White Blood Count 11.5 K/UL (4.8-10.8) H Red Blood Count 2.91 M/UL (4.20-5.40) L Hemoglobin 8.6 G/DL (12.0-16.0) L Hematocrit 25.6 % (37.0-47.0) L Mean Corpuscular Volume 88 FL (80-99) Mean Corpuscular Hemoglobin 29.6 PG (27.0-31.0) Mean Corpuscular Hemoglobin Concent 33.7 G/DL (32.0-36.0) Red Cell Distribution Width 13.0 % (11.6-14.8) Platelet Count 372 K/UL (150-450) Mean Platelet Volume 4.5 FL (6.5-10.1) L Neutrophils (%) (Auto) 80.7 % (45.0-75.0) H Lymphocytes (%) (Auto) 10.2 % (20.0-45.0) L Monocytes (%) (Auto) 7.3 % (1.0-10.0) Eosinophils (%) (Auto) 0.7 % (0.0-3.0) Basophils (%) (Auto) 1.1 % (0.0-2.0) Carcinoembryonic Antigen Pending Sodium Level 136 MMOL/L (136-145) Potassium Level 5.8 MMOL/L (3.5-5.1) H Chloride Level 106 MMOL/L (98-107) Carbon Dioxide Level 24 MMOL/L (21-32) Anion Gap 6 mmol/L (5-15) Blood Urea Nitrogen 37 mg/dL (7-18) H Creatinine 3.2 MG/DL (0.55-1.30) H Estimat Glomerular Filtration Rate 14.7 mL/min (>60) Glucose Level 116 MG/DL (74-106) H Calcium Level 8.5 MG/DL (8.5-10.1) Iron Level 46 ug/dL (50-175) L Total Iron Binding Capacity 122 ug/dL (250-450) L Percent Iron Saturation 38 % (15-50) Unsaturated Iron Binding 76 ug/dL (112-346) L Vitamin B12 Level > 2000 PG/ML (193-986) H Folate 10.2 NG/ML (8.6-58.9) Height (Feet): 5 Height (Inches): 2.00 Weight (Pounds): 135 General Appearance: WD/WN, no apparent distress, alert Cardiovascular: normal rate Respiratory/Chest: normal breath sounds, no respiratory distress Abdominal Exam: normal bowel sounds, non tender, soft Extremities: normal range of motion, non-tender Jesica Prakash BILINGUAL OFFICE ASSISTANT Nov 21, 2019 13:23
--- NOTE | 2019-11-21 13:32 | Internal Med Progress Note ---
Subjective Date of Service: Nov 21, 2019 Physician Name Ramón Bruno Attending Physician Lb Santos MD Current Medications Medications (Trade) Dose Ordered Sig/Arnoldo Route PRN Reason Start Time Stop Time Status Last Admin Dose Admin Acetaminophen (Tylenol) 650 mg Q4H PRN ORAL Fever 11/13/19 16:59 12/12/19 16:58 11/15/19 06:33 Allopurinol (allopurinoL) 300 mg DAILY ORAL 11/16/19 10:30 12/16/19 10:29 11/21/19 08:36 Ceftriaxone Sodium 1 gm/ Sodium Chloride 55 ml @ 110 mls/hr Q24H IVPB 11/14/19 09:00 11/25/19 23:59 11/21/19 08:38 Dextrose (Dextrose 50%) 25 ml Q30M PRN IV Hypoglycemia 11/13/19 17:15 02/11/20 10:14 Dextrose (Dextrose 50%) 50 ml Q30M PRN IV Hypoglycemia 11/13/19 17:15 02/11/20 10:14 Docusate Sodium (Colace) 100 mg TID ORAL 11/15/19 13:00 12/14/19 17:59 11/21/19 12:19 Fish Oil (Fish Oil) 1,000 mg BID ORAL 11/16/19 10:30 12/16/19 10:29 11/21/19 08:37 Heparin Sodium (Porcine) (Heparin 5000 units/ml) 5,000 units EVERY 12 HOURS SUBQ 11/13/19 21:00 12/27/19 20:59 11/21/19 08:39 Hydralazine HCl (Apresoline) 25 mg Q4H PRN ORAL Blood pressure over 160 systol 11/14/19 11:45 02/12/20 11:44 Insulin Aspart (NovoLOG) AC+HS SUBQ 11/15/19 11:30 02/11/20 10:59 11/21/19 12:26 Insulin Detemir (Levemir) 10 units BEDTIME SUBQ 11/19/19 21:00 02/11/20 11:29 11/20/19 20:23 Nateglinide (Starlix) 120 mg TIAC ORAL 11/16/19 11:30 12/15/19 11:29 11/21/19 12:19 Ondansetron HCl (Zofran) 4 mg Q6H PRN IVP Nausea & Vomiting 11/13/19 17:03 12/12/19 17:02 11/17/19 22:16 Pantoprazole (Protonix) 40 mg BID ORAL 11/15/19 18:00 12/14/19 11:44 11/21/19 08:36 Sevelamer Carbonate (Renvela) 1,600 mg THREE TIMES A DAY ORAL 11/17/19 09:00 02/14/20 12:59 11/21/19 12:19 Allergies: Coded Allergies: PENICILLINS (Unverified Allergy, Unknown, 11/12/19) ROS Limited/Unobtainable: No Constitutional: Reports: no symptoms HEENT: Reports: no symptoms Cardiovascular: Reports: no symptoms Respiratory: Reports: no symptoms Gastrointestinal/Abdominal: Reports: no symptoms Genitourinary: Reports: no symptoms Neurologic/Psychiatric: Reports: no symptoms Subjective 64 YO F admitted with cough and gen weakness. Now UTI and sepsis. Cover for Int Med-Dr Santos.. Nausea improved Objective Last Vital Signs Date Time Temp Pulse Resp B/P (MAP) Pulse Ox O2 Delivery O2 Flow Rate FiO2 11/21/19 12:02 98.5 86 20 149/81 (103) 99 11/21/19 09:00 Room Air 11/18/19 20:11 21 Laboratory Tests Test 11/21/19 05:35 11/21/19 05:55 White Blood Count 11.5 K/UL (4.8-10.8) H Red Blood Count 2.91 M/UL (4.20-5.40) L Hemoglobin 8.6 G/DL (12.0-16.0) L Hematocrit 25.6 % (37.0-47.0) L Mean Corpuscular Volume 88 FL (80-99) Mean Corpuscular Hemoglobin 29.6 PG (27.0-31.0) Mean Corpuscular Hemoglobin Concent 33.7 G/DL (32.0-36.0) Red Cell Distribution Width 13.0 % (11.6-14.8) Platelet Count 372 K/UL (150-450) Mean Platelet Volume 4.5 FL (6.5-10.1) L Neutrophils (%) (Auto) 80.7 % (45.0-75.0) H Lymphocytes (%) (Auto) 10.2 % (20.0-45.0) L Monocytes (%) (Auto) 7.3 % (1.0-10.0) Eosinophils (%) (Auto) 0.7 % (0.0-3.0) Basophils (%) (Auto) 1.1 % (0.0-2.0) Carcinoembryonic Antigen Pending Sodium Level 136 MMOL/L (136-145) Potassium Level 5.8 MMOL/L (3.5-5.1) H Chloride Level 106 MMOL/L (98-107) Carbon Dioxide Level 24 MMOL/L (21-32) Anion Gap 6 mmol/L (5-15) Blood Urea Nitrogen 37 mg/dL (7-18) H Creatinine 3.2 MG/DL (0.55-1.30) H Estimat Glomerular Filtration Rate 14.7 mL/min (>60) Glucose Level 116 MG/DL (74-106) H Calcium Level 8.5 MG/DL (8.5-10.1) Iron Level 46 ug/dL (50-175) L Total Iron Binding Capacity 122 ug/dL (250-450) L Percent Iron Saturation 38 % (15-50) Unsaturated Iron Binding 76 ug/dL (112-346) L Vitamin B12 Level > 2000 PG/ML (193-986) H Folate 10.2 NG/ML (8.6-58.9) Intake and Output 11/20/19 11/21/19 19:00 07:00 Intake Total 350 ml 500 ml Balance 350 ml 500 ml Intake Oral 240 ml 500 ml IV Total 110 ml # Voids 2 3 Objective PHYSICAL EXAMINATION: GENERAL: Patient is a well-developed and well-nourished female, in no apparent distress. HEENT: Eyes, pupils are equal and responsive to light and accommodation. Extraocular movements are intact. NECK: Supple without lymphadenopathy. CHEST: Lungs are clear to auscultation bilaterally without wheezes or rales. CARDIOVASCULAR: Regular rhythm and rate. S1, S2 are normal without murmurs, rubs, or gallops. ABDOMINAL: Soft, nontender, and nondistended. Positive bowel sounds. No evidence of hepatosplenomegaly. Currently, no rebound or guarding noted. EXTREMITIES: Negative for clubbing, cyanosis, or edema. RECTAL/GENITAL: Not performed. NEUROLOGIC: Cranial nerves II through XII are grossly intact without focal deficits. Motor strength is 5/5 bilaterally. Deep tendon reflexes 2+ plantar. Assessment/Plan Assessment/Plan ASSESSMENT: This is a 64-year-old female. 1. Hyperglycemia. 2. Diabetic ketoacidosis. 3. Diabetes type 2. 4. Hyponatremia. 5. Acute renal failure. 6. Cough. 7. Hypertension. 8. Diabetes type 2. 9. Urinary tract infection=E. Coli 10. Sepsis=E. Coli TREATMENT: 1. Urinary tract infection/sepsis=E. Coli ABX=ceftriaxone day #05/07-14 per ID=Dr Duffy 2. Diabetic ketoacidosis. Patient is currently off insulin drip. An Endocrinology consultation has been obtained with Dr. Gay. Continue starlix , levemir and novolog sliding scale per endocrinology 3. Cough. COVID-19=neg X1. A Pulmonary consultation has been obtained with Dr. Kadie Chavarria. 4. Generalized weakness. 5. Renal failure. A Nephrology consultation has been obtained with Dr. Inder Wong. 6. Hyponatremia. Patient is currently receiving normal saline. 7. Diabetes type 2. 8. Hypertension. Patient is currently hypotensive. Ramón Bruno MD Nov 21, 2019 13:32
--- NOTE | 2019-11-21 13:51 | Infectious Diseases Prog Note ---
Assessment/Plan Assessment/Plan Assessment: Severe sepsis (transient hypotension) UTI c/w bacteremia -11/11 Bcx 2/4 E.coli (R amp, bactrim; otherwise S); 11/12 Bcx Neg -u/a wbc tnct, nit neg, leuk +3; ucx >100k e.coli (R amp, bactrim; otherwise S ) -CXR: Left basilar atelectasis. No acute process otherwise Cough- COVID19 neg. No PNA on CXR -11/18 CXR: Hypoventilatory exam. Right basilar atelectasis and possibly interstitial and airspace infiltrates. Left perihilar atelectasis -11/13 CXR: Interval improved aeration in the left lung base with minimal residual atelectasis seen. The lungs otherwise appear clear. -influenza sc neg -11/11 SARS-COV2 PCR neg Afebrile Leukocytosis, improving DKA Lactic acidosis, SP SARAHI, improving Severe hyponatremia; improving Hyperkalemia, SP HTN Dm2 PVD L TMA PLan: -Continue Ceftriaxone #05/11 -f/u cx -Monitor CBC/CMP, temperatures -ok to dc COVID19 isolation Thank you for consulting [facility]. Will continue to follow along with you. Discussed with RN. Subjective Allergies: Coded Allergies: PENICILLINS (Unverified Allergy, Unknown, 11/12/19) Subjective afebrile wbc improving Objective Vital Signs Last 24 Hour Vital Signs Date Time Temp Pulse Resp B/P (MAP) Pulse Ox O2 Delivery O2 Flow Rate FiO2 11/21/19 12:02 98.5 86 20 149/81 (103) 99 11/21/19 09:00 Room Air 11/21/19 08:00 99.2 90 18 99/52 (68) 99 11/21/19 04:00 97.8 87 16 146/77 (100) 98 11/21/19 00:00 98.9 88 18 119/66 (83) 97 11/20/19 21:00 Room Air 11/20/19 20:00 99.0 90 20 126/77 (93) 97 11/20/19 16:00 98.4 80 20 110/70 (83) 97 Height (Feet): 5 Height (Inches): 2.00 Weight (Pounds): 135 Objective General Appearance: no apparent distress Cardiovascular: normal rate Respiratory/Chest: decreased breath sounds Abdomen: distended Objective No change Laboratory Tests Test 11/21/19 05:35 11/21/19 05:55 White Blood Count 11.5 K/UL (4.8-10.8) H Red Blood Count 2.91 M/UL (4.20-5.40) L Hemoglobin 8.6 G/DL (12.0-16.0) L Hematocrit 25.6 % (37.0-47.0) L Mean Corpuscular Volume 88 FL (80-99) Mean Corpuscular Hemoglobin 29.6 PG (27.0-31.0) Mean Corpuscular Hemoglobin Concent 33.7 G/DL (32.0-36.0) Red Cell Distribution Width 13.0 % (11.6-14.8) Platelet Count 372 K/UL (150-450) Mean Platelet Volume 4.5 FL (6.5-10.1) L Neutrophils (%) (Auto) 80.7 % (45.0-75.0) H Lymphocytes (%) (Auto) 10.2 % (20.0-45.0) L Monocytes (%) (Auto) 7.3 % (1.0-10.0) Eosinophils (%) (Auto) 0.7 % (0.0-3.0) Basophils (%) (Auto) 1.1 % (0.0-2.0) Carcinoembryonic Antigen Pending Sodium Level 136 MMOL/L (136-145) Potassium Level 5.8 MMOL/L (3.5-5.1) H Chloride Level 106 MMOL/L (98-107) Carbon Dioxide Level 24 MMOL/L (21-32) Anion Gap 6 mmol/L (5-15) Blood Urea Nitrogen 37 mg/dL (7-18) H Creatinine 3.2 MG/DL (0.55-1.30) H Estimat Glomerular Filtration Rate 14.7 mL/min (>60) Glucose Level 116 MG/DL (74-106) H Calcium Level 8.5 MG/DL (8.5-10.1) Iron Level 46 ug/dL (50-175) L Total Iron Binding Capacity 122 ug/dL (250-450) L Percent Iron Saturation 38 % (15-50) Unsaturated Iron Binding 76 ug/dL (112-346) L Vitamin B12 Level > 2000 PG/ML (193-986) H Folate 10.2 NG/ML (8.6-58.9) Current Medications Medications (Trade) Dose Ordered Sig/Arnoldo Route PRN Reason Start Time Stop Time Status Last Admin Dose Admin Acetaminophen (Tylenol) 650 mg Q4H PRN ORAL Fever 11/13/19 16:59 12/12/19 16:58 11/15/19 06:33 Allopurinol (allopurinoL) 300 mg DAILY ORAL 11/16/19 10:30 12/16/19 10:29 11/21/19 08:36 Ceftriaxone Sodium 1 gm/ Sodium Chloride 55 ml @ 110 mls/hr Q24H IVPB 11/14/19 09:00 11/25/19 23:59 11/21/19 08:38 Dextrose (Dextrose 50%) 25 ml Q30M PRN IV Hypoglycemia 11/13/19 17:15 02/11/20 10:14 Dextrose (Dextrose 50%) 50 ml Q30M PRN IV Hypoglycemia 11/13/19 17:15 02/11/20 10:14 Docusate Sodium (Colace) 100 mg TID ORAL 11/15/19 13:00 12/14/19 17:59 11/21/19 12:19 Fish Oil (Fish Oil) 1,000 mg BID ORAL 11/16/19 10:30 12/16/19 10:29 11/21/19 08:37 Heparin Sodium (Porcine) (Heparin 5000 units/ml) 5,000 units EVERY 12 HOURS SUBQ 11/13/19 21:00 12/27/19 20:59 11/21/19 08:39 Hydralazine HCl (Apresoline) 25 mg Q4H PRN ORAL Blood pressure over 160 systol 11/14/19 11:45 02/12/20 11:44 Insulin Aspart (NovoLOG) AC+HS SUBQ 11/15/19 11:30 02/11/20 10:59 11/21/19 12:26 Insulin Detemir (Levemir) 10 units BEDTIME SUBQ 11/19/19 21:00 02/11/20 11:29 11/20/19 20:23 Nateglinide (Starlix) 120 mg TIAC ORAL 11/16/19 11:30 12/15/19 11:29 11/21/19 12:19 Ondansetron HCl (Zofran) 4 mg Q6H PRN IVP Nausea & Vomiting 11/13/19 17:03 12/12/19 17:02 11/17/19 22:16 Pantoprazole (Protonix) 40 mg BID ORAL 11/15/19 18:00 12/14/19 11:44 11/21/19 08:36 Sevelamer Carbonate (Renvela) 1,600 mg THREE TIMES A DAY ORAL 11/17/19 09:00 02/14/20 12:59 11/21/19 12:19 Renate Duffy M.D. Nov 21, 2019 13:51
[2019-11-21 16:00] VITALS: BP 101/71
--- NOTE | 2019-11-21 19:30 | NUR ---
NURSE NOTES: Received report & pt from SANTOS Solis. Pt lying in bed, a&ox4, Turkmen speaking with little Greenlandic, in room air. No s/s of acute distress & no c/o pain; Stool specimen needed for OB & made pt aware. Pt verbalize understanding. IV site intact & S/L'd. Plan of care discussed
[2019-11-21 20:00] VITALS: BP 152/85
[2019-11-21] MEDS: Levemir Flexpen SUBQ SCH (21:00)
[2019-11-22] VITALS: BP 157/82
[2019-11-22 04:00] VITALS: BP 150/80
--- NOTE | 2019-11-22 06:00 | NUR ---
NURSE NOTES: Blood sugar 63 mg/dL; Pt is awake & alert. Juice given. Will recheck blood sugar.
--- NOTE | 2019-11-22 06:15 | NUR ---
NURSE NOTES: Blood sugar rechecked 78 mg/dL. More juice given to pt. Charge nurse aware of the sugars.
[2019-11-22] MEDS: NovoLOG Insulin Flexpen SUBQ SCH ×3 (06:23→17:14)
--- NOTE | 2019-11-22 07:15 | NUR ---
NURSE NOTES:REPORT FR. NIGHT RN(LAY),PT.[email or web address].NAD.
--- NOTE | 2019-11-22 07:16 | NUR ---
HAND-OFF: Report given to SANTOS Solis. Pt in stable condition.
[2019-11-22 07:19] LABS: BASOPHILS % (AUTO) 0.6 % (0.0-2.0); EOSINOPHILS % (AUTO) 0.7 % (0.0-3.0); HEMATOCRIT 25.4 % (37.0-47.0); HEMOGLOBIN 8.8 G/DL (12.0-16.0); LYMPHOCYTES % (AUTO) 8.9 % (20.0-45.0); MEAN CORPUSCULAR VOLUME 86 FL (80-99); MONOCYTES % (AUTO) 6.4 % (1.0-10.0); NEUTROPHILS % (AUTO) 83.4 % (45.0-75.0); PLATELET COUNT 346 K/UL (150-450); RED BLOOD COUNT 2.95 M/UL (4.20-5.40); RED CELL DISTRIBUTION WIDTH 12.4 % (11.6-14.8); WHITE BLOOD COUNT 10.8 K/UL (4.8-10.8)
[2019-11-22 07:30] LABS: ALANINE AMINOTRANSFERASE 11 U/L (12-78); ALBUMIN 1.8 G/DL (3.4-5.0); ALBUMIN/GLOBULIN RATIO 0.4 (1.0-2.7); ALKALINE PHOSPHATASE 83 U/L (46-116); ANION GAP 6 mmol/L (5-15); ASPARTATE AMINO TRANSFERASE 14 U/L (15-37); BILIRUBIN,TOTAL 0.1 MG/DL (0.2-1.0); BLOOD UREA NITROGEN 33 mg/dL (7-18); CALCIUM 8.4 MG/DL (8.5-10.1); CARBON DIOXIDE 28 MMOL/L (21-32); CHLORIDE 104 MMOL/L (98-107); PHOSPHORUS 4.6 MG/DL (2.5-4.9); POTASSIUM 4.4 MMOL/L (3.5-5.1); SODIUM 138 MMOL/L (136-145)
[2019-11-22 08:00] VITALS: BP 108/80
[2019-11-22] MEDS: Docusate 100mg cap ORAL SCH ×3 (08:17→17:09)
[2019-11-22] MEDS: Heparin 5000 units/ml inj SUBQ SCH (08:19)
[2019-11-22] MEDS: cefTRIAXone 1 GM in NS 55 ML IVPB SCH (08:20)
--- NOTE | 2019-11-22 08:20 | NUR ---
NURSE NOTES:SCHEDULED MEDS GIVEN,APPEARS WEAK,NO C/O PAIN.ENCOURAGED TO EAT,IV SITE PATENT.V/S WITH IN BASE LINE,WILL CONTINUE CURRENT PLAN OF CARE.
[2019-11-22 12:00] VITALS: BP 111/66
--- NOTE | 2019-11-22 12:18 | GI Progress Note ---
Assessment/Plan Problems: (1) Anemia ICD Codes: D64.9 - Anemia, unspecified SNOMED: 973812606 (2) Generalized weakness ICD Codes: R53.1 - Weakness SNOMED: 73856202, 71675699 (3) Dehydration, severe ICD Codes: E86.0 - Dehydration SNOMED: 691442796 Status: unchanged Status Narrative Discussed with Dr. Cordero. Assessment/Plan anemia most likely 2/2 to renal disease OB stool repeat cbc in am >> H&H stable needs out patient fu for GI procedures The patient was seen and examined at bedside and all new and available data was reviewed in the patients chart. I agree with the above findings, impression and plan. (Patient seen earlier today. Signature stamp does not reflect patient encounter time.). - Andrez Cordero MD Subjective Gastrointestinal/Abdominal: Reports: no symptoms Objective Last 24 Hour Vital Signs Date Time Temp Pulse Resp B/P (MAP) Pulse Ox O2 Delivery O2 Flow Rate FiO2 11/22/19 08:20 Room Air 11/22/19 08:00 97.1 66 20 108/80 (89) 97 11/22/19 04:00 98.0 75 18 150/80 (103) 97 11/22/19 00:00 98.3 89 18 157/82 (107) 98 11/21/19 21:00 Room Air 11/21/19 20:00 98.3 89 16 152/85 (107) 96 11/21/19 16:00 98.0 63 18 101/71 (81) 97 Intake and Output 11/21/19 11/22/19 19:00 07:00 Intake Total 1200 ml 450 ml Balance 1200 ml 450 ml Intake Oral 1200 ml 450 ml # Voids 1 1 # Bowel Movements 2 Laboratory Tests Test 11/22/19 05:50 White Blood Count 10.8 K/UL (4.8-10.8) Red Blood Count 2.95 M/UL (4.20-5.40) L Hemoglobin 8.8 G/DL (12.0-16.0) L Hematocrit 25.4 % (37.0-47.0) L Mean Corpuscular Volume 86 FL (80-99) Mean Corpuscular Hemoglobin 29.8 PG (27.0-31.0) Mean Corpuscular Hemoglobin Concent 34.6 G/DL (32.0-36.0) Red Cell Distribution Width 12.4 % (11.6-14.8) Platelet Count 346 K/UL (150-450) Mean Platelet Volume 4.4 FL (6.5-10.1) L Neutrophils (%) (Auto) 83.4 % (45.0-75.0) H Lymphocytes (%) (Auto) 8.9 % (20.0-45.0) L Monocytes (%) (Auto) 6.4 % (1.0-10.0) Eosinophils (%) (Auto) 0.7 % (0.0-3.0) Basophils (%) (Auto) 0.6 % (0.0-2.0) Sodium Level 138 MMOL/L (136-145) Potassium Level 4.4 MMOL/L (3.5-5.1) Chloride Level 104 MMOL/L (98-107) Carbon Dioxide Level 28 MMOL/L (21-32) Anion Gap 6 mmol/L (5-15) Blood Urea Nitrogen 33 mg/dL (7-18) H Creatinine 3.0 MG/DL (0.55-1.30) H Estimat Glomerular Filtration Rate 15.8 mL/min (>60) Glucose Level 74 MG/DL (74-106) Calcium Level 8.4 MG/DL (8.5-10.1) L Phosphorus Level 4.6 MG/DL (2.5-4.9) Magnesium Level 1.9 MG/DL (1.8-2.4) Total Bilirubin 0.1 MG/DL (0.2-1.0) L Aspartate Amino Transf (AST/SGOT) 14 U/L (15-37) L Alanine Aminotransferase (ALT/SGPT) 11 U/L (12-78) L Alkaline Phosphatase 83 U/L (46-116) Total Protein 6.0 G/DL (6.4-8.2) L Albumin 1.8 G/DL (3.4-5.0) L Globulin 4.2 g/dL Albumin/Globulin Ratio 0.4 (1.0-2.7) L Height (Feet): 5 Height (Inches): 2.00 Weight (Pounds): 134 General Appearance: WD/WN, no apparent distress, alert Cardiovascular: normal rate Respiratory/Chest: normal breath sounds, no respiratory distress Abdominal Exam: non tender, soft Extremities: non-tender Jesica Prakash NP Nov 22, 2019 12:18
--- NOTE | 2019-11-22 13:47 | Nephrology Progress Note ---
Assessment/Plan Problem List: (1) Diabetic nephropathy (2) Renal failure (ARF), acute on chronic Assessment: GFR 10-15 (3) Severe hyperglycemia due to diabetes mellitus (4) Dehydration (5) Hypotension due to hypovolemia (6) Hyponatremia (7) UTI (urinary tract infection) (8) Chronic kidney disease (CKD), stage V Assessment 64-year-old female presents with hyperglycemia and hyponatremia She also have elevated BUN and creatinine Renal impression mainly dehydration Patient may also have underlying chronic kidney disease Patient have evidence of urinary tract infection She is hypoalbuminemic She has underlying anemia Impression: - Hyperglycemia. - Hyponatremia. Mainly due to hyperglycemia - Acute renal failure. Mainly due to dehydration - Hypertension. - Sepsis due to Acute E. Coli Urinary tract infection. - PVD / PAD s/p left TMA. Plan Oral Kayexalate for high potassium as needed discontinue IV fluid Discontinue Fisher catheter Monitor renal parameters Monitor electrolytes Keep the blood sugar and blood pressure in check Antibiotics Avoid nephrotoxic's Start fish oil for high triglycerides 2D echocardiogram ejection fraction 65% Kidney ultrasound results noted Per orders Subjective ROS Limited/Unobtainable: No Constitutional: Reports: malaise Objective Objective Last 24 Hour Vital Signs Date Time Temp Pulse Resp B/P (MAP) Pulse Ox O2 Delivery O2 Flow Rate FiO2 11/22/19 12:00 97.1 85 20 111/66 (81) 99 11/22/19 08:20 Room Air 11/22/19 08:00 97.1 66 20 108/80 (89) 97 11/22/19 04:00 98.0 75 18 150/80 (103) 97 11/22/19 00:00 98.3 89 18 157/82 (107) 98 11/21/19 21:00 Room Air 11/21/19 20:00 98.3 89 16 152/85 (107) 96 11/21/19 16:00 98.0 63 18 101/71 (81) 97 Intake and Output 11/21/19 11/22/19 19:00 07:00 Intake Total 1200 ml 450 ml Balance 1200 ml 450 ml Intake Oral 1200 ml 450 ml # Voids 1 1 # Bowel Movements 2 Laboratory Tests 11/22/19 05:50: White Blood Count 10.8, Red Blood Count 2.95L, Hemoglobin 8.8L, Hematocrit 25.4L , Mean Corpuscular Volume 86, Mean Corpuscular Hemoglobin 29.8, Mean Corpuscular Hemoglobin Concent 34.6, Red Cell Distribution Width 12.4, Platelet Count 346, Mean Platelet Volume 4.4L, Neutrophils (%) (Auto) 83.4H, Lymphocytes (%) (Auto) 8.9L, Monocytes (%) (Auto) 6.4, Eosinophils (%) (Auto) 0.7, Basophils (%) (Auto) 0.6, Sodium Level 138, Potassium Level 4.4, Chloride Level 104, Carbon Dioxide Level 28, Anion Gap 6, Blood Urea Nitrogen 33H, Creatinine 3.0H, Estimat Glomerular Filtration Rate 15.8, Glucose Level 74, Calcium Level 8.4L, Phosphorus Level 4.6, Magnesium Level 1.9, Total Bilirubin 0.1L, Aspartate Amino Transf (AST/SGOT) 14L, Alanine Aminotransferase (ALT/SGPT) 11L, Alkaline Phosphatase 83, Total Protein 6.0L, Albumin 1.8L, Globulin 4.2, Albumin /Globulin Ratio 0.4L Height (Feet): 5 Height (Inches): 2.00 Weight (Pounds): 134 General Appearance: no apparent distress Cardiovascular: tachycardia Respiratory/Chest: decreased breath sounds Abdomen: soft Objective No change Inder Wong MD Nov 22, 2019 13:47
--- NOTE | 2019-11-22 13:59 | Internal Med Progress Note ---
Subjective Date of Service: Nov 22, 2019 Physician Name Ramón Bruno Attending Physician Lb Santos MD Current Medications Medications (Trade) Dose Ordered Sig/Arnoldo Route PRN Reason Start Time Stop Time Status Last Admin Dose Admin Acetaminophen (Tylenol) 650 mg Q4H PRN ORAL Fever 11/13/19 16:59 12/12/19 16:58 11/15/19 06:33 Allopurinol (allopurinoL) 300 mg DAILY ORAL 11/16/19 10:30 12/16/19 10:29 11/22/19 08:18 Ceftriaxone Sodium 1 gm/ Sodium Chloride 55 ml @ 110 mls/hr Q24H IVPB 11/14/19 09:00 11/25/19 23:59 11/22/19 08:20 Dextrose (Dextrose 50%) 25 ml Q30M PRN IV Hypoglycemia 11/13/19 17:15 02/11/20 10:14 Dextrose (Dextrose 50%) 50 ml Q30M PRN IV Hypoglycemia 11/13/19 17:15 02/11/20 10:14 Docusate Sodium (Colace) 100 mg TID ORAL 11/15/19 13:00 12/14/19 17:59 11/22/19 12:57 Fish Oil (Fish Oil) 1,000 mg BID ORAL 11/16/19 10:30 12/16/19 10:29 11/22/19 08:17 Heparin Sodium (Porcine) (Heparin 5000 units/ml) 5,000 units EVERY 12 HOURS SUBQ 11/13/19 21:00 12/27/19 20:59 11/22/19 08:19 Hydralazine HCl (Apresoline) 25 mg Q4H PRN ORAL Blood pressure over 160 systol 11/14/19 11:45 02/12/20 11:44 Insulin Aspart (NovoLOG) AC+HS SUBQ 11/15/19 11:30 02/11/20 10:59 11/22/19 13:00 Insulin Detemir (Levemir) 10 units BEDTIME SUBQ 11/19/19 21:00 02/11/20 11:29 11/21/19 21:00 Nateglinide (Starlix) 120 mg TIAC ORAL 11/16/19 11:30 12/15/19 11:29 11/22/19 12:57 Ondansetron HCl (Zofran) 4 mg Q6H PRN IVP Nausea & Vomiting 11/13/19 17:03 12/12/19 17:02 11/17/19 22:16 Pantoprazole (Protonix) 40 mg BID ORAL 11/15/19 18:00 12/14/19 11:44 11/22/19 08:18 Sevelamer Carbonate (Renvela) 1,600 mg THREE TIMES A DAY ORAL 11/17/19 09:00 02/14/20 12:59 11/22/19 12:58 Allergies: Coded Allergies: PENICILLINS (Unverified Allergy, Unknown, 11/12/19) ROS Limited/Unobtainable: No Constitutional: Reports: no symptoms HEENT: Reports: no symptoms Cardiovascular: Reports: no symptoms Respiratory: Reports: no symptoms Gastrointestinal/Abdominal: Reports: no symptoms Genitourinary: Reports: no symptoms Neurologic/Psychiatric: Reports: no symptoms Subjective 64 YO F admitted with cough and gen weakness. Now UTI and sepsis. Cover for Int Med-Dr Santos.. Nausea improved Objective Last Vital Signs Date Time Temp Pulse Resp B/P (MAP) Pulse Ox O2 Delivery O2 Flow Rate FiO2 11/22/19 12:00 97.1 85 20 111/66 (81) 99 11/22/19 08:20 Room Air 11/18/19 20:11 21 Laboratory Tests Test 11/22/19 05:50 White Blood Count 10.8 K/UL (4.8-10.8) Red Blood Count 2.95 M/UL (4.20-5.40) L Hemoglobin 8.8 G/DL (12.0-16.0) L Hematocrit 25.4 % (37.0-47.0) L Mean Corpuscular Volume 86 FL (80-99) Mean Corpuscular Hemoglobin 29.8 PG (27.0-31.0) Mean Corpuscular Hemoglobin Concent 34.6 G/DL (32.0-36.0) Red Cell Distribution Width 12.4 % (11.6-14.8) Platelet Count 346 K/UL (150-450) Mean Platelet Volume 4.4 FL (6.5-10.1) L Neutrophils (%) (Auto) 83.4 % (45.0-75.0) H Lymphocytes (%) (Auto) 8.9 % (20.0-45.0) L Monocytes (%) (Auto) 6.4 % (1.0-10.0) Eosinophils (%) (Auto) 0.7 % (0.0-3.0) Basophils (%) (Auto) 0.6 % (0.0-2.0) Sodium Level 138 MMOL/L (136-145) Potassium Level 4.4 MMOL/L (3.5-5.1) Chloride Level 104 MMOL/L (98-107) Carbon Dioxide Level 28 MMOL/L (21-32) Anion Gap 6 mmol/L (5-15) Blood Urea Nitrogen 33 mg/dL (7-18) H Creatinine 3.0 MG/DL (0.55-1.30) H Estimat Glomerular Filtration Rate 15.8 mL/min (>60) Glucose Level 74 MG/DL (74-106) Calcium Level 8.4 MG/DL (8.5-10.1) L Phosphorus Level 4.6 MG/DL (2.5-4.9) Magnesium Level 1.9 MG/DL (1.8-2.4) Total Bilirubin 0.1 MG/DL (0.2-1.0) L Aspartate Amino Transf (AST/SGOT) 14 U/L (15-37) L Alanine Aminotransferase (ALT/SGPT) 11 U/L (12-78) L Alkaline Phosphatase 83 U/L (46-116) Total Protein 6.0 G/DL (6.4-8.2) L Albumin 1.8 G/DL (3.4-5.0) L Globulin 4.2 g/dL Albumin/Globulin Ratio 0.4 (1.0-2.7) L Intake and Output 11/21/19 11/22/19 19:00 07:00 Intake Total 1200 ml 450 ml Balance 1200 ml 450 ml Intake Oral 1200 ml 450 ml # Voids 1 1 # Bowel Movements 2 Objective PHYSICAL EXAMINATION: GENERAL: Patient is a well-developed and well-nourished female, in no apparent distress. HEENT: Eyes, pupils are equal and responsive to light and accommodation. Extraocular movements are intact. NECK: Supple without lymphadenopathy. CHEST: Lungs are clear to auscultation bilaterally without wheezes or rales. CARDIOVASCULAR: Regular rhythm and rate. S1, S2 are normal without murmurs, rubs, or gallops. ABDOMINAL: Soft, nontender, and nondistended. Positive bowel sounds. No evidence of hepatosplenomegaly. Currently, no rebound or guarding noted. EXTREMITIES: Negative for clubbing, cyanosis, or edema. RECTAL/GENITAL: Not performed. NEUROLOGIC: Cranial nerves II through XII are grossly intact without focal deficits. Motor strength is 5/5 bilaterally. Deep tendon reflexes 2+ plantar. Assessment/Plan Assessment/Plan ASSESSMENT: This is a 64-year-old female. 1. Hyperglycemia. 2. Diabetic ketoacidosis. 3. Diabetes type 2. 4. Hyponatremia. 5. Acute renal failure. 6. Cough. 7. Hypertension. 8. Diabetes type 2. 9. Urinary tract infection=E. Coli 10. Sepsis=E. Coli TREATMENT: 1. Urinary tract infection/sepsis=E. Coli ABX=ceftriaxone day #05/07-14 per ID=Dr Duffy 2. Diabetic ketoacidosis. Patient is currently off insulin drip. An Endocrinology consultation has been obtained with Dr. Gay. Continue starlix , levemir and novolog sliding scale per endocrinology 3. Cough. COVID-19=neg X1. A Pulmonary consultation has been obtained with Dr. Kadie Chavarria. 4. Generalized weakness. 5. Renal failure. A Nephrology consultation has been obtained with Dr. Inder Wong. 6. Hyponatremia. Patient is currently receiving normal saline. 7. Diabetes type 2. 8. Hypertension. 9. Discharge home Ramón Bruno MD Nov 22, 2019 13:59
[2019-11-22] MEDS ORDERED: LEVOFLOXACIN500 MG ORAL (14:03)
[2019-11-22 16:00] VITALS: BP 132/79
--- NOTE | 2019-11-22 16:28 | General Progress Note ---
Assessment/Plan Problem List: (1) Hyponatremia ICD Codes: E87.1 - Hypo-osmolality and hyponatremia SNOMED: 37220484, 97523841 (2) Diabetes mellitus ICD Codes: E11.9 - Type 2 diabetes mellitus without complications SNOMED: 61403097 (3) Toe amputation status ICD Codes: S98.139A - Complete traumatic amputation of one unspecified lesser toe, initial encounter SNOMED: 391412303 (4) Severe hyperglycemia due to diabetes mellitus ICD Codes: E11.65 - Type 2 diabetes mellitus with hyperglycemia SNOMED: 462456845, 87117803 Status: unchanged Assessment/Plan: continue Levemir 10 units qhs continue Starlix 120 mg ac tid continue Novolog sliding scale ac / hs Subjective Allergies: Coded Allergies: PENICILLINS (Unverified Allergy, Unknown, 11/12/19) All Systems: reviewed and negative except above Subjective events noted glucose values are stable Item Value Date Time Bedside Blood Glucose 162 mg/dl H 11/22/19 1300 Bedside Blood Glucose 78 mg/dl 11/22/19 0623 Bedside Blood Glucose 224 mg/dl H 11/21/19 2141 Objective Last 24 Hour Vital Signs Date Time Temp Pulse Resp B/P (MAP) Pulse Ox O2 Delivery O2 Flow Rate FiO2 11/22/19 16:00 97.9 89 18 132/79 (96) 97 11/22/19 12:00 97.1 85 20 111/66 (81) 99 11/22/19 08:20 Room Air 11/22/19 08:00 97.1 66 20 108/80 (89) 97 11/22/19 04:00 98.0 75 18 150/80 (103) 97 11/22/19 00:00 98.3 89 18 157/82 (107) 98 11/21/19 21:00 Room Air 11/21/19 20:00 98.3 89 16 152/85 (107) 96 Intake and Output 11/21/19 11/22/19 19:00 07:00 Intake Total 1200 ml 450 ml Balance 1200 ml 450 ml Intake Oral 1200 ml 450 ml # Voids 1 1 # Bowel Movements 2 Laboratory Tests 11/22/19 05:50: White Blood Count 10.8, Red Blood Count 2.95L, Hemoglobin 8.8L, Hematocrit 25.4L , Mean Corpuscular Volume 86, Mean Corpuscular Hemoglobin 29.8, Mean Corpuscular Hemoglobin Concent 34.6, Red Cell Distribution Width 12.4, Platelet Count 346, Mean Platelet Volume 4.4L, Neutrophils (%) (Auto) 83.4H, Lymphocytes (%) (Auto) 8.9L, Monocytes (%) (Auto) 6.4, Eosinophils (%) (Auto) 0.7, Basophils (%) (Auto) 0.6, Sodium Level 138, Potassium Level 4.4, Chloride Level 104, Carbon Dioxide Level 28, Anion Gap 6, Blood Urea Nitrogen 33H, Creatinine 3.0H, Estimat Glomerular Filtration Rate 15.8, Glucose Level 74, Calcium Level 8.4L, Phosphorus Level 4.6, Magnesium Level 1.9, Total Bilirubin 0.1L, Aspartate Amino Transf (AST/SGOT) 14L, Alanine Aminotransferase (ALT/SGPT) 11L, Alkaline Phosphatase 83, Total Protein 6.0L, Albumin 1.8L, Globulin 4.2, Albumin /Globulin Ratio 0.4L Height (Feet): 5 Height (Inches): 2.00 Weight (Pounds): 134 General Appearance: no apparent distress Neck: normal alignment Cardiovascular: normal rate Respiratory/Chest: lungs clear Abdomen: normal bowel sounds Objective Current Medications Medications (Trade) Dose Ordered Sig/Arnoldo Route PRN Reason Start Time Stop Time Status Last Admin Dose Admin Acetaminophen (Tylenol) 650 mg Q4H PRN ORAL Fever 11/13/19 16:59 12/12/19 16:58 11/15/19 06:33 Allopurinol (allopurinoL) 300 mg DAILY ORAL 11/16/19 10:30 12/16/19 10:29 11/22/19 08:18 Ceftriaxone Sodium 1 gm/ Sodium Chloride 55 ml @ 110 mls/hr Q24H IVPB 11/14/19 09:00 11/25/19 23:59 11/22/19 08:20 Dextrose (Dextrose 50%) 25 ml Q30M PRN IV Hypoglycemia 11/13/19 17:15 02/11/20 10:14 Dextrose (Dextrose 50%) 50 ml Q30M PRN IV Hypoglycemia 11/13/19 17:15 02/11/20 10:14 Docusate Sodium (Colace) 100 mg TID ORAL 11/15/19 13:00 12/14/19 17:59 11/22/19 12:57 Fish Oil (Fish Oil) 1,000 mg BID ORAL 11/16/19 10:30 12/16/19 10:29 11/22/19 08:17 Heparin Sodium (Porcine) (Heparin 5000 units/ml) 5,000 units EVERY 12 HOURS SUBQ 11/13/19 21:00 12/27/19 20:59 11/22/19 08:19 Hydralazine HCl (Apresoline) 25 mg Q4H PRN ORAL Blood pressure over 160 systol 11/14/19 11:45 02/12/20 11:44 Insulin Aspart (NovoLOG) AC+HS SUBQ 11/15/19 11:30 02/11/20 10:59 11/22/19 13:00 Insulin Detemir (Levemir) 10 units BEDTIME SUBQ 11/19/19 21:00 02/11/20 11:29 11/21/19 21:00 Nateglinide (Starlix) 120 mg TIAC ORAL 11/16/19 11:30 12/15/19 11:29 11/22/19 12:57 Ondansetron HCl (Zofran) 4 mg Q6H PRN IVP Nausea & Vomiting 11/13/19 17:03 12/12/19 17:02 11/17/19 22:16 Pantoprazole (Protonix) 40 mg BID ORAL 11/15/19 18:00 12/14/19 11:44 11/22/19 08:18 Sevelamer Carbonate (Renvela) 1,600 mg THREE TIMES A DAY ORAL 11/17/19 09:00 02/14/20 12:59 11/22/19 12:58 Lorenzo Gay MD Nov 22, 2019 16:28
--- NOTE | 2019-11-22 17:52 | NUR ---
NURSE NOTES:D/C INSTRUCTIONS,INCLUDING,RX.DISCUSSED AND CONFIRMED OVER THE PHONE WITH DAUGHTER(YOUSUF REYES)VERBALIZE UNDERSTANDING.
--- NOTE | 2019-11-22 18:40 | NUR ---
NURSE NOTES:D/C TO HOME BY PRIVATE CAR,PICKED BY DAUGHTER(YOUSUF)BELONGINGS GIVEN,PT. STABLE ON CARTOONIST SPECIAL EFFECTS.
--- NOTE | 2019-11-23 10:28 | Discharge Summary ---
Discharge Summary Discharge Summary _ DATE OF ADMISSION: 11/12/2019 DATE OF DISCHARGE: 11/22/2019 DISCHARGED BY: Dr. Santos REASON FOR ADMISSION: 64 years old female with past medical history of hypertension, diabetes mellitus type 2, presented with chief complaint of cough and generalized weakness. Upon evaluation blood sugar was above 800. Patient was hypotensive with blood pressure 77/50. Pulse oximetry was 95% on room air. No fevers. Laboratory work-up revealed leukocytosis WBC of 24.5, hemoglobin 11.4, hematocrit 34.4. Platelet count 359. Sodium 116, potassium 5.9, anion gap 13. BUN 101, creatinine 4.2. Glucose 883. Lactic acid 2.1. AST 8, ALT 12 ,total CK 7. Troponin negative , pro BNP 1587 . EKG revealed sinus rhythm no acute ischemic changes. Urinalysis revealed +3 leukocyte esterase ,+2 protein ,pyuria and many bacteria . Chest x-ray revealed no acute cardiopulmonary pathology . patient was swabbed for COVID-19 , pancultured, started on IV fluids, empiric antibiotics, received insulin and admitted for further management. CONSULTANTS: critical care Dr. Chavarria ID specialist Dr. Duffy GI specialist Dr. Cordero produce sorter Dr. Wong [facility] COU[facility]: Patient admitted and started on the IV fluids and empiric antibiotics. Blood sugar was managed as per ball holder . Hemodynamic status was closely monitored. Patient was initially transiently hypotensive , but blood pressure responded to IV fluids , no need for pressors. Blood culture revealed growth of E. coli. Urine culture revealed growth of E. coli. SARS CoV-2 by PCR came back non detected. Isolation discontinued. Influenza swab test was negative. Repeated blood culture on fro clearance were negative. Leukocytosis resolved. Patient will need to continue antibiotic for total of 2 weeks as per ID specialist recommendation. Antibiotics changed to oral upon discharge to complete the course at home. Hemoglobin A1c 12.4 ,clearly not at goal. Diabetic diet and diabetic teaching provided. Blood sugar was managed with long-acting Levemir , Starlix and sliding scale of insulin as needed. Patient was counseled on compliance with medication regimen. Renal parameters and electrolytes were closely monitored. Electrolyte corrected as needed. Sodium 138 prior to discharge. Per nephrology acute renal failure was mainly due to dehydration and improved with IV hydration . Creatinine from 4.2 down to 3.0. Renal ultrasound demonstrated no hydronephrosis. Normal bilateral kidney echogenicity. Deliver Driver recommended avoid nephrotoxics in future. Hemoglobin and hematocrit were closely monitored with goal to keep hemoglobin above 7. Anemia work-up was consistent with anemia of chronic disease. Patient clinically stabilized and was ready for discharge home. FINAL DIAGNOSES: Severe sepsis with E. coli bacteremia ( due to UTI) E. coli UTI Diabetes out of control ( HgA1c>12) Severe hyperglycemia due to diabetes mellitus Severe hyponatremia -resolved Severe dehydration Acute renal failure on chronic kidney disease Diabetic nephropathy PVD. status post TMA DISCHARGE MEDICATIONS: See Medication Reconciliation list. DISCHARGE INSTRUCTIONS: Patient was discharged home. Reinforced compliance with medication regimen. Patient to follow-up with a primary care provider in 1 to 2weeks via phone if office still close. I have been assigned to dictate discharge summary for this account. I was not involved in the patient's management. Amrita Sierra NP Nov 23, 2019 10:28
--- NOTE | 2019-11-23 11:34 | NUR ---
INSURANCE UPDATED CLINICALS AND DISCHARGE SUMMARY HAS BEEN FAXED TO: JOE VOGT:HANDY F: [phone]
--- NOTE | 2019-11-24 13:24 | NUR ---
INSURANCE UPDATED CLINICALS AND DISCHARGE SUMMARY HAS BEEN FAXED TO: JOE VOGT:HANDY F: [phone]
== END 2019-11-22 18:45 | disposition home or self-care (01) | DRG 463 ==
LOC: EDBD 13:18 → EMR 14:13 → EDBEDREQ 15:41 → EDBEDREQSVC 15:41 → ICU 16:03 → EDBEDREQ 16:09 → 4E 11-13 17:49 → 3E 11-15 15:29
DX: N39.0 Urinary tract infection, site not specified (principal); E87.1 Hypo-osmolality and hyponatremia; E86.0 Dehydration; E11.21 Type 2 diabetes mellitus with diabetic nephropathy; N17.9 Acute kidney failure, unspecified; E11.10 Type 2 diabetes mellitus with ketoacidosis without coma; Z89.412 Acquired absence of left great toe; Z79.4 Long term (current) use of insulin; Z88.0 Allergy status to penicillin; I10 Essential (primary) hypertension; A41.51 Sepsis due to Escherichia coli [E. coli]; R65.20 Severe sepsis without septic shock; I12.9 Hypertensive chronic kidney disease with stage 1 through stage 4 chronic kidney disease, or unspecified chronic kidney disease; E11.22 Type 2 diabetes mellitus with diabetic chronic kidney disease; N18.9 Chronic kidney disease, unspecified; I73.9 Peripheral vascular disease, unspecified; E87.5 Hyperkalemia; N18.5 Chronic kidney disease, stage 5
CPT/HCPCS: 36415; 71045; 76770; 80048; 80053; 80061; 80076; 81003; 82150; 82378; 82550; 82553; 82607; 82728; 82746; 82962; 82977; 83036; 83540; 83550; 83605; 83615; 83690; 83735; 83880; 84100; 84300; 84443; 84484; 84550; 85007; 85025; 85379; 85610; 85651; 85730; 86140; 86710; 87040; 87081; 87086; 87181; 87635; 93005; 93306; 94664; 96361; 96365; 96375; 99291; J1815; J2405; J7030; S5561